=== PATIENT | male | born 1940 | race Hispanic/Latino ===

== ENCOUNTER 2016-08-05 15:28 | Inpatient (IN) | payer MEDICAID, MEDICARE ==
[2016-08-05] VITALS (21 sets, daily range): BP systolic 51–128; BP diastolic 26–69
[~2016-08-05] VITALS: Ht 162.6 cm; Wt 81.6 kg
[~2016-08-05 15:28] MED LIST: CYANOCOBAL1000 MCG/2 IM; LOPRESSOR25 M1 ORAL; NIACIN100 MG ORAL; PROCRIT10000 UNIT SUBQ; PROPRANOLOL HCL80 M1 ORAL; SYNTHROID50 MCG ORAL; ZYLOPRIM100 MG ORAL; Zemuron 50mg/5ml Inj IV ONE
[2016-08-05] MEDS ORDERED: metroNIDAZOLE 500mg 100 ML IV SCH (15:30)
[2016-08-05] MEDS ORDERED: Ampicillin/Sulbactam Sod 3 GM in NS 110 ML IV SCH (15:30)
[2016-08-05 15:59] LABS: MEAN CORPUSCULAR HEMOGLOBIN 24.7 PG (27.0-31.0); MEAN CORPUSCULAR HGB CONC 29.4 G/DL (32.0-36.0); MEAN CORPUSCULAR VOLUME 84 FL (80-99); MEAN PLATELET VOLUME 6.3 FL (6.5-10.1); PLATELET COUNT 108 K/UL (150-450); RED BLOOD COUNT 2.65 M/UL (4.70-6.10); RED CELL DISTRIBUTION WIDTH 16.9 % (11.6-14.8); WHITE BLOOD COUNT 13.9 K/UL (4.8-10.8)
[2016-08-05] MEDS ORDERED: Ketamine HCl 100mg syr IV ONE (16:00)
[2016-08-05 16:04] LABS: ABG ALLEN TEST POSITIVE; ABG BASE EXCESS -9.9; ABG PCO2 31.2 mmHg (35.0-45.0)
[2016-08-05 16:05] LABS: INR 1.8 (0.9-1.1); PROTHROMBIN TIME 18.8 SEC (9.30-11.50)
[2016-08-05] MEDS ORDERED: DOPamine 400mg/250ml 250 ML IV ONE (16:13)
[2016-08-05 16:18] LABS: TROPONIN I < 0.30 ng/mL (<=0.30)
[2016-08-05 16:19] LABS: ALANINE AMINOTRANSFERASE 5 U/L (3-41); ALBUMIN/GLOBULIN RATIO 0.3 (1.0-2.7); ASPARTATE AMINO TRANSFERASE 10 U/L (5-40); CALCIUM 6.9 mg/dL (8.6-10.2); CARBON DIOXIDE 16 mEQ/L (20-30); CHLORIDE 104 mEQ/L (98-107); CREATININE 6.9 mg/dL (0.7-1.2); HEMOLYSIS 9; LIPASE 15 U/L (< 60); SODIUM 142 mEQ/L (135-145); TOTAL PROTEIN 6.4 g/dL (6.6-8.7)
[2016-08-05 16:22] LABS: REFLEX LACTIC ACID YES OR NO YES
[2016-08-05 16:29] LABS: CKMB 1.8 ng/mL (< 6.7)
[2016-08-05 16:35] LABS: ANION GAP 22 (5-15); POTASSIUM 5.9 mEQ/L (3.4-4.9)
[2016-08-05] MEDS: DOPamine 400mg/250ml 250 ML IV SCH (17:00)
[2016-08-05 17:05] LABS: BILIRUBIN,DIRECT 0.8 mg/dL (0.1-0.3)
[2016-08-05] MEDS ORDERED: Unasyn 3gm Inj ONE (17:30)
[2016-08-05 17:52] LABS: BAND NEUTROPHILS % (MANUAL) 2 % (0-8); BASOPHILS % (MANUAL) 0 % (0-2); EOSINOPHILS % (MANUAL) 0 % (0-3); LYMPHOCYTES % (MANUAL) 9 % (20-45); NEUTROPHILS % (MANUAL) 86 % (45-75); NUCLEATED RED BLOOD CELLS 1 /100 WBC; PLATELET ESTIMATE DECREASED; PLATELET MORPHOLOGY NORMAL; TOTAL CELLS COUNTED 100
[2016-08-05 17:53] LABS: ANISOCYTOSIS 1+; HYPOCHROMASIA 2+
[2016-08-05] MEDS ORDERED: Etomidate 40mg/20ml Inj IV ONE ×2 (18:00→18:30)
[2016-08-05] MEDS ORDERED: SENNA S TABLET1 EAC1 PO (18:28)
[2016-08-05] MEDS ORDERED: MULTIVITAMINS1 EAC2 ORAL (18:28)
[2016-08-05] MEDS ORDERED: MILK OF MA2400 MG/10 ORAL (18:28)
[2016-08-05] MEDS ORDERED: COLACE100 MG ORAL (18:28)
[2016-08-05] MEDS ORDERED: KLOR-CON20 MEQ ORAL (18:28)
[2016-08-05] MEDS ORDERED: CLONIDINE HCL0.1 MG PO (18:28)
[2016-08-05] MEDS ORDERED: FUROSEMIDE20 M1 ORAL (18:28)
[2016-08-05] MEDS ORDERED: FERROUSUL325 M1 PO (18:28)
[2016-08-05] MEDS ORDERED: REMERON15 MG ORAL (18:28)
[2016-08-05] MEDS ORDERED: TYLENOL650 MG/20. ORAL (18:28)
[2016-08-05] MEDS ORDERED: DUONEB 0.5-3(2.53 ML HHN (18:28)
[2016-08-05] MEDS ORDERED: OYSTER SHELL 21 EACH PO (18:28)
[2016-08-05] MEDS ORDERED: PEPCID20 MG ORAL (18:28)
[2016-08-05] MEDS ORDERED: COREG6.25 MG ORAL (18:28)
[2016-08-05] MEDS ORDERED: Albuterol ud Inhalation HHN ONE (18:45)
[2016-08-05] MEDS ORDERED: Zosyn 2.25gm inj ONE (19:11)
[2016-08-05] MEDS: Clindamycin 600mg 50 ML IV SCH (19:14)
[2016-08-05] MEDS ORDERED: LORazepam Inj 2mg/ml 1ml IV ONE (19:15)
[2016-08-05 19:17] LABS: APPEARANCE,URINE SLIGHTLY CLOUDY; KETONES,URINE NEGATIVE (NEGATIVE); LEUKOCYTE ESTERASE ,URINE NEGATIVE (NEGATIVE); NITRITE,URINE NEGATIVE (NEGATIVE); PH,URINE 5 (4.5-8.0); PROTEIN,URINE 1+ (NEGATIVE); UROBILINOGEN,URINE 1 MG/DL (0.0-1.0)
[2016-08-05 19:37] LABS: BACTERIA,URINE FEW /HPF; RBC,URINE 0-2 /HPF (0 - 0); SQUAMOUS EPITHELIAL CELL,UR MANY /LPF (NONE/OCC); WBC,URINE 0-2 /HPF (0 - 0)
[2016-08-05 19:38] LABS: AMORPHOUS SEDIMENT,UR MODERATE /LPF; ICTOTEST NEGATIVE
[2016-08-05 19:44] LABS: CRP QUANT 20.5 mg/dL (< 0.5)
[2016-08-05 19:45] LABS: HEMOLYSIS 3; IRON < 10 ug/dL (59-158); TOTAL IRON BINDING CAPACITY 109 ug/dL (250-400)
[2016-08-05] MEDS: Piperacillin/Tazobactam 2.25 GM in D5W 55 ML IVPB SCH (19:45)
[2016-08-05 19:54] LABS: FERRITIN 204 ng/mL (10-230)
[2016-08-05] MEDS ORDERED: LORazepam Inj 2mg/ml 1ml IV PRN (20:30)
[2016-08-05] MEDS ORDERED: Miralax 17gm pkt ORAL PRN (20:30)
[2016-08-05] MEDS ORDERED: DuoNeb 0.5-3(2.5)mg/3ml neb HHN PRN (20:30)
[2016-08-05 20:39] LABS: ERYTHROCYTE SEDIMENTATION RATE 94 MM/HR (0-20); PATH BLOOD SMEAR/OMC SENT TO PATHOLOGIST
[2016-08-05] MEDS: NovoLOG Insulin Flexpen SUBQ SCH (21:00)
[2016-08-05] MEDS: Iron Sucrose 100 MG in NS 110 ML IVPB SCH (23:42)
[2016-08-05] MEDS ORDERED: Amikacin 0 MG in NS 110 ML IV SCH (23:45)
[2016-08-05] MEDS ORDERED: Vancomycin 1 GM in D5W 275 ML IV SCH (23:45)
[2016-08-05] MEDS ORDERED: Ertapenem 1 GM in NS 55 ML IV SCH (23:45)
[2016-08-06] VITALS (96 sets, daily range): BP systolic 73–130; BP diastolic 33–92
[2016-08-06 00:11] LABS: REFLEX LACTIC ACID YES OR NO YES
--- NOTE | 2016-08-06 00:44 | Emergency Room Report ---
History of Present Illness General Chief Complaint: Dyspnea/Respdistress Source: Medical Record Present Illness HPI Patient is a 75-year-old male who presented after having increased respiratory distress. Patient had gradual onset of symptoms. [facility] Patient noted be hypotensive patient prior history of renal insufficiency as well as congestive heart failure. Patient having increased shortness of breath. Patient was brought in by EMS and was started on supplemental oxygen via mask. The patient was noted to be hypotensive. Allergies: Coded Allergies: HEPARIN (Verified Allergy, Mild, 12/21/14) Patient History Past Medical History: see triage record Reviewed Nursing Documentation: PMH: Agreed, PSxH: Agreed Nursing Documentation-PMH Hx Cardiac Problems: Yes - HF ,A-FIB,CHF, ANEMIA, HYPERLIPIDEMIA, PANCYTOPENIA , AZOTEMIA Hx Hypertension: Yes - CELLULITIS Hx Diabetes: Yes - TYPE 2 Hx Cancer: No Hx Gastrointestinal Problems: Yes - GERD Hx Neurological Problems: No Review of Systems All Other Systems: negative except mentioned in HPI Physical Exam Vital Signs Date Time Temp Pulse Resp B/P Pulse Ox O2 Delivery O2 Flow Rate FiO2 08/05/16 15:04 98.4 172 22 134/76 92 Non-Rebreather 15.0 08/05/16 15:19 100 Sp02 EP Interpretation: normal General Appearance: alert, severe distress, thin, Chronically Ill ENT: normal pharynx, other Neck: full range of motion Respiratory: rhonchi Cardiovascular #1: JVD, tachycardia, irregularly irregular Gastrointestinal: distended Genitourinary: other - right hernia, scrotal swelling, phimosis. Musculoskeletal: swelling Neurologic: normal inspection, alert, motor strength/tone normal Procedures Critical Care Time Critical Care Time Patient had a critical medical condition which untreated could potentially result in life or limb threatening injury. Total critical care time excluding procedures approximately 45 minutes. Central Line Central Line : Consent: Emergent Central Line Lumen: triple Maximal Sterile Barrier Tech: yes cap, yes mask, yes sterile gown, yes sterile gloves, yes large sterile sheet, yes hand hygiene, yes chlorhexidine prep Central Line Postion: internal jugular (R) Anesthesia: local Complications: none Central Line Post Position: sutured, good blood return, position confirmed w / CXR Attempts: One Patient Tolerated: Well Intubation Intubation : Consent: Emergent Time of Intubation: 13:15 Intubation Method: orotracheal Tube Size (cm): 7.5 Medications: Etomidate, Rocuronium Breath Sounds after Intubation: equal Intubation Complications: no complications Post Intubation Xray: Yes Attempts: One Patient Tolerated: Well Complications: None Medical Decision Making Diagnostic Impression: Primary Impression: Respiratory distress Additional Impressions: Septic shock Symptomatic anemia Multiorgan failure ER Course Patient presented for shortness of breath. Differential included but was not limited to anemia, pneumonia, pneumothorax, myocardial infarction, pericardial effusion, congestive heart failure, acidosis. A chest x-ray one view interpreted by me showed adequate endotracheal tube as well as bilateral pleural effusions and cardiomegaly. Right IJ central venous catheter appeared to be placed. There is no evident pneumothorax. The patient was started on IV pressors. Patient was given etomidate and rocuronium and was intubated after require endoscopy x1 with a 7-5 ET tube at [address] Shannon was contacted for urology consult due to patient's phimosis and difficulty the Acevedo catheter placement. Dr. Apodaca was contacted for inpatient management due to complexity of medical condition. Dr. van was contacted for pulmonary consult Labs Test 08/05/16 15:02 08/05/16 15:10 08/05/16 15:30 08/05/16 15:50 White Blood Count 13.9 K/UL (4.8-10.8) Red Blood Count 2.65 M/UL (4.70-6.10) Hemoglobin 7.0 G/DL (14.2-18.0) Hematocrit 22.3 % (42.0-52.0) Mean Corpuscular Volume 84 FL (80-99) Mean Corpuscular Hemoglobin 24.7 PG (27.0-31.0) Mean Corpuscular Hemoglobin Concent 29.4 G/DL (32.0-36.0) Red Cell Distribution Width 16.9 % (11.6-14.8) Platelet Count 108 K/UL (150-450) Mean Platelet Volume 6.3 FL (6.5-10.1) Neutrophils (%) (Auto) % (45.0-75.0) Lymphocytes (%) (Auto) % (20.0-45.0) Monocytes (%) (Auto) % (1.0-10.0) Eosinophils (%) (Auto) % (0.0-3.0) Basophils (%) (Auto) % (0.0-2.0) Differential Total Cells Counted 100 Neutrophils % (Manual) 86 % (45-75) Lymphocytes % (Manual) 9 % (20-45) Monocytes % (Manual) 3 % (1-10) Eosinophils % (Manual) 0 % (0-3) Basophils % (Manual) 0 % (0-2) Band Neutrophils 2 % (0-8) Nucleated Red Blood Cells 1 /100 WBC Platelet Estimate Decreased Platelet Morphology Normal Hypochromasia 2+ Anisocytosis 1+ Prothrombin Time 18.8 SEC (9.30-11.50) Prothromb Time International Ratio 1.8 (0.9-1.1) Activated Partial Thromboplast Time 39 SEC (23-33) Erythrocyte Sedimentation Rate 94 MM/HR (0-20) Reticulocyte Count 0.8 % (0.0-2.0) Iron Level < 10 ug/dL (59-158) Total Iron Binding Capacity 109 ug/dL (250-400) Percent Iron Saturation 9 % (15-50) Unsaturated Iron Binding 99 ug/dL (112-346) Ferritin 204 ng/mL (10-230) C-Reactive Protein, Quantitative 20.5 mg/dL (< 0.5) Vitamin B12 Level 1693 pg/mL (211-946) Sodium Level 142 mEQ/L (135-145) Potassium Level 5.9 mEQ/L (3.4-4.9) Chloride Level 104 mEQ/L (98-107) Carbon Dioxide Level 16 mEQ/L (20-30) Anion Gap 22 (5-15) Blood Urea Nitrogen 103 mg/dL (7-23) Creatinine 6.9 mg/dL (0.7-1.2) Estimat Glomerular Filtration Rate mL/min (>60) Glucose Level 64 mg/dL (74-106) Calcium Level 6.9 mg/dL (8.6-10.2) Total Bilirubin 1.2 mg/dL (0.0-1.2) Direct Bilirubin 0.8 mg/dL (0.1-0.3) Aspartate Amino Transf (AST/SGOT) 10 U/L (5-40) Alanine Aminotransferase (ALT/SGPT) 5 U/L (3-41) Alkaline Phosphatase 102 U/L (40-129) Total Creatine Kinase 71 U/L (38-174) Creatine Kinase MB 1.8 ng/mL (< 6.7) Creatine Kinase MB Relative Index 2.5 Troponin I < 0.30 ng/mL (<=0.30) Pro-B-Type Natriuretic Peptide > 87644 pg/mL (0-450) Total Protein 6.4 g/dL (6.6-8.7) Albumin 1.6 g/dL (3.5-5.2) Globulin 4.8 g/dL Albumin/Globulin Ratio 0.3 (1.0-2.7) Lipase 15 U/L (< 60) Arterial Blood pH 7.312 (7.350-7.450) Arterial Blood Partial Pressure CO2 31.2 mmHg (35.0-45.0) Arterial Blood Partial Pressure O2 464.0 mmHg (75.0-100.0) Arterial Blood HCO3 15.4 mmol/L (22.0-26.0) Arterial Blood Oxygen Saturation 99.9 % (92.0-98.0) Arterial Blood Base Excess -9.9 Sancho Test Positive Test 08/05/16 18:39 08/05/16 23:00 Urine Color Yellow Urine Appearance Slightly cloudy Urine pH 5 (4.5-8.0) Urine Specific [place] 1.015 (1.005-1.035) Urine Protein 1+ (NEGATIVE) Urine Glucose (UA) Negative (NEGATIVE) Urine Ketones Negative (NEGATIVE) Urine Occult Blood Negative (NEGATIVE) Urine Nitrite Negative (NEGATIVE) Urine Bilirubin 1+ (NEGATIVE) Urine Ictotest Negative Urine Urobilinogen 1 MG/DL (0.0-1.0) Urine Leukocyte Esterase Negative (NEGATIVE) Urine RBC 0-2 /HPF (0 - 0) Urine WBC 0-2 /HPF (0 - 0) Urine Squamous Epithelial Cells Many /LPF (NONE/OCC) Urine Amorphous Sediment Moderate /LPF (NONE) Urine Bacteria Few /HPF (NONE) Lactic Acid Level 2.50 mmol/L (0.66-2.22) EKG Diagnostic Results Rate: tachycardiac Rhythm: other - afib rvr ST Segments: no acute changes Rhythm Strip Diag. Results EP Interpretation: yes Rhythm: no ectopy, other - tachycardia Chest X-Ray Diagnostic Results EP Interpretation: Yes Findings: no pneumothorax, no acute cardiopulmonary disease, other - bilateral effusion Number of Views: 1 Last Vital Signs Date Time Temp Pulse Resp B/P Pulse Ox O2 Delivery O2 Flow Rate FiO2 08/05/16 23:30 123 25 30 08/05/16 22:55 93/46 08/05/16 22:15 100 Mechanical Ventilator 08/05/16 20:15 97.1 08/05/16 19:54 15.0 Status: unchanged Disposition: ADMITTED INPATIENT Condition: Serious Referrals: Jose Traore MD (PCP) Luis M Mcfarland Aug 06, 2016 00:44
[2016-08-06] MEDS: Clindamycin 600mg 50 ML IV SCH ×3 (03:06→19:59)
[2016-08-06] MEDS: LORazepam Inj 2mg/ml 1ml IV PRN ×2 (03:34→10:26)
--- NOTE | 2016-08-06 04:29 | Consultation ---
DATE OF CONSULTATION: 08/05/2016 HEMATOLOGY/ONCOLOGY CONSULTATION CONSULTING PHYSICIAN: Milton Gold M.D. REQUESTING PHYSICIAN: Jose Traore M.D. REASON FOR CONSULTATION: Management of thrombocytopenia. IDENTIFICATION DATA: Dear Dr. Jose Traore, The patient is a pleasant 75-year-old male from , presented today to [facility] due to hypertension and . He has a history of bilateral foot dressings in place. He atrial fibrillation, CHF, anemia, cellulitis, hyperthyroidism, , and CKD, and type 2 diabetes mellitus. He was back three years ago possibly for anemia. At this time, Hematology service has been consulted for further evaluation and treatment. PAST MEDICAL HISTORY: As noted above. PAST SURGICAL HISTORY: None noted. MEDICATIONS: Currently on Zosyn, dopamine, and Levophed. ALLERGIES: . SOCIAL HISTORY: No alcohol, tobacco, or illicit drug use. REVIEW OF SYSTEMS: Constitutional: No fever, chills, or night sweats. Skin: No rashes, lumps, or itching. HEENT: No headache or vision changes. Breasts: No lumps, pain, or discharge. Pulmonary: No cough, sputum, or shortness of breath. Cardiovascular: No chest pain, tightness, or palpitations. Gastrointestinal: No nausea, vomiting, or diarrhea. Genitourinary: No dysuria, frequency, or urgency. Musculoskeletal: No joint swelling, muscle pain, or trauma. PHYSICAL EXAMINATION: GENERAL: The patient is in no acute distress. The patient is intubated. . VITAL SIGNS: Temperature 99.3 degrees, pulse 122, respiratory rate 75, blood pressure 92/71, and pulse oximetry 100% on NG-tube. PULMONARY: Decreased breath sounds on tube. CARDIOVASCULAR: Tachycardic. ABDOMEN: Soft, nontender, and nondistended. EXTREMITIES: A 1+ edema. LABORATORY DATA: WBC , hemoglobin 7, hematocrit 27, platelet count 108,000, and neutrophils 86%. BUN 43, creatinine 6.9, calcium 6.9, and 0.8. BNP greater than 70,000. Total protein 6.4. Albumin 1.6. INR is 1.8. ASSESSMENT AND PLAN: 1. Pancytopenia potentially secondary to underlying infection. 2. Anemia secondary to chronic disease. 3. Decreased hemoglobin and hematocrit, rule out gastrointestinal bleed. 4. Hypertension. 5. Chronic kidney disease. 6. Congestive heart failure. 7. Atrial fibrillation. 8. Hyperlipidemia. 9. . 10. . RECOMMENDATIONS: 1. Monitor counts. 2. . 3. Vasopressors as needed. 4. Peripheral smear has been ordered. 5. has been reviewed. 6. Ultrasound of the abdomen to be ordered and completed, as the patient does not have a history completed in prior. 7. Continue at this time. 8. DVT prophylaxis. 9. GI prophylaxis as needed. 10. Antibiotics per ID service. 11. Discussed with staff. Thank you Dr. Jose Traore for this kind referral. Please do not hesitate to contact me if you have any further questions. Milton Gold M.D. DR: KENNEDY JOB#: [id number] CC:
[2016-08-06 04:40] LABS: MEAN CORPUSCULAR HGB CONC 28.6 G/DL (32.0-36.0); MEAN CORPUSCULAR VOLUME 84 FL (80-99); PLATELET COUNT 105 K/UL (150-450); RED BLOOD COUNT 2.39 M/UL (4.70-6.10); RED CELL DISTRIBUTION WIDTH 17.1 % (11.6-14.8); WHITE BLOOD COUNT 13.2 K/UL (4.8-10.8)
--- NOTE | 2016-08-06 04:49 | Consultation ---
DATE OF CONSULTATION: UROLOGY CONSULTATION REASON FOR CONSULTATION: The patient is a 75-year-old male, admitted with sepsis, severe phimosis of the penis, and urinary retention. There is no other history available. PHYSICAL EXAMINATION: VITAL SIGNS: The patient had a pulse of 125 and was intubated. No further history could be obtained. ABDOMEN: Soft and nontender. BACK: No CVA tenderness. GENITOURINARY: The scrotum was enlarged with a right inguinal hernia and severe phimosis of the penis. RECTAL: Small prostate possibly present, although is difficult to tell. At this point, I proceeded with a complicated Acevedo catheter placement. Very difficult to interact the foreskin, he even needed a small hemostat to try to get the tissue apart to deliver the head of the penis and then was able to pass a #16 [place] Cou[place]-Tip Acevedo catheter. Clear urine was obtained. RECOMMENDATIONS: My recommendation for this patient is to continue the Acevedo catheter until he completely recovers, as it is extremely difficult to place the Acevedo catheter and then he may have likely a circumcision down the road and should have repair of the right inguinal hernia or whatever pathology is present that is making his right hemiscrotum swollen. Jeet Talbert DR: BROCK JOB#: [id number] CC:
[2016-08-06] MEDS: NovoLOG Insulin Flexpen SUBQ SCH ×4 (06:16→21:00)
[2016-08-06 07:00] LABS: ALANINE AMINOTRANSFERASE 5 U/L (3-41); ALBUMIN/GLOBULIN RATIO 0.3 (1.0-2.7); ANION GAP 21 (5-15); ASPARTATE AMINO TRANSFERASE 12 U/L (5-40); BILIRUBIN,DIRECT 0.9 mg/dL (0.1-0.3); CALCIUM 6.4 mg/dL (8.6-10.2); CARBON DIOXIDE 15 mEQ/L (20-30); CHLORIDE 104 mEQ/L (98-107); CREATININE 6.9 mg/dL (0.7-1.2); HEMOLYSIS 38; POTASSIUM 5.8 mEQ/L (3.4-4.9); SODIUM 140 mEQ/L (135-145); TOTAL PROTEIN 5.7 g/dL (6.6-8.7)
[2016-08-06 07:35] LABS: ANISOCYTOSIS 2+; BAND NEUTROPHILS % (MANUAL) 5 % (0-8); BASOPHILS % (MANUAL) 0 % (0-2); EOSINOPHILS % (MANUAL) 0 % (0-3); LYMPHOCYTES % (MANUAL) 14 % (20-45); NEUTROPHILS % (MANUAL) 68 % (45-75); PLATELET ESTIMATE DECREASED; TOTAL CELLS COUNTED 100
[2016-08-06 07:36] LABS: HYPOCHROMASIA 1+; PLATELET MORPHOLOGY NORMAL
[2016-08-06] MEDS: Piperacillin/Tazobactam 2.25 GM in D5W 55 ML IVPB SCH ×3 (08:18→22:05)
[2016-08-06 09:45] LABS: ABG ALLEN TEST POSITIVE; ABG BASE EXCESS -8.9
--- NOTE | 2016-08-06 10:51 | Pulmonolgy Critical Care Note ---
Critical Care - Asmt/Plan Problems: (1) Respiratory distress (2) Multiorgan failure (3) Septic shock (4) Symptomatic anemia (5) DM (diabetes mellitus) Respiratory: monitor respiratory rate, adjust FIO2, CXR Cardiac: continue pressors, continue to monitor HR/BP Renal: F/U I&O, keep IV fluid, check electrolytes Infectious Disease: check cultures, continue antibiotics Gastrointestinal: continue feedings/current rate Endocrine: monitor blood sugar, check TSH, check HgA1C, continue sliding scale insulin Hematologic: monitor H/H, transfuse if hgb<8.5 Neurologic: PRN Morphine, keep patient comfortable Affect: PRN ativan Prophylaxis: Protonix, Heparin Notes Reviewed: renal Discussed with: nurses, consultants, family independence case manager, family member Critical Care - Objective Last 24 Hour Vital Signs Date Time Temp Pulse Resp B/P Pulse Ox O2 Delivery O2 Flow Rate FiO2 08/06/16 09:19 99.9 08/06/16 09:16 128 34 30 08/06/16 08:47 93/52 08/06/16 08:00 30 08/06/16 08:00 129 08/06/16 07:01 130 25 30 08/06/16 06:45 122 24 105/39 100 Mechanical Ventilator 30 08/06/16 06:30 126 24 105/39 100 Mechanical Ventilator 30 08/06/16 06:15 127 24 102/38 100 Mechanical Ventilator 30 08/06/16 06:00 127 25 101/39 100 Mechanical Ventilator 30 08/06/16 05:45 127 25 105/37 100 Mechanical Ventilator 30 08/06/16 05:30 127 25 107/55 100 Mechanical Ventilator 30 08/06/16 05:29 111 26 30 08/06/16 05:15 124 25 107/55 100 Mechanical Ventilator 30 08/06/16 05:00 126 25 90/36 100 Mechanical Ventilator 30 08/06/16 04:45 126 25 109/66 98 Mechanical Ventilator 30 08/06/16 04:30 127 25 130/92 98 Mechanical Ventilator 30 08/06/16 04:15 121 26 130/92 98 Mechanical Ventilator 30 08/06/16 04:00 132 25 109/43 98 Mechanical Ventilator 30 08/06/16 04:00 30 08/06/16 04:00 121 08/06/16 03:51 69/36 08/06/16 03:45 115 25 73/36 98 Mechanical Ventilator 30 08/06/16 03:30 125 26 111/39 98 Mechanical Ventilator 30 08/06/16 03:15 126 26 111/39 95 Mechanical Ventilator 30 08/06/16 03:03 114 36 30 08/06/16 03:00 123 26 94/57 95 Mechanical Ventilator 30 08/06/16 02:45 121 24 107/48 94 Mechanical Ventilator 30 08/06/16 02:30 117 24 106/47 94 Mechanical Ventilator 30 08/06/16 02:15 121 23 102/50 100 Mechanical Ventilator 30 08/06/16 02:00 122 23 102/45 100 Mechanical Ventilator 30 08/06/16 01:45 116 25 117/65 100 Mechanical Ventilator 30 08/06/16 01:30 114 25 103/45 100 Mechanical Ventilator 30 08/06/16 01:15 114 25 103/45 100 Mechanical Ventilator 30 08/06/16 01:13 118 25 30 08/06/16 01:00 113 24 102/49 100 Mechanical Ventilator 30 08/06/16 00:45 126 24 100/46 100 Mechanical Ventilator 30 08/06/16 00:30 115 24 100/40 100 Mechanical Ventilator 30 08/06/16 00:15 115 24 101/51 99 Mechanical Ventilator 30 08/06/16 00:00 132 08/06/16 00:00 30 08/06/16 00:00 117 24 89/46 99 Mechanical Ventilator 30 08/05/16 23:45 118 23 96/60 100 Mechanical Ventilator 30 08/05/16 23:30 123 25 30 08/05/16 23:30 121 24 96/46 100 Mechanical Ventilator 30 08/05/16 23:15 124 24 128/60 100 Mechanical Ventilator 30 08/05/16 23:00 108 23 51/34 100 Mechanical Ventilator 30 08/05/16 22:55 93/46 08/05/16 22:45 130 22 56/26 100 Mechanical Ventilator 30 08/05/16 22:30 133 24 89/46 100 Mechanical Ventilator 30 08/05/16 22:15 125 24 89/46 100 Mechanical Ventilator 30 08/05/16 22:00 141 24 100/69 100 Mechanical Ventilator 30 08/05/16 21:45 130 24 100/69 100 Mechanical Ventilator 30 08/05/16 21:30 130 24 100/69 100 Mechanical Ventilator 30 08/05/16 21:15 130 24 114/42 100 Mechanical Ventilator 30 08/05/16 21:06 127 25 30 08/05/16 21:00 133 24 93/40 100 Mechanical Ventilator 30 08/05/16 20:45 140 25 120/49 100 Mechanical Ventilator 30 08/05/16 20:30 130 08/05/16 20:30 30 08/05/16 20:30 129 25 82/49 100 Mechanical Ventilator 30 08/05/16 20:15 97.1 120 25 92/45 100 Mechanical Ventilator 30 08/05/16 19:54 99.2 120 26 119/47 100 Endotracheal Tube 15.0 30 08/05/16 19:19 99.2 120 26 119/47 100 Endotracheal Tube 30 08/05/16 19:14 115 31 100 Endotracheal Tube 75 08/05/16 19:13 75 08/05/16 19:11 115 31 30 08/05/16 19:00 118 25 100 Endotracheal Tube 30 08/05/16 19:00 99.2 122 25 92/49 100 Endotracheal Tube 100 08/05/16 18:31 74/46 08/05/16 17:22 99/60 08/05/16 17:06 141 25 100 08/05/16 17:00 83/53 08/05/16 16:44 99.2 168 24 112/63 96 Endotracheal Tube 100 08/05/16 16:20 99.2 113 20 55/32 94 Endotracheal Tube 100 08/05/16 15:50 98.4 149 25 92/45 96 Endotracheal Tube 100 08/05/16 15:43 141 20 Endotracheal Tube 100 08/05/16 15:40 100 08/05/16 15:39 98.4 141 20 93/38 94 Endotracheal Tube 100 08/05/16 15:19 131 20 100 08/05/16 15:19 131 20 Mechanical Ventilator 100 08/05/16 15:04 98.4 172 22 134/76 92 Non-Rebreather 15.0 Status: sedated Condition: critical HEENT: atraumatic, normocephalic Lungs: clear, chest wall tender Heart: HR/BP stable, HR/BP unstable Abdomen: soft, non-tender, active bowel sounds Extremities: no C/C/E, edema Decubiti: location Micro: Microbiology Date/Time Source Procedure Growth Status 08/05/16 15:30 Blood Blood Culture - Preliminary Resulted 2/19/17 15:02 Blood Blood Culture - Preliminary Resulted Accucheck: 97 Critical Care - Subjective ICU Day: 1 Intubation Day: 1 Interval Events: 75-year-old male with hx of CHF, DM,presented to ER with CC of dyspnea and hypotension. Patient was intubated in ER and was started on Levophed drip for hypotension. Pt was transferred to ICU for further care. FI02: 30 Vent Support Breath Rate: 20 Vent Support Mode: AC Vent Tidal Volume: 500 Sputum Amount: Scant PEEP: 0.0 PIP: 40 Fluids: Ns Drips: levophed, I&O: Intake and Output 08/05/16 08/06/16 19:00 07:00 Intake Total 1455.32 ml Output Total 330 ml Balance 1125.32 ml Intake IV Total 1455.32 ml Other 0 ml Output Urine Total 330 ml # Voids 1 CXR: ET in good position cardiomegaly, right pleural effusion ET-Tube: 7.5 ET Position: 23 Labs: Laboratory Tests Test 08/05/16 15:02 08/05/16 15:10 08/05/16 15:30 08/05/16 15:50 White Blood Count 13.9 K/UL (4.8-10.8) H Red Blood Count 2.65 M/UL (4.70-6.10) L Hemoglobin 7.0 G/DL (14.2-18.0) L Hematocrit 22.3 % (42.0-52.0) L Mean Corpuscular Volume 84 FL (80-99) Mean Corpuscular Hemoglobin 24.7 PG (27.0-31.0) L Mean Corpuscular Hemoglobin Concent 29.4 G/DL (32.0-36.0) L Red Cell Distribution Width 16.9 % (11.6-14.8) H Platelet Count 108 K/UL (150-450) L Mean Platelet Volume 6.3 FL (6.5-10.1) L Neutrophils (%) (Auto) % (45.0-75.0) Lymphocytes (%) (Auto) % (20.0-45.0) Monocytes (%) (Auto) % (1.0-10.0) Eosinophils (%) (Auto) % (0.0-3.0) Basophils (%) (Auto) % (0.0-2.0) Differential Total Cells Counted 100 Neutrophils % (Manual) 86 % (45-75) H Lymphocytes % (Manual) 9 % (20-45) L Monocytes % (Manual) 3 % (1-10) Eosinophils % (Manual) 0 % (0-3) Basophils % (Manual) 0 % (0-2) Band Neutrophils 2 % (0-8) Nucleated Red Blood Cells 1 /100 WBC Platelet Estimate Decreased L Platelet Morphology Normal Hypochromasia 2+ Anisocytosis 1+ Prothrombin Time 18.8 SEC (9.30-11.50) H Prothromb Time International Ratio 1.8 (0.9-1.1) H Activated Partial Thromboplast Time 39 SEC (23-33) H Erythrocyte Sedimentation Rate 94 MM/HR (0-20) H Reticulocyte Count 0.8 % (0.0-2.0) Iron Level < 10 ug/dL (59-158) L Total Iron Binding Capacity 109 ug/dL (250-400) L Percent Iron Saturation 9 % (15-50) L Unsaturated Iron Binding 99 ug/dL (112-346) L Ferritin 204 ng/mL (10-230) C-Reactive Protein, Quantitative 20.5 mg/dL (< 0.5) H Vitamin B12 Level 1693 pg/mL (211-946) H Sodium Level 142 mEQ/L (135-145) Potassium Level 5.9 mEQ/L (3.4-4.9) H Chloride Level 104 mEQ/L (98-107) Carbon Dioxide Level 16 mEQ/L (20-30) L Anion Gap 22 (5-15) H Blood Urea Nitrogen 103 mg/dL (7-23) H Creatinine 6.9 mg/dL (0.7-1.2) H Estimat Glomerular Filtration Rate mL/min (>60) Glucose Level 64 mg/dL (74-106) L Lactic Acid Level 4.30 mmol/L (0.66-2.22) H Calcium Level 6.9 mg/dL (8.6-10.2) L Total Bilirubin 1.2 mg/dL (0.0-1.2) Direct Bilirubin 0.8 mg/dL (0.1-0.3) H Aspartate Amino Transf (AST/SGOT) 10 U/L (5-40) Alanine Aminotransferase (ALT/SGPT) 5 U/L (3-41) Alkaline Phosphatase 102 U/L (40-129) Total Creatine Kinase 71 U/L (38-174) Creatine Kinase MB 1.8 ng/mL (< 6.7) Creatine Kinase MB Relative Index 2.5 Troponin I < 0.30 ng/mL (<=0.30) Pro-B-Type Natriuretic Peptide > 59252 pg/mL (0-450) H Total Protein 6.4 g/dL (6.6-8.7) L Albumin 1.6 g/dL (3.5-5.2) L Globulin 4.8 g/dL Albumin/Globulin Ratio 0.3 (1.0-2.7) L Lipase 15 U/L (< 60) Arterial Blood pH 7.312 (7.350-7.450) Arterial Blood Partial Pressure CO2 31.2 mmHg (35.0-45.0) L Arterial Blood Partial Pressure O2 464.0 mmHg (75.0-100.0) H Arterial Blood HCO3 15.4 mmol/L (22.0-26.0) L Arterial Blood Oxygen Saturation 99.9 % (92.0-98.0) H Arterial Blood Base Excess -9.9 Sancho Test Positive Test 08/05/16 16:30 08/05/16 18:39 08/05/16 23:00 08/06/16 04:00 Lactic Acid Level 3.50 mmol/L (0.66-2.22) H 2.50 mmol/L (0.66-2.22) H 2.20 mmol/L (0.66-2.22) Urine Color Yellow Urine Appearance Slightly cloudy Urine pH 5 (4.5-8.0) Urine Specific [place] 1.015 (1.005-1.035) Urine Protein 1+ (NEGATIVE) H Urine Glucose (UA) Negative (NEGATIVE) Urine Ketones Negative (NEGATIVE) Urine Occult Blood Negative (NEGATIVE) Urine Nitrite Negative (NEGATIVE) Urine Bilirubin 1+ (NEGATIVE) H Urine Ictotest Negative Urine Urobilinogen 1 MG/DL (0.0-1.0) H Urine Leukocyte Esterase Negative (NEGATIVE) Urine RBC 0-2 /HPF (0 - 0) H Urine WBC 0-2 /HPF (0 - 0) Urine Squamous Epithelial Cells Many /LPF (NONE/OCC) H Urine Amorphous Sediment Moderate /LPF (NONE) H Urine Bacteria Few /HPF (NONE) White Blood Count 13.2 K/UL (4.8-10.8) H Red Blood Count 2.39 M/UL (4.70-6.10) L Hemoglobin 5.7 G/DL (14.2-18.0) *L Hematocrit 20.0 % (42.0-52.0) L Mean Corpuscular Volume 84 FL (80-99) Mean Corpuscular Hemoglobin 24.0 PG (27.0-31.0) L Mean Corpuscular Hemoglobin Concent 28.6 G/DL (32.0-36.0) L Red Cell Distribution Width 17.1 % (11.6-14.8) H Platelet Count 105 K/UL (150-450) L Mean Platelet Volume 8.0 FL (6.5-10.1) Neutrophils (%) (Auto) % (45.0-75.0) Lymphocytes (%) (Auto) % (20.0-45.0) Monocytes (%) (Auto) % (1.0-10.0) Eosinophils (%) (Auto) % (0.0-3.0) Basophils (%) (Auto) % (0.0-2.0) Differential Total Cells Counted 100 Neutrophils % (Manual) 68 % (45-75) Lymphocytes % (Manual) 14 % (20-45) L Monocytes % (Manual) 13 % (1-10) H Eosinophils % (Manual) 0 % (0-3) Basophils % (Manual) 0 % (0-2) Band Neutrophils 5 % (0-8) Platelet Estimate Decreased L Platelet Morphology Normal Hypochromasia 1+ Anisocytosis 2+ Sodium Level 140 mEQ/L (135-145) Potassium Level 5.8 mEQ/L (3.4-4.9) H Chloride Level 104 mEQ/L (98-107) Carbon Dioxide Level 15 mEQ/L (20-30) L Anion Gap 21 (5-15) H Blood Urea Nitrogen 101 mg/dL (7-23) H Creatinine 6.9 mg/dL (0.7-1.2) H Estimat Glomerular Filtration Rate mL/min (>60) Glucose Level 102 mg/dL (74-106) Calcium Level 6.4 mg/dL (8.6-10.2) L Total Bilirubin 1.3 mg/dL (0.0-1.2) H Direct Bilirubin 0.9 mg/dL (0.1-0.3) H Aspartate Amino Transf (AST/SGOT) 12 U/L (5-40) Alanine Aminotransferase (ALT/SGPT) 5 U/L (3-41) Alkaline Phosphatase 78 U/L (40-129) Total Protein 5.7 g/dL (6.6-8.7) L Albumin 1.6 g/dL (3.5-5.2) L Globulin 4.1 g/dL Albumin/Globulin Ratio 0.3 (1.0-2.7) L Test 08/06/16 09:40 Arterial Blood pH 7.365 (7.350-7.450) Arterial Blood Partial Pressure CO2 28.0 mmHg (35.0-45.0) L Arterial Blood Partial Pressure O2 115.0 mmHg (75.0-100.0) H Arterial Blood HCO3 15.6 mmol/L (22.0-26.0) L Arterial Blood Oxygen Saturation 97.9 % (92.0-98.0) Arterial Blood Base Excess -8.9 Sancho Test Positive ADRIENNE MENDOZA Aug 06, 2016 10:51
[2016-08-06] MEDS ORDERED: Sodium Polystyrene Sulfonate 15gm Powder ORAL ONE (11:00)
--- NOTE | 2016-08-06 11:07 | Diagnostic Imaging Report ---
Indication: Dyspnea Comparison: 12/21/14 A single view chest radiograph was obtained. Findings: Retrocardiac opacification noted. Heart is enlarged. Hazy obscuring of right hemidiaphragm also noted. Right central line and endotracheal tube are satisfactory in position. This Impression: Suspected bilateral pleural effusions. Tubes and lines satisfactory
--- NOTE | 2016-08-06 11:42 | General Progress Note ---
Progress Note Progress Note Patient needs blood transfusions and other procedures. He doesn't have any family member or next of kin and is unable to sing for herself. ADRIENNE MENDOZA Aug 06, 2016 11:42
--- NOTE | 2016-08-06 12:08 | Consultation ---
Consult Note Consult Note Asked toeval for renal failure- Patient is a 75-year-old male who presented after having increased respiratory distress. Patient had gradual onset of symptoms. Patient was sent from skilled nursing. Patient noted be hypotensive patient prior history of renal insufficiency as well as congestive heart failure. Patient having increased shortness of breath. Patient was brought in by EMS and was started on supplemental oxygen via mask. The patient was noted to be hypotensive. Allergies: HEPARIN (Verified Allergy, Mild, 12/21/14) Hx Cardiac Problems: Yes - HF ,A-FIB,CHF, ANEMIA, HYPERLIPIDEMIA, PANCYTOPENIA , AZOTEMIA Hx Hypertension: Yes - CELLULITIS Hx Diabetes: Yes - TYPE 2 Hx Gastrointestinal Problems: Yes - GERD Seen in ICU- On pressors Examined- Data reviewed- Discussed with RN . Assessment/Plan Status; Acute Renal Failure- HyperKalemia Hypotension- Shock on pressors Severe Anemia- Severe HypoAlbuminemia Cellulitis both legs Plan: Transfuse- Hydrate- KayExel[facility]ney KRISTA per orders TYLER PALMER Aug 06, 2016 12:07
--- NOTE | 2016-08-06 14:08 | Urology Progress Note ---
Assessment/Plan Assessment/Plan Patient critically ill. Right groin mass/hernia? moving down into right scrotal sac. Ultrasound did not visualize bladder but due to mass in abdomen not surprised this is difficult. At this time, patient is critically ill, recommend continuing calrk indefinitely. When recovered, consider voiding trial with circumcision. Subjective Date patient seen: Aug 06, 2016 Time patient seen: 14:06 ROS Limited/Unobtainable: Yes Allergies: Coded Allergies: HEPARIN (Verified Allergy, Mild, 12/21/14) Subjective intubated sedated. critically ill, clark is draining. Objective Last 24 Hour Vital Signs Date Time Temp Pulse Resp B/P Pulse Ox O2 Delivery O2 Flow Rate FiO2 08/06/16 13:52 103/56 08/06/16 12:44 108 28 30 08/06/16 12:00 30 08/06/16 12:00 122 08/06/16 11:25 114 30 30 08/06/16 10:30 142 27 93/62 96 Mechanical Ventilator 30 08/06/16 10:15 142 27 109/57 96 Mechanical Ventilator 30 08/06/16 10:00 129 24 106/37 95 Mechanical Ventilator 30 08/06/16 09:45 135 24 113/37 95 Mechanical Ventilator 30 08/06/16 09:30 132 24 108/39 98 Mechanical Ventilator 30 08/06/16 09:19 99.9 08/06/16 09:16 128 34 30 08/06/16 09:15 128 24 98/46 98 Mechanical Ventilator 30 08/06/16 09:00 130 24 109/41 98 Mechanical Ventilator 30 08/06/16 08:47 93/52 08/06/16 08:45 128 25 90/45 100 Mechanical Ventilator 30 08/06/16 08:30 128 25 90/50 100 Mechanical Ventilator 30 08/06/16 08:15 130 25 92/50 100 Mechanical Ventilator 30 08/06/16 08:00 132 25 90/46 100 Mechanical Ventilator 30 08/06/16 08:00 30 08/06/16 08:00 129 08/06/16 07:45 135 25 107/55 100 Mechanical Ventilator 30 08/06/16 07:30 134 25 90/47 100 Mechanical Ventilator 30 08/06/16 07:15 133 25 107/54 100 Mechanical Ventilator 30 08/06/16 07:01 130 25 30 08/06/16 07:00 100.5 130 24 88/47 100 Mechanical Ventilator 30 08/06/16 06:45 122 24 105/39 100 Mechanical Ventilator 30 08/06/16 06:30 126 24 105/39 100 Mechanical Ventilator 30 08/06/16 06:15 127 24 102/38 100 Mechanical Ventilator 30 08/06/16 06:00 127 25 101/39 100 Mechanical Ventilator 30 08/06/16 05:45 127 25 105/37 100 Mechanical Ventilator 30 08/06/16 05:30 127 25 107/55 100 Mechanical Ventilator 30 08/06/16 05:29 111 26 30 08/06/16 05:15 124 25 107/55 100 Mechanical Ventilator 30 08/06/16 05:00 126 25 90/36 100 Mechanical Ventilator 30 08/06/16 04:45 126 25 109/66 98 Mechanical Ventilator 30 08/06/16 04:30 127 25 130/92 98 Mechanical Ventilator 30 08/06/16 04:15 121 26 130/92 98 Mechanical Ventilator 30 08/06/16 04:00 132 25 109/43 98 Mechanical Ventilator 30 08/06/16 04:00 30 08/06/16 04:00 121 08/06/16 03:51 69/36 08/06/16 03:45 115 25 73/36 98 Mechanical Ventilator 30 08/06/16 03:30 125 26 111/39 98 Mechanical Ventilator 30 08/06/16 03:15 126 26 111/39 95 Mechanical Ventilator 30 08/06/16 03:03 114 36 30 08/06/16 03:00 123 26 94/57 95 Mechanical Ventilator 30 08/06/16 02:45 121 24 107/48 94 Mechanical Ventilator 30 08/06/16 02:30 117 24 106/47 94 Mechanical Ventilator 30 08/06/16 02:15 121 23 102/50 100 Mechanical Ventilator 30 08/06/16 02:00 122 23 102/45 100 Mechanical Ventilator 30 08/06/16 01:45 116 25 117/65 100 Mechanical Ventilator 30 08/06/16 01:30 114 25 103/45 100 Mechanical Ventilator 30 08/06/16 01:15 114 25 103/45 100 Mechanical Ventilator 30 08/06/16 01:13 118 25 30 08/06/16 01:00 113 24 102/49 100 Mechanical Ventilator 30 08/06/16 00:45 126 24 100/46 100 Mechanical Ventilator 30 08/06/16 00:30 115 24 100/40 100 Mechanical Ventilator 30 08/06/16 00:15 115 24 101/51 99 Mechanical Ventilator 30 08/06/16 00:00 132 08/06/16 00:00 30 08/06/16 00:00 117 24 89/46 99 Mechanical Ventilator 30 08/05/16 23:45 118 23 96/60 100 Mechanical Ventilator 30 08/05/16 23:30 123 25 30 08/05/16 23:30 121 24 96/46 100 Mechanical Ventilator 30 08/05/16 23:15 124 24 128/60 100 Mechanical Ventilator 30 08/05/16 23:00 108 23 51/34 100 Mechanical Ventilator 30 08/05/16 22:55 93/46 08/05/16 22:45 130 22 56/26 100 Mechanical Ventilator 30 08/05/16 22:30 133 24 89/46 100 Mechanical Ventilator 30 08/05/16 22:15 125 24 89/46 100 Mechanical Ventilator 30 08/05/16 22:00 141 24 100/69 100 Mechanical Ventilator 30 08/05/16 21:45 130 24 100/69 100 Mechanical Ventilator 30 08/05/16 21:30 130 24 100/69 100 Mechanical Ventilator 30 08/05/16 21:15 130 24 114/42 100 Mechanical Ventilator 30 08/05/16 21:06 127 25 30 08/05/16 21:00 133 24 93/40 100 Mechanical Ventilator 30 08/05/16 20:45 140 25 120/49 100 Mechanical Ventilator 30 08/05/16 20:30 130 08/05/16 20:30 30 08/05/16 20:30 129 25 82/49 100 Mechanical Ventilator 30 08/05/16 20:15 97.1 120 25 92/45 100 Mechanical Ventilator 30 08/05/16 19:54 99.2 120 26 119/47 100 Endotracheal Tube 15.0 30 08/05/16 19:19 99.2 120 26 119/47 100 Endotracheal Tube 30 08/05/16 19:14 115 31 100 Endotracheal Tube 75 08/05/16 19:13 75 08/05/16 19:11 115 31 30 08/05/16 19:00 118 25 100 Endotracheal Tube 30 08/05/16 19:00 99.2 122 25 92/49 100 Endotracheal Tube 100 08/05/16 18:31 74/46 08/05/16 17:22 99/60 08/05/16 17:06 141 25 100 08/05/16 17:00 83/53 08/05/16 16:44 99.2 168 24 112/63 96 Endotracheal Tube 100 08/05/16 16:20 99.2 113 20 55/32 94 Endotracheal Tube 100 08/05/16 15:50 98.4 149 25 92/45 96 Endotracheal Tube 100 08/05/16 15:43 141 20 Endotracheal Tube 100 08/05/16 15:40 100 08/05/16 15:39 98.4 141 20 93/38 94 Endotracheal Tube 100 08/05/16 15:19 131 20 100 08/05/16 15:19 131 20 Mechanical Ventilator 100 08/05/16 15:04 98.4 172 22 134/76 92 Non-Rebreather 15.0 Intake and Output 08/05/16 08/06/16 19:00 07:00 Intake Total 1455.32 ml Output Total 330 ml Balance 1125.32 ml Intake IV Total 1455.32 ml Other 0 ml Output Urine Total 330 ml # Voids 1 Laboratory Tests 08/05/16 15:02: White Blood Count 13.9H, Red Blood Count 2.65L, Hemoglobin 7.0L, Hematocrit 22.3L, Mean Corpuscular Volume 84, Mean Corpuscular Hemoglobin 24.7L, Mean Corpuscular Hemoglobin Concent 29.4L, Red Cell Distribution Width 16.9H, Platelet Count 108L, Mean Platelet Volume 6.3L, Neutrophils (%) (Auto) , Lymphocytes (%) (Auto) , Monocytes (%) (Auto) , Eosinophils (%) (Auto) , Basophils (%) (Auto) , Differential Total Cells Counted 100, Neutrophils % ( Manual) 86H, Lymphocytes % (Manual) 9L, Monocytes % (Manual) 3, Eosinophils % ( Manual) 0, Basophils % (Manual) 0, Band Neutrophils 2, Nucleated Red Blood Cells 1, Platelet Estimate DecreasedL, Platelet Morphology Normal, Hypochromasia 2+, Anisocytosis 1+, Prothrombin Time 18.8H, Prothromb Time International Ratio 1.8H, Activated Partial Thromboplast Time 39H 08/05/16 15:10: Erythrocyte Sedimentation Rate 94H, Reticulocyte Count 0.8, Iron Level < 10L, Total Iron Binding Capacity 109L, Percent Iron Saturation 9L, Unsaturated Iron Binding 99L, Ferritin 204, C-Reactive Protein, Quantitative 20.5H, Vitamin B12 Level 1693H 08/05/16 15:30: Sodium Level 142, Potassium Level 5.9H, Chloride Level 104, Carbon Dioxide Level 16L, Anion Gap 22H, Blood Urea Nitrogen 103H, Creatinine 6.9H, Estimat Glomerular Filtration Rate , Glucose Level 64L, Lactic Acid Level 4.30H, Calcium Level 6.9L, Total Bilirubin 1.2, Direct Bilirubin 0.8H, Aspartate Amino Transf (AST/SGOT) 10, Alanine Aminotransferase (ALT/SGPT) 5, Alkaline Phosphatase 102, Total Creatine Kinase 71, Creatine Kinase MB 1.8, Creatine Kinase MB Relative Index 2.5, Troponin I < 0.30, Pro-B-Type Natriuretic Peptide > 57991W, Total Protein 6.4L, Albumin 1.6L, Globulin 4.8, Albumin/Globulin Ratio 0.3L, Lipase 15 08/05/16 15:50: Arterial Blood pH 7.312L, Arterial Blood Partial Pressure CO2 31.2L, Arterial Blood Partial Pressure O2 464.0H, Arterial Blood HCO3 15.4L, Arterial Blood Oxygen Saturation 99.9H, Arterial Blood Base Excess -9.9, Sancho Test Positive 08/05/16 16:30: Lactic Acid Level 3.50H 08/05/16 18:39: Urine Color Yellow, Urine Appearance Slightly cloudy, Urine pH 5, Urine Specific [place] 1.015, Urine Protein 1+H, Urine Glucose (UA) Negative, Urine Ketones Negative, Urine Occult Blood Negative, Urine Nitrite Negative, Urine Bilirubin 1+H, Urine Ictotest Negative, Urine Urobilinogen 1H, Urine Leukocyte Esterase Negative, Urine RBC 0-2H, Urine WBC 0-2, Urine Squamous Epithelial Cells ManyH, Urine Amorphous Sediment ModerateH, Urine Bacteria Few 08/05/16 23:00: Lactic Acid Level 2.50H 08/06/16 04:00: Lactic Acid Level 2.20, White Blood Count 13.2H, Red Blood Count 2.39L, Hemoglobin 5.7*L, Hematocrit 20.0L, Mean Corpuscular Volume 84, Mean Corpuscular Hemoglobin 24.0L, Mean Corpuscular Hemoglobin Concent 28.6L, Red Cell Distribution Width 17.1H, Platelet Count 105L, Mean Platelet Volume 8.0, Neutrophils (%) (Auto) , Lymphocytes (%) (Auto) , Monocytes (%) (Auto) , Eosinophils (%) (Auto) , Basophils (%) (Auto) , Differential Total Cells Counted 100, Neutrophils % (Manual) 68, Lymphocytes % (Manual) 14L, Monocytes % (Manual) 13H, Eosinophils % (Manual) 0, Basophils % (Manual) 0, Band Neutrophils 5, Platelet Estimate DecreasedL, Platelet Morphology Normal, Hypochromasia 1+, Anisocytosis 2+, Sodium Level 140, Potassium Level 5.8H, Chloride Level 104, Carbon Dioxide Level 15L, Anion Gap 21H, Blood Urea Nitrogen 101H, Creatinine 6.9H, Estimat Glomerular Filtration Rate , Glucose Level 102, Calcium Level 6.4L, Total Bilirubin 1.3H, Direct Bilirubin 0.9H, Aspartate Amino Transf (AST/SGOT) 12, Alanine Aminotransferase (ALT/SGPT) 5, Alkaline Phosphatase 78, Total Protein 5.7L, Albumin 1.6L, Globulin 4.1, Albumin /Globulin Ratio 0.3L 08/06/16 09:40: Arterial Blood pH 7.365, Arterial Blood Partial Pressure CO2 28.0L, Arterial Blood Partial Pressure O2 115.0H, Arterial Blood HCO3 15.6L, Arterial Blood Oxygen Saturation 97.9, Arterial Blood Base Excess -8.9, Sancho Test Positive Height (Feet): 5 Height (Inches): 4.00 Weight (Pounds): 180 Genitourinary/Rectal: other All Alvarado M.D. Aug 06, 2016 14:08
--- NOTE | 2016-08-06 15:42 | Cardiology Report ---
APPROVED REPORT EXAM: Two-dimensional and M-mode echocardiogram with Doppler and color Doppler. INDICATION Left Ventricular Function M-Mode DIMENSIONS IVSd.7 (0.7-1.1cm)Left Atrium (MM)5.3 (1.6-4.0cm) LVDd5.5 (3.5-5.6cm)Aortic Root2.9 (2.0-3.7cm) PWd.8 (0.7-1.1cm)Aortic Cusp Exc.1.9 (1.5-2.0cm) LVDs3.4 (2.5-4.0cm) PWs1.0 cm Normal left ventricular chamber size. Anteroseptal, septal and inferoseptal wall akinesia, left ventricular ejection fraction is estimated to be 30-35 %. No evidence of ventricular hypertrophy. No evidence of pericardial fat or effusion. Large pleural effusion. Mild right ventricular enlargement with right ventricular volume and pressure overload. Severe right atrial enlargement. Moderate left atrial enlargement. Mild focal aortic valve sclerosis with adequate cusp excursion. Mildly thickened mitral valve leaflets with normal excursion. Mild mitral annulus and aortic root calcification. Pulmonic valve not well visualized. Normal tricuspid valve structure. IVC dilated at 3.0 cm without physiologic collapse, estimated RAP is 20 mmHg. A color flow and spectral Doppler study was performed and revealed: Mild aortic regurgitation. Severe mitral regurgitation. Mitral inflow velocities cannot be assessed due to atrial fibrillation. Severe tricuspid regurgitation. Tricuspid systolic velocities suggests peak right ventricular systolic pressure of 80 mmHg, consistant with severe pulmonary hypertension. No pulmonic regurgitation present.
--- NOTE | 2016-08-06 16:01 | Wound Care Consultation ---
Wound Assessment Wound Assessment #1: Wound Present on Admission: Yes New Wound: No Status Change of Wound: No Wound Location Body Site Modif: left Wound Location Body Site: trochanter Wound Type: pressure ulcer Russ Test: Does not Russ Pressure Ulcer Stage: IV/unstageable Wound Thickness: Full Thickness Wound Length: 11.0 Wound Width: 11.0 Wound Depth: utd Percent of Wound Black/Brown: 80 Percent of Wound Purple/Maroon: 20 Wound Drainage Description: Serosanguineous Wound Drainage Amount: Scant Wound Drainage Odor: None/Absent Tissue Surrounding Wound: Macerated Wound General Appearance: Blackened Wound Assessment #2: Wound Number: #2 Wound Present on Admission: Yes New Wound: No Status Change of Wound: No Wound Location Body Site Modif: mid Wound Location Body Site: sacral Wound Type: pressure ulcer Russ Test: Does not Russ Pressure Ulcer Stage: deep tissue injury Wound Thickness: Full Thickness Wound Length: 3.5 Wound Width: 6.0 Wound Depth: utd Percent of Wound Purple/Maroon: 100 Wound Drainage Amount: None Wound Drainage Odor: None/Absent Tissue Surrounding Wound: Erythemic Wound General Appearance: Reddened Wound Assessment #3: Wound Number: #3 Wound Present on Admission: Yes New Wound: No Status Change of Wound: No Wound Location Body Site Modif: right Wound Location Body Site: buttocks Russ Test: Does not Russ Pressure Ulcer Stage: III Wound Thickness: Full Thickness Wound Length: 1.0 Wound Width: 0.5 Wound Depth: 0.3 Percent of Wound [place]/Red: 100 Wound Drainage Description: Serosanguineous Wound Drainage Amount: Scant Wound Drainage Odor: None/Absent Tissue Surrounding Wound: Erythemic Wound General Appearance: Reddened Wound Assessment #4: Wound Number: #4 Wound Present on Admission: Yes New Wound: No Status Change of Wound: No Wound Location Body Site Modif: right, medial Wound Location Body Site: foot Wound Type: pressure ulcer Russ Test: Does not Russ Pressure Ulcer Stage: IV/unstageable Wound Thickness: Full Thickness Wound Length: 2.5 Wound Width: 2.5 Wound Depth: utd Percent of Wound Bed Yellow/Wh: 50 Percent of Wound Black/Brown: 50 Wound Drainage Description: Serosanguineous Wound Drainage Amount: Moderate Wound Drainage Odor: None/Absent Tissue Surrounding Wound: Macerated Wound General Appearance: Draining Wound Assessment #5: Wound Present on Admission: Yes New Wound: No Status Change of Wound: No Wound Location Body Site Modif: left, right, lower Wound Location Body Site: leg Wound Type: other - dry flaky and hyperpigmented skin Russ Test: Does not Russ Wound Drainage Amount: None Wound Drainage Odor: None/Absent Tissue Surrounding Wound: dry Wound General Appearance: Asymptomatic Wound Assessment #6: Wound Number: #6 Wound Present on Admission: Yes New Wound: No Status Change of Wound: No Wound Location Body Site Modif: right Wound Location Body Site: breast fold Wound Type: other - intertigo Russ Test: Does not Russ Wound Thickness: Partial Thickness Wound Drainage Amount: None Wound Drainage Odor: None/Absent Tissue Surrounding Wound: Erythemic Wound General Appearance: Reddened Wound Assessment #7: Wound Number: #7 Wound Present on Admission: Yes New Wound: No Status Change of Wound: No Wound Location Body Site Modif: mid Wound Location Body Site: abdominal fold Wound Type: other - intertigo Russ Test: Does not Russ Wound Thickness: Partial Thickness Wound Drainage Amount: None Wound Drainage Odor: None/Absent Tissue Surrounding Wound: Erythemic Wound General Appearance: Reddened Wound Assessment #8: Wound Number: #8 Wound Present on Admission: Yes New Wound: No Status Change of Wound: No Wound Location Body Site Modif: left, right Wound Location Body Site: thigh Wound Type: ecchymosis - multiple Russ Test: Does not Russ Percent of Wound [place]/Red: 50 Percent of Wound Purple/Maroon: 50 Wound Drainage Amount: None Wound Drainage Odor: None/Absent Tissue Surrounding Wound: Erythemic Wound General Appearance: Reddened Wound Comment #1 Sacral DTI pressure ulcer #2 Right buttock stage III pressure ulcer #3 Left trochanter IV/unstageable pressure ulcer #4 Right medial foot IV/unstageable pressure ulcer #5 Abdominal fold intertrigo #6 Breast fold intertrigo #7 Right and left lower legs dry skin with hyperpigmentation #8 Left and right thighs with multiple discolorations Recommendation -Keep clean and dry -Turn and reposition -Optimize nutrition -Low air loss mattress with AP -Offload both heels -Local wound care as ordered -Assess and f/u accordingly for any changes GIOVANNA GEORGE RN Aug 06, 2016 16:01
[2016-08-06] MEDS: DOPamine 400mg/250ml 250 ML IV SCH (16:45)
--- NOTE | 2016-08-06 16:47 | Infectious Diseases Prog Note ---
Assessment/Plan Problems: (1) Septic shock Assessment & Plan: with gram negative rods, source could be his right ankle wound infection, will continue zosyn and add levaquin for double coverage, until further identification is done (2) Multiorgan failure Assessment & Plan: due to septic shock, continue hydration and pressors to keep SBP >100 (3) STORM (acute kidney injury) Assessment & Plan: with azotemia, avoid nephrotoxic meds, may need HD when hemodynamically stable, monitor UOP, renal is following (4) Anemia Assessment & Plan: monitor H/H transfuse blood as needed, need to rule out GI source. (5) DM (diabetes mellitus) Assessment & Plan: recommend tight glycemic control to keep BG between 80-120 (6) Open wound of right ankle with complication Assessment & Plan: needs to rule out osteomyelitis, will obtain x ray of the ankle for now, need bone scan once hemodynamically stable Subjective Allergies: Coded Allergies: HEPARIN (Verified Allergy, Mild, 12/21/14) Objective Vital Signs Last 24 Hour Vital Signs Date Time Temp Pulse Resp B/P Pulse Ox O2 Delivery O2 Flow Rate FiO2 08/06/16 15:43 110 27 30 08/06/16 15:00 114 26 92/44 100 Mechanical Ventilator 30 08/06/16 14:45 116 22 119/59 100 Mechanical Ventilator 30 08/06/16 14:30 116 22 106/57 100 Mechanical Ventilator 30 08/06/16 14:15 99.6 114 26 110/48 100 Mechanical Ventilator 30 08/06/16 14:00 110 26 111/48 98 Mechanical Ventilator 30 08/06/16 13:52 103/56 08/06/16 13:45 111 23 95/36 98 Mechanical Ventilator 30 08/06/16 13:30 105 23 90/33 99 Mechanical Ventilator 30 08/06/16 13:15 117 23 104/51 98 Mechanical Ventilator 30 08/06/16 13:00 120 23 99/44 98 Mechanical Ventilator 30 08/06/16 12:45 123 23 99/41 98 Mechanical Ventilator 30 08/06/16 12:44 108 28 30 08/06/16 12:30 125 23 116/51 98 Mechanical Ventilator 30 08/06/16 12:15 127 26 101/58 98 Mechanical Ventilator 30 08/06/16 12:00 99.4 131 26 109/55 98 Mechanical Ventilator 30 08/06/16 12:00 30 2/20/17 12:00 122 08/06/16 11:45 131 26 107/39 98 Mechanical Ventilator 30 08/06/16 11:30 134 20 108/40 96 Mechanical Ventilator 30 08/06/16 11:25 114 30 30 08/06/16 11:15 135 23 104/49 98 Mechanical Ventilator 30 08/06/16 11:00 141 23 100/40 98 Mechanical Ventilator 30 08/06/16 10:45 99.9 141 26 95/49 96 Mechanical Ventilator 30 08/06/16 10:30 142 27 93/62 96 Mechanical Ventilator 30 08/06/16 10:15 142 27 109/57 96 Mechanical Ventilator 30 08/06/16 10:00 129 24 106/37 95 Mechanical Ventilator 30 08/06/16 09:45 135 24 113/37 95 Mechanical Ventilator 30 08/06/16 09:30 132 24 108/39 98 Mechanical Ventilator 30 08/06/16 09:19 99.9 08/06/16 09:16 128 34 30 08/06/16 09:15 128 24 98/46 98 Mechanical Ventilator 30 08/06/16 09:00 130 24 109/41 98 Mechanical Ventilator 30 08/06/16 08:47 93/52 08/06/16 08:45 128 25 90/45 100 Mechanical Ventilator 30 08/06/16 08:30 128 25 90/50 100 Mechanical Ventilator 30 08/06/16 08:15 130 25 92/50 100 Mechanical Ventilator 30 08/06/16 08:00 132 25 90/46 100 Mechanical Ventilator 30 08/06/16 08:00 30 08/06/16 08:00 129 08/06/16 07:45 135 25 107/55 100 Mechanical Ventilator 30 08/06/16 07:30 134 25 90/47 100 Mechanical Ventilator 30 08/06/16 07:15 133 25 107/54 100 Mechanical Ventilator 30 08/06/16 07:01 130 25 30 08/06/16 07:00 100.5 130 24 88/47 100 Mechanical Ventilator 30 08/06/16 06:45 122 24 105/39 100 Mechanical Ventilator 30 08/06/16 06:30 126 24 105/39 100 Mechanical Ventilator 30 08/06/16 06:15 127 24 102/38 100 Mechanical Ventilator 30 08/06/16 06:00 127 25 101/39 100 Mechanical Ventilator 30 08/06/16 05:45 127 25 105/37 100 Mechanical Ventilator 30 08/06/16 05:30 127 25 107/55 100 Mechanical Ventilator 30 08/06/16 05:29 111 26 30 08/06/16 05:15 124 25 107/55 100 Mechanical Ventilator 30 08/06/16 05:00 126 25 90/36 100 Mechanical Ventilator 30 08/06/16 04:45 126 25 109/66 98 Mechanical Ventilator 30 08/06/16 04:30 127 25 130/92 98 Mechanical Ventilator 30 08/06/16 04:15 121 26 130/92 98 Mechanical Ventilator 30 08/06/16 04:00 132 25 109/43 98 Mechanical Ventilator 30 08/06/16 04:00 30 08/06/16 04:00 121 08/06/16 03:51 69/36 08/06/16 03:45 115 25 73/36 98 Mechanical Ventilator 30 08/06/16 03:30 125 26 111/39 98 Mechanical Ventilator 30 08/06/16 03:15 126 26 111/39 95 Mechanical Ventilator 30 08/06/16 03:03 114 36 30 08/06/16 03:00 123 26 94/57 95 Mechanical Ventilator 30 08/06/16 02:45 121 24 107/48 94 Mechanical Ventilator 30 08/06/16 02:30 117 24 106/47 94 Mechanical Ventilator 30 08/06/16 02:15 121 23 102/50 100 Mechanical Ventilator 30 08/06/16 02:00 122 23 102/45 100 Mechanical Ventilator 30 08/06/16 01:45 116 25 117/65 100 Mechanical Ventilator 30 08/06/16 01:30 114 25 103/45 100 Mechanical Ventilator 30 08/06/16 01:15 114 25 103/45 100 Mechanical Ventilator 30 08/06/16 01:13 118 25 30 08/06/16 01:00 113 24 102/49 100 Mechanical Ventilator 30 08/06/16 00:45 126 24 100/46 100 Mechanical Ventilator 30 08/06/16 00:30 115 24 100/40 100 Mechanical Ventilator 30 08/06/16 00:15 115 24 101/51 99 Mechanical Ventilator 30 08/06/16 00:00 132 08/06/16 00:00 30 08/06/16 00:00 117 24 89/46 99 Mechanical Ventilator 30 08/05/16 23:45 118 23 96/60 100 Mechanical Ventilator 30 08/05/16 23:30 123 25 30 08/05/16 23:30 121 24 96/46 100 Mechanical Ventilator 30 08/05/16 23:15 124 24 128/60 100 Mechanical Ventilator 30 08/05/16 23:00 108 23 51/34 100 Mechanical Ventilator 30 08/05/16 22:55 93/46 08/05/16 22:45 130 22 56/26 100 Mechanical Ventilator 30 08/05/16 22:30 133 24 89/46 100 Mechanical Ventilator 30 08/05/16 22:15 125 24 89/46 100 Mechanical Ventilator 30 08/05/16 22:00 141 24 100/69 100 Mechanical Ventilator 30 08/05/16 21:45 130 24 100/69 100 Mechanical Ventilator 30 08/05/16 21:30 130 24 100/69 100 Mechanical Ventilator 30 08/05/16 21:15 130 24 114/42 100 Mechanical Ventilator 30 08/05/16 21:06 127 25 30 08/05/16 21:00 133 24 93/40 100 Mechanical Ventilator 30 08/05/16 20:45 140 25 120/49 100 Mechanical Ventilator 30 08/05/16 20:30 130 08/05/16 20:30 30 08/05/16 20:30 129 25 82/49 100 Mechanical Ventilator 30 08/05/16 20:15 97.1 120 25 92/45 100 Mechanical Ventilator 30 08/05/16 19:54 99.2 120 26 119/47 100 Endotracheal Tube 15.0 30 08/05/16 19:19 99.2 120 26 119/47 100 Endotracheal Tube 30 08/05/16 19:14 115 31 100 Endotracheal Tube 75 08/05/16 19:13 75 08/05/16 19:11 115 31 30 08/05/16 19:00 118 25 100 Endotracheal Tube 30 08/05/16 19:00 99.2 122 25 92/49 100 Endotracheal Tube 100 08/05/16 18:31 74/46 08/05/16 17:22 99/60 08/05/16 17:06 141 25 100 08/05/16 17:00 83/53 08/05/16 16:44 99.2 168 24 112/63 96 Endotracheal Tube 100 Height (Feet): 5 Height (Inches): 4.00 Weight (Pounds): 180 Microbiology Date/Time Source Procedure Growth Status 08/05/16 15:30 Blood Blood Culture - Preliminary Resulted 08/05/16 15:02 Blood Blood Culture - Preliminary Resulted Laboratory Tests Test 08/05/16 18:39 08/05/16 23:00 08/06/16 04:00 08/06/16 09:40 Urine Color Yellow Urine Appearance Slightly cloudy Urine pH 5 (4.5-8.0) Urine Specific [place] 1.015 (1.005-1.035) Urine Protein 1+ (NEGATIVE) H Urine Glucose (UA) Negative (NEGATIVE) Urine Ketones Negative (NEGATIVE) Urine Occult Blood Negative (NEGATIVE) Urine Nitrite Negative (NEGATIVE) Urine Bilirubin 1+ (NEGATIVE) H Urine Ictotest Negative Urine Urobilinogen 1 MG/DL (0.0-1.0) H Urine Leukocyte Esterase Negative (NEGATIVE) Urine RBC 0-2 /HPF (0 - 0) H Urine WBC 0-2 /HPF (0 - 0) Urine Squamous Epithelial Cells Many /LPF (NONE/OCC) H Urine Amorphous Sediment Moderate /LPF (NONE) H Urine Bacteria Few /HPF (NONE) Lactic Acid Level 2.50 mmol/L (0.66-2.22) H 2.20 mmol/L (0.66-2.22) White Blood Count 13.2 K/UL (4.8-10.8) H Red Blood Count 2.39 M/UL (4.70-6.10) L Hemoglobin 5.7 G/DL (14.2-18.0) *L Hematocrit 20.0 % (42.0-52.0) L Mean Corpuscular Volume 84 FL (80-99) Mean Corpuscular Hemoglobin 24.0 PG (27.0-31.0) L Mean Corpuscular Hemoglobin Concent 28.6 G/DL (32.0-36.0) L Red Cell Distribution Width 17.1 % (11.6-14.8) H Platelet Count 105 K/UL (150-450) L Mean Platelet Volume 8.0 FL (6.5-10.1) Neutrophils (%) (Auto) % (45.0-75.0) Lymphocytes (%) (Auto) % (20.0-45.0) Monocytes (%) (Auto) % (1.0-10.0) Eosinophils (%) (Auto) % (0.0-3.0) Basophils (%) (Auto) % (0.0-2.0) Differential Total Cells Counted 100 Neutrophils % (Manual) 68 % (45-75) Lymphocytes % (Manual) 14 % (20-45) L Monocytes % (Manual) 13 % (1-10) H Eosinophils % (Manual) 0 % (0-3) Basophils % (Manual) 0 % (0-2) Band Neutrophils 5 % (0-8) Platelet Estimate Decreased L Platelet Morphology Normal Hypochromasia 1+ Anisocytosis 2+ Sodium Level 140 mEQ/L (135-145) Potassium Level 5.8 mEQ/L (3.4-4.9) H Chloride Level 104 mEQ/L (98-107) Carbon Dioxide Level 15 mEQ/L (20-30) L Anion Gap 21 (5-15) H Blood Urea Nitrogen 101 mg/dL (7-23) H Creatinine 6.9 mg/dL (0.7-1.2) H Estimat Glomerular Filtration Rate mL/min (>60) Glucose Level 102 mg/dL (74-106) Calcium Level 6.4 mg/dL (8.6-10.2) L Total Bilirubin 1.3 mg/dL (0.0-1.2) H Direct Bilirubin 0.9 mg/dL (0.1-0.3) H Aspartate Amino Transf (AST/SGOT) 12 U/L (5-40) Alanine Aminotransferase (ALT/SGPT) 5 U/L (3-41) Alkaline Phosphatase 78 U/L (40-129) Total Protein 5.7 g/dL (6.6-8.7) L Albumin 1.6 g/dL (3.5-5.2) L Globulin 4.1 g/dL Albumin/Globulin Ratio 0.3 (1.0-2.7) L Arterial Blood pH 7.365 (7.350-7.450) Arterial Blood Partial Pressure CO2 28.0 mmHg (35.0-45.0) L Arterial Blood Partial Pressure O2 115.0 mmHg (75.0-100.0) H Arterial Blood HCO3 15.6 mmol/L (22.0-26.0) L Arterial Blood Oxygen Saturation 97.9 % (92.0-98.0) Arterial Blood Base Excess -8.9 Sancho Test Positive Current Medications Medications (Trade) Dose Ordered Sig/Yumi Route PRN Reason Start Time Stop Time Status Last Admin Dose Admin Acetaminophen (Tylenol) 650 mg Q4H PRN ORAL fever 08/05/16 20:30 09/04/16 20:29 08/06/16 08:20 Albuterol/ Ipratropium (DuoNeb 0.5-3(2.5)mg/3ml) 3 ml EVERY 4 HOURS PRN HHN Shortness of Breath 08/05/16 20:30 08/10/16 20:29 Clindamycin HCl/ Dextrose 50 ml @ 100 mls/hr Q8H IV 08/06/16 12:00 08/13/16 11:59 Dextrose STAT PRN IV Hypoglycemia 08/05/16 20:30 09/04/16 20:29 Dopamine HCl/ Dextrose (DOPamine 400mg/ 250ml) 250 ml @ 0 mls/hr Q24H IV 08/05/16 16:45 09/04/16 16:44 08/05/16 17:00 Insulin Aspart (NovoLOG) BEFORE MEALS AND HS SUBQ 08/05/16 21:00 09/04/16 20:59 Iron Sucrose/ Sodium Chloride (Venofer/Sodium Chloride) 115 ml @ 230 mls/hr BEDTIME IVPB 08/05/16 23:00 08/09/16 21:29 08/05/16 23:42 Levofloxacin 100 ml @ 100 mls/hr ONCE ONCE IVPB 08/06/16 17:00 08/06/16 17:59 Levofloxacin (Levaquin) 50 ml @ 50 mls/hr Q48H IVPB 08/08/16 17:00 08/15/16 16:59 Levothyroxine Sodium 50 mcg 50 mcg ACBREAKFAST ORAL 08/06/16 06:30 09/05/16 06:29 08/06/16 06:20 Lorazepam 2 mg 2 mg Q2H PRN IV For Anxiety 08/06/16 03:30 08/13/16 03:29 08/06/16 10:26 Morphine Sulfate (Morphine Sulfate) 4 mg EVERY 4 HOURS PRN IVP Severe Pain (Pain Scale 7-10) 08/05/16 20:30 08/12/16 20:29 Norepinephrine Bitartrate/ Dextrose (Levophed/D5W) 254 ml @ 0 mls/hr Q24H IV 08/05/16 22:00 09/04/16 21:59 08/06/16 13:52 Nystatin (Nystop Powder) 1 applic THREE TIMES A DAY TOPIC 08/06/16 18:00 09/05/16 17:59 Ondansetron HCl 4 mg 4 mg Q6H PRN IVP Nausea & Vomiting 08/05/16 20:30 09/04/16 20:29 Piperacillin Sod/ Tazobactam Sod 2.25 gm/Dextrose 55 ml @ 110 mls/hr Q8HR IVPB 08/06/16 14:00 08/13/16 13:59 08/06/16 14:36 Polyethylene Glycol (Miralax) 17 gm DAILYPRN PRN ORAL Constipation 08/05/16 20:30 09/04/16 20:29 Sodium Chloride (Sodium Chloride 1000ml bag) 1,000 ml @ 100 mls/hr Q10H IVLG 08/05/16 23:39 09/04/16 23:38 08/06/16 06:13 Vitamin A/Vitamin D (A & D Oint) 1 applic EVERY 12 HOURS TOPIC 08/06/16 21:00 09/05/16 20:59 Jamin Ramos M.D. Aug 06, 2016 16:47
[2016-08-06] MEDS ORDERED: Tubing IV Secondary IV ONE (17:10)
[2016-08-06] MEDS: Nystatin Powder 100,000 units/gm 15gm TOPIC SCH (18:05)
[2016-08-06] MEDS: Iron Sucrose 100 MG in NS 110 ML IVPB SCH (21:52)
[2016-08-06] MEDS: Vitamin A&D Oint 2oz Tube TOPIC SCH (21:52)
[2016-08-06] MEDS: Epogen (for non ESRD use) SUBQ SCH (21:53)
--- NOTE | 2016-08-06 21:59 | Consultation ---
DATE OF CONSULTATION: 08/06/2016 CONSULTING PHYSICIAN: Jamin Ramos M.D. REFERRING PHYSICIAN: Jose Traore M.D. REASON FOR CONSULTATION: Sepsis, pneumonia with shock, recommendation for antibiotics treatment. HISTORY OF PRESENT ILLNESS: The patient is a 75-year-old male, who was sent from his convalescent home for increasing shortness of breath and hypoxemia. His symptoms were gradually getting worse as per the residential record. The patient was hypotensive in the emergency room and was found to be hypoxemic, in renal failure, as well as congestive heart failure. The patient was intubated in the emergency room. He was started on IV fluid and antibiotics empirically by the ED physician, and I was consulted for antibiotics recommendation and further management. The patient was admitted to the intensive care unit after he was intubated for septic shock, anemia, and multiorgan failure. Please note that history was obtained from the medical record mainly since the patient is intubated and cannot provide any history at this point. REVIEW OF SYSTEMS: Twelve points of system review were all negative apart from the one I mentioned above in my History of Present Illness. PAST MEDICAL HISTORY: Significant for congestive heart failure, atrial fibrillation, anemia, hyperlipidemia, hypertension, diabetes type 2, and GERD. PAST SURGICAL HISTORY: Unknown. FAMILY HISTORY: Unknown. SOCIAL HISTORY: He lives in a convalescent home. No recent drugs, tobacco, or alcohol. ALLERGIES: He is allergic to heparin. MEDICATIONS: The patient was given Unasyn in the emergency room. For the rest of his medications, please refer MAR. LABORATORY DATA: Labs today showed white count of 13.2, hemoglobin of 5.7, hematocrit of 20, and platelet count of 105,000. BUN of 101 and creatinine of 6.9. Lactic acid of 2.5. Urinalysis showed negative leukocyte esterase, WBCs 0 to 2, many squamous epithelial cells, and few bacteria. MICROBIOLOGY: Blood culture x2 is growing gram negative rods. IMAGING: Chest x-ray on admission showed bilateral pleural effusion, tubes, and lines. Echocardiogram showed severe mitral regurgitation and tricuspid regurgitation. PHYSICAL EXAMINATION: VITAL SIGNS: Temperature 99.6, pulse 114, respirations 20, blood pressure 92/44, and O2 saturation 100% on FiO2 of 30% on mechanical ventilation. GENERAL: Elderly male, intubated on mechanical ventilation, laying in bed, comfortable, not in distress. HEENT: Normocephalic and atraumatic. Pupils are not reactive to light. Dry oral mucosa. ET tube in place. NECK: Supple. No lymphadenopathy. CARDIOVASCULAR: He is tachycardic. S1 and S2 positive. Murmur at the mitral valve and tricuspid valve area, mainly systolic. LUNGS: He has diminished breathing sounds at the bases with crackles. ABDOMEN: Soft and distended. Hyperactive bowel sounds. No guarding. No organomegaly. No ascites. EXTREMITIES: He had extensive cellulitis in both lower extremities with right medial ankle wound. It has yellowish exudate. 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 Heel skin break on both sides. SKIN: He had left thigh large skin wound with eschar. ASSESSMENT AND PLAN: 1. Septic shock with gram-negative rods. Source could be his right ankle wound infection. The patient will be continued on Zosyn and clindamycin. We will add levofloxacin for double coverage until five further identifications and sensitivities are obtained. We will tailor his antibiotic therapy based on his final culture result. Continue pressor, IV fluid, and monitor in ICU. 2. Right ankle wound, needs to rule out underlying osteomyelitis. We will order x-ray of the right ankle and sed rate. Cannot do MRI at this point until he gets extubated. Consult Wound Care and customer complaint service supervisor. Discussed with the nurse at the bedside. 3. Acute renal failure with azotemia and end-stage renal disease. The patient may need hemodialysis. Nephrology is following. He is not hemodynamically stable to tolerate hemodialysis at this point. Monitor urine output. Avoid nephrotoxic medications. 4. Anemia, acute on chronic, unclear source. Getting blood transfusion. Monitor hemoglobin and hematocrit. Transfuse blood as needed. Needs to rule out gastrointestinal source. 5. Lactic acidosis due to shock and hypotension. Continue IV fluid for hydration. Monitor lactic acid. Maintain blood pressure systolic more than 100. 6. Acute respiratory failure, suspect fluid overload due to congestive heart failure exacerbation, status post intubation. Continue diuresis. Consult Cardiology. Pulmonary is following. 7. Acute congestive heart failure exacerbation with severe mitral regurgitation. Continue diuresis. The patient may need hemodialysis once he is hemodynamically stable. Cardiology is following. Thank you for this interesting consult. Infectious Disease will continue to follow with you. Jamin Ramos M.D. DR: SRIDHAR JOB#: [id number] CC:
--- NOTE | 2016-08-06 23:08 | Consultation ---
DATE OF CONSULTATION: 08/06/2016 CARDIOLOGY CONSULTATION CONSULTING PHYSICIAN: Neno Cuello M.D. REFERRING PHYSICIAN: Jose Traore M.D REASON FOR CONSULTATION: Management of atrial fibrillation. HISTORY OF PRESENT ILLNESS: The patient is a very unfortunate 75-year-old gentleman who presents to [facility] Emergency Department with progressively worsening of shortness of breath and respiratory distress. He was sent in from a nursing facility. In the facility, he was noted to have hypotension. The patient on arrival to the emergency department had a blood pressure 134/76, his O2 saturation was 92% on 15 liter nonrebreather mask and his heart rate was 172. His 12-lead electrocardiogram revealed atrial fibrillation versus flutter with rapid ventricular response. He was intubated in the emergency department and was sent to the intensive care unit for further evaluation and management. Cardiology consultation was made by Dr. Jose Traore for management of atrial fibrillation and possible septic shock. The patient is not currently providing any history as he is intubated. PAST MEDICAL HISTORY: Atrial fibrillation, history of congestive heart failure, history of anemia, history of hyperlipidemia, history of pancytopenia, history of azotemia, history of cellulitis, history of type 2 diabetes mellitus, and history of gastroesophageal reflux disease. PAST SURGICAL HISTORY: None. MEDICATIONS: In the nursing facility includes acetaminophen 650 mg. q.4 h. p.r.n. headache and temperature above 101, allopurinol 200 mg p.o. daily, calcium carbonate and vitamin D3 one tablet daily, carvedilol 6.25 mg daily, clonidine 0.1 mg q.6 hours, vitamin B12 1000 mcg IM daily, Colace 100 mg p.o. daily, Procrit 10,000 units subcutaneous Saturday, Saturday, and Saturday, Pepcid 20 mg p.o. every morning, ferrous sulfate 325 mg three times daily, Lasix 20 mg p.o. daily, DuoNeb 3 mL nebulizer q.4 h., Synthroid 50 mcg in the morning, milk of magnesia 30 mL p.o. daily, Lopressor 25 mg q.12 h., Remeron 15 mg p.o. nightly, multivitamin one tablet p.o. daily, niacin 100 mg p.o. daily, potassium chloride 20 mEq by mouth daily, Inderal 80 mg p.o. daily, and senna two tablets nightly. ALLERGIES: To heparin. REVIEW OF SYSTEM: The patient is intubated. The 12-system review cannot be done. PHYSICAL EXAMINATION: VITAL SIGNS: Blood pressure was 134/76, pulse of 172, respirations 22, temperature 98.4 degrees Fahrenheit, and O2 saturation 92% on nonrebreather mask 15 liter/minute/h. GENERAL: The patient is a very unfortunate 75-year-old gentleman, intubated, ill-appearing. HEENT: Atraumatic and normocephalic. Anicteric. Pupils are equal, round, and reactive to light and accommodation. Conjunctival pallor. NECK: Cannot be assessed as the patient is intubated. CARDIOVASCULAR: Normal S1 and S2. Irregularly irregular rhythm with tachycardia. I do not appreciate murmurs, gallops, or rubs. LUNGS: Diminished breath sounds in both bases. ABDOMEN: Soft, nontender, and nondistended. No hepatosplenomegaly. Positive bowel sounds. EXTREMITIES: No evidence of edema, clubbing, or cyanosis. LABORATORY FINDINGS: WBC 13.9, hemoglobin 7.0, hematocrit 22.3, and platelet count 108,000. Sodium 142, potassium 5.9, chloride 104, bicarbonate 16, BUN of 103, creatinine of 6.9, glucose is 64, and calcium is 6.9. Troponin I less than 0.3. C-reactive protein 20.5. ProBNP was above 70,000. INR was 1.8. A 12-lead electrocardiogram showed atrial fibrillation with rapid ventricular response. The rate is 176 low voltage. Chest x-ray shows bilateral pleural effusion left greater than the right. ASSESSMENT AND PLAN: The patient is a very unfortunate 75-year-old gentleman, who is seen in Cardiology consultation at the request of Dr. Traore. The patient was seen in the intensive care unit of [facility]. 1. Atrial fibrillation most likely permanent with rapid ventricular response most likely driven by sepsis and/or hypovolemia. I would like to review the 2D echocardiography images. The patient's ventricular response with diminished 108 to 114. This appears to be permanent, rhythm controlled is not required. We will continue with the beta blocking, use of AV grace agents if blood pressure allows in view of high creatinine I would not suggest the digoxin. We may want to use slight dose of metoprolol if the blood pressure allows. 2. Four-chamber dilated cardiomyopathy evident on the 2D echocardiography with LVEF about 25% to 30%. There is areas of wall motion abnormalities mainly in the anteroseptal lateral wall, apical wall, and septal wall. 3. Ischemic cardiomyopathy cannot be excluded. It is not quite clear whether the patient has had any ischemic workup in the past. 4. Renal failure. 5. Hypotension most likely septic shock and the patient requires Infectious Disease for further evaluation and management. 6. Acute on chronic systolic and diastolic congestive heart failure. The patient will require diuretic or may require hemodialysis if the blood pressure is stabilized. 7. Bilateral pleural effusion, left greater than the right, this could be secondary to right heart failure. Overall this represent grim prognosis. 8. In view of atrial fibrillation, the patient may benefit from anticoagulation therapy. However, there is some benefits of such and needs to be completely weigh against each other. At this point hemodynamic stability the patient appears to be on Levophed drip. Total amount of time spent in evaluation management of this patient in the intensive care unit of [facility] was 45 minutes. I would like to thank, Dr. Traore for the courtesy of this consultation. Neno Cuello M.D. DR: Jodee JOB#: [id number] CC:
[2016-08-07] VITALS (93 sets, daily range): BP systolic 61–122; BP diastolic 35–87
[2016-08-07 00:31] LABS: MEAN CORPUSCULAR HEMOGLOBIN 25.6 PG (27.0-31.0); MEAN CORPUSCULAR VOLUME 83 FL (80-99); MEAN PLATELET VOLUME 6.7 FL (6.5-10.1); PLATELET COUNT 71 K/UL (150-450); RED BLOOD COUNT 3.13 M/UL (4.70-6.10); RED CELL DISTRIBUTION WIDTH 15.5 % (11.6-14.8); WHITE BLOOD COUNT 15.8 K/UL (4.8-10.8)
[2016-08-07] MEDS: Clindamycin 600mg 50 ML IV SCH ×3 (03:30→20:20)
[2016-08-07] MEDS: Piperacillin/Tazobactam 2.25 GM in D5W 55 ML IVPB SCH ×2 (06:12→13:41)
[2016-08-07] MEDS: NovoLOG Insulin Flexpen SUBQ SCH ×4 (06:18→21:00)
[2016-08-07 07:03] LABS: MEAN CORPUSCULAR HEMOGLOBIN 26.4 PG (27.0-31.0); MEAN CORPUSCULAR HGB CONC 31.8 G/DL (32.0-36.0); MEAN CORPUSCULAR VOLUME 83 FL (80-99); MEAN PLATELET VOLUME 9.7 FL (6.5-10.1); PLATELET COUNT 69 K/UL (150-450); RED BLOOD COUNT 3.02 M/UL (4.70-6.10); RED CELL DISTRIBUTION WIDTH 15.7 % (11.6-14.8); WHITE BLOOD COUNT 16.9 K/UL (4.8-10.8)
[2016-08-07 07:23] LABS: CRP QUANT 22.1 mg/dL (< 0.5); URIC ACID 14.8 mg/dL (3.0-7.5)
[2016-08-07 07:26] LABS: ALANINE AMINOTRANSFERASE < 5 U/L (3-41); ALBUMIN/GLOBULIN RATIO 0.3 (1.0-2.7); ANION GAP 19 (5-15); ASPARTATE AMINO TRANSFERASE 7 U/L (5-40); CARBON DIOXIDE 15 mEQ/L (20-30); CHLORIDE 104 mEQ/L (98-107); HEMOLYSIS 5; MAGNESIUM 1.8 mg/dL (1.7-2.5); POTASSIUM 5.1 mEQ/L (3.4-4.9); SODIUM 138 mEQ/L (135-145); TOTAL PROTEIN 5.4 g/dL (6.6-8.7)
[2016-08-07 07:27] LABS: CALCIUM 5.9 mg/dL (8.6-10.2)
[2016-08-07 07:43] LABS: BILIRUBIN,DIRECT 2.8 mg/dL (0.1-0.3)
[2016-08-07] MEDS: LORazepam Inj 2mg/ml 1ml IV PRN ×2 (07:56→22:59)
--- NOTE | 2016-08-07 07:58 | History and Physical Report ---
DATE OF ADMISSION: 08/05/2016 HISTORY OF PRESENT ILLNESS: Patient was intubated in the ER and admitted to the ICU for respiratory failure, hypertension, on pressors, and ascites. The patient basically has poor prognosis. The patient is schizophrenic with a history of refusal of care. The patient also has a history of congestive heart failure, hypertension, and atrial fibrillation. PAST MEDICAL HISTORY: Atrial fibrillation, congestive heart failure, paranoid schizophrenia, anemia, hyperlipidemia, pancytopenia, azotemia, GERD, NIDDM, history of cellulitis as well as history of hypertension, constipation, chronic anemia, hypothyroidism, mood disorder, hypertension, and constipation. PAST SURGICAL HISTORY: Denies. MEDICATIONS: History of having allopurinol, Coreg, calcium, clonidine, Colace, Epogen, famotidine, ferrous sulfate, Levoxyl, metoprolol, , multivitamin, and Senokot. ALLERGIES: Heparin. SOCIAL HISTORY: Unable to obtain. FAMILY HISTORY: Noncontributory. REVIEW OF SYSTEMS: Unable to obtain. PHYSICAL EXAMINATION: VITAL SIGNS: Temperature was not recorded, pulse is 132, and blood pressure 108/39. HEENT: PERRLA. NECK: Supple. CHEST: Bibasilar rales. CARDIOVASCULAR: Tachycardic. GASTROINTESTINAL: Soft. Positive bowel sounds. EXTREMITIES: He does have edema , which is chronic, venostasis. LABORATORY AND DIAGNOSTIC DATA: WBC of 13.9, hemoglobin was 7, and platelet of 108,000. Sodium 140, potassium 5.8, BUN of 101, creatinine 6.9 and glucose of 101. ASSESSMENT AND PLAN: 1. The patient admitted for sepsis, acute renal failure and metabolic acidosis due to that. 2. Atrial fibrillation 3. Acute renal failure. 4. Respiratory failure, intubated. 5. Severe anemia. 6. Hypotension, septic. 7. Hypovolemic, most likely paranoid schizophrenic. 8. Also has anatomical problem very difficult with Acevedo. I have consulted with Dr. Teresa, , the urologist, Dr. Ramos and for the above mentioned diagnoses and treatment. Jose Traore M.D. DR: SOCORRO JOB#: [id number] CC:
[2016-08-07] MEDS: Vitamin A&D Oint 2oz Tube TOPIC SCH ×2 (08:54→21:10)
[2016-08-07] MEDS: Nystatin Powder 100,000 units/gm 15gm TOPIC SCH ×3 (08:54→18:06)
[2016-08-07] MEDS ORDERED: Calcium Gluconate 10% 2 GM in NS 110 ML IVPB ONE (09:00)
--- NOTE | 2016-08-07 09:05 | Pulmonolgy Critical Care Note ---
Critical Care - Asmt/Plan Problems: (1) Respiratory distress (2) Multiorgan failure (3) Septic shock (4) Symptomatic anemia (5) DM (diabetes mellitus) Respiratory: monitor respiratory rate, adjust FIO2, CXR Cardiac: continue to monitor HR/BP Renal: F/U I&O, keep IV fluid, check electrolytes Infectious Disease: continue antibiotics Gastrointestinal: continue feedings/current rate, hold feedings Endocrine: monitor blood sugar, check TSH Hematologic: monitor H/H Neurologic: PRN Ativan, PRN Morphine Affect: PRN ativan Time Spent (Minutes): 40 Notes Reviewed: renal Discussed with: nurses, consultants, caseworkerverification manager - Objective Last 24 Hour Vital Signs Date Time Temp Pulse Resp B/P Pulse Ox O2 Delivery O2 Flow Rate FiO2 08/07/16 08:49 90/48 08/07/16 08:00 114 08/07/16 08:00 30 08/07/16 07:25 148 32 30 08/07/16 07:00 117 24 120/72 94 Mechanical Ventilator 30 08/07/16 06:56 102/55 08/07/16 06:45 119 24 102/55 94 Mechanical Ventilator 30 08/07/16 06:30 118 24 112/55 94 Mechanical Ventilator 30 08/07/16 06:15 117 24 120/62 94 Mechanical Ventilator 30 08/07/16 06:00 117 24 111/56 94 Mechanical Ventilator 30 08/07/16 06:00 111/56 08/07/16 05:45 117 24 118/56 94 Mechanical Ventilator 30 08/07/16 05:30 118 24 112/52 94 Mechanical Ventilator 30 08/07/16 05:22 120 26 30 08/07/16 05:15 117 24 101/60 94 Mechanical Ventilator 30 08/07/16 05:00 118 24 111/50 94 Mechanical Ventilator 30 08/07/16 04:53 110/54 08/07/16 04:45 117 24 110/54 94 Mechanical Ventilator 30 08/07/16 04:30 119 24 116/48 94 Mechanical Ventilator 30 08/07/16 04:15 123 24 120/60 94 Mechanical Ventilator 30 08/07/16 04:00 30 08/07/16 04:00 126 08/07/16 04:00 98/68 08/07/16 04:00 98.8 126 24 105/81 94 Mechanical Ventilator 30 08/07/16 03:45 119 24 102/69 94 Mechanical Ventilator 30 08/07/16 03:30 123 24 102/75 94 Mechanical Ventilator 30 08/07/16 03:30 119 36 30 08/07/16 03:15 120 24 116/59 94 Mechanical Ventilator 30 08/07/16 03:00 114 24 75/41 94 Mechanical Ventilator 30 08/07/16 03:00 96/65 08/07/16 02:45 114 24 96/54 94 Mechanical Ventilator 30 08/07/16 02:30 120 24 104/69 94 Mechanical Ventilator 30 08/07/16 02:21 112/53 08/07/16 02:15 111 24 96/60 94 Mechanical Ventilator 30 08/07/16 02:00 109 24 90/54 94 Mechanical Ventilator 30 08/07/16 02:00 90/54 08/07/16 01:45 113 24 100/52 94 Mechanical Ventilator 30 08/07/16 01:30 114 24 111/60 94 Mechanical Ventilator 30 08/07/16 01:20 119 24 30 08/07/16 01:15 113 24 105/65 94 Mechanical Ventilator 30 08/07/16 01:00 113 24 100/55 94 Mechanical Ventilator 30 08/07/16 01:00 100/55 08/07/16 00:45 115 24 112/54 94 Mechanical Ventilator 30 08/07/16 00:30 117 24 96/60 94 Mechanical Ventilator 30 08/07/16 00:15 115 24 112/53 94 Mechanical Ventilator 30 08/07/16 00:00 115 08/07/16 00:00 98.6 113 24 102/64 94 Mechanical Ventilator 30 08/07/16 00:00 96/60 08/07/16 00:00 30 08/06/16 23:45 113 24 92/57 94 Mechanical Ventilator 30 08/06/16 23:30 116 34 30 08/06/16 23:30 114 24 106/58 94 Mechanical Ventilator 30 08/06/16 23:15 114 24 117/70 94 Mechanical Ventilator 30 08/06/16 23:00 109/52 08/06/16 23:00 112 24 109/52 94 Mechanical Ventilator 30 08/06/16 22:45 112 25 112/56 97 Mechanical Ventilator 30 08/06/16 22:30 110 24 115/56 98 Mechanical Ventilator 30 2/20/17 22:15 110 24 95/50 96 Mechanical Ventilator 30 2/20/17 22:05 110/52 2/20/17 22:00 109 24 110/52 96 Mechanical Ventilator 30 2/20/17 21:45 108 24 106/53 95 Mechanical Ventilator 30 2/20/17 21:30 107 25 95/53 98 Mechanical Ventilator 30 2/20/17 21:30 117 24 30 2/20/17 21:15 106 24 96/51 100 Mechanical Ventilator 30 2/20/17 21:00 99/61 2/20/17 21:00 102 23 99/61 100 Mechanical Ventilator 30 2/20/17 20:45 102 24 100/48 95 Mechanical Ventilator 30 2/20/17 20:30 113 24 98/54 95 Mechanical Ventilator 30 2/20/17 20:15 111 23 103/62 95 Mechanical Ventilator 30 2/20/17 20:00 99.1 110 24 93/56 90 Mechanical Ventilator 30 2/20/17 20:00 30 2/20/17 20:00 97 20/17 19:55 73/40 220/17 19:45 112 23 73/40 95 Mechanical Ventilator 30 220/17 19:30 112 26 115/63 95 Mechanical Ventilator 30 2/20/17 19:30 115 29 30 2/20/17 19:15 116 24 97/54 99 Mechanical Ventilator 30 220/17 19:00 114 25 104/47 100 Mechanical Ventilator 30 2/20/17 19:00 104/47 2/20/17 18:45 114 24 97/58 100 Mechanical Ventilator 30 220/17 18:30 112 24 96/53 92 Mechanical Ventilator 30 220/17 18:15 113 24 106/58 100 Mechanical Ventilator 30 2/20/17 18:00 99/52 2/20/17 18:00 114 24 99/52 100 Mechanical Ventilator 30 2/20/17 17:45 113 24 89/54 99 Mechanical Ventilator 30 2/20/17 17:30 113 25 101/55 96 Mechanical Ventilator 30 2/20/17 17:15 113 24 95/40 99 Mechanical Ventilator 30 2/20/17 17:07 111 24 30 2/20/17 17:00 113 25 93/45 99 Mechanical Ventilator 30 2/20/17 17:00 93/45 2/20/17 16:45 93/45 2/20/17 16:45 111 25 98/49 94 Mechanical Ventilator 30 08/06/16 16:30 112 24 89/61 93 Mechanical Ventilator 30 08/06/16 16:15 107 26 108/52 90 Mechanical Ventilator 30 08/06/16 16:00 109 08/06/16 16:00 108/52 08/06/16 16:00 30 08/06/16 16:00 97.4 110 26 116/55 100 Mechanical Ventilator 30 08/06/16 15:45 112 25 104/46 93 Mechanical Ventilator 30 08/06/16 15:43 110 27 30 08/06/16 15:30 112 25 84/48 100 Mechanical Ventilator 30 08/06/16 15:15 114 26 92/44 100 Mechanical Ventilator 30 08/06/16 15:00 114 26 92/44 100 Mechanical Ventilator 30 08/06/16 14:45 116 22 119/59 100 Mechanical Ventilator 30 08/06/16 14:30 116 22 106/57 100 Mechanical Ventilator 30 08/06/16 14:15 99.6 114 26 110/48 100 Mechanical Ventilator 30 08/06/16 14:00 110 26 111/48 98 Mechanical Ventilator 30 08/06/16 13:52 103/56 08/06/16 13:45 111 23 95/36 98 Mechanical Ventilator 30 08/06/16 13:30 105 23 90/33 99 Mechanical Ventilator 30 08/06/16 13:15 117 23 104/51 98 Mechanical Ventilator 30 08/06/16 13:00 120 23 99/44 98 Mechanical Ventilator 30 08/06/16 12:45 123 23 99/41 98 Mechanical Ventilator 30 08/06/16 12:44 108 28 30 08/06/16 12:30 125 23 116/51 98 Mechanical Ventilator 30 08/06/16 12:15 127 26 101/58 98 Mechanical Ventilator 30 08/06/16 12:00 99.4 131 26 109/55 98 Mechanical Ventilator 30 08/06/16 12:00 30 08/06/16 12:00 122 08/06/16 11:45 131 26 107/39 98 Mechanical Ventilator 30 08/06/16 11:30 134 20 108/40 96 Mechanical Ventilator 30 08/06/16 11:25 114 30 30 08/06/16 11:15 135 23 104/49 98 Mechanical Ventilator 30 08/06/16 11:00 141 23 100/40 98 Mechanical Ventilator 30 08/06/16 10:45 99.9 141 26 95/49 96 Mechanical Ventilator 30 08/06/16 10:30 142 27 93/62 96 Mechanical Ventilator 30 08/06/16 10:15 142 27 109/57 96 Mechanical Ventilator 30 08/06/16 10:00 129 24 106/37 95 Mechanical Ventilator 30 08/06/16 09:45 135 24 113/37 95 Mechanical Ventilator 30 08/06/16 09:30 132 24 108/39 98 Mechanical Ventilator 30 08/06/16 09:19 99.9 08/06/16 09:16 128 34 30 08/06/16 09:15 128 24 98/46 98 Mechanical Ventilator 30 Status: sedated Condition: critical HEENT: atraumatic Neck: full ROM Lungs: rales, rhonchi Heart: HR/BP unstable Abdomen: soft, non-tender Extremities: no C/C/E, edema Decubiti: location Micro: Microbiology Date/Time Source Procedure Growth Status 08/05/16 15:30 Blood Blood Culture - Preliminary Gram Negative Bacillus 1 Resulted 08/05/16 15:02 Blood Blood Culture - Preliminary Gram Negative Bacillus 1 Resulted 08/06/16 04:20 Foot Right Gram Stain Pending Resulted 08/06/16 04:20 Foot Right Wound Culture - Preliminary Resulted 08/05/16 17:45 Rectum VRE Culture - Final NO VANCOMYCIN RESISTANT ENTEROCOCCUS ... Complete Accucheck: 100 Critical Care - Subjective ROS Limited/Unobtainable: Yes ICU Day: 3 Intubation Day: 3 Condition: critical EKG Rhythm: Sinus Rhythm FI02: 30 Vent Support Breath Rate: 20 Vent Support Mode: AC Vent Tidal Volume: 500 Sputum Amount: Moderate PEEP: 0.0 PIP: 27 Fluids: NS 100 Drips: Levophed 12 ug I&O: Intake and Output 08/06/16 08/07/16 19:00 07:00 Intake Total 2069.13 ml 1842.44 ml Output Total 345 ml 240 ml Balance 1724.13 ml 1602.44 ml Intake IV Total 1679.13 ml 1842.44 ml Blood Product 300 ml Other 90 ml Output Urine Total 345 ml 240 ml CXR: cardiomegaly, ET close to pat ET-Tube: 7.5 ET Position: 21 Labs: Laboratory Tests Test 08/06/16 09:40 08/07/16 00:00 08/07/16 06:00 Arterial Blood pH 7.365 (7.350-7.450) Arterial Blood Partial Pressure CO2 28.0 mmHg (35.0-45.0) L Arterial Blood Partial Pressure O2 115.0 mmHg (75.0-100.0) H Arterial Blood HCO3 15.6 mmol/L (22.0-26.0) L Arterial Blood Oxygen Saturation 97.9 % (92.0-98.0) Arterial Blood Base Excess -8.9 Sancho Test Positive White Blood Count 15.8 K/UL (4.8-10.8) H 16.9 K/UL (4.8-10.8) H Red Blood Count 3.13 M/UL (4.70-6.10) L 3.02 M/UL (4.70-6.10) L Hemoglobin 8.0 G/DL (14.2-18.0) #L 8.0 G/DL (14.2-18.0) L Hematocrit 25.9 % (42.0-52.0) L 25.1 % (42.0-52.0) L Mean Corpuscular Volume 83 FL (80-99) 83 FL (80-99) Mean Corpuscular Hemoglobin 25.6 PG (27.0-31.0) L 26.4 PG (27.0-31.0) L Mean Corpuscular Hemoglobin Concent 31.0 G/DL (32.0-36.0) L 31.8 G/DL (32.0-36.0) L Red Cell Distribution Width 15.5 % (11.6-14.8) H 15.7 % (11.6-14.8) H Platelet Count 71 K/UL (150-450) L 69 K/UL (150-450) L Mean Platelet Volume 6.7 FL (6.5-10.1) 9.7 FL (6.5-10.1) Neutrophils (%) (Auto) % (45.0-75.0) % (45.0-75.0) Lymphocytes (%) (Auto) % (20.0-45.0) % (20.0-45.0) Monocytes (%) (Auto) % (1.0-10.0) % (1.0-10.0) Eosinophils (%) (Auto) % (0.0-3.0) % (0.0-3.0) Basophils (%) (Auto) % (0.0-2.0) % (0.0-2.0) Neutrophils % (Manual) Pending Lymphocytes % (Manual) Pending Platelet Estimate Pending Platelet Morphology Pending Sodium Level 138 mEQ/L (135-145) Potassium Level 5.1 mEQ/L (3.4-4.9) H Chloride Level 104 mEQ/L (98-107) Carbon Dioxide Level 15 mEQ/L (20-30) L Anion Gap 19 (5-15) H Blood Urea Nitrogen 93 mg/dL (7-23) H Creatinine 6.0 mg/dL (0.7-1.2) H Estimat Glomerular Filtration Rate mL/min (>60) Glucose Level 107 mg/dL (74-106) H Hemoglobin A1c 5.0 % (< 6.0) Uric Acid 14.8 mg/dL (3.0-7.5) H Calcium Level 5.9 mg/dL (8.6-10.2) *L Phosphorus Level 5.0 mg/dL (2.5-4.8) H Magnesium Level 1.8 mg/dL (1.7-2.5) Total Bilirubin 3.3 mg/dL (0.0-1.2) H Direct Bilirubin 2.8 mg/dL (0.1-0.3) H Gamma Glutamyl Transpeptidase 16 U/L (8-61) Aspartate Amino Transf (AST/SGOT) 7 U/L (5-40) Alanine Aminotransferase (ALT/SGPT) < 5 U/L (3-41) Alkaline Phosphatase 67 U/L (40-129) Total Creatine Kinase 105 U/L (38-174) C-Reactive Protein, Quantitative 22.1 mg/dL (< 0.5) H Pro-B-Type Natriuretic Peptide > 47445 pg/mL (0-450) H Total Protein 5.4 g/dL (6.6-8.7) L Albumin 1.4 g/dL (3.5-5.2) L Globulin 4.0 g/dL Albumin/Globulin Ratio 0.3 (1.0-2.7) L Thyroid Stimulating Hormone (TSH) 6.580 uIU/mL (0.300-4.500) ADRIENNE MENDOZA Aug 07, 2016 09:05
[2016-08-07 09:07] LABS: ABG ALLEN TEST POSITIVE; ABG BASE EXCESS -11.3; ABG PCO2 30.5 mmHg (35.0-45.0)
[2016-08-07] MEDS ORDERED: Propofol 10mg/ml 20ml IV ONE (10:00)
--- NOTE | 2016-08-07 10:58 | General Progress Note ---
Assessment/Plan Status: unchanged Status Narrative Cr lower Assessment/Plan Acute Renal Failure- HyperKalemia- improving Hypotension- Shock on pressors Severe Anemia- transfused Severe HypoAlbuminemia Cellulitis both legs- rising bili Plan: Transfused- Hydrate- monitor renal parameters- [facility] KRISTA- 24 h urine protein- per orders Subjective ROS Limited/Unobtainable: Yes Allergies: Coded Allergies: HEPARIN (Verified Allergy, Mild, 12/21/14) Objective Last 24 Hour Vital Signs Date Time Temp Pulse Resp B/P Pulse Ox O2 Delivery O2 Flow Rate FiO2 08/07/16 10:40 158 21 30 08/07/16 10:25 25 08/07/16 09:26 128 28 30 08/07/16 08:49 90/48 08/07/16 08:00 114 08/07/16 08:00 30 08/07/16 07:25 148 32 30 08/07/16 07:00 117 24 120/72 94 Mechanical Ventilator 30 08/07/16 06:56 102/55 08/07/16 06:45 119 24 102/55 94 Mechanical Ventilator 30 08/07/16 06:30 118 24 112/55 94 Mechanical Ventilator 30 08/07/16 06:15 117 24 120/62 94 Mechanical Ventilator 30 08/07/16 06:00 117 24 111/56 94 Mechanical Ventilator 30 08/07/16 06:00 111/56 08/07/16 05:45 117 24 118/56 94 Mechanical Ventilator 30 08/07/16 05:30 118 24 112/52 94 Mechanical Ventilator 30 08/07/16 05:22 120 26 30 08/07/16 05:15 117 24 101/60 94 Mechanical Ventilator 30 08/07/16 05:00 118 24 111/50 94 Mechanical Ventilator 30 08/07/16 04:53 110/54 08/07/16 04:45 117 24 110/54 94 Mechanical Ventilator 30 08/07/16 04:30 119 24 116/48 94 Mechanical Ventilator 30 08/07/16 04:15 123 24 120/60 94 Mechanical Ventilator 30 08/07/16 04:00 30 08/07/16 04:00 126 08/07/16 04:00 98/68 08/07/16 04:00 98.8 126 24 105/81 94 Mechanical Ventilator 30 08/07/16 03:45 119 24 102/69 94 Mechanical Ventilator 30 08/07/16 03:30 123 24 102/75 94 Mechanical Ventilator 30 08/07/16 03:30 119 36 30 08/07/16 03:15 120 24 116/59 94 Mechanical Ventilator 30 08/07/16 03:00 114 24 75/41 94 Mechanical Ventilator 30 08/07/16 03:00 96/65 08/07/16 02:45 114 24 96/54 94 Mechanical Ventilator 30 08/07/16 02:30 120 24 104/69 94 Mechanical Ventilator 30 08/07/16 02:21 112/53 08/07/16 02:15 111 24 96/60 94 Mechanical Ventilator 30 08/07/16 02:00 109 24 90/54 94 Mechanical Ventilator 30 08/07/16 02:00 90/54 08/07/16 01:45 113 24 100/52 94 Mechanical Ventilator 30 08/07/16 01:30 114 24 111/60 94 Mechanical Ventilator 30 08/07/16 01:20 119 24 30 08/07/16 01:15 113 24 105/65 94 Mechanical Ventilator 30 08/07/16 01:00 113 24 100/55 94 Mechanical Ventilator 30 08/07/16 01:00 100/55 08/07/16 00:45 115 24 112/54 94 Mechanical Ventilator 30 08/07/16 00:30 117 24 96/60 94 Mechanical Ventilator 30 08/07/16 00:15 115 24 112/53 94 Mechanical Ventilator 30 08/07/16 00:00 115 08/07/16 00:00 98.6 113 24 102/64 94 Mechanical Ventilator 30 08/07/16 00:00 96/60 08/07/16 00:00 30 08/06/16 23:45 113 24 92/57 94 Mechanical Ventilator 30 08/06/16 23:30 116 34 30 08/06/16 23:30 114 24 106/58 94 Mechanical Ventilator 30 08/06/16 23:15 114 24 117/70 94 Mechanical Ventilator 30 08/06/16 23:00 109/52 08/06/16 23:00 112 24 109/52 94 Mechanical Ventilator 30 08/06/16 22:45 112 25 112/56 97 Mechanical Ventilator 30 08/06/16 22:30 110 24 115/56 98 Mechanical Ventilator 30 08/06/16 22:15 110 24 95/50 96 Mechanical Ventilator 30 2/20/17 22:05 110/52 2/20/17 22:00 109 24 110/52 96 Mechanical Ventilator 30 2/20/17 21:45 108 24 106/53 95 Mechanical Ventilator 30 2/20/17 21:30 107 25 95/53 98 Mechanical Ventilator 30 2/20/17 21:30 117 24 30 2/20/17 21:15 106 24 96/51 100 Mechanical Ventilator 30 2/20/17 21:00 99/61 2/20/17 21:00 102 23 99/61 100 Mechanical Ventilator 30 2/20/17 20:45 102 24 100/48 95 Mechanical Ventilator 30 2/20/17 20:30 113 24 98/54 95 Mechanical Ventilator 30 2/20/17 20:15 111 23 103/62 95 Mechanical Ventilator 30 220/17 20:00 99.1 110 24 93/56 90 Mechanical Ventilator 30 220/17 20:00 30 20/17 20:00 97 20/17 19:55 73/40 220/17 19:45 112 23 73/40 95 Mechanical Ventilator 30 20/17 19:30 112 26 115/63 95 Mechanical Ventilator 30 20/17 19:30 115 29 30 2/20/17 19:15 116 24 97/54 99 Mechanical Ventilator 30 20/17 19:00 114 25 104/47 100 Mechanical Ventilator 30 20/17 19:00 104/47 220/17 18:45 114 24 97/58 100 Mechanical Ventilator 30 220/17 18:30 112 24 96/53 92 Mechanical Ventilator 30 20/17 18:15 113 24 106/58 100 Mechanical Ventilator 30 20/17 18:00 99/52 2/20/17 18:00 114 24 99/52 100 Mechanical Ventilator 30 2/20/17 17:45 113 24 89/54 99 Mechanical Ventilator 30 2/20/17 17:30 113 25 101/55 96 Mechanical Ventilator 30 2/20/17 17:15 113 24 95/40 99 Mechanical Ventilator 30 2/20/17 17:07 111 24 30 2/20/17 17:00 113 25 93/45 99 Mechanical Ventilator 30 2/20/17 17:00 93/45 2/20/17 16:45 93/45 2/20/17 16:45 111 25 98/49 94 Mechanical Ventilator 30 2/20/17 16:30 112 24 89/61 93 Mechanical Ventilator 30 08/06/16 16:15 107 26 108/52 90 Mechanical Ventilator 30 08/06/16 16:00 109 08/06/16 16:00 108/52 08/06/16 16:00 30 08/06/16 16:00 97.4 110 26 116/55 100 Mechanical Ventilator 30 08/06/16 15:45 112 25 104/46 93 Mechanical Ventilator 30 08/06/16 15:43 110 27 30 08/06/16 15:30 112 25 84/48 100 Mechanical Ventilator 30 08/06/16 15:15 114 26 92/44 100 Mechanical Ventilator 30 08/06/16 15:00 114 26 92/44 100 Mechanical Ventilator 30 08/06/16 14:45 116 22 119/59 100 Mechanical Ventilator 30 08/06/16 14:30 116 22 106/57 100 Mechanical Ventilator 30 08/06/16 14:15 99.6 114 26 110/48 100 Mechanical Ventilator 30 08/06/16 14:00 110 26 111/48 98 Mechanical Ventilator 30 08/06/16 13:52 103/56 08/06/16 13:45 111 23 95/36 98 Mechanical Ventilator 30 08/06/16 13:30 105 23 90/33 99 Mechanical Ventilator 30 08/06/16 13:15 117 23 104/51 98 Mechanical Ventilator 30 08/06/16 13:00 120 23 99/44 98 Mechanical Ventilator 30 08/06/16 12:45 123 23 99/41 98 Mechanical Ventilator 30 08/06/16 12:44 108 28 30 08/06/16 12:30 125 23 116/51 98 Mechanical Ventilator 30 08/06/16 12:15 127 26 101/58 98 Mechanical Ventilator 30 08/06/16 12:00 99.4 131 26 109/55 98 Mechanical Ventilator 30 08/06/16 12:00 30 08/06/16 12:00 122 08/06/16 11:45 131 26 107/39 98 Mechanical Ventilator 30 08/06/16 11:30 134 20 108/40 96 Mechanical Ventilator 30 08/06/16 11:25 114 30 30 08/06/16 11:15 135 23 104/49 98 Mechanical Ventilator 30 08/06/16 11:00 141 23 100/40 98 Mechanical Ventilator 30 Intake and Output 08/06/16 08/07/16 19:00 07:00 Intake Total 2069.13 ml 1842.44 ml Output Total 345 ml 240 ml Balance 1724.13 ml 1602.44 ml Intake IV Total 1679.13 ml 1842.44 ml Blood Product 300 ml Other 90 ml Output Urine Total 345 ml 240 ml Laboratory Tests 08/07/16 00:00: White Blood Count 15.8H, Red Blood Count 3.13L, Hemoglobin 8.0#L, Hematocrit 25.9L, Mean Corpuscular Volume 83, Mean Corpuscular Hemoglobin 25.6L, Mean Corpuscular Hemoglobin Concent 31.0L, Red Cell Distribution Width 15.5H, Platelet Count 71L, Mean Platelet Volume 6.7, Neutrophils (%) (Auto) , Lymphocytes (%) (Auto) , Monocytes (%) (Auto) , Eosinophils (%) (Auto) , Basophils (%) (Auto) 08/07/16 06:00: White Blood Count 16.9H, Red Blood Count 3.02L, Hemoglobin 8.0L, Hematocrit 25.1L, Mean Corpuscular Volume 83, Mean Corpuscular Hemoglobin 26.4L, Mean Corpuscular Hemoglobin Concent 31.8L, Red Cell Distribution Width 15.7H, Platelet Count 69L, Mean Platelet Volume 9.7, Neutrophils (%) (Auto) , Lymphocytes (%) (Auto) , Monocytes (%) (Auto) , Eosinophils (%) (Auto) , Basophils (%) (Auto) , Neutrophils % (Manual) [Pending], Lymphocytes % (Manual) [Pending], Platelet Estimate [Pending], Platelet Morphology [Pending], Sodium Level 138, Potassium Level 5.1H, Chloride Level 104, Carbon Dioxide Level 15L, Anion Gap 19H, Blood Urea Nitrogen 93H, Creatinine 6.0H, Estimat Glomerular Filtration Rate , Glucose Level 107H, Hemoglobin A1c 5.0, Uric Acid 14.8H, Calcium Level 5.9*L, Phosphorus Level 5.0H, Magnesium Level 1.8, Total Bilirubin 3.3H, Direct Bilirubin 2.8H, Gamma Glutamyl Transpeptidase 16, Aspartate Amino Transf (AST/SGOT) 7, Alanine Aminotransferase (ALT/SGPT) < 5, Alkaline Phosphatase 67, Total Creatine Kinase 105, C-Reactive Protein, Quantitative 22.1H, Pro-B-Type Natriuretic Peptide > 58831G, Total Protein 5.4L , Albumin 1.4L, Globulin 4.0, Albumin/Globulin Ratio 0.3L, Thyroid Stimulating Hormone (TSH) 6.580H 08/07/16 08:55: Arterial Blood pH 7.286L, Arterial Blood Partial Pressure CO2 30.5L, Arterial Blood Partial Pressure O2 110.3H, Arterial Blood HCO3 14.2L, Arterial Blood Oxygen Saturation 97.2, Arterial Blood Base Excess -11.3, Sancho Test Positive Height (Feet): 5 Height (Inches): 4.00 Weight (Pounds): 180 General Appearance: no apparent distress EENT: other - on vent Neck: stiff neck Cardiovascular: tachycardia Respiratory/Chest: decreased breath sounds Abdomen: distended Objective other PE not changed TYLER PALMER Aug 07, 2016 10:58
--- NOTE | 2016-08-07 11:15 | General Progress Note ---
Assessment/Plan Problem List: (1) Renal insufficiency ICD Codes: N28.9 - Disorder of kidney and ureter, unspecified SNOMED: 449567304 (2) Pancytopenia ICD Codes: D61.818 - Other pancytopenia SNOMED: 697026096 (3) Multiorgan failure SNOMED: 26583429 (4) Respiratory distress ICD Codes: R06.00 - Dyspnea, unspecified SNOMED: 925200072 (5) Septic shock ICD Codes: A41.9 - Sepsis, unspecified organism; R65.21 - Severe sepsis with septic shock SNOMED: 44747457 (6) DM (diabetes mellitus) ICD Codes: E11.9 - DM (diabetes mellitus) SNOMED: 49454037 (7) Symptomatic anemia ICD Codes: D64.9 - Anemia, unspecified SNOMED: 094731124 (8) STORM (acute kidney injury) ICD Codes: N17.9 - Acute kidney failure, unspecified SNOMED: 23509154 Status: unchanged Assessment/Plan resp failure intubated pna septic shock poor prognosis s/p pressors no change Subjective ROS Limited/Unobtainable: Yes Allergies: Coded Allergies: HEPARIN (Verified Allergy, Mild, 12/21/14) Objective Last 24 Hour Vital Signs Date Time Temp Pulse Resp B/P Pulse Ox O2 Delivery O2 Flow Rate FiO2 08/07/16 10:40 158 21 30 08/07/16 10:25 25 08/07/16 09:26 128 28 30 08/07/16 08:49 90/48 08/07/16 08:00 114 08/07/16 08:00 30 08/07/16 07:25 148 32 30 08/07/16 07:00 117 24 120/72 94 Mechanical Ventilator 30 08/07/16 06:56 102/55 08/07/16 06:45 119 24 102/55 94 Mechanical Ventilator 30 08/07/16 06:30 118 24 112/55 94 Mechanical Ventilator 30 08/07/16 06:15 117 24 120/62 94 Mechanical Ventilator 30 08/07/16 06:00 117 24 111/56 94 Mechanical Ventilator 30 08/07/16 06:00 111/56 08/07/16 05:45 117 24 118/56 94 Mechanical Ventilator 30 08/07/16 05:30 118 24 112/52 94 Mechanical Ventilator 30 08/07/16 05:22 120 26 30 08/07/16 05:15 117 24 101/60 94 Mechanical Ventilator 30 08/07/16 05:00 118 24 111/50 94 Mechanical Ventilator 30 08/07/16 04:53 110/54 08/07/16 04:45 117 24 110/54 94 Mechanical Ventilator 30 08/07/16 04:30 119 24 116/48 94 Mechanical Ventilator 30 08/07/16 04:15 123 24 120/60 94 Mechanical Ventilator 30 08/07/16 04:00 30 08/07/16 04:00 126 08/07/16 04:00 98/68 08/07/16 04:00 98.8 126 24 105/81 94 Mechanical Ventilator 30 08/07/16 03:45 119 24 102/69 94 Mechanical Ventilator 30 08/07/16 03:30 123 24 102/75 94 Mechanical Ventilator 30 08/07/16 03:30 119 36 30 08/07/16 03:15 120 24 116/59 94 Mechanical Ventilator 30 08/07/16 03:00 114 24 75/41 94 Mechanical Ventilator 30 08/07/16 03:00 96/65 08/07/16 02:45 114 24 96/54 94 Mechanical Ventilator 30 08/07/16 02:30 120 24 104/69 94 Mechanical Ventilator 30 08/07/16 02:21 112/53 08/07/16 02:15 111 24 96/60 94 Mechanical Ventilator 30 08/07/16 02:00 109 24 90/54 94 Mechanical Ventilator 30 08/07/16 02:00 90/54 08/07/16 01:45 113 24 100/52 94 Mechanical Ventilator 30 08/07/16 01:30 114 24 111/60 94 Mechanical Ventilator 30 08/07/16 01:20 119 24 30 08/07/16 01:15 113 24 105/65 94 Mechanical Ventilator 30 08/07/16 01:00 113 24 100/55 94 Mechanical Ventilator 30 08/07/16 01:00 100/55 08/07/16 00:45 115 24 112/54 94 Mechanical Ventilator 30 08/07/16 00:30 117 24 96/60 94 Mechanical Ventilator 30 08/07/16 00:15 115 24 112/53 94 Mechanical Ventilator 30 08/07/16 00:00 115 08/07/16 00:00 98.6 113 24 102/64 94 Mechanical Ventilator 30 08/07/16 00:00 96/60 08/07/16 00:00 30 08/06/16 23:45 113 24 92/57 94 Mechanical Ventilator 30 08/06/16 23:30 116 34 30 08/06/16 23:30 114 24 106/58 94 Mechanical Ventilator 30 17 23:15 114 24 117/70 94 Mechanical Ventilator 30 17 23:00 109/52 17 23:00 112 24 109/52 94 Mechanical Ventilator 30 08/06/16 22:45 112 25 112/56 97 Mechanical Ventilator 30 08/06/16 22:30 110 24 115/56 98 Mechanical Ventilator 30 08/06/16 22:15 110 24 95/50 96 Mechanical Ventilator 30 08/06/16 22:05 110/52 08/06/16 22:00 109 24 110/52 96 Mechanical Ventilator 30 08/06/16 21:45 108 24 106/53 95 Mechanical Ventilator 30 08/06/16 21:30 107 25 95/53 98 Mechanical Ventilator 30 08/06/16 21:30 117 24 30 08/06/16 21:15 106 24 96/51 100 Mechanical Ventilator 30 08/06/16 21:00 99/61 08/06/ 21:00 102 23 99/61 100 Mechanical Ventilator 30 08/06/16 20:45 102 24 100/48 95 Mechanical Ventilator 30 08/06/16 20:30 113 24 98/54 95 Mechanical Ventilator 30 08/06/16 20:15 111 23 103/62 95 Mechanical Ventilator 30 08/06/16 20:00 99.1 110 24 93/56 90 Mechanical Ventilator 30 08/06/16 20:00 30 08/06/16 20:00 97 20/17 19:55 73/40 220/17 19:45 112 23 73/40 95 Mechanical Ventilator 30 08/06/17 19:30 112 26 115/63 95 Mechanical Ventilator 30 17 19:30 115 29 30 08/06/ 19:15 116 24 97/54 99 Mechanical Ventilator 30 08/06/17 19:00 114 25 104/47 100 Mechanical Ventilator 30 20/17 19:00 104/47 20/17 18:45 114 24 97/58 100 Mechanical Ventilator 30 17 18:30 112 24 96/53 92 Mechanical Ventilator 30 08/06/17 18:15 113 24 106/58 100 Mechanical Ventilator 30 20/17 18:00 99/52 220/17 18:00 114 24 99/52 100 Mechanical Ventilator 30 220/17 17:45 113 24 89/54 99 Mechanical Ventilator 30 20/17 17:30 113 25 101/55 96 Mechanical Ventilator 30 20/17 17:15 113 24 95/40 99 Mechanical Ventilator 30 08/06/17 17:07 111 24 30 08/06/17 17:00 113 25 93/45 99 Mechanical Ventilator 30 08/06/17 17:00 93/45 220/17 16:45 93/45 220/17 16:45 111 25 98/49 94 Mechanical Ventilator 30 08/06/16 16:30 112 24 89/61 93 Mechanical Ventilator 30 17 16:15 107 26 108/52 90 Mechanical Ventilator 30 08/06/16 16:00 109 08/06/16 16:00 108/52 08/06/16 16:00 30 08/06/16 16:00 97.4 110 26 116/55 100 Mechanical Ventilator 30 08/06/16 15:45 112 25 104/46 93 Mechanical Ventilator 30 08/06/16 15:43 110 27 30 08/06/ 15:30 112 25 84/48 100 Mechanical Ventilator 30 08/06/16 15:15 114 26 92/44 100 Mechanical Ventilator 30 17 15:00 114 26 92/44 100 Mechanical Ventilator 30 17 14:45 116 22 119/59 100 Mechanical Ventilator 30 08/06/16 14:30 116 22 106/57 100 Mechanical Ventilator 30 17 14:15 99.6 114 26 110/48 100 Mechanical Ventilator 30 08/06/17 14:00 110 26 111/48 98 Mechanical Ventilator 30 20/17 13:52 103/56 220/17 13:45 111 23 95/36 98 Mechanical Ventilator 30 17 13:30 105 23 90/33 99 Mechanical Ventilator 30 220/17 13:15 117 23 104/51 98 Mechanical Ventilator 30 20/17 13:00 120 23 99/44 98 Mechanical Ventilator 30 20/17 12:45 123 23 99/41 98 Mechanical Ventilator 30 2/20/17 12:44 108 28 30 08/06/16 12:30 125 23 116/51 98 Mechanical Ventilator 30 08/06/16 12:15 127 26 101/58 98 Mechanical Ventilator 30 08/06/16 12:00 99.4 131 26 109/55 98 Mechanical Ventilator 30 08/06/16 12:00 30 08/06/16 12:00 122 08/06/16 11:45 131 26 107/39 98 Mechanical Ventilator 30 08/06/16 11:30 134 20 108/40 96 Mechanical Ventilator 30 08/06/16 11:25 114 30 30 08/06/16 11:15 135 23 104/49 98 Mechanical Ventilator 30 Intake and Output 08/06/16 08/07/16 19:00 07:00 Intake Total 2069.13 ml 1842.44 ml Output Total 345 ml 240 ml Balance 1724.13 ml 1602.44 ml Intake IV Total 1679.13 ml 1842.44 ml Blood Product 300 ml Other 90 ml Output Urine Total 345 ml 240 ml Laboratory Tests 08/07/16 00:00: White Blood Count 15.8H, Red Blood Count 3.13L, Hemoglobin 8.0#L, Hematocrit 25.9L, Mean Corpuscular Volume 83, Mean Corpuscular Hemoglobin 25.6L, Mean Corpuscular Hemoglobin Concent 31.0L, Red Cell Distribution Width 15.5H, Platelet Count 71L, Mean Platelet Volume 6.7, Neutrophils (%) (Auto) , Lymphocytes (%) (Auto) , Monocytes (%) (Auto) , Eosinophils (%) (Auto) , Basophils (%) (Auto) 08/07/16 06:00: White Blood Count 16.9H, Red Blood Count 3.02L, Hemoglobin 8.0L, Hematocrit 25.1L, Mean Corpuscular Volume 83, Mean Corpuscular Hemoglobin 26.4L, Mean Corpuscular Hemoglobin Concent 31.8L, Red Cell Distribution Width 15.7H, Platelet Count 69L, Mean Platelet Volume 9.7, Neutrophils (%) (Auto) , Lymphocytes (%) (Auto) , Monocytes (%) (Auto) , Eosinophils (%) (Auto) , Basophils (%) (Auto) , Neutrophils % (Manual) [Pending], Lymphocytes % (Manual) [Pending], Platelet Estimate [Pending], Platelet Morphology [Pending], Sodium Level 138, Potassium Level 5.1H, Chloride Level 104, Carbon Dioxide Level 15L, Anion Gap 19H, Blood Urea Nitrogen 93H, Creatinine 6.0H, Estimat Glomerular Filtration Rate , Glucose Level 107H, Hemoglobin A1c 5.0, Uric Acid 14.8H, Calcium Level 5.9*L, Phosphorus Level 5.0H, Magnesium Level 1.8, Total Bilirubin 3.3H, Direct Bilirubin 2.8H, Gamma Glutamyl Transpeptidase 16, Aspartate Amino Transf (AST/SGOT) 7, Alanine Aminotransferase (ALT/SGPT) < 5, Alkaline Phosphatase 67, Total Creatine Kinase 105, C-Reactive Protein, Quantitative 22.1H, Pro-B-Type Natriuretic Peptide > 29720O, Total Protein 5.4L , Albumin 1.4L, Globulin 4.0, Albumin/Globulin Ratio 0.3L, Thyroid Stimulating Hormone (TSH) 6.580H 08/07/16 08:55: Arterial Blood pH 7.286L, Arterial Blood Partial Pressure CO2 30.5L, Arterial Blood Partial Pressure O2 110.3H, Arterial Blood HCO3 14.2L, Arterial Blood Oxygen Saturation 97.2, Arterial Blood Base Excess -11.3, Sancho Test Positive Height (Feet): 5 Height (Inches): 4.00 Weight (Pounds): 180 General Appearance: lethargic, confused Respiratory/Chest: rhonchi - bilaterally Abdomen: soft Jose Traore MD Aug 07, 2016 11:15
--- NOTE | 2016-08-07 11:17 | Diagnostic Imaging Report ---
Indication:Elevated liver function tests. Chronic liver disease/cirrhosis suspected clinically. Technique: Grayscale and duplex Doppler imaging of the abdomen performed. Comparison: None Findings: The liver demonstrates heterogeneous coarse echotexture with surface nodularity and moderate complex ascites demonstrating multiple septations. The spleen is normal in size. Aorta is demonstrated in normal caliber. Gallstones are present. Gallbladder wall is moderately thick. No biliary ductal dilatation is identified. The kidneys appear slightly echogenic. A few discrete cysts are present within both kidneys. There is no hydronephrosis. Small bilateral pleural effusions are present. The pancreas is not seen. The main portal vein is patent by Doppler examination. Impression: Suspected chronic liver disease/cirrhosis with coarsened echotexture and surface nodularity. Complex ascites with multiple septations. Peritonitis not excluded. Suspected medical renal disease. Atherosclerotic vascular disease Normal-sized spleen Gallstones
--- NOTE | 2016-08-07 11:34 | Diagnostic Imaging Report ---
Indication: Right ankle pain Technique: 2 views of the right ankle Comparison: none Findings: There is profound osteoporotic change. No definite acute fractures. No dislocations. There is questionably a soft tissue ulcer of the heel. No underlying cortical disruption. There is a small calcaneal spur. There is degenerative narrowing of the talonavicular joint. No other evidence of osseous erosions. Impression: No acute bony trauma Possible small heel ulcer. No definite plain] findings of acute osteomyelitis. Note, however, that plain films are of limited sensitivity for such, and MRI or bone scanning should be considered if there is high clinical suspicion
--- NOTE | 2016-08-07 11:41 | Diagnostic Imaging Report ---
Indication: DYSPNEA Technique: One view of the chest Comparison: 08/05/2016 Findings: Endotracheal tube, nasogastric tube, right jugular central venous catheter remain. There are bilateral left greater than right pleural effusions. There is bilateral interstitial congestion, which appears slightly improved from the prior study. Impression: Improvement of interstitial congestion, over 2 days. Other stable findings as described
[2016-08-07 12:02] LABS: BAND NEUTROPHILS % (MANUAL) 11 % (0-8); LYMPHOCYTES % (MANUAL) 2 % (20-45); NEUTROPHILS % (MANUAL) 85 % (45-75); TOTAL CELLS COUNTED 100
[2016-08-07 12:03] LABS: ANISOCYTOSIS 1+; BASOPHILS % (MANUAL) 0 % (0-2); EOSINOPHILS % (MANUAL) 0 % (0-3); HYPOCHROMASIA 1+; PLATELET ESTIMATE DECREASED; PLATELET MORPHOLOGY NORMAL
--- NOTE | 2016-08-07 12:28 | General Progress Note ---
Progress Note Progress Note procedure note Procedure: endotracheal intubation indication, previous tube malfunction Anesthesia: propofol procedure Vocal cords were visualized, an et tube of 8 was inserted. Bilateral breath sounds present. CXR ordered. ADRIENNE MENDOZA Aug 07, 2016 12:28
--- NOTE | 2016-08-07 13:54 | Diagnostic Imaging Report ---
Indication: Post reintubation Technique: One view of the chest Comparison: 3 hours earlier Findings: There is an endotracheal tube in place, tip in good position approximately 3 cm above the pat. Nasogastric tube tip projects beyond the image. Right jugular central venous catheter remains. Bilateral interstitial edema and bilateral pleural effusions persists. The heart is enlarged. There are calcified granulomatous left aortic pulmonary window lymph nodes again demonstrated Impression: Apparent satisfactory intubation Other stable findings, as described
--- NOTE | 2016-08-07 16:52 | Infectious Diseases Prog Note ---
Assessment/Plan Problems: (1) Septic shock Assessment & Plan: with gram negative rods, source could be his right ankle wound infection, will switch zosyn to meropenem and continue levaquin for double coverage, until further identification is done, continue clindamycin for MRSA coverage. (2) Multiorgan failure Assessment & Plan: due to septic shock, continue hydration and pressors to keep SBP >100 (3) STORM (acute kidney injury) Assessment & Plan: with azotemia, avoid nephrotoxic meds, may need HD when hemodynamically stable, monitor UOP, renal is following (4) Anemia Assessment & Plan: monitor H/H transfuse blood as needed, need to rule out GI source. (5) DM (diabetes mellitus) Assessment & Plan: recommend tight glycemic control to keep BG between 80-120 (6) Open wound of right ankle with complication Assessment & Plan: needs to rule out osteomyelitis, will obtain x ray of the ankle for now, need bone scan once hemodynamically stable Subjective ROS Limited/Unobtainable: Yes Allergies: Coded Allergies: HEPARIN (Verified Allergy, Mild, 12/21/14) Subjective he is still intubated on mechanical ventilation, and hypotensive requiring pressor. Objective Vital Signs Last 24 Hour Vital Signs Date Time Temp Pulse Resp B/P Pulse Ox O2 Delivery O2 Flow Rate FiO2 08/07/16 15:27 118 32 30 08/07/16 15:00 118 25 98/59 100 Mechanical Ventilator 30 08/07/16 14:45 103 25 91/47 100 Mechanical Ventilator 30 08/07/16 14:45 107/52 08/07/16 14:30 106 25 90/47 100 Mechanical Ventilator 30 08/07/16 14:15 110 25 107/52 100 Mechanical Ventilator 30 08/07/16 14:00 114 27 104/60 98 Mechanical Ventilator 30 08/07/16 13:45 113 26 106/59 98 Mechanical Ventilator 30 08/07/16 13:44 114 22 30 08/07/16 13:30 110 27 108/56 98 Mechanical Ventilator 30 08/07/16 13:15 114 26 94/57 96 Mechanical Ventilator 30 08/07/16 13:00 117 26 106/67 96 Mechanical Ventilator 30 08/07/16 12:45 115 26 110/67 96 Mechanical Ventilator 30 08/07/16 12:30 120 23 112/57 96 Mechanical Ventilator 30 08/07/16 12:15 126 23 122/57 96 Mechanical Ventilator 30 08/07/16 12:00 117 08/07/16 12:00 97.6 125 23 104/67 96 Mechanical Ventilator 30 08/07/16 11:45 128 23 96/66 96 Mechanical Ventilator 30 08/07/16 11:30 133 23 107/71 96 Mechanical Ventilator 30 08/07/16 11:15 138 22 97/70 96 Mechanical Ventilator 30 08/07/16 11:00 136 23 95/60 93 Mechanical Ventilator 30 08/07/16 10:45 30 08/07/16 10:45 142 23 90/49 93 Mechanical Ventilator 30 08/07/16 10:40 158 21 30 08/07/16 10:30 150 23 110/69 96 Mechanical Ventilator 30 08/07/16 10:25 25 08/07/16 10:15 123 23 115/61 96 Mechanical Ventilator 30 08/07/16 10:00 124 22 106/70 96 Mechanical Ventilator 30 08/07/16 09:45 125 22 107/70 96 Mechanical Ventilator 30 08/07/16 09:30 122 27 108/60 99 Mechanical Ventilator 30 08/07/16 09:26 128 28 30 08/07/16 09:15 123 25 104/62 99 Mechanical Ventilator 30 08/07/16 09:00 123 26 104/61 99 Mechanical Ventilator 30 08/07/16 08:49 90/48 08/07/16 08:45 122 28 98/59 99 Mechanical Ventilator 30 08/07/16 08:30 120 28 90/50 95 Mechanical Ventilator 30 08/07/16 08:15 125 28 90/39 95 Mechanical Ventilator 30 08/07/16 08:00 130 28 102/45 95 Mechanical Ventilator 30 08/07/16 08:00 114 08/07/16 08:00 30 08/07/16 07:45 137 24 98/63 94 Mechanical Ventilator 30 08/07/16 07:30 137 24 114/64 94 Mechanical Ventilator 30 08/07/16 07:25 148 32 30 08/07/16 07:15 97.5 135 24 116/67 95 Mechanical Ventilator 30 08/07/16 07:00 117 24 120/72 94 Mechanical Ventilator 30 08/07/16 06:56 102/55 08/07/16 06:45 119 24 102/55 94 Mechanical Ventilator 30 08/07/16 06:30 118 24 112/55 94 Mechanical Ventilator 30 08/07/16 06:15 117 24 120/62 94 Mechanical Ventilator 30 08/07/16 06:00 117 24 111/56 94 Mechanical Ventilator 30 08/07/16 06:00 111/56 08/07/16 05:45 117 24 118/56 94 Mechanical Ventilator 30 08/07/16 05:30 118 24 112/52 94 Mechanical Ventilator 30 08/07/16 05:22 120 26 30 08/07/16 05:15 117 24 101/60 94 Mechanical Ventilator 30 08/07/16 05:00 118 24 111/50 94 Mechanical Ventilator 30 08/07/16 04:53 110/54 08/07/16 04:45 117 24 110/54 94 Mechanical Ventilator 30 08/07/16 04:30 119 24 116/48 94 Mechanical Ventilator 30 08/07/16 04:15 123 24 120/60 94 Mechanical Ventilator 30 08/07/16 04:00 30 08/07/16 04:00 126 08/07/16 04:00 98/68 08/07/16 04:00 98.8 126 24 105/81 94 Mechanical Ventilator 30 08/07/16 03:45 119 24 102/69 94 Mechanical Ventilator 30 08/07/16 03:30 123 24 102/75 94 Mechanical Ventilator 30 08/07/16 03:30 119 36 30 08/07/16 03:15 120 24 116/59 94 Mechanical Ventilator 30 08/07/16 03:00 114 24 75/41 94 Mechanical Ventilator 30 08/07/16 03:00 96/65 08/07/16 02:45 114 24 96/54 94 Mechanical Ventilator 30 08/07/16 02:30 120 24 104/69 94 Mechanical Ventilator 30 08/07/16 02:21 112/53 08/07/16 02:15 111 24 96/60 94 Mechanical Ventilator 30 08/07/16 02:00 109 24 90/54 94 Mechanical Ventilator 30 08/07/16 02:00 90/54 08/07/16 01:45 113 24 100/52 94 Mechanical Ventilator 30 08/07/16 01:30 114 24 111/60 94 Mechanical Ventilator 30 08/07/16 01:20 119 24 30 08/07/16 01:15 113 24 105/65 94 Mechanical Ventilator 30 08/07/16 01:00 113 24 100/55 94 Mechanical Ventilator 30 08/07/16 01:00 100/55 08/07/16 00:45 115 24 112/54 94 Mechanical Ventilator 30 08/07/16 00:30 117 24 96/60 94 Mechanical Ventilator 30 08/07/16 00:15 115 24 112/53 94 Mechanical Ventilator 30 08/07/16 00:00 115 08/07/16 00:00 98.6 113 24 102/64 94 Mechanical Ventilator 30 08/07/16 00:00 96/60 08/07/16 00:00 30 08/06/16 23:45 113 24 92/57 94 Mechanical Ventilator 30 08/06/16 23:30 116 34 30 08/06/16 23:30 114 24 106/58 94 Mechanical Ventilator 30 08/06/16 23:15 114 24 117/70 94 Mechanical Ventilator 30 08/06/16 23:00 109/52 08/06/16 23:00 112 24 109/52 94 Mechanical Ventilator 30 08/06/16 22:45 112 25 112/56 97 Mechanical Ventilator 30 08/06/16 22:30 110 24 115/56 98 Mechanical Ventilator 30 08/06/16 22:15 110 24 95/50 96 Mechanical Ventilator 30 08/06/16 22:05 110/52 08/06/16 22:00 109 24 110/52 96 Mechanical Ventilator 30 08/06/16 21:45 108 24 106/53 95 Mechanical Ventilator 30 08/06/16 21:30 107 25 95/53 98 Mechanical Ventilator 30 08/06/16 21:30 117 24 30 08/06/16 21:15 106 24 96/51 100 Mechanical Ventilator 30 08/06/16 21:00 99/61 08/06/16 21:00 102 23 99/61 100 Mechanical Ventilator 30 08/06/16 20:45 102 24 100/48 95 Mechanical Ventilator 30 08/06/16 20:30 113 24 98/54 95 Mechanical Ventilator 30 08/06/16 20:15 111 23 103/62 95 Mechanical Ventilator 30 08/06/16 20:00 99.1 110 24 93/56 90 Mechanical Ventilator 30 08/06/16 20:00 30 08/06/16 20:00 97 20 19:55 73/40 08/06/16 19:45 112 23 73/40 95 Mechanical Ventilator 30 08/06/16 19:30 112 26 115/63 95 Mechanical Ventilator 30 08/06/16 19:30 115 29 30 08/06/16 19:15 116 24 97/54 99 Mechanical Ventilator 30 08/06/16 19:00 114 25 104/47 100 Mechanical Ventilator 30 08/06/16 19:00 104/47 08/06/16 18:45 114 24 97/58 100 Mechanical Ventilator 30 08/06/16 18:30 112 24 96/53 92 Mechanical Ventilator 30 08/06/16 18:15 113 24 106/58 100 Mechanical Ventilator 30 08/06/16 18:00 99/52 08/06/16 18:00 114 24 99/52 100 Mechanical Ventilator 30 08/06/16 17:45 113 24 89/54 99 Mechanical Ventilator 30 08/06/16 17:30 113 25 101/55 96 Mechanical Ventilator 30 08/06/16 17:15 113 24 95/40 99 Mechanical Ventilator 30 08/06/16 17:07 111 24 30 08/06/16 17:00 113 25 93/45 99 Mechanical Ventilator 30 08/06/16 17:00 93/45 Height (Feet): 5 Height (Inches): 4.00 Weight (Pounds): 180 General Appearance: WD/WN, no acute distress HEENT: normocephalic, atraumatic, anicteric, no JVD Respiratory/Chest: normal breath sounds, no respiratory distress, no accessory muscle use, decreased breath sounds, crackles/rales Cardiovascular: normal rate, regular rhythm, no gallop/murmur, tachycardia Abdomen: normal bowel sounds, soft, non tender, no mass, no scars, distended Extremities: no cyanosis, no clubbing, other - multiple wounds Skin: no rash, ulcers Microbiology Date/Time Source Procedure Growth Status 08/05/16 15:30 Blood Blood Culture - Preliminary Gram Negative Bacillus 1 Resulted 08/05/16 15:02 Blood Blood Culture - Preliminary Gram Negative Bacillus 1 Resulted 08/06/16 10:00 Sputum Gram Stain - Final Resulted 08/06/16 10:00 Sputum Sputum Culture Pending Resulted 08/05/16 17:45 Nasal Nares MRSA Culture - Final NO METHICILLIN RESISTANT STAPH AUREUS... Complete 08/06/16 04:20 Foot Right Gram Stain - Final Resulted 08/06/16 04:20 Foot Right Wound Culture - Preliminary Resulted 08/05/16 17:45 Rectum VRE Culture - Final NO VANCOMYCIN RESISTANT ENTEROCOCCUS ... Complete Laboratory Tests Test 08/07/16 00:00 08/07/16 06:00 08/07/16 08:55 White Blood Count 15.8 K/UL (4.8-10.8) H 16.9 K/UL (4.8-10.8) H Red Blood Count 3.13 M/UL (4.70-6.10) L 3.02 M/UL (4.70-6.10) L Hemoglobin 8.0 G/DL (14.2-18.0) #L 8.0 G/DL (14.2-18.0) L Hematocrit 25.9 % (42.0-52.0) L 25.1 % (42.0-52.0) L Mean Corpuscular Volume 83 FL (80-99) 83 FL (80-99) Mean Corpuscular Hemoglobin 25.6 PG (27.0-31.0) L 26.4 PG (27.0-31.0) L Mean Corpuscular Hemoglobin Concent 31.0 G/DL (32.0-36.0) L 31.8 G/DL (32.0-36.0) L Red Cell Distribution Width 15.5 % (11.6-14.8) H 15.7 % (11.6-14.8) H Platelet Count 71 K/UL (150-450) L 69 K/UL (150-450) L Mean Platelet Volume 6.7 FL (6.5-10.1) 9.7 FL (6.5-10.1) Neutrophils (%) (Auto) % (45.0-75.0) % (45.0-75.0) Lymphocytes (%) (Auto) % (20.0-45.0) % (20.0-45.0) Monocytes (%) (Auto) % (1.0-10.0) % (1.0-10.0) Eosinophils (%) (Auto) % (0.0-3.0) % (0.0-3.0) Basophils (%) (Auto) % (0.0-2.0) % (0.0-2.0) Differential Total Cells Counted 100 Neutrophils % (Manual) 85 % (45-75) H Lymphocytes % (Manual) 2 % (20-45) L Monocytes % (Manual) 2 % (1-10) Eosinophils % (Manual) 0 % (0-3) Basophils % (Manual) 0 % (0-2) Band Neutrophils 11 % (0-8) H Platelet Estimate Decreased L Platelet Morphology Normal Hypochromasia 1+ Anisocytosis 1+ Sodium Level 138 mEQ/L (135-145) Potassium Level 5.1 mEQ/L (3.4-4.9) H Chloride Level 104 mEQ/L (98-107) Carbon Dioxide Level 15 mEQ/L (20-30) L Anion Gap 19 (5-15) H Blood Urea Nitrogen 93 mg/dL (7-23) H Creatinine 6.0 mg/dL (0.7-1.2) H Estimat Glomerular Filtration Rate mL/min (>60) Glucose Level 107 mg/dL (74-106) H Hemoglobin A1c 5.0 % (< 6.0) Uric Acid 14.8 mg/dL (3.0-7.5) H Calcium Level 5.9 mg/dL (8.6-10.2) *L Phosphorus Level 5.0 mg/dL (2.5-4.8) H Magnesium Level 1.8 mg/dL (1.7-2.5) Total Bilirubin 3.3 mg/dL (0.0-1.2) H Direct Bilirubin 2.8 mg/dL (0.1-0.3) H Gamma Glutamyl Transpeptidase 16 U/L (8-61) Aspartate Amino Transf (AST/SGOT) 7 U/L (5-40) Alanine Aminotransferase (ALT/SGPT) < 5 U/L (3-41) Alkaline Phosphatase 67 U/L (40-129) Total Creatine Kinase 105 U/L (38-174) C-Reactive Protein, Quantitative 22.1 mg/dL (< 0.5) H Pro-B-Type Natriuretic Peptide > 11364 pg/mL (0-450) H Total Protein 5.4 g/dL (6.6-8.7) L Albumin 1.4 g/dL (3.5-5.2) L Globulin 4.0 g/dL Albumin/Globulin Ratio 0.3 (1.0-2.7) L Thyroid Stimulating Hormone (TSH) 6.580 uIU/mL (0.300-4.500) Arterial Blood pH 7.286 (7.350-7.450) Arterial Blood Partial Pressure CO2 30.5 mmHg (35.0-45.0) L Arterial Blood Partial Pressure O2 110.3 mmHg (75.0-100.0) H Arterial Blood HCO3 14.2 mmol/L (22.0-26.0) L Arterial Blood Oxygen Saturation 97.2 % (92.0-98.0) Arterial Blood Base Excess -11.3 Sancho Test Positive Current Medications Medications (Trade) Dose Ordered Sig/Yumi Route PRN Reason Start Time Stop Time Status Last Admin Dose Admin Acetaminophen (Tylenol) 500 mg Q4H PRN ORAL Mild Pain/Temp > 100.5 08/06/16 19:45 09/05/16 19:44 Albuterol/ Ipratropium (DuoNeb 0.5-3(2.5)mg/3ml) 3 ml EVERY 4 HOURS PRN HHN Shortness of Breath 08/05/16 20:30 08/10/16 20:29 Allopurinol (Allopurinol) 300 mg DAILY ORAL 08/07/16 09:00 09/06/16 08:59 08/07/16 08:54 Clindamycin HCl/ Dextrose 50 ml @ 100 mls/hr Q8H IV 08/06/16 12:00 08/13/16 11:59 08/07/16 12:01 Dextrose STAT PRN IV Hypoglycemia 08/05/16 20:30 09/04/16 20:29 Diphenhydramine HCl (Benadryl) 50 mg Q6H PRN IVP Itching 08/06/16 19:45 09/05/16 19:44 Epoetin Stewart (Procrit (for non ESRD use)) 10,000 units MON-WED-FRI SUBQ 08/06/16 21:00 09/05/16 20:59 08/06/16 21:53 Insulin Aspart (NovoLOG) BEFORE MEALS AND HS SUBQ 08/05/16 21:00 09/04/16 20:59 Iron Sucrose/ Sodium Chloride (Venofer/Sodium Chloride) 115 ml @ 230 mls/hr BEDTIME IVPB 08/05/16 23:00 08/09/16 21:29 08/06/16 21:52 Levofloxacin (Levaquin) 50 ml @ 50 mls/hr Q48H IVPB 08/08/16 17:00 08/15/16 16:59 Levothyroxine Sodium 50 mcg 50 mcg ACBREAKFAST ORAL 08/06/16 06:30 09/05/16 06:29 08/07/16 06:12 Lorazepam 2 mg 2 mg Q2H PRN IV For Anxiety 08/06/16 03:30 08/13/16 03:29 08/07/16 07:56 Morphine Sulfate (Morphine Sulfate) 4 mg EVERY 4 HOURS PRN IVP Severe Pain (Pain Scale 7-10) 08/05/16 20:30 08/12/16 20:29 Norepinephrine Bitartrate/ Dextrose (Levophed/D5W) 254 ml @ 0 mls/hr Q24H IV 08/05/16 22:00 09/04/16 21:59 08/07/16 14:45 Nystatin (Nystop Powder) 1 applic THREE TIMES A DAY TOPIC 08/06/16 18:00 09/05/16 17:59 08/07/16 12:02 Ondansetron HCl 4 mg 4 mg Q6H PRN IVP Nausea & Vomiting 08/05/16 20:30 09/04/16 20:29 Piperacillin Sod/ Tazobactam Sod 2.25 gm/Dextrose 55 ml @ 110 mls/hr Q8HR IVPB 08/06/16 14:00 08/13/16 13:59 08/07/16 13:41 Polyethylene Glycol (Miralax) 17 gm DAILYPRN PRN ORAL Constipation 08/05/16 20:30 09/04/16 20:29 Sodium Chloride (Sodium Chloride 1000ml bag) 1,000 ml @ 100 mls/hr Q10H IVLG 08/05/16 23:39 09/04/16 23:38 08/07/16 16:44 Vitamin A/Vitamin D (A & D Oint) 1 applic EVERY 12 HOURS TOPIC 08/06/16 21:00 09/05/16 20:59 08/07/16 08:54 Jamin Ramos M.D. Aug 07, 2016 16:52
[2016-08-07] MEDS: Meropenem 500 MG in NS 55 ML IVPB SCH (18:06)
[2016-08-07 18:25] LABS: MEAN CORPUSCULAR HEMOGLOBIN 26.4 PG (27.0-31.0); MEAN CORPUSCULAR HGB CONC 32.1 G/DL (32.0-36.0); MEAN CORPUSCULAR VOLUME 82 FL (80-99); MEAN PLATELET VOLUME 7.8 FL (6.5-10.1); PLATELET COUNT 64 K/UL (150-450); RED BLOOD COUNT 2.96 M/UL (4.70-6.10); RED CELL DISTRIBUTION WIDTH 15.9 % (11.6-14.8); WHITE BLOOD COUNT 17.8 K/UL (4.8-10.8)
--- NOTE | 2016-08-07 18:32 | General Progress Note ---
Assessment/Plan Assessment/Plan ASSESSMENT AND PLAN: 1. Pancytopenia potentially secondary to underlying infection. 2. Anemia secondary to chronic disease. 3. Decreased hemoglobin and hematocrit, rule out gastrointestinal bleed. 4. Hypertension. 5. Chronic kidney disease. 6. Congestive heart failure. 7. Atrial fibrillation. 8. Hyperlipidemia. 9. Malnutrition. 10. Failure to thrive. RECOMMENDATIONS: 1. Monitor counts. 2. Watch coagulopaty. 3. Vasopressors as needed. 4. Peripheral smear has been ordered. 5. Rest of the labs has been reviewed. 6. Ultrasound of the abdomen to be ordered and completed. 7. Continue close follow up at this time. 8. DVT prophylaxis. 9. GI prophylaxis as needed. 10. Antibiotics per ID service. 11. Discussed with staff. Rolo Gold M.D Subjective Constitutional: Reports: no symptoms HEENT: Reports: no symptoms Cardiovascular: Reports: no symptoms Respiratory: Reports: no symptoms Gastrointestinal/Abdominal: Reports: no symptoms Genitourinary: Reports: no symptoms Neurologic/Psychiatric: Reports: no symptoms Endocrine: Reports: no symptoms Hematologic/Lymphatic: Reports: no symptoms Allergies: Coded Allergies: HEPARIN (Verified Allergy, Mild, 12/21/14) Objective Last 24 Hour Vital Signs Date Time Temp Pulse Resp B/P Pulse Ox O2 Delivery O2 Flow Rate FiO2 08/07/16 17:24 114 29 30 08/07/16 16:00 30 08/07/16 15:27 118 32 30 08/07/16 15:00 118 25 98/59 100 Mechanical Ventilator 30 08/07/16 14:45 103 25 91/47 100 Mechanical Ventilator 30 08/07/16 14:45 107/52 08/07/16 14:30 106 25 90/47 100 Mechanical Ventilator 30 08/07/16 14:15 110 25 107/52 100 Mechanical Ventilator 30 08/07/16 14:00 114 27 104/60 98 Mechanical Ventilator 30 08/07/16 13:45 113 26 106/59 98 Mechanical Ventilator 30 08/07/16 13:44 114 22 30 08/07/16 13:30 110 27 108/56 98 Mechanical Ventilator 30 08/07/16 13:15 114 26 94/57 96 Mechanical Ventilator 30 08/07/16 13:00 117 26 106/67 96 Mechanical Ventilator 30 08/07/16 12:45 115 26 110/67 96 Mechanical Ventilator 30 08/07/16 12:30 120 23 112/57 96 Mechanical Ventilator 30 08/07/16 12:15 126 23 122/57 96 Mechanical Ventilator 30 08/07/16 12:00 117 08/07/16 12:00 97.6 125 23 104/67 96 Mechanical Ventilator 30 08/07/16 11:45 128 23 96/66 96 Mechanical Ventilator 30 08/07/16 11:30 133 23 107/71 96 Mechanical Ventilator 30 08/07/16 11:15 138 22 97/70 96 Mechanical Ventilator 30 08/07/16 11:00 136 23 95/60 93 Mechanical Ventilator 30 08/07/16 10:45 30 08/07/16 10:45 142 23 90/49 93 Mechanical Ventilator 30 08/07/16 10:40 158 21 30 08/07/16 10:30 150 23 110/69 96 Mechanical Ventilator 30 08/07/16 10:25 25 08/07/16 10:15 123 23 115/61 96 Mechanical Ventilator 30 08/07/16 10:00 124 22 106/70 96 Mechanical Ventilator 30 08/07/16 09:45 125 22 107/70 96 Mechanical Ventilator 30 08/07/16 09:30 122 27 108/60 99 Mechanical Ventilator 30 08/07/16 09:26 128 28 30 08/07/16 09:15 123 25 104/62 99 Mechanical Ventilator 30 08/07/16 09:00 123 26 104/61 99 Mechanical Ventilator 30 08/07/16 08:49 90/48 08/07/16 08:45 122 28 98/59 99 Mechanical Ventilator 30 08/07/16 08:30 120 28 90/50 95 Mechanical Ventilator 30 08/07/16 08:15 125 28 90/39 95 Mechanical Ventilator 30 08/07/16 08:00 130 28 102/45 95 Mechanical Ventilator 30 08/07/16 08:00 114 08/07/16 08:00 30 08/07/16 07:45 137 24 98/63 94 Mechanical Ventilator 30 08/07/16 07:30 137 24 114/64 94 Mechanical Ventilator 30 08/07/16 07:25 148 32 30 08/07/16 07:15 97.5 135 24 116/67 95 Mechanical Ventilator 30 08/07/16 07:00 117 24 120/72 94 Mechanical Ventilator 30 08/07/16 06:56 102/55 08/07/16 06:45 119 24 102/55 94 Mechanical Ventilator 30 08/07/16 06:30 118 24 112/55 94 Mechanical Ventilator 30 08/07/16 06:15 117 24 120/62 94 Mechanical Ventilator 30 08/07/16 06:00 117 24 111/56 94 Mechanical Ventilator 30 08/07/16 06:00 111/56 08/07/16 05:45 117 24 118/56 94 Mechanical Ventilator 30 08/07/16 05:30 118 24 112/52 94 Mechanical Ventilator 30 08/07/16 05:22 120 26 30 08/07/16 05:15 117 24 101/60 94 Mechanical Ventilator 30 08/07/16 05:00 118 24 111/50 94 Mechanical Ventilator 30 08/07/16 04:53 110/54 08/07/16 04:45 117 24 110/54 94 Mechanical Ventilator 30 08/07/16 04:30 119 24 116/48 94 Mechanical Ventilator 30 08/07/16 04:15 123 24 120/60 94 Mechanical Ventilator 30 08/07/16 04:00 30 08/07/16 04:00 126 08/07/16 04:00 98/68 08/07/16 04:00 98.8 126 24 105/81 94 Mechanical Ventilator 30 08/07/16 03:45 119 24 102/69 94 Mechanical Ventilator 30 08/07/16 03:30 123 24 102/75 94 Mechanical Ventilator 30 08/07/16 03:30 119 36 30 08/07/16 03:15 120 24 116/59 94 Mechanical Ventilator 30 08/07/16 03:00 114 24 75/41 94 Mechanical Ventilator 30 08/07/16 03:00 96/65 08/07/16 02:45 114 24 96/54 94 Mechanical Ventilator 30 08/07/16 02:30 120 24 104/69 94 Mechanical Ventilator 30 08/07/16 02:21 112/53 08/07/16 02:15 111 24 96/60 94 Mechanical Ventilator 30 08/07/16 02:00 109 24 90/54 94 Mechanical Ventilator 30 08/07/16 02:00 90/54 08/07/16 01:45 113 24 100/52 94 Mechanical Ventilator 30 08/07/16 01:30 114 24 111/60 94 Mechanical Ventilator 30 08/07/16 01:20 119 24 30 08/07/16 01:15 113 24 105/65 94 Mechanical Ventilator 30 08/07/16 01:00 113 24 100/55 94 Mechanical Ventilator 30 08/07/16 01:00 100/55 08/07/16 00:45 115 24 112/54 94 Mechanical Ventilator 30 08/07/16 00:30 117 24 96/60 94 Mechanical Ventilator 30 08/07/16 00:15 115 24 112/53 94 Mechanical Ventilator 30 08/07/16 00:00 115 08/07/16 00:00 98.6 113 24 102/64 94 Mechanical Ventilator 30 08/07/16 00:00 96/60 08/07/16 00:00 30 08/06/16 23:45 113 24 92/57 94 Mechanical Ventilator 30 08/06/16 23:30 116 34 30 08/06/16 23:30 114 24 106/58 94 Mechanical Ventilator 30 08/06/16 23:15 114 24 117/70 94 Mechanical Ventilator 30 08/06/16 23:00 109/52 08/06/16 23:00 112 24 109/52 94 Mechanical Ventilator 30 08/06/16 22:45 112 25 112/56 97 Mechanical Ventilator 30 08/06/16 22:30 110 24 115/56 98 Mechanical Ventilator 30 08/06/16 22:15 110 24 95/50 96 Mechanical Ventilator 30 08/06/16 22:05 110/52 08/06/16 22:00 109 24 110/52 96 Mechanical Ventilator 30 08/06/16 21:45 108 24 106/53 95 Mechanical Ventilator 30 08/06/16 21:30 107 25 95/53 98 Mechanical Ventilator 30 08/06/16 21:30 117 24 30 08/06/16 21:15 106 24 96/51 100 Mechanical Ventilator 30 08/06/16 21:00 99/61 08/06/16 21:00 102 23 99/61 100 Mechanical Ventilator 30 08/06/16 20:45 102 24 100/48 95 Mechanical Ventilator 30 08/06/16 20:30 113 24 98/54 95 Mechanical Ventilator 30 Intake and Output 08/06/16 08/07/16 17:00 05:00 Intake Total 2099.61 ml 1834.82 ml Output Total 290 ml 275 ml Balance 1809.61 ml 1559.82 ml Intake IV Total 1709.61 ml 1834.82 ml Blood Product 300 ml Other 90 ml Output Urine Total 290 ml 275 ml Laboratory Tests 08/07/16 00:00: White Blood Count 15.8H, Red Blood Count 3.13L, Hemoglobin 8.0#L, Hematocrit 25.9L, Mean Corpuscular Volume 83, Mean Corpuscular Hemoglobin 25.6L, Mean Corpuscular Hemoglobin Concent 31.0L, Red Cell Distribution Width 15.5H, Platelet Count 71L, Mean Platelet Volume 6.7, Neutrophils (%) (Auto) , Lymphocytes (%) (Auto) , Monocytes (%) (Auto) , Eosinophils (%) (Auto) , Basophils (%) (Auto) 08/07/16 06:00: White Blood Count 16.9H, Red Blood Count 3.02L, Hemoglobin 8.0L, Hematocrit 25.1L, Mean Corpuscular Volume 83, Mean Corpuscular Hemoglobin 26.4L, Mean Corpuscular Hemoglobin Concent 31.8L, Red Cell Distribution Width 15.7H, Platelet Count 69L, Mean Platelet Volume 9.7, Neutrophils (%) (Auto) , Lymphocytes (%) (Auto) , Monocytes (%) (Auto) , Eosinophils (%) (Auto) , Basophils (%) (Auto) , Differential Total Cells Counted 100, Neutrophils % ( Manual) 85H, Lymphocytes % (Manual) 2L, Monocytes % (Manual) 2, Eosinophils % ( Manual) 0, Basophils % (Manual) 0, Band Neutrophils 11H, Platelet Estimate DecreasedL, Platelet Morphology Normal, Hypochromasia 1+, Anisocytosis 1+, Sodium Level 138, Potassium Level 5.1H, Chloride Level 104, Carbon Dioxide Level 15L, Anion Gap 19H, Blood Urea Nitrogen 93H, Creatinine 6.0H, Estimat Glomerular Filtration Rate , Glucose Level 107H, Hemoglobin A1c 5.0, Uric Acid 14.8H, Calcium Level 5.9*L, Phosphorus Level 5.0H, Magnesium Level 1.8, Total Bilirubin 3.3H, Direct Bilirubin 2.8H, Gamma Glutamyl Transpeptidase 16, Aspartate Amino Transf (AST/SGOT) 7, Alanine Aminotransferase (ALT/SGPT) < 5, Alkaline Phosphatase 67, Total Creatine Kinase 105, C-Reactive Protein, Quantitative 22.1H, Pro-B-Type Natriuretic Peptide > 61093M, Total Protein 5.4L , Albumin 1.4L, Globulin 4.0, Albumin/Globulin Ratio 0.3L, Thyroid Stimulating Hormone (TSH) 6.580H 08/07/16 08:55: Arterial Blood pH 7.286L, Arterial Blood Partial Pressure CO2 30.5L, Arterial Blood Partial Pressure O2 110.3H, Arterial Blood HCO3 14.2L, Arterial Blood Oxygen Saturation 97.2, Arterial Blood Base Excess -11.3, Sancho Test Positive 08/07/16 18:00: White Blood Count [Pending], Red Blood Count [Pending], Hemoglobin [Pending], Hematocrit [Pending], Mean Corpuscular Volume [Pending], Mean Corpuscular Hemoglobin [Pending], Mean Corpuscular Hemoglobin Concent [Pending], Red Cell Distribution Width [Pending], Platelet Count [Pending], Mean Platelet Volume [ Pending], Neutrophils (%) (Auto) [Pending], Lymphocytes (%) (Auto) [Pending], Monocytes (%) (Auto) [Pending], Eosinophils (%) (Auto) [Pending], Basophils (%) (Auto) [Pending] Height (Feet): 5 Height (Inches): 4.00 Weight (Pounds): 180 General Appearance: alert EENT: TMs normal Neck: supple Cardiovascular: regular rhythm Abdomen: soft Pelvis: no masses Extremities: non-tender Edema: no edema noted Arm (L), no edema noted Arm (R), no edema noted Leg (L), no edema noted Leg (R), no edema noted Pedal (L), no edema noted Pedal (R), no edema noted Generalized Neurologic: alert Skin: warm/dry Lymphatic: normal anterior cervical (L), normal anterior cervical (R), normal axillary (L), normal axillary (R), normal inguinal (L), normal inguinal (R), normal other, normal posterior cervical (L), normal posterior cervical (R), normal submandibular (L), normal submandibular (R), normal supraclavicular (L), normal supraclavicular (R) ROLO GOLD Aug 07, 2016 18:32
[2016-08-07 19:14] LABS: ANISOCYTOSIS 1+; BAND NEUTROPHILS % (MANUAL) 6 % (0-8); HYPOCHROMASIA 1+; LYMPHOCYTES % (MANUAL) 8 % (20-45); NEUTROPHILS % (MANUAL) 82 % (45-75); TOTAL CELLS COUNTED 100
[2016-08-07 19:15] LABS: BASOPHILS % (MANUAL) 0 % (0-2); EOSINOPHILS % (MANUAL) 0 % (0-3); PLATELET ESTIMATE DECREASED; PLATELET MORPHOLOGY NORMAL
[2016-08-07] MEDS ORDERED: NS 275ml ONE (19:20)
[2016-08-07] MEDS ORDERED: Tubing IV Secondary IV ONE (19:20)
[2016-08-07] MEDS ORDERED: Tubing Blood Filter IV ONE (19:20)
[2016-08-07] MEDS: Iron Sucrose 100 MG in NS 110 ML IVPB SCH (21:28)
--- NOTE | 2016-08-07 22:32 | Cardiology Progress Note ---
Assessment/Plan Assessment/Plan 1. Atrial fibrillation most likely permanent with rapid ventricular response most likely driven by sepsis and/or hypovolemia. 2. Four-chamber dilated cardiomyopathy LVEF ~30%. There is areas of wall motion abnormalities mainly in the anteroseptal lateral wall, apical wall, and septal wall. Ischemic cardiomyopathy cannot be excluded. 3. Hypotension most likely septic shock, on levophed gtt. 4. Acute on chronic systolic and diastolic congestive heart failure. 5. Bilateral pleural effusion. 6. Renal failure. Subjective Subjective Atrial fibrillation with RVR at 108. Objective Last 24 Hour Vital Signs Date Time Temp Pulse Resp B/P Pulse Ox O2 Delivery O2 Flow Rate FiO2 08/07/16 22:00 106/64 08/07/16 22:00 124 27 106/64 95 Mechanical Ventilator 30 08/07/16 21:45 121 24 106/64 95 Mechanical Ventilator 30 08/07/16 21:30 119 23 96/51 95 Mechanical Ventilator 30 08/07/16 21:27 98/57 08/07/16 21:20 119 24 30 08/07/16 21:15 119 23 88/51 95 Mechanical Ventilator 30 08/07/16 21:00 121 25 98/57 100 Mechanical Ventilator 30 08/07/16 21:00 106/50 08/07/16 20:00 119 08/07/16 20:00 30 08/07/16 20:00 108/90 08/07/16 20:00 96.8 122 27 107/87 90 Mechanical Ventilator 30 08/07/16 19:45 121 26 95/55 90 Mechanical Ventilator 30 08/07/16 19:30 121 27 96/61 92 Mechanical Ventilator 30 08/07/16 19:15 121 29 96/60 84 Mechanical Ventilator 30 08/07/16 19:11 118 31 30 08/07/16 19:00 120 26 100/61 93 Mechanical Ventilator 30 08/07/16 19:00 100/61 08/07/16 18:45 120 27 94/61 75 Mechanical Ventilator 30 08/07/16 18:30 121 27 98/54 63 Mechanical Ventilator 30 08/07/16 18:15 120 26 89/51 83 Mechanical Ventilator 30 08/07/16 18:00 120 26 102/61 92 Mechanical Ventilator 30 08/07/16 18:00 102/61 08/07/16 17:45 118 24 107/57 100 Mechanical Ventilator 30 08/07/16 17:30 118 24 107/57 100 Mechanical Ventilator 30 08/07/16 17:24 114 29 30 08/07/16 17:15 118 26 101/50 100 Mechanical Ventilator 30 08/07/16 17:00 105/63 08/07/16 17:00 118 26 105/63 100 Mechanical Ventilator 30 08/07/16 16:45 116 27 112/52 86 Mechanical Ventilator 30 08/07/16 16:30 116 25 101/63 93 Mechanical Ventilator 30 08/07/16 16:15 117 27 113/57 95 Mechanical Ventilator 30 08/07/16 16:00 30 08/07/16 16:00 101/55 08/07/16 16:00 118 08/07/16 16:00 97.2 118 25 101/55 100 Mechanical Ventilator 30 08/07/16 15:45 119 24 103/59 93 Mechanical Ventilator 30 08/07/16 15:30 117 25 85/55 93 Mechanical Ventilator 30 08/07/16 15:27 118 32 30 08/07/16 15:15 118 25 94/52 90 Mechanical Ventilator 30 08/07/16 15:00 118 25 98/59 100 Mechanical Ventilator 30 08/07/16 14:45 103 25 91/47 100 Mechanical Ventilator 30 08/07/16 14:45 107/52 08/07/16 14:30 106 25 90/47 100 Mechanical Ventilator 30 08/07/16 14:15 110 25 107/52 100 Mechanical Ventilator 30 08/07/16 14:00 114 27 104/60 98 Mechanical Ventilator 30 08/07/16 13:45 113 26 106/59 98 Mechanical Ventilator 30 08/07/16 13:44 114 22 30 08/07/16 13:30 110 27 108/56 98 Mechanical Ventilator 30 08/07/16 13:15 114 26 94/57 96 Mechanical Ventilator 30 08/07/16 13:00 117 26 106/67 96 Mechanical Ventilator 30 08/07/16 12:45 115 26 110/67 96 Mechanical Ventilator 30 08/07/16 12:30 120 23 112/57 96 Mechanical Ventilator 30 08/07/16 12:15 126 23 122/57 96 Mechanical Ventilator 30 08/07/16 12:00 117 08/07/16 12:00 97.6 125 23 104/67 96 Mechanical Ventilator 30 08/07/16 11:45 128 23 96/66 96 Mechanical Ventilator 30 08/07/16 11:30 133 23 107/71 96 Mechanical Ventilator 30 08/07/16 11:15 138 22 97/70 96 Mechanical Ventilator 30 08/07/16 11:00 136 23 95/60 93 Mechanical Ventilator 30 08/07/16 10:45 30 08/07/16 10:45 142 23 90/49 93 Mechanical Ventilator 30 08/07/16 10:40 158 21 30 08/07/16 10:30 150 23 110/69 96 Mechanical Ventilator 30 08/07/16 10:25 25 08/07/16 10:15 123 23 115/61 96 Mechanical Ventilator 30 08/07/16 10:00 124 22 106/70 96 Mechanical Ventilator 30 08/07/16 09:45 125 22 107/70 96 Mechanical Ventilator 30 08/07/16 09:30 122 27 108/60 99 Mechanical Ventilator 30 08/07/16 09:26 128 28 30 08/07/16 09:15 123 25 104/62 99 Mechanical Ventilator 30 08/07/16 09:00 123 26 104/61 99 Mechanical Ventilator 30 08/07/16 08:49 90/48 08/07/16 08:45 122 28 98/59 99 Mechanical Ventilator 30 08/07/16 08:30 120 28 90/50 95 Mechanical Ventilator 30 08/07/16 08:15 125 28 90/39 95 Mechanical Ventilator 30 08/07/16 08:00 130 28 102/45 95 Mechanical Ventilator 30 08/07/16 08:00 114 08/07/16 08:00 30 08/07/16 07:45 137 24 98/63 94 Mechanical Ventilator 30 08/07/16 07:30 137 24 114/64 94 Mechanical Ventilator 30 08/07/16 07:25 148 32 30 08/07/16 07:15 97.5 135 24 116/67 95 Mechanical Ventilator 30 08/07/16 07:00 117 24 120/72 94 Mechanical Ventilator 30 08/07/16 06:56 102/55 08/07/16 06:45 119 24 102/55 94 Mechanical Ventilator 30 08/07/16 06:30 118 24 112/55 94 Mechanical Ventilator 30 08/07/16 06:15 117 24 120/62 94 Mechanical Ventilator 30 08/07/16 06:00 117 24 111/56 94 Mechanical Ventilator 30 08/07/16 06:00 111/56 2/21/17 05:45 117 24 118/56 94 Mechanical Ventilator 30 08/07/16 05:30 118 24 112/52 94 Mechanical Ventilator 30 08/07/16 05:22 120 26 30 08/07/16 05:15 117 24 101/60 94 Mechanical Ventilator 30 08/07/16 05:00 118 24 111/50 94 Mechanical Ventilator 30 08/07/16 04:53 110/54 08/07/16 04:45 117 24 110/54 94 Mechanical Ventilator 30 08/07/16 04:30 119 24 116/48 94 Mechanical Ventilator 30 08/07/16 04:15 123 24 120/60 94 Mechanical Ventilator 30 08/07/16 04:00 30 08/07/16 04:00 126 08/07/16 04:00 98/68 08/07/16 04:00 98.8 126 24 105/81 94 Mechanical Ventilator 30 08/07/16 03:45 119 24 102/69 94 Mechanical Ventilator 30 08/07/16 03:30 123 24 102/75 94 Mechanical Ventilator 30 08/07/16 03:30 119 36 30 08/07/16 03:15 120 24 116/59 94 Mechanical Ventilator 30 08/07/16 03:00 114 24 75/41 94 Mechanical Ventilator 30 08/07/16 03:00 96/65 08/07/16 02:45 114 24 96/54 94 Mechanical Ventilator 30 08/07/16 02:30 120 24 104/69 94 Mechanical Ventilator 30 08/07/16 02:21 112/53 08/07/16 02:15 111 24 96/60 94 Mechanical Ventilator 30 08/07/16 02:00 109 24 90/54 94 Mechanical Ventilator 30 08/07/16 02:00 90/54 08/07/16 01:45 113 24 100/52 94 Mechanical Ventilator 30 08/07/16 01:30 114 24 111/60 94 Mechanical Ventilator 30 08/07/16 01:20 119 24 30 08/07/16 01:15 113 24 105/65 94 Mechanical Ventilator 30 08/07/16 01:00 113 24 100/55 94 Mechanical Ventilator 30 08/07/16 01:00 100/55 08/07/16 00:45 115 24 112/54 94 Mechanical Ventilator 30 08/07/16 00:30 117 24 96/60 94 Mechanical Ventilator 30 08/07/16 00:15 115 24 112/53 94 Mechanical Ventilator 30 08/07/16 00:00 115 08/07/16 00:00 98.6 113 24 102/64 94 Mechanical Ventilator 30 08/07/16 00:00 96/60 08/07/16 00:00 30 08/06/16 23:45 113 24 92/57 94 Mechanical Ventilator 30 08/06/16 23:30 116 34 30 08/06/16 23:30 114 24 106/58 94 Mechanical Ventilator 30 08/06/16 23:15 114 24 117/70 94 Mechanical Ventilator 30 08/06/16 23:00 109/52 08/06/16 23:00 112 24 109/52 94 Mechanical Ventilator 30 08/06/16 22:45 112 25 112/56 97 Mechanical Ventilator 30 08/06/16 22:30 110 24 115/56 98 Mechanical Ventilator 30 Intake and Output 08/06/16 08/07/16 19:00 07:00 Intake Total 2069.13 ml 1842.44 ml Output Total 345 ml 240 ml Balance 1724.13 ml 1602.44 ml Intake IV Total 1679.13 ml 1842.44 ml Blood Product 300 ml Other 90 ml Output Urine Total 345 ml 240 ml 2D Echo: Anteroseptal/septal/inferoseptal wall AK,EF 30%,Sev MR,Mild AR,RVSP 80 mmHg Laboratory Tests Test 08/07/16 00:00 08/07/16 06:00 08/07/16 08:55 08/07/16 18:00 White Blood Count 15.8 K/UL (4.8-10.8) H 16.9 K/UL (4.8-10.8) H 17.8 K/UL (4.8-10.8) H Red Blood Count 3.13 M/UL (4.70-6.10) L 3.02 M/UL (4.70-6.10) L 2.96 M/UL (4.70-6.10) L Hemoglobin 8.0 G/DL (14.2-18.0) #L 8.0 G/DL (14.2-18.0) L 7.8 G/DL (14.2-18.0) L Hematocrit 25.9 % (42.0-52.0) L 25.1 % (42.0-52.0) L 24.4 % (42.0-52.0) L Mean Corpuscular Volume 83 FL (80-99) 83 FL (80-99) 82 FL (80-99) Mean Corpuscular Hemoglobin 25.6 PG (27.0-31.0) L 26.4 PG (27.0-31.0) L 26.4 PG (27.0-31.0) L Mean Corpuscular Hemoglobin Concent 31.0 G/DL (32.0-36.0) L 31.8 G/DL (32.0-36.0) L 32.1 G/DL (32.0-36.0) Red Cell Distribution Width 15.5 % (11.6-14.8) H 15.7 % (11.6-14.8) H 15.9 % (11.6-14.8) H Platelet Count 71 K/UL (150-450) L 69 K/UL (150-450) L 64 K/UL (150-450) L Mean Platelet Volume 6.7 FL (6.5-10.1) 9.7 FL (6.5-10.1) 7.8 FL (6.5-10.1) Neutrophils (%) (Auto) % (45.0-75.0) % (45.0-75.0) % (45.0-75.0) Lymphocytes (%) (Auto) % (20.0-45.0) % (20.0-45.0) % (20.0-45.0) Monocytes (%) (Auto) % (1.0-10.0) % (1.0-10.0) % (1.0-10.0) Eosinophils (%) (Auto) % (0.0-3.0) % (0.0-3.0) % (0.0-3.0) Basophils (%) (Auto) % (0.0-2.0) % (0.0-2.0) % (0.0-2.0) Differential Total Cells Counted 100 100 Neutrophils % (Manual) 85 % (45-75) H 82 % (45-75) H Lymphocytes % (Manual) 2 % (20-45) L 8 % (20-45) L Monocytes % (Manual) 2 % (1-10) 4 % (1-10) Eosinophils % (Manual) 0 % (0-3) 0 % (0-3) Basophils % (Manual) 0 % (0-2) 0 % (0-2) Band Neutrophils 11 % (0-8) H 6 % (0-8) Platelet Estimate Decreased L Decreased L Platelet Morphology Normal Normal Hypochromasia 1+ 1+ Anisocytosis 1+ 1+ Sodium Level 138 mEQ/L (135-145) Potassium Level 5.1 mEQ/L (3.4-4.9) H Chloride Level 104 mEQ/L (98-107) Carbon Dioxide Level 15 mEQ/L (20-30) L Anion Gap 19 (5-15) H Blood Urea Nitrogen 93 mg/dL (7-23) H Creatinine 6.0 mg/dL (0.7-1.2) H Estimat Glomerular Filtration Rate mL/min (>60) Glucose Level 107 mg/dL (74-106) H Hemoglobin A1c 5.0 % (< 6.0) Uric Acid 14.8 mg/dL (3.0-7.5) H Calcium Level 5.9 mg/dL (8.6-10.2) *L Phosphorus Level 5.0 mg/dL (2.5-4.8) H Magnesium Level 1.8 mg/dL (1.7-2.5) Total Bilirubin 3.3 mg/dL (0.0-1.2) H Direct Bilirubin 2.8 mg/dL (0.1-0.3) H Gamma Glutamyl Transpeptidase 16 U/L (8-61) Aspartate Amino Transf (AST/SGOT) 7 U/L (5-40) Alanine Aminotransferase (ALT/SGPT) < 5 U/L (3-41) Alkaline Phosphatase 67 U/L (40-129) Total Creatine Kinase 105 U/L (38-174) C-Reactive Protein, Quantitative 22.1 mg/dL (< 0.5) H Pro-B-Type Natriuretic Peptide > 11482 pg/mL (0-450) H Total Protein 5.4 g/dL (6.6-8.7) L Albumin 1.4 g/dL (3.5-5.2) L Globulin 4.0 g/dL Albumin/Globulin Ratio 0.3 (1.0-2.7) L Thyroid Stimulating Hormone (TSH) 6.580 uIU/mL (0.300-4.500) Arterial Blood pH 7.286 (7.350-7.450) Arterial Blood Partial Pressure CO2 30.5 mmHg (35.0-45.0) L Arterial Blood Partial Pressure O2 110.3 mmHg (75.0-100.0) H Arterial Blood HCO3 14.2 mmol/L (22.0-26.0) L Arterial Blood Oxygen Saturation 97.2 % (92.0-98.0) Arterial Blood Base Excess -11.3 Sancho Test Positive Microbiology Date/Time Source Procedure Growth Status 08/05/16 15:30 Blood Blood Culture - Preliminary Gram Negative Bacillus 1 Resulted 08/05/16 15:02 Blood Blood Culture - Preliminary Gram Negative Bacillus 1 Resulted 08/06/16 10:00 Sputum Gram Stain - Final Resulted 08/06/16 10:00 Sputum Sputum Culture Pending Resulted 08/05/16 17:45 Nasal Nares MRSA Culture - Final NO METHICILLIN RESISTANT STAPH AUREUS... Complete 08/06/16 04:20 Foot Right Gram Stain - Final Resulted 08/06/16 04:20 Foot Right Wound Culture - Preliminary Resulted 08/05/16 17:45 Rectum VRE Culture - Final NO VANCOMYCIN RESISTANT ENTEROCOCCUS ... Complete Objective GENERAL: The patient is a very unfortunate 75-year-old gentleman, intubated, ill-appearing. HEENT: Atraumatic and normocephalic. Anicteric. Pupils are equal, round, and reactive to light and accommodation. Conjunctival pallor. NECK: Cannot be assessed as the patient is intubated. CARDIOVASCULAR: Normal S1 and S2. Irregularly irregular rhythm with tachycardia. I do not appreciate murmurs, gallops, or rubs. LUNGS: Diminished breath sounds in both bases. ABDOMEN: Soft, nontender, and nondistended. No hepatosplenomegaly. Positive bowel sounds. EXTREMITIES: No evidence of edema, clubbing, or cyanosis. JANICE MURRAY Aug 07, 2016 22:32
[2016-08-07] MEDS: Acetaminophen 500mg (ES) tab ORAL PRN (22:57)
[2016-08-07] MEDS: DiphenhydrAMINE 50mg/ml Inj IVP PRN (22:57)
[2016-08-08] VITALS (88 sets, daily range): BP systolic 66–123; BP diastolic 41–99
[2016-08-08 00:58] LABS: MEAN CORPUSCULAR HEMOGLOBIN 25.9 PG (27.0-31.0); MEAN CORPUSCULAR HGB CONC 31.4 G/DL (32.0-36.0); MEAN CORPUSCULAR VOLUME 83 FL (80-99); MEAN PLATELET VOLUME 8.7 FL (6.5-10.1); PLATELET COUNT 64 K/UL (150-450); RED BLOOD COUNT 3.16 M/UL (4.70-6.10); WHITE BLOOD COUNT 20.8 K/UL (4.8-10.8)
[2016-08-08] MEDS: Morphine Sulfate 4mg/ml Inj IVP PRN (02:36)
[2016-08-08] MEDS: Clindamycin 600mg 50 ML IV SCH ×3 (03:27→19:48)
[2016-08-08] MEDS: NovoLOG Insulin Flexpen SUBQ SCH ×4 (05:28→23:49)
[2016-08-08 06:34] LABS: MEAN CORPUSCULAR HEMOGLOBIN 26.1 PG (27.0-31.0); MEAN CORPUSCULAR HGB CONC 31.6 G/DL (32.0-36.0); MEAN CORPUSCULAR VOLUME 83 FL (80-99); MEAN PLATELET VOLUME 6.9 FL (6.5-10.1); PLATELET COUNT 54 K/UL (150-450); RED CELL DISTRIBUTION WIDTH 16.1 % (11.6-14.8); WHITE BLOOD COUNT 19.9 K/UL (4.8-10.8)
[2016-08-08] MEDS: Acetaminophen 500mg (ES) tab ORAL PRN (06:53)
[2016-08-08] MEDS: DiphenhydrAMINE 50mg/ml Inj IVP PRN (06:54)
[2016-08-08 07:04] LABS: ALANINE AMINOTRANSFERASE 5 U/L (3-41); ALBUMIN/GLOBULIN RATIO 0.3 (1.0-2.7); ANION GAP 19 (5-15); ASPARTATE AMINO TRANSFERASE 8 U/L (5-40); CALCIUM 6.5 mg/dL (8.6-10.2); CARBON DIOXIDE 15 mEQ/L (20-30); CHLORIDE 104 mEQ/L (98-107); CREATININE 5.7 mg/dL (0.7-1.2); CRP QUANT 20.2 mg/dL (< 0.5); HEMOLYSIS 16; MAGNESIUM 1.7 mg/dL (1.7-2.5); PHOSPHORUS 4.9 mg/dL (2.5-4.8); POTASSIUM 4.9 mEQ/L (3.4-4.9); SODIUM 138 mEQ/L (135-145); TOTAL PROTEIN 5.4 g/dL (6.6-8.7); URIC ACID 13.5 mg/dL (3.0-7.5)
[2016-08-08 07:29] LABS: BILIRUBIN,DIRECT 1.8 mg/dL (0.1-0.3)
[2016-08-08] MEDS: Vitamin A&D Oint 2oz Tube TOPIC SCH ×2 (08:29→20:28)
[2016-08-08] MEDS: Nystatin Powder 100,000 units/gm 15gm TOPIC SCH ×3 (08:29→17:20)
[2016-08-08] MEDS ORDERED: Pantoprazole Inj IVP SCH (09:00)
[2016-08-08 09:40] LABS: ABG ALLEN TEST POSITIVE; ABG BASE EXCESS -11.8; ABG PCO2 23.4 mmHg (35.0-45.0)
[2016-08-08] MEDS ORDERED: Carvedilol 6.25mg Tab ORAL ONE (09:45)
--- NOTE | 2016-08-08 09:45 | General Progress Note ---
Assessment/Plan Status: unchanged Status Narrative Cr slightly better Assessment/Plan Acute Renal Failure- HyperKalemia- improving Hypotension- Shock on pressors Severe Anemia- transfused Severe HypoAlbuminemia Cirrhosis Cellulitis both legs- rising bili low Ej Fx 30% Plan: Transfused- Hydrate- monitor renal parameters- KayExelate 24 h urine protein- add midodrine and coreg per orders Subjective ROS Limited/Unobtainable: No Constitutional: Reports: malaise Allergies: Coded Allergies: HEPARIN (Verified Allergy, Mild, 12/21/14) Objective Last 24 Hour Vital Signs Date Time Temp Pulse Resp B/P Pulse Ox O2 Delivery O2 Flow Rate FiO2 08/08/16 09:22 118/64 08/08/16 08:00 50 08/08/16 08:00 146 08/08/16 07:52 99.1 08/08/16 07:03 116/63 08/08/16 07:00 130 24 116/63 95 Mechanical Ventilator 50 08/08/16 06:45 125 24 101/58 95 Mechanical Ventilator 50 08/08/16 06:30 120 24 101/56 95 Mechanical Ventilator 50 08/08/16 06:30 124 26 50 08/08/16 06:15 127 24 110/57 95 Mechanical Ventilator 50 08/08/16 06:00 117 24 87/41 95 Mechanical Ventilator 50 08/08/16 06:00 101/56 08/08/16 05:45 117 24 101/49 95 Mechanical Ventilator 50 08/08/16 05:30 120 24 103/61 95 Mechanical Ventilator 50 08/08/16 05:15 119 24 115/51 95 Mechanical Ventilator 50 08/08/16 05:07 121 28 50 08/08/16 05:00 120 24 97/51 95 Mechanical Ventilator 50 08/08/16 05:00 115/51 08/08/16 04:45 118 24 94/68 95 Mechanical Ventilator 50 08/08/16 04:30 121 24 93/52 95 Mechanical Ventilator 50 08/08/16 04:15 125 24 96/70 95 Mechanical Ventilator 50 08/08/16 04:00 99.5 133 24 123/99 95 Mechanical Ventilator 50 08/08/16 04:00 98/62 08/08/16 04:00 50 08/08/16 04:00 120 08/08/16 03:45 135 24 106/80 95 Mechanical Ventilator 30 08/08/16 03:30 130 28 50 08/08/16 03:30 128 24 78/53 95 Mechanical Ventilator 30 08/08/16 03:27 120/69 08/08/16 03:15 132 24 91/71 95 Mechanical Ventilator 30 08/08/16 03:00 140 24 105/65 95 Mechanical Ventilator 30 08/08/16 02:45 142 24 105/65 95 Mechanical Ventilator 30 08/08/16 02:30 154 24 88/69 95 Mechanical Ventilator 30 08/08/16 02:27 110/80 08/08/16 02:15 147 24 93/59 95 Mechanical Ventilator 30 08/08/16 02:00 140 24 89/61 95 Mechanical Ventilator 30 08/08/16 01:45 141 24 102/64 95 Mechanical Ventilator 30 08/08/16 01:30 147 24 106/82 95 Mechanical Ventilator 30 08/08/16 01:21 156 30 50 08/08/16 01:15 149 24 118/72 95 Mechanical Ventilator 30 08/08/16 01:00 152 24 99/84 95 Mechanical Ventilator 30 08/08/16 01:00 102/64 08/08/16 00:45 148 24 102/64 95 Mechanical Ventilator 30 08/08/16 00:30 151 24 102/64 95 Mechanical Ventilator 30 08/08/16 00:15 98.9 153 24 90/66 95 Mechanical Ventilator 30 08/08/16 00:00 30 08/08/16 00:00 99.5 155 24 101/60 95 Mechanical Ventilator 30 08/08/16 00:00 101/60 08/08/16 00:00 152 08/07/16 23:45 152 24 76/35 95 Mechanical Ventilator 30 08/07/16 23:37 78/62 08/07/16 23:30 123 26 30 08/07/16 23:30 100.5 137 24 61/35 95 Mechanical Ventilator 30 08/07/16 23:15 141 24 83/55 95 Mechanical Ventilator 30 08/07/16 23:00 78/62 08/07/16 23:00 121 24 78/62 95 Mechanical Ventilator 30 08/07/16 22:45 147 28 114/68 79 Mechanical Ventilator 30 08/07/16 22:30 133 28 107/62 95 Mechanical Ventilator 30 08/07/16 22:15 117 27 98/55 90 Mechanical Ventilator 30 08/07/16 22:00 106/64 08/07/16 22:00 124 27 106/64 95 Mechanical Ventilator 30 08/07/16 21:45 121 24 106/64 95 Mechanical Ventilator 30 08/07/16 21:30 119 23 96/51 95 Mechanical Ventilator 30 08/07/16 21:27 98/57 08/07/16 21:20 119 24 30 08/07/16 21:15 119 23 88/51 95 Mechanical Ventilator 30 08/07/16 21:00 121 25 98/57 100 Mechanical Ventilator 30 08/07/16 21:00 106/50 08/07/16 20:00 119 08/07/16 20:00 30 08/07/16 20:00 108/90 08/07/16 20:00 96.8 122 27 107/87 90 Mechanical Ventilator 30 08/07/16 19:45 121 26 95/55 90 Mechanical Ventilator 30 08/07/16 19:30 121 27 96/61 92 Mechanical Ventilator 30 08/07/16 19:15 121 29 96/60 84 Mechanical Ventilator 30 08/07/16 19:11 118 31 30 08/07/16 19:00 120 26 100/61 93 Mechanical Ventilator 30 08/07/16 19:00 100/61 08/07/16 18:45 120 27 94/61 75 Mechanical Ventilator 30 08/07/16 18:30 121 27 98/54 63 Mechanical Ventilator 30 08/07/16 18:15 120 26 89/51 83 Mechanical Ventilator 30 08/07/16 18:00 120 26 102/61 92 Mechanical Ventilator 30 08/07/16 18:00 102/61 08/07/16 17:45 118 24 107/57 100 Mechanical Ventilator 30 08/07/16 17:30 118 24 107/57 100 Mechanical Ventilator 30 08/07/16 17:24 114 29 30 08/07/16 17:15 118 26 101/50 100 Mechanical Ventilator 30 08/07/16 17:00 105/63 08/07/16 17:00 118 26 105/63 100 Mechanical Ventilator 30 08/07/16 16:45 116 27 112/52 86 Mechanical Ventilator 30 08/07/16 16:30 116 25 101/63 93 Mechanical Ventilator 30 08/07/16 16:15 117 27 113/57 95 Mechanical Ventilator 30 08/07/16 16:00 30 08/07/16 16:00 101/55 08/07/16 16:00 118 08/07/16 16:00 97.2 118 25 101/55 100 Mechanical Ventilator 30 08/07/16 15:45 119 24 103/59 93 Mechanical Ventilator 30 08/07/16 15:30 117 25 85/55 93 Mechanical Ventilator 30 08/07/16 15:27 118 32 30 08/07/16 15:15 118 25 94/52 90 Mechanical Ventilator 30 08/07/16 15:00 118 25 98/59 100 Mechanical Ventilator 30 08/07/16 14:45 103 25 91/47 100 Mechanical Ventilator 30 08/07/16 14:45 107/52 08/07/16 14:30 106 25 90/47 100 Mechanical Ventilator 30 08/07/16 14:15 110 25 107/52 100 Mechanical Ventilator 30 08/07/16 14:00 114 27 104/60 98 Mechanical Ventilator 30 08/07/16 13:45 113 26 106/59 98 Mechanical Ventilator 30 08/07/16 13:44 114 22 30 08/07/16 13:30 110 27 108/56 98 Mechanical Ventilator 30 08/07/16 13:15 114 26 94/57 96 Mechanical Ventilator 30 08/07/16 13:00 117 26 106/67 96 Mechanical Ventilator 30 08/07/16 12:45 115 26 110/67 96 Mechanical Ventilator 30 08/07/16 12:30 120 23 112/57 96 Mechanical Ventilator 30 08/07/16 12:15 126 23 122/57 96 Mechanical Ventilator 30 08/07/16 12:00 117 08/07/16 12:00 97.6 125 23 104/67 96 Mechanical Ventilator 30 08/07/16 11:45 128 23 96/66 96 Mechanical Ventilator 30 08/07/16 11:30 133 23 107/71 96 Mechanical Ventilator 30 08/07/16 11:15 138 22 97/70 96 Mechanical Ventilator 30 08/07/16 11:00 136 23 95/60 93 Mechanical Ventilator 30 08/07/16 10:45 30 08/07/16 10:45 142 23 90/49 93 Mechanical Ventilator 30 08/07/16 10:40 158 21 30 08/07/16 10:30 150 23 110/69 96 Mechanical Ventilator 30 08/07/16 10:25 25 08/07/16 10:15 123 23 115/61 96 Mechanical Ventilator 30 08/07/16 10:00 124 22 106/70 96 Mechanical Ventilator 30 08/07/16 09:45 125 22 107/70 96 Mechanical Ventilator 30 Intake and Output 08/07/16 08/08/16 19:00 07:00 Intake Total 2481.07 ml 1641.72 ml Output Total 550 ml 510 ml Balance 1931.07 ml 1131.72 ml Intake IV Total 2481.07 ml 1641.72 ml Output Urine Total 550 ml 510 ml Laboratory Tests 08/07/16 18:00: White Blood Count 17.8H, Red Blood Count 2.96L, Hemoglobin 7.8L, Hematocrit 24.4L, Mean Corpuscular Volume 82, Mean Corpuscular Hemoglobin 26.4L, Mean Corpuscular Hemoglobin Concent 32.1, Red Cell Distribution Width 15.9H, Platelet Count 64L, Mean Platelet Volume 7.8, Neutrophils (%) (Auto) , Lymphocytes (%) (Auto) , Monocytes (%) (Auto) , Eosinophils (%) (Auto) , Basophils (%) (Auto) , Differential Total Cells Counted 100, Neutrophils % ( Manual) 82H, Lymphocytes % (Manual) 8L, Monocytes % (Manual) 4, Eosinophils % ( Manual) 0, Basophils % (Manual) 0, Band Neutrophils 6, Platelet Estimate DecreasedL, Platelet Morphology Normal, Hypochromasia 1+, Anisocytosis 1+ 08/08/16 00:33: White Blood Count 20.8H, Red Blood Count 3.16L, Hemoglobin 8.2L, Hematocrit 26.1L, Mean Corpuscular Volume 83, Mean Corpuscular Hemoglobin 25.9L, Mean Corpuscular Hemoglobin Concent 31.4L, Red Cell Distribution Width 16.0H, Platelet Count 64L, Mean Platelet Volume 8.7, Neutrophils (%) (Auto) , Lymphocytes (%) (Auto) , Monocytes (%) (Auto) , Eosinophils (%) (Auto) , Basophils (%) (Auto) , Neutrophils % (Manual) [Pending], Lymphocytes % (Manual) [Pending], Platelet Estimate [Pending], Platelet Morphology [Pending] 08/08/16 06:00: White Blood Count 19.9H, Red Blood Count 3.00L, Hemoglobin 7.9L, Hematocrit 24.8L, Mean Corpuscular Volume 83, Mean Corpuscular Hemoglobin 26.1L, Mean Corpuscular Hemoglobin Concent 31.6L, Red Cell Distribution Width 16.1H, Platelet Count 54L, Mean Platelet Volume 6.9, Neutrophils (%) (Auto) , Lymphocytes (%) (Auto) , Monocytes (%) (Auto) , Eosinophils (%) (Auto) , Basophils (%) (Auto) , Neutrophils % (Manual) [Pending], Lymphocytes % (Manual) [Pending], Platelet Estimate [Pending], Platelet Morphology [Pending], Sodium Level 138, Potassium Level 4.9, Chloride Level 104, Carbon Dioxide Level 15L, Anion Gap 19H, Blood Urea Nitrogen 86H, Creatinine 5.7H, Estimat Glomerular Filtration Rate , Glucose Level 90, Uric Acid 13.5H, Calcium Level 6.5L, Phosphorus Level 4.9H, Magnesium Level 1.7, Total Bilirubin 2.4H, Direct Bilirubin 1.8H, Gamma Glutamyl Transpeptidase 18, Aspartate Amino Transf (AST/ SGOT) 8, Alanine Aminotransferase (ALT/SGPT) 5, Alkaline Phosphatase 67, C- Reactive Protein, Quantitative 20.2H, Pro-B-Type Natriuretic Peptide > 71534L, Total Protein 5.4L, Albumin 1.4L, Globulin 4.0, Albumin/Globulin Ratio 0.3L 08/08/16 09:15: Arterial Blood pH 7.344L, Arterial Blood Partial Pressure CO2 23.4*L, Arterial Blood Partial Pressure O2 172.9H, Arterial Blood HCO3 12.5L, Arterial Blood Oxygen Saturation 98.7H, Arterial Blood Base Excess -11.8, Sancho Test Positive Height (Feet): 5 Height (Inches): 4.00 Weight (Pounds): 180 General Appearance: no apparent distress, lethargic Respiratory/Chest: decreased breath sounds Abdomen: other - ascitis Edema: 2+ Arm (L), 2+ Arm (R), 2+ Leg (L), 2+ Leg (R), 2+ Pedal (L), 2+ Pedal ( R), 2+ Generalized Objective other PE not changed TYLER PALMER Aug 08, 2016 09:45
[2016-08-08] MEDS: Midodrine 10mg tab ORAL SCH ×2 (09:52→17:37)
--- NOTE | 2016-08-08 10:15 | Pulmonolgy Critical Care Note ---
Critical Care - Asmt/Plan Problems: (1) Respiratory distress (2) Multiorgan failure (3) Septic shock (4) Symptomatic anemia (5) DM (diabetes mellitus) Respiratory: monitor respiratory rate, adjust FIO2 Cardiac: continue pressors, continue to monitor HR/BP Renal: F/U I&O, keep IV fluid Infectious Disease: check cultures Gastrointestinal: continue feedings/current rate, hold feedings, abdominal imaging - severe cirrhosis, other - start feeding, bilirubin rising, which is a ominous sign. 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 with: nurses, consultants Critical Care - Objective Last 24 Hour Vital Signs Date Time Temp Pulse Resp B/P Pulse Ox O2 Delivery O2 Flow Rate FiO2 08/08/16 09:52 136 103/56 08/08/16 09:22 118/64 08/08/16 09:15 128 24 50 08/08/16 09:00 124/78 08/08/16 09:00 124/78 08/08/16 09:00 124/78 08/08/16 09:00 124/78 08/08/16 08:00 50 08/08/16 08:00 98/71 08/08/16 08:00 98/71 08/08/16 08:00 98/71 08/08/16 08:00 98/71 08/08/16 08:00 146 08/08/16 07:52 99.1 08/08/16 07:03 116/63 08/08/16 07:00 130 24 116/63 95 Mechanical Ventilator 50 08/08/16 06:45 125 24 101/58 95 Mechanical Ventilator 50 08/08/16 06:30 120 24 101/56 95 Mechanical Ventilator 50 08/08/16 06:30 124 26 50 08/08/16 06:15 127 24 110/57 95 Mechanical Ventilator 50 08/08/16 06:00 117 24 87/41 95 Mechanical Ventilator 50 08/08/16 06:00 101/56 08/08/16 05:45 117 24 101/49 95 Mechanical Ventilator 50 08/08/16 05:30 120 24 103/61 95 Mechanical Ventilator 50 08/08/16 05:15 119 24 115/51 95 Mechanical Ventilator 50 08/08/16 05:07 121 28 50 08/08/16 05:00 120 24 97/51 95 Mechanical Ventilator 50 08/08/16 05:00 115/51 08/08/16 04:45 118 24 94/68 95 Mechanical Ventilator 50 08/08/16 04:30 121 24 93/52 95 Mechanical Ventilator 50 08/08/16 04:15 125 24 96/70 95 Mechanical Ventilator 50 08/08/16 04:00 99.5 133 24 123/99 95 Mechanical Ventilator 50 08/08/16 04:00 98/62 08/08/16 04:00 50 08/08/16 04:00 120 08/08/16 03:45 135 24 106/80 95 Mechanical Ventilator 30 08/08/16 03:30 130 28 50 08/08/16 03:30 128 24 78/53 95 Mechanical Ventilator 30 08/08/16 03:27 120/69 08/08/16 03:15 132 24 91/71 95 Mechanical Ventilator 30 08/08/16 03:00 140 24 105/65 95 Mechanical Ventilator 30 08/08/16 02:45 142 24 105/65 95 Mechanical Ventilator 30 08/08/16 02:30 154 24 88/69 95 Mechanical Ventilator 30 08/08/16 02:27 110/80 08/08/16 02:15 147 24 93/59 95 Mechanical Ventilator 30 08/08/16 02:00 140 24 89/61 95 Mechanical Ventilator 30 08/08/16 01:45 141 24 102/64 95 Mechanical Ventilator 30 08/08/16 01:30 147 24 106/82 95 Mechanical Ventilator 30 08/08/16 01:21 156 30 50 08/08/16 01:15 149 24 118/72 95 Mechanical Ventilator 30 08/08/16 01:00 152 24 99/84 95 Mechanical Ventilator 30 08/08/16 01:00 102/64 08/08/16 00:45 148 24 102/64 95 Mechanical Ventilator 30 08/08/16 00:30 151 24 102/64 95 Mechanical Ventilator 30 08/08/16 00:15 98.9 153 24 90/66 95 Mechanical Ventilator 30 08/08/16 00:00 30 08/08/16 00:00 99.5 155 24 101/60 95 Mechanical Ventilator 30 08/08/16 00:00 101/60 08/08/16 00:00 152 08/07/16 23:45 152 24 76/35 95 Mechanical Ventilator 30 08/07/16 23:37 78/62 08/07/16 23:30 123 26 30 08/07/16 23:30 100.5 137 24 61/35 95 Mechanical Ventilator 30 08/07/16 23:15 141 24 83/55 95 Mechanical Ventilator 30 08/07/16 23:00 78/62 08/07/16 23:00 121 24 78/62 95 Mechanical Ventilator 30 08/07/16 22:45 147 28 114/68 79 Mechanical Ventilator 30 08/07/16 22:30 133 28 107/62 95 Mechanical Ventilator 30 08/07/16 22:15 117 27 98/55 90 Mechanical Ventilator 30 08/07/16 22:00 106/64 08/07/16 22:00 124 27 106/64 95 Mechanical Ventilator 30 08/07/16 21:45 121 24 106/64 95 Mechanical Ventilator 30 08/07/16 21:30 119 23 96/51 95 Mechanical Ventilator 30 08/07/16 21:27 98/57 08/07/16 21:20 119 24 30 08/07/16 21:15 119 23 88/51 95 Mechanical Ventilator 30 08/07/16 21:00 121 25 98/57 100 Mechanical Ventilator 30 08/07/16 21:00 106/50 08/07/16 20:00 119 08/07/16 20:00 30 08/07/16 20:00 108/90 08/07/16 20:00 96.8 122 27 107/87 90 Mechanical Ventilator 30 08/07/16 19:45 121 26 95/55 90 Mechanical Ventilator 30 08/07/16 19:30 121 27 96/61 92 Mechanical Ventilator 30 08/07/16 19:15 121 29 96/60 84 Mechanical Ventilator 30 08/07/16 19:11 118 31 30 08/07/16 19:00 120 26 100/61 93 Mechanical Ventilator 30 08/07/16 19:00 100/61 08/07/16 18:45 120 27 94/61 75 Mechanical Ventilator 30 08/07/16 18:30 121 27 98/54 63 Mechanical Ventilator 30 08/07/16 18:15 120 26 89/51 83 Mechanical Ventilator 30 08/07/16 18:00 120 26 102/61 92 Mechanical Ventilator 30 08/07/16 18:00 102/61 08/07/16 17:45 118 24 107/57 100 Mechanical Ventilator 30 08/07/16 17:30 118 24 107/57 100 Mechanical Ventilator 30 08/07/16 17:24 114 29 30 08/07/16 17:15 118 26 101/50 100 Mechanical Ventilator 30 08/07/16 17:00 105/63 08/07/16 17:00 118 26 105/63 100 Mechanical Ventilator 30 08/07/16 16:45 116 27 112/52 86 Mechanical Ventilator 30 08/07/16 16:30 116 25 101/63 93 Mechanical Ventilator 30 08/07/16 16:15 117 27 113/57 95 Mechanical Ventilator 30 08/07/16 16:00 30 08/07/16 16:00 101/55 08/07/16 16:00 118 08/07/16 16:00 97.2 118 25 101/55 100 Mechanical Ventilator 30 08/07/16 15:45 119 24 103/59 93 Mechanical Ventilator 30 08/07/16 15:30 117 25 85/55 93 Mechanical Ventilator 30 08/07/16 15:27 118 32 30 08/07/16 15:15 118 25 94/52 90 Mechanical Ventilator 30 08/07/16 15:00 118 25 98/59 100 Mechanical Ventilator 30 08/07/16 14:45 103 25 91/47 100 Mechanical Ventilator 30 08/07/16 14:45 107/52 08/07/16 14:30 106 25 90/47 100 Mechanical Ventilator 30 08/07/16 14:15 110 25 107/52 100 Mechanical Ventilator 30 08/07/16 14:00 114 27 104/60 98 Mechanical Ventilator 30 08/07/16 13:45 113 26 106/59 98 Mechanical Ventilator 30 08/07/16 13:44 114 22 30 08/07/16 13:30 110 27 108/56 98 Mechanical Ventilator 30 08/07/16 13:15 114 26 94/57 96 Mechanical Ventilator 30 08/07/16 13:00 117 26 106/67 96 Mechanical Ventilator 30 08/07/16 12:45 115 26 110/67 96 Mechanical Ventilator 30 08/07/16 12:30 120 23 112/57 96 Mechanical Ventilator 30 08/07/16 12:15 126 23 122/57 96 Mechanical Ventilator 30 08/07/16 12:00 117 08/07/16 12:00 97.6 125 23 104/67 96 Mechanical Ventilator 30 08/07/16 11:45 128 23 96/66 96 Mechanical Ventilator 30 08/07/16 11:30 133 23 107/71 96 Mechanical Ventilator 30 08/07/16 11:15 138 22 97/70 96 Mechanical Ventilator 30 08/07/16 11:00 136 23 95/60 93 Mechanical Ventilator 30 08/07/16 10:45 30 08/07/16 10:45 142 23 90/49 93 Mechanical Ventilator 30 08/07/16 10:40 158 21 30 08/07/16 10:30 150 23 110/69 96 Mechanical Ventilator 30 08/07/16 10:25 25 08/07/16 10:15 123 23 115/61 96 Mechanical Ventilator 30 Status: sedated Condition: critical HEENT: atraumatic Neck: full ROM Lungs: clear, chest wall tender Heart: HR/BP unstable Abdomen: soft, non-tender, active bowel sounds Extremities: no C/C/E, edema Micro: Microbiology Date/Time Source Procedure Growth Status 08/05/16 15:30 Blood Blood Culture - Final Escherichia Coli Complete 08/05/16 15:02 Blood Blood Culture - Final Escherichia Coli Complete 08/06/16 10:00 Sputum Gram Stain - Final Complete 08/06/16 10:00 Sputum Culture - Final Neema Albicans Usual Upper Respiratory Araceli Complete 08/05/16 17:45 Nasal Nares MRSA Culture - Final NO METHICILLIN RESISTANT STAPH AUREUS... Complete 08/06/16 04:20 Foot Right Gram Stain - Final Resulted 08/06/16 04:20 Wound Culture - Preliminary Gram Negative Bacillus 1 Strep Species, Gamma-Hemolytic Resulted 08/05/16 17:45 Rectum VRE Culture - Final NO VANCOMYCIN RESISTANT ENTEROCOCCUS ... Complete Accucheck: 84 Critical Care - Subjective ROS Limited/Unobtainable: Yes ICU Day: 3 Intubation Day: 3 EKG Rhythm: Sinus Rhythm FI02: 50 Vent Support Breath Rate: 20 Vent Support Mode: AC Vent Tidal Volume: 500 Sputum Amount: Moderate PEEP: 0.0 PIP: 16 Fluids: d53 2with three amp of bicarb I&O: Intake and Output 08/07/16 08/08/16 19:00 07:00 Intake Total 2481.07 ml 1641.72 ml Output Total 550 ml 510 ml Balance 1931.07 ml 1131.72 ml Intake IV Total 2481.07 ml 1641.72 ml Output Urine Total 550 ml 510 ml CXR: No change, ET in good position ET-Tube: 8.0 ET Position: 22 ADRIENNE MENDOZA Aug 08, 2016 10:15
--- NOTE | 2016-08-08 10:34 | Diagnostic Imaging Report ---
Indication: Dyspnea Comparison: 08/07/16 A single view chest radiograph was obtained. Findings: There is evidence of a left pleural effusion. Cardiomegaly is present. Vascular congestion again demonstrated without significant change. Tubes and lines are stable. Impression: Ingested heart failure. No significant change
[2016-08-08 10:36] LABS: ANISOCYTOSIS 1+; BAND NEUTROPHILS % (MANUAL) 4 % (0-8); BASOPHILS % (MANUAL) 0 % (0-2); EOSINOPHILS % (MANUAL) 0 % (0-3); HYPOCHROMASIA 1+; LYMPHOCYTES % (MANUAL) 4 % (20-45); NEUTROPHILS % (MANUAL) 88 % (45-75); PLATELET ESTIMATE DECREASED; PLATELET MORPHOLOGY NORMAL; TOTAL CELLS COUNTED 100
[2016-08-08] MEDS: Sodium Bicarbonate 150 ML in D5W 1000ml 1,000 ML IV SCH (10:46)
[2016-08-08 11:10] LABS: BAND NEUTROPHILS % (MANUAL) 2 % (0-8); BASOPHILS % (MANUAL) 0 % (0-2); EOSINOPHILS % (MANUAL) 0 % (0-3); LYMPHOCYTES % (MANUAL) 10 % (20-45); NEUTROPHILS % (MANUAL) 81 % (45-75); PLATELET ESTIMATE DECREASED; PLATELET MORPHOLOGY NORMAL; TOTAL CELLS COUNTED 100
[2016-08-08 11:11] LABS: ANISOCYTOSIS 1+; HYPOCHROMASIA 1+
[2016-08-08] MEDS ORDERED: Levofloxacin 250mg/D5W 50ml IVPB SCH ×2 (13:00→17:00)
[2016-08-08 13:04] LABS: MEAN CORPUSCULAR HEMOGLOBIN 25.9 PG (27.0-31.0); MEAN CORPUSCULAR HGB CONC 31.4 G/DL (32.0-36.0); MEAN CORPUSCULAR VOLUME 82 FL (80-99); PLATELET COUNT 59 K/UL (150-450); RED CELL DISTRIBUTION WIDTH 15.9 % (11.6-14.8); WHITE BLOOD COUNT 20.1 K/UL (4.8-10.8)
[2016-08-08 13:52] LABS: BAND NEUTROPHILS % (MANUAL) 5 % (0-8); BASOPHILS % (MANUAL) 0 % (0-2); EOSINOPHILS % (MANUAL) 0 % (0-3); LYMPHOCYTES % (MANUAL) 6 % (20-45); NEUTROPHILS % (MANUAL) 85 % (45-75); PLATELET ESTIMATE DECREASED; PLATELET MORPHOLOGY NORMAL; TOTAL CELLS COUNTED 100
[2016-08-08 13:53] LABS: ANISOCYTOSIS 1+; HYPOCHROMASIA 1+
[2016-08-08] MEDS ORDERED: NS 275ml ONE ×2 (16:06→17:44)
[2016-08-08] MEDS ORDERED: Tubing Blood Filter IV ONE ×2 (16:06→17:44)
--- NOTE | 2016-08-08 16:08 | General Progress Note ---
Assessment/Plan Problem List: (1) Renal insufficiency ICD Codes: N28.9 - Disorder of kidney and ureter, unspecified SNOMED: 945257698 (2) Pancytopenia ICD Codes: D61.818 - Other pancytopenia SNOMED: 115374948 (3) Multiorgan failure SNOMED: 35480120 (4) Respiratory distress ICD Codes: R06.00 - Dyspnea, unspecified SNOMED: 937529520 (5) Septic shock ICD Codes: A41.9 - Sepsis, unspecified organism; R65.21 - Severe sepsis with septic shock SNOMED: 55123091 (6) DM (diabetes mellitus) ICD Codes: E11.9 - DM (diabetes mellitus) SNOMED: 16913728 (7) Symptomatic anemia ICD Codes: D64.9 - Anemia, unspecified SNOMED: 474316753 (8) STORM (acute kidney injury) ICD Codes: N17.9 - Acute kidney failure, unspecified SNOMED: 07303296 Status: unchanged Assessment/Plan resp failure intubated sepsis pna anemia cellulitis abx per id Subjective ROS Limited/Unobtainable: Yes Allergies: Coded Allergies: HEPARIN (Verified Allergy, Mild, 12/21/14) Objective Last 24 Hour Vital Signs Date Time Temp Pulse Resp B/P Pulse Ox O2 Delivery O2 Flow Rate FiO2 08/08/16 15:44 89/60 08/08/16 15:00 98/67 08/08/16 14:58 92 24 50 08/08/16 14:00 97/60 08/08/16 13:00 97 21 94/58 100 Mechanical Ventilator 50 08/08/16 13:00 94/58 08/08/16 12:57 107 24 50 08/08/16 12:45 109 21 90/57 100 Mechanical Ventilator 50 08/08/16 12:30 106 20 101/61 100 Mechanical Ventilator 50 08/08/16 12:14 103 20 108/58 100 Mechanical Ventilator 50 08/08/16 12:00 50 08/08/16 12:00 98.5 104 21 105/61 100 Mechanical Ventilator 50 08/08/16 12:00 108/67 08/08/16 12:00 104 08/08/16 11:45 106 23 104/61 100 Mechanical Ventilator 50 08/08/16 11:15 100 23 109/65 100 Mechanical Ventilator 50 08/08/16 11:06 118 25 50 08/08/16 11:00 120 23 101/65 100 Mechanical Ventilator 50 08/08/16 10:45 129 23 101/65 100 Mechanical Ventilator 50 08/08/16 10:30 141 21 98/56 100 Mechanical Ventilator 50 08/08/16 10:15 136 25 91/48 100 Mechanical Ventilator 50 08/08/16 10:00 88/53 08/08/16 10:00 136 25 88/48 100 Mechanical Ventilator 50 08/08/16 09:52 136 103/56 08/08/16 09:45 137 24 73/59 100 Mechanical Ventilator 50 08/08/16 09:30 136 24 112/52 97 Mechanical Ventilator 50 08/08/16 09:22 118/64 08/08/16 09:15 128 24 50 08/08/16 09:15 98.7 139 24 118/64 100 Mechanical Ventilator 50 08/08/16 09:00 99.0 139 25 101/69 92 Mechanical Ventilator 50 08/08/16 09:00 124/78 08/08/16 09:00 124/78 08/08/16 09:00 124/78 08/08/16 09:00 124/78 08/08/16 08:45 144 25 87/61 93 Mechanical Ventilator 50 08/08/16 08:30 136 24 123/79 94 Mechanical Ventilator 50 08/08/16 08:15 126 25 66/44 96 Mechanical Ventilator 50 08/08/16 08:00 99.1 123 25 101/82 95 Mechanical Ventilator 50 08/08/16 08:00 50 08/08/16 08:00 98/71 08/08/16 08:00 98/71 08/08/16 08:00 98/71 08/08/16 08:00 98/71 08/08/16 08:00 146 08/08/16 07:52 99.1 08/08/16 07:45 137 26 87/71 94 Mechanical Ventilator 50 08/08/16 07:30 131 26 96/71 96 Mechanical Ventilator 50 08/08/16 07:15 145 27 83/62 98 Mechanical Ventilator 50 08/08/16 07:03 116/63 08/08/16 07:00 130 24 116/63 95 Mechanical Ventilator 50 08/08/16 06:45 125 24 101/58 95 Mechanical Ventilator 50 08/08/16 06:30 120 24 101/56 95 Mechanical Ventilator 50 08/08/16 06:30 124 26 50 08/08/16 06:15 127 24 110/57 95 Mechanical Ventilator 50 08/08/16 06:00 117 24 87/41 95 Mechanical Ventilator 50 08/08/16 06:00 101/56 08/08/16 05:45 117 24 101/49 95 Mechanical Ventilator 50 08/08/16 05:30 120 24 103/61 95 Mechanical Ventilator 50 08/08/16 05:15 119 24 115/51 95 Mechanical Ventilator 50 08/08/16 05:07 121 28 50 08/08/16 05:00 120 24 97/51 95 Mechanical Ventilator 50 08/08/16 05:00 115/51 08/08/16 04:45 118 24 94/68 95 Mechanical Ventilator 50 08/08/16 04:30 121 24 93/52 95 Mechanical Ventilator 50 08/08/16 04:15 125 24 96/70 95 Mechanical Ventilator 50 08/08/16 04:00 99.5 133 24 123/99 95 Mechanical Ventilator 50 08/08/16 04:00 98/62 08/08/16 04:00 50 08/08/16 04:00 120 08/08/16 03:45 135 24 106/80 95 Mechanical Ventilator 30 08/08/16 03:30 130 28 50 08/08/16 03:30 128 24 78/53 95 Mechanical Ventilator 30 08/08/16 03:27 120/69 08/08/16 03:15 132 24 91/71 95 Mechanical Ventilator 30 08/08/16 03:00 140 24 105/65 95 Mechanical Ventilator 30 08/08/16 02:45 142 24 105/65 95 Mechanical Ventilator 30 08/08/16 02:30 154 24 88/69 95 Mechanical Ventilator 30 08/08/16 02:27 110/80 08/08/16 02:15 147 24 93/59 95 Mechanical Ventilator 30 08/08/16 02:00 140 24 89/61 95 Mechanical Ventilator 30 08/08/16 01:45 141 24 102/64 95 Mechanical Ventilator 30 08/08/16 01:30 147 24 106/82 95 Mechanical Ventilator 30 08/08/16 01:21 156 30 50 08/08/16 01:15 149 24 118/72 95 Mechanical Ventilator 30 08/08/16 01:00 152 24 99/84 95 Mechanical Ventilator 30 08/08/16 01:00 102/64 08/08/16 00:45 148 24 102/64 95 Mechanical Ventilator 30 08/08/16 00:30 151 24 102/64 95 Mechanical Ventilator 30 08/08/16 00:15 98.9 153 24 90/66 95 Mechanical Ventilator 30 08/08/16 00:00 30 08/08/16 00:00 99.5 155 24 101/60 95 Mechanical Ventilator 30 08/08/16 00:00 101/60 08/08/16 00:00 152 08/07/16 23:45 152 24 76/35 95 Mechanical Ventilator 30 08/07/16 23:37 78/62 08/07/16 23:30 123 26 30 08/07/16 23:30 100.5 137 24 61/35 95 Mechanical Ventilator 30 08/07/16 23:15 141 24 83/55 95 Mechanical Ventilator 30 08/07/16 23:00 78/62 08/07/16 23:00 121 24 78/62 95 Mechanical Ventilator 30 08/07/16 22:45 147 28 114/68 79 Mechanical Ventilator 30 08/07/16 22:30 133 28 107/62 95 Mechanical Ventilator 30 08/07/16 22:15 117 27 98/55 90 Mechanical Ventilator 30 08/07/16 22:00 106/64 08/07/16 22:00 124 27 106/64 95 Mechanical Ventilator 30 08/07/16 21:45 121 24 106/64 95 Mechanical Ventilator 30 08/07/16 21:30 119 23 96/51 95 Mechanical Ventilator 30 08/07/16 21:27 98/57 08/07/16 21:20 119 24 30 08/07/16 21:15 119 23 88/51 95 Mechanical Ventilator 30 08/07/16 21:00 121 25 98/57 100 Mechanical Ventilator 30 08/07/16 21:00 106/50 08/07/16 20:00 119 08/07/16 20:00 30 08/07/16 20:00 108/90 08/07/16 20:00 96.8 122 27 107/87 90 Mechanical Ventilator 30 08/07/16 19:45 121 26 95/55 90 Mechanical Ventilator 30 08/07/16 19:30 121 27 96/61 92 Mechanical Ventilator 30 08/07/16 19:15 121 29 96/60 84 Mechanical Ventilator 30 08/07/16 19:11 118 31 30 08/07/16 19:00 120 26 100/61 93 Mechanical Ventilator 30 08/07/16 19:00 100/61 08/07/16 18:45 120 27 94/61 75 Mechanical Ventilator 30 08/07/16 18:30 121 27 98/54 63 Mechanical Ventilator 30 08/07/16 18:15 120 26 89/51 83 Mechanical Ventilator 30 08/07/16 18:00 120 26 102/61 92 Mechanical Ventilator 30 08/07/16 18:00 102/61 08/07/16 17:45 118 24 107/57 100 Mechanical Ventilator 30 08/07/16 17:30 118 24 107/57 100 Mechanical Ventilator 30 08/07/16 17:24 114 29 30 08/07/16 17:15 118 26 101/50 100 Mechanical Ventilator 30 08/07/16 17:00 105/63 08/07/16 17:00 118 26 105/63 100 Mechanical Ventilator 30 08/07/16 16:45 116 27 112/52 86 Mechanical Ventilator 30 08/07/16 16:30 116 25 101/63 93 Mechanical Ventilator 30 08/07/16 16:15 117 27 113/57 95 Mechanical Ventilator 30 Intake and Output 08/07/16 08/08/16 19:00 07:00 Intake Total 2481.07 ml 1641.72 ml Output Total 550 ml 510 ml Balance 1931.07 ml 1131.72 ml Intake IV Total 2481.07 ml 1641.72 ml Output Urine Total 550 ml 510 ml Laboratory Tests 08/07/16 18:00: White Blood Count 17.8H, Red Blood Count 2.96L, Hemoglobin 7.8L, Hematocrit 24.4L, Mean Corpuscular Volume 82, Mean Corpuscular Hemoglobin 26.4L, Mean Corpuscular Hemoglobin Concent 32.1, Red Cell Distribution Width 15.9H, Platelet Count 64L, Mean Platelet Volume 7.8, Neutrophils (%) (Auto) , Lymphocytes (%) (Auto) , Monocytes (%) (Auto) , Eosinophils (%) (Auto) , Basophils (%) (Auto) , Differential Total Cells Counted 100, Neutrophils % ( Manual) 82H, Lymphocytes % (Manual) 8L, Monocytes % (Manual) 4, Eosinophils % ( Manual) 0, Basophils % (Manual) 0, Band Neutrophils 6, Platelet Estimate DecreasedL, Platelet Morphology Normal, Hypochromasia 1+, Anisocytosis 1+ 08/08/16 00:33: White Blood Count 20.8H, Red Blood Count 3.16L, Hemoglobin 8.2L, Hematocrit 26.1L, Mean Corpuscular Volume 83, Mean Corpuscular Hemoglobin 25.9L, Mean Corpuscular Hemoglobin Concent 31.4L, Red Cell Distribution Width 16.0H, Platelet Count 64L, Mean Platelet Volume 8.7, Neutrophils (%) (Auto) , Lymphocytes (%) (Auto) , Monocytes (%) (Auto) , Eosinophils (%) (Auto) , Basophils (%) (Auto) , Differential Total Cells Counted 100, Neutrophils % ( Manual) 88H, Lymphocytes % (Manual) 4L, Monocytes % (Manual) 4, Eosinophils % ( Manual) 0, Basophils % (Manual) 0, Band Neutrophils 4, Platelet Estimate DecreasedL, Platelet Morphology Normal, Hypochromasia 1+, Anisocytosis 1+ 08/08/16 06:00: White Blood Count 19.9H, Red Blood Count 3.00L, Hemoglobin 7.9L, Hematocrit 24.8L, Mean Corpuscular Volume 83, Mean Corpuscular Hemoglobin 26.1L, Mean Corpuscular Hemoglobin Concent 31.6L, Red Cell Distribution Width 16.1H, Platelet Count 54L, Mean Platelet Volume 6.9, Neutrophils (%) (Auto) , Lymphocytes (%) (Auto) , Monocytes (%) (Auto) , Eosinophils (%) (Auto) , Basophils (%) (Auto) , Differential Total Cells Counted 100, Neutrophils % ( Manual) 81H, Lymphocytes % (Manual) 10L, Monocytes % (Manual) 7, Eosinophils % ( Manual) 0, Basophils % (Manual) 0, Band Neutrophils 2, Platelet Estimate DecreasedL, Platelet Morphology Normal, Hypochromasia 1+, Anisocytosis 1+, Sodium Level 138, Potassium Level 4.9, Chloride Level 104, Carbon Dioxide Level 15L, Anion Gap 19H, Blood Urea Nitrogen 86H, Creatinine 5.7H, Estimat Glomerular Filtration Rate , Glucose Level 90, Uric Acid 13.5H, Calcium Level 6.5L, Phosphorus Level 4.9H, Magnesium Level 1.7, Total Bilirubin 2.4H, Direct Bilirubin 1.8H, Gamma Glutamyl Transpeptidase 18, Aspartate Amino Transf (AST/ SGOT) 8, Alanine Aminotransferase (ALT/SGPT) 5, Alkaline Phosphatase 67, C- Reactive Protein, Quantitative 20.2H, Pro-B-Type Natriuretic Peptide > 97316L, Total Protein 5.4L, Albumin 1.4L, Globulin 4.0, Albumin/Globulin Ratio 0.3L 08/08/16 09:15: Arterial Blood pH 7.344L, Arterial Blood Partial Pressure CO2 23.4*L, Arterial Blood Partial Pressure O2 172.9H, Arterial Blood HCO3 12.5L, Arterial Blood Oxygen Saturation 98.7H, Arterial Blood Base Excess -11.8, Sancho Test Positive 08/08/16 12:45: White Blood Count 20.1H, Red Blood Count 3.30L, Hemoglobin 8.5L, Hematocrit 27.2L, Mean Corpuscular Volume 82, Mean Corpuscular Hemoglobin 25.9L, Mean Corpuscular Hemoglobin Concent 31.4L, Red Cell Distribution Width 15.9H, Platelet Count 59L, Mean Platelet Volume 8.0, Neutrophils (%) (Auto) , Lymphocytes (%) (Auto) , Monocytes (%) (Auto) , Eosinophils (%) (Auto) , Basophils (%) (Auto) , Differential Total Cells Counted 100, Neutrophils % ( Manual) 85H, Lymphocytes % (Manual) 6L, Monocytes % (Manual) 4, Eosinophils % ( Manual) 0, Basophils % (Manual) 0, Band Neutrophils 5, Platelet Estimate DecreasedL, Platelet Morphology Normal, Hypochromasia 1+, Anisocytosis 1+, Cortisol [Pending] Height (Feet): 5 Height (Inches): 4.00 Weight (Pounds): 180 General Appearance: lethargic, confused Respiratory/Chest: rhonchi - bilaterally Jose Traore MD Aug 08, 2016 16:08
[2016-08-08 16:16] LABS: MEAN CORPUSCULAR HEMOGLOBIN 25.7 PG (27.0-31.0); MEAN CORPUSCULAR HGB CONC 31.3 G/DL (32.0-36.0); MEAN CORPUSCULAR VOLUME 82 FL (80-99); MEAN PLATELET VOLUME 8.2 FL (6.5-10.1); PLATELET COUNT 54 K/UL (150-450); RED BLOOD COUNT 3.27 M/UL (4.70-6.10); WHITE BLOOD COUNT 18.2 K/UL (4.8-10.8)
[2016-08-08] MEDS: Meropenem 500 MG in NS 55 ML IVPB SCH (17:20)
[2016-08-08] MEDS ORDERED: Tubing IV Secondary IV ONE (17:44)
--- NOTE | 2016-08-08 18:09 | Infectious Diseases Prog Note ---
Assessment/Plan Problems: (1) Septic shock Assessment & Plan: with E.coli , source could be his right ankle wound infection, on meropenem and levaquin for double coverage, will continue current regimen with clindamycin for MRSA coverage, and repeat blood culture to confirm clearance. (2) Multiorgan failure Assessment & Plan: due to septic shock, continue hydration and pressors to keep SBP >100 (3) STORM (acute kidney injury) Assessment & Plan: with azotemia, avoid nephrotoxic meds, may need HD when hemodynamically stable, monitor UOP, renal is following (4) Anemia Assessment & Plan: monitor H/H transfuse blood as needed, need to rule out GI source. (5) DM (diabetes mellitus) Assessment & Plan: recommend tight glycemic control to keep BG between 80-120 (6) Open wound of right ankle with complication Assessment & Plan: no evidence of osteomyelitis on plain x ray of the ankle , need bone scan once hemodynamically stable Subjective ROS Limited/Unobtainable: Yes Allergies: Coded Allergies: HEPARIN (Verified Allergy, Mild, 12/21/14) Subjective he remained in critical condition, still intubated on mechanical ventilation, and hypotensive requiring pressor. Objective Vital Signs Last 24 Hour Vital Signs Date Time Temp Pulse Resp B/P Pulse Ox O2 Delivery O2 Flow Rate FiO2 08/08/16 17:45 110 27 98/65 100 Mechanical Ventilator 50 08/08/16 17:30 114 28 108/60 100 Mechanical Ventilator 50 08/08/16 17:15 109 28 94/55 100 Mechanical Ventilator 50 08/08/16 17:01 105 26 50 08/08/16 17:00 111 24 91/56 100 Mechanical Ventilator 50 08/08/16 17:00 91/56 08/08/16 16:45 105 24 97/58 100 Mechanical Ventilator 50 08/08/16 16:30 113 23 86/55 100 Mechanical Ventilator 50 08/08/16 16:15 112 24 101/51 100 Mechanical Ventilator 50 08/08/16 16:00 98.1 106 25 96/64 100 Mechanical Ventilator 50 08/08/16 16:00 50 08/08/16 16:00 90 08/08/16 15:45 101 24 87/59 100 Mechanical Ventilator 50 08/08/16 15:44 89/60 08/08/16 15:30 110 24 91/60 100 Mechanical Ventilator 50 08/08/16 15:15 107 24 89/60 100 Mechanical Ventilator 50 08/08/16 15:00 106 24 94/60 100 Mechanical Ventilator 50 08/08/16 15:00 98/67 08/08/16 14:58 92 24 50 08/08/16 14:00 97/60 08/08/16 13:00 97 21 94/58 100 Mechanical Ventilator 50 08/08/16 13:00 94/58 08/08/16 12:57 107 24 50 08/08/16 12:45 109 21 90/57 100 Mechanical Ventilator 50 08/08/16 12:30 106 20 101/61 100 Mechanical Ventilator 50 08/08/16 12:14 103 20 108/58 100 Mechanical Ventilator 50 08/08/16 12:00 50 08/08/16 12:00 98.5 104 21 105/61 100 Mechanical Ventilator 50 08/08/16 12:00 108/67 08/08/16 12:00 104 08/08/16 11:45 106 23 104/61 100 Mechanical Ventilator 50 08/08/16 11:15 100 23 109/65 100 Mechanical Ventilator 50 08/08/16 11:06 118 25 50 08/08/16 11:00 120 23 101/65 100 Mechanical Ventilator 50 08/08/16 10:45 129 23 101/65 100 Mechanical Ventilator 50 08/08/16 10:30 141 21 98/56 100 Mechanical Ventilator 50 08/08/16 10:15 136 25 91/48 100 Mechanical Ventilator 50 08/08/16 10:00 88/53 08/08/16 10:00 136 25 88/48 100 Mechanical Ventilator 50 08/08/16 09:52 136 103/56 08/08/16 09:45 137 24 73/59 100 Mechanical Ventilator 50 08/08/16 09:30 136 24 112/52 97 Mechanical Ventilator 50 08/08/16 09:22 118/64 08/08/16 09:15 128 24 50 08/08/16 09:15 98.7 139 24 118/64 100 Mechanical Ventilator 50 08/08/16 09:00 99.0 139 25 101/69 92 Mechanical Ventilator 50 08/08/16 09:00 124/78 08/08/16 09:00 124/78 08/08/16 09:00 124/78 08/08/16 09:00 124/78 08/08/16 08:45 144 25 87/61 93 Mechanical Ventilator 50 08/08/16 08:30 136 24 123/79 94 Mechanical Ventilator 50 08/08/16 08:15 126 25 66/44 96 Mechanical Ventilator 50 08/08/16 08:00 99.1 123 25 101/82 95 Mechanical Ventilator 50 08/08/16 08:00 50 08/08/16 08:00 98/71 08/08/16 08:00 98/71 08/08/16 08:00 98/71 08/08/16 08:00 98/71 08/08/16 08:00 146 08/08/16 07:52 99.1 08/08/16 07:45 137 26 87/71 94 Mechanical Ventilator 50 08/08/16 07:30 131 26 96/71 96 Mechanical Ventilator 50 08/08/16 07:15 145 27 83/62 98 Mechanical Ventilator 50 08/08/16 07:03 116/63 08/08/16 07:00 130 24 116/63 95 Mechanical Ventilator 50 08/08/16 06:45 125 24 101/58 95 Mechanical Ventilator 50 08/08/16 06:30 120 24 101/56 95 Mechanical Ventilator 50 08/08/16 06:30 124 26 50 08/08/16 06:15 127 24 110/57 95 Mechanical Ventilator 50 08/08/16 06:00 117 24 87/41 95 Mechanical Ventilator 50 08/08/16 06:00 101/56 08/08/16 05:45 117 24 101/49 95 Mechanical Ventilator 50 08/08/16 05:30 120 24 103/61 95 Mechanical Ventilator 50 08/08/16 05:15 119 24 115/51 95 Mechanical Ventilator 50 08/08/16 05:07 121 28 50 08/08/16 05:00 120 24 97/51 95 Mechanical Ventilator 50 08/08/16 05:00 115/51 08/08/16 04:45 118 24 94/68 95 Mechanical Ventilator 50 08/08/16 04:30 121 24 93/52 95 Mechanical Ventilator 50 08/08/16 04:15 125 24 96/70 95 Mechanical Ventilator 50 08/08/16 04:00 99.5 133 24 123/99 95 Mechanical Ventilator 50 08/08/16 04:00 98/62 08/08/16 04:00 50 08/08/16 04:00 120 08/08/16 03:45 135 24 106/80 95 Mechanical Ventilator 30 08/08/16 03:30 130 28 50 08/08/16 03:30 128 24 78/53 95 Mechanical Ventilator 30 08/08/16 03:27 120/69 08/08/16 03:15 132 24 91/71 95 Mechanical Ventilator 30 08/08/16 03:00 140 24 105/65 95 Mechanical Ventilator 30 08/08/16 02:45 142 24 105/65 95 Mechanical Ventilator 30 08/08/16 02:30 154 24 88/69 95 Mechanical Ventilator 30 08/08/16 02:27 110/80 08/08/16 02:15 147 24 93/59 95 Mechanical Ventilator 30 08/08/16 02:00 140 24 89/61 95 Mechanical Ventilator 30 08/08/16 01:45 141 24 102/64 95 Mechanical Ventilator 30 08/08/16 01:30 147 24 106/82 95 Mechanical Ventilator 30 08/08/16 01:21 156 30 50 08/08/16 01:15 149 24 118/72 95 Mechanical Ventilator 30 08/08/16 01:00 152 24 99/84 95 Mechanical Ventilator 30 08/08/16 01:00 102/64 08/08/16 00:45 148 24 102/64 95 Mechanical Ventilator 30 08/08/16 00:30 151 24 102/64 95 Mechanical Ventilator 30 08/08/16 00:15 98.9 153 24 90/66 95 Mechanical Ventilator 30 08/08/16 00:00 30 08/08/16 00:00 99.5 155 24 101/60 95 Mechanical Ventilator 30 08/08/16 00:00 101/60 08/08/16 00:00 152 08/07/16 23:45 152 24 76/35 95 Mechanical Ventilator 30 08/07/16 23:37 78/62 08/07/16 23:30 123 26 30 08/07/16 23:30 100.5 137 24 61/35 95 Mechanical Ventilator 30 08/07/16 23:15 141 24 83/55 95 Mechanical Ventilator 30 08/07/16 23:00 78/62 08/07/16 23:00 121 24 78/62 95 Mechanical Ventilator 30 08/07/16 22:45 147 28 114/68 79 Mechanical Ventilator 30 08/07/16 22:30 133 28 107/62 95 Mechanical Ventilator 30 08/07/16 22:15 117 27 98/55 90 Mechanical Ventilator 30 08/07/16 22:00 106/64 08/07/16 22:00 124 27 106/64 95 Mechanical Ventilator 30 08/07/16 21:45 121 24 106/64 95 Mechanical Ventilator 30 08/07/16 21:30 119 23 96/51 95 Mechanical Ventilator 30 08/07/16 21:27 98/57 08/07/16 21:20 119 24 30 08/07/16 21:15 119 23 88/51 95 Mechanical Ventilator 30 08/07/16 21:00 121 25 98/57 100 Mechanical Ventilator 30 08/07/16 21:00 106/50 08/07/16 20:00 119 08/07/16 20:00 30 08/07/16 20:00 108/90 08/07/16 20:00 96.8 122 27 107/87 90 Mechanical Ventilator 30 08/07/16 19:45 121 26 95/55 90 Mechanical Ventilator 30 08/07/16 19:30 121 27 96/61 92 Mechanical Ventilator 30 08/07/16 19:15 121 29 96/60 84 Mechanical Ventilator 30 08/07/16 19:11 118 31 30 08/07/16 19:00 120 26 100/61 93 Mechanical Ventilator 30 08/07/16 19:00 100/61 08/07/16 18:45 120 27 94/61 75 Mechanical Ventilator 30 08/07/16 18:30 121 27 98/54 63 Mechanical Ventilator 30 08/07/16 18:15 120 26 89/51 83 Mechanical Ventilator 30 Height (Feet): 5 Height (Inches): 4.00 Weight (Pounds): 180 General Appearance: WD/WN, no acute distress HEENT: normocephalic, atraumatic, supple, no JVD Respiratory/Chest: no respiratory distress, no accessory muscle use, decreased breath sounds, crackles/rales Cardiovascular: normal peripheral pulses, no gallop/murmur, tachycardia Abdomen: normal bowel sounds, no organomegaly, no mass, no scars, distended Extremities: no cyanosis, no clubbing, other - wounds Skin: no rash Microbiology Date/Time Source Procedure Growth Status 08/06/16 10:00 Sputum Gram Stain - Final Complete 08/06/16 10:00 Sputum Culture - Final Neema Albicans Usual Upper Respiratory Araceli Complete 08/06/16 04:20 Foot Right Gram Stain - Final Resulted 08/06/16 04:20 Wound Culture - Preliminary Gram Negative Bacillus 1 Strep Species, Gamma-Hemolytic Resulted Laboratory Tests Test 08/08/16 00:33 08/08/16 06:00 08/08/16 09:15 08/08/16 12:45 White Blood Count 20.8 K/UL (4.8-10.8) H 19.9 K/UL (4.8-10.8) H 20.1 K/UL (4.8-10.8) H Red Blood Count 3.16 M/UL (4.70-6.10) L 3.00 M/UL (4.70-6.10) L 3.30 M/UL (4.70-6.10) L Hemoglobin 8.2 G/DL (14.2-18.0) L 7.9 G/DL (14.2-18.0) L 8.5 G/DL (14.2-18.0) L Hematocrit 26.1 % (42.0-52.0) L 24.8 % (42.0-52.0) L 27.2 % (42.0-52.0) L Mean Corpuscular Volume 83 FL (80-99) 83 FL (80-99) 82 FL (80-99) Mean Corpuscular Hemoglobin 25.9 PG (27.0-31.0) L 26.1 PG (27.0-31.0) L 25.9 PG (27.0-31.0) L Mean Corpuscular Hemoglobin Concent 31.4 G/DL (32.0-36.0) L 31.6 G/DL (32.0-36.0) L 31.4 G/DL (32.0-36.0) L Red Cell Distribution Width 16.0 % (11.6-14.8) H 16.1 % (11.6-14.8) H 15.9 % (11.6-14.8) H Platelet Count 64 K/UL (150-450) L 54 K/UL (150-450) L 59 K/UL (150-450) L Mean Platelet Volume 8.7 FL (6.5-10.1) 6.9 FL (6.5-10.1) 8.0 FL (6.5-10.1) Neutrophils (%) (Auto) % (45.0-75.0) % (45.0-75.0) % (45.0-75.0) Lymphocytes (%) (Auto) % (20.0-45.0) % (20.0-45.0) % (20.0-45.0) Monocytes (%) (Auto) % (1.0-10.0) % (1.0-10.0) % (1.0-10.0) Eosinophils (%) (Auto) % (0.0-3.0) % (0.0-3.0) % (0.0-3.0) Basophils (%) (Auto) % (0.0-2.0) % (0.0-2.0) % (0.0-2.0) Differential Total Cells Counted 100 100 100 Neutrophils % (Manual) 88 % (45-75) H 81 % (45-75) H 85 % (45-75) H Lymphocytes % (Manual) 4 % (20-45) L 10 % (20-45) L 6 % (20-45) L Monocytes % (Manual) 4 % (1-10) 7 % (1-10) 4 % (1-10) Eosinophils % (Manual) 0 % (0-3) 0 % (0-3) 0 % (0-3) Basophils % (Manual) 0 % (0-2) 0 % (0-2) 0 % (0-2) Band Neutrophils 4 % (0-8) 2 % (0-8) 5 % (0-8) Platelet Estimate Decreased L Decreased L Decreased L Platelet Morphology Normal Normal Normal Hypochromasia 1+ 1+ 1+ Anisocytosis 1+ 1+ 1+ Sodium Level 138 mEQ/L (135-145) Potassium Level 4.9 mEQ/L (3.4-4.9) Chloride Level 104 mEQ/L (98-107) Carbon Dioxide Level 15 mEQ/L (20-30) L Anion Gap 19 (5-15) H Blood Urea Nitrogen 86 mg/dL (7-23) H Creatinine 5.7 mg/dL (0.7-1.2) H Estimat Glomerular Filtration Rate mL/min (>60) Glucose Level 90 mg/dL (74-106) Uric Acid 13.5 mg/dL (3.0-7.5) H Calcium Level 6.5 mg/dL (8.6-10.2) L Phosphorus Level 4.9 mg/dL (2.5-4.8) H Magnesium Level 1.7 mg/dL (1.7-2.5) Total Bilirubin 2.4 mg/dL (0.0-1.2) H Direct Bilirubin 1.8 mg/dL (0.1-0.3) H Gamma Glutamyl Transpeptidase 18 U/L (8-61) Aspartate Amino Transf (AST/SGOT) 8 U/L (5-40) Alanine Aminotransferase (ALT/SGPT) 5 U/L (3-41) Alkaline Phosphatase 67 U/L (40-129) C-Reactive Protein, Quantitative 20.2 mg/dL (< 0.5) H Pro-B-Type Natriuretic Peptide > 85825 pg/mL (0-450) H Total Protein 5.4 g/dL (6.6-8.7) L Albumin 1.4 g/dL (3.5-5.2) L Globulin 4.0 g/dL Albumin/Globulin Ratio 0.3 (1.0-2.7) L Arterial Blood pH 7.344 (7.350-7.450) Arterial Blood Partial Pressure CO2 23.4 mmHg (35.0-45.0) *L Arterial Blood Partial Pressure O2 172.9 mmHg (75.0-100.0) H Arterial Blood HCO3 12.5 mmol/L (22.0-26.0) L Arterial Blood Oxygen Saturation 98.7 % (92.0-98.0) H Arterial Blood Base Excess -11.8 Sancho Test Positive Cortisol Pending Test 08/08/16 16:00 White Blood Count 18.2 K/UL (4.8-10.8) H Red Blood Count 3.27 M/UL (4.70-6.10) L Hemoglobin 8.4 G/DL (14.2-18.0) L Hematocrit 26.8 % (42.0-52.0) L Mean Corpuscular Volume 82 FL (80-99) Mean Corpuscular Hemoglobin 25.7 PG (27.0-31.0) L Mean Corpuscular Hemoglobin Concent 31.3 G/DL (32.0-36.0) L Red Cell Distribution Width 16.0 % (11.6-14.8) H Platelet Count 54 K/UL (150-450) L Mean Platelet Volume 8.2 FL (6.5-10.1) Neutrophils (%) (Auto) % (45.0-75.0) Lymphocytes (%) (Auto) % (20.0-45.0) Monocytes (%) (Auto) % (1.0-10.0) Eosinophils (%) (Auto) % (0.0-3.0) Basophils (%) (Auto) % (0.0-2.0) Neutrophils % (Manual) Pending Lymphocytes % (Manual) Pending Platelet Estimate Pending Platelet Morphology Pending Current Medications Medications (Trade) Dose Ordered Sig/Yumi Route PRN Reason Start Time Stop Time Status Last Admin Dose Admin Acetaminophen (Tylenol) 500 mg Q4H PRN ORAL Mild Pain/Temp > 100.5 08/06/16 19:45 09/05/16 19:44 08/08/16 06:53 Albuterol/ Ipratropium (DuoNeb 0.5-3(2.5)mg/3ml) 3 ml EVERY 4 HOURS PRN HHN Shortness of Breath 08/05/16 20:30 08/10/16 20:29 Allopurinol 300 mg 300 mg DAILY ORAL 08/07/16 09:00 09/06/16 08:59 08/08/16 09:22 Carvedilol 6.25 mg 6.25 mg EVERY 12 HOURS ORAL 08/08/16 21:00 09/07/16 20:59 Clindamycin HCl/ Dextrose 50 ml @ 100 mls/hr Q8H IV 08/06/16 12:00 08/13/16 11:59 08/08/16 12:00 Dextrose STAT PRN IV Hypoglycemia 08/05/16 20:30 09/04/16 20:29 Diphenhydramine HCl (Benadryl) 50 mg Q6H PRN IVP Itching 08/06/16 19:45 09/05/16 19:44 08/08/16 06:54 Epoetin Stewart (Procrit (for non ESRD use)) 10,000 units SAT-SAT-SAT SUBQ 08/06/16 21:00 09/05/16 20:59 08/06/16 21:53 Insulin Aspart (NovoLOG) EVERY 6 HOURS SUBQ 08/08/16 12:00 09/07/16 11:59 Iron Sucrose/ Sodium Chloride (Venofer/Sodium Chloride) 115 ml @ 230 mls/hr BEDTIME IVPB 08/05/16 23:00 08/09/16 21:29 08/07/16 21:28 Levofloxacin (Levaquin) 50 ml @ 50 mls/hr Q48H IVPB 08/08/16 17:00 08/15/16 16:59 08/08/16 17:20 Levothyroxine Sodium (Synthroid) 50 mcg ACBREAKFAST ORAL 08/06/16 06:30 09/05/16 06:29 08/08/16 05:27 Lorazepam 2 mg 2 mg Q2H PRN IV For Anxiety 08/06/16 03:30 08/13/16 03:29 08/07/16 22:59 Meropenem/Sodium Chloride (Merrem/Sodium Chloride) 55 ml @ 110 mls/hr Q24H IVPB 08/07/16 18:00 08/12/16 17:59 08/08/16 17:20 Midodrine (Pro-Amatine) 10 mg Q8H ORAL 08/08/16 10:00 09/07/16 09:59 08/08/16 17:37 Morphine Sulfate (Morphine Sulfate) 4 mg EVERY 4 HOURS PRN IVP Severe Pain (Pain Scale 7-10) 08/05/16 20:30 08/12/16 20:29 08/08/16 02:36 Norepinephrine Bitartrate/ Dextrose (Levophed/D5W) 254 ml @ 0 mls/hr Q24H IV 08/05/16 22:00 09/04/16 21:59 08/08/16 15:44 Nystatin (Nystop Powder) 1 applic THREE TIMES A DAY TOPIC 08/06/16 18:00 09/05/16 17:59 08/08/16 17:20 Ondansetron HCl 4 mg 4 mg Q6H PRN IVP Nausea & Vomiting 08/05/16 20:30 09/04/16 20:29 08/08/16 09:22 Pantoprazole (Protonix) 40 mg Q12HR IVP 08/08/16 21:00 09/07/16 20:59 Polyethylene Glycol (Miralax) 17 gm DAILYPRN PRN ORAL Constipation 08/05/16 20:30 09/04/16 20:29 Sodium Bicarbonate/ Dextrose (Sodium Bicarbonate/D5W 1000ml) 1,150 ml @ 50 mls/hr Q23H IV 08/08/16 10:45 09/07/16 10:44 08/08/16 10:46 Vitamin A/Vitamin D (A & D Oint) 1 applic EVERY 12 HOURS TOPIC 08/06/16 21:00 09/05/16 20:59 08/08/16 08:29 Jamin Ramos M.D. Aug 08, 2016 18:09
[2016-08-08 19:56] LABS: BAND NEUTROPHILS % (MANUAL) 3 % (0-8); LYMPHOCYTES % (MANUAL) 15 % (20-45); NEUTROPHILS % (MANUAL) 77 % (45-75); TOTAL CELLS COUNTED 100
[2016-08-08 19:57] LABS: ANISOCYTOSIS 1+; BASOPHILS % (MANUAL) 0 % (0-2); EOSINOPHILS % (MANUAL) 0 % (0-3); HYPOCHROMASIA 1+; PLATELET ESTIMATE DECREASED; PLATELET MORPHOLOGY NORMAL
[2016-08-08] MEDS: Iron Sucrose 100 MG in NS 110 ML IVPB SCH (20:27)
[2016-08-08] MEDS: Carvedilol 6.25mg Tab ORAL SCH (20:28)
[2016-08-08] MEDS: Pantoprazole Inj IVP SCH (20:28)
[2016-08-08] MEDS: Epogen (for non ESRD use) SUBQ SCH (20:37)
--- NOTE | 2016-08-08 21:06 | General Progress Note ---
Assessment/Plan Assessment/Plan ASSESSMENT AND PLAN: 1. Leukocytosis 2/2 underying infection, patient currently on abx 2. Anemia secondary to iron deficiency/chronic disease, is on IV iron 3. Decreased hemoglobin and hematocrit, rule out gastrointestinal bleed. 4. Hypertension. 5. Chronic kidney disease. 6. Congestive heart failure. 7. Atrial fibrillation. 8. Hyperlipidemia. 9. Malnutrition. 10. Failure to thrive. RECOMMENDATIONS: 1. Monitor counts. 2. Watch coagulopaty. 3. Vasopressors as needed. 4. Re-order anemia w/u on 08/12/16 5. Rest of the labs has been reviewed. 6. Ultrasound of the abdomen shows cirrhosis 7. Continue iv iron 8. GI prophylaxis as needed. 9. Antibiotics per ID service. 10. Discussed with staff. Thank you, Milton Gold MD Subjective Constitutional: Reports: no symptoms HEENT: Reports: no symptoms Cardiovascular: Reports: no symptoms Respiratory: Reports: no symptoms Gastrointestinal/Abdominal: Reports: poor appetite Genitourinary: Reports: no symptoms Neurologic/Psychiatric: Reports: no symptoms Endocrine: Reports: no symptoms Hematologic/Lymphatic: Reports: anemia Allergies: Coded Allergies: HEPARIN (Verified Allergy, Mild, 12/21/14) Subjective remains hypotensive, is on pressors and antibiotics Objective Last 24 Hour Vital Signs Date Time Temp Pulse Resp B/P Pulse Ox O2 Delivery O2 Flow Rate FiO2 08/08/16 20:53 101 26 50 08/08/16 20:28 93/45 08/08/16 20:27 93/45 08/08/16 20:00 106 08/08/16 20:00 50 08/08/16 19:45 108 26 112/55 100 Mechanical Ventilator 50 08/08/16 19:30 109 27 105/62 100 Mechanical Ventilator 50 08/08/16 19:30 102 34 50 08/08/16 19:15 114 28 100/59 100 Mechanical Ventilator 50 08/08/16 19:00 109 27 94/60 100 Mechanical Ventilator 50 08/08/16 19:00 89/66 08/08/16 18:45 107 19 97/71 100 Mechanical Ventilator 50 08/08/16 18:30 122 30 89/66 100 Mechanical Ventilator 50 08/08/16 18:15 120 29 94/62 100 Mechanical Ventilator 50 08/08/16 18:00 113 27 110/58 100 Mechanical Ventilator 50 08/08/16 17:45 110 27 98/65 100 Mechanical Ventilator 50 08/08/16 17:30 114 28 108/60 100 Mechanical Ventilator 50 08/08/16 17:15 109 28 94/55 100 Mechanical Ventilator 50 08/08/16 17:01 105 26 50 08/08/16 17:00 111 24 91/56 100 Mechanical Ventilator 50 08/08/16 17:00 91/56 08/08/16 16:45 105 24 97/58 100 Mechanical Ventilator 50 08/08/16 16:30 113 23 86/55 100 Mechanical Ventilator 50 08/08/16 16:15 112 24 101/51 100 Mechanical Ventilator 50 08/08/16 16:00 98.1 106 25 96/64 100 Mechanical Ventilator 50 08/08/16 16:00 50 08/08/16 16:00 90 08/08/16 15:45 101 24 87/59 100 Mechanical Ventilator 50 08/08/16 15:44 89/60 08/08/16 15:30 110 24 91/60 100 Mechanical Ventilator 50 08/08/16 15:15 107 24 89/60 100 Mechanical Ventilator 50 08/08/16 15:00 106 24 94/60 100 Mechanical Ventilator 50 08/08/16 15:00 98/67 08/08/16 14:58 92 24 50 08/08/16 14:00 97/60 08/08/16 13:00 97 21 94/58 100 Mechanical Ventilator 50 08/08/16 13:00 94/58 08/08/16 12:57 107 24 50 08/08/16 12:45 109 21 90/57 100 Mechanical Ventilator 50 08/08/16 12:30 106 20 101/61 100 Mechanical Ventilator 50 08/08/16 12:14 103 20 108/58 100 Mechanical Ventilator 50 08/08/16 12:00 50 08/08/16 12:00 98.5 104 21 105/61 100 Mechanical Ventilator 50 08/08/16 12:00 108/67 08/08/16 12:00 104 08/08/16 11:45 106 23 104/61 100 Mechanical Ventilator 50 08/08/16 11:15 100 23 109/65 100 Mechanical Ventilator 50 08/08/16 11:06 118 25 50 08/08/16 11:00 120 23 101/65 100 Mechanical Ventilator 50 08/08/16 10:45 129 23 101/65 100 Mechanical Ventilator 50 08/08/16 10:30 141 21 98/56 100 Mechanical Ventilator 50 08/08/16 10:15 136 25 91/48 100 Mechanical Ventilator 50 08/08/16 10:00 88/53 08/08/16 10:00 136 25 88/48 100 Mechanical Ventilator 50 08/08/16 09:52 136 103/56 08/08/16 09:45 137 24 73/59 100 Mechanical Ventilator 50 08/08/16 09:30 136 24 112/52 97 Mechanical Ventilator 50 08/08/16 09:22 118/64 08/08/16 09:15 128 24 50 08/08/16 09:15 98.7 139 24 118/64 100 Mechanical Ventilator 50 08/08/16 09:00 99.0 139 25 101/69 92 Mechanical Ventilator 50 08/08/16 09:00 124/78 08/08/16 09:00 124/78 08/08/16 09:00 124/78 08/08/16 09:00 124/78 08/08/16 08:45 144 25 87/61 93 Mechanical Ventilator 50 08/08/16 08:30 136 24 123/79 94 Mechanical Ventilator 50 08/08/16 08:15 126 25 66/44 96 Mechanical Ventilator 50 08/08/16 08:00 99.1 123 25 101/82 95 Mechanical Ventilator 50 08/08/16 08:00 50 08/08/16 08:00 98/71 08/08/16 08:00 98/71 08/08/16 08:00 98/71 08/08/16 08:00 98/71 08/08/16 08:00 146 08/08/16 07:52 99.1 08/08/16 07:45 137 26 87/71 94 Mechanical Ventilator 50 08/08/16 07:30 131 26 96/71 96 Mechanical Ventilator 50 08/08/16 07:15 145 27 83/62 98 Mechanical Ventilator 50 08/08/16 07:03 116/63 08/08/16 07:00 130 24 116/63 95 Mechanical Ventilator 50 08/08/16 06:45 125 24 101/58 95 Mechanical Ventilator 50 08/08/16 06:30 120 24 101/56 95 Mechanical Ventilator 50 08/08/16 06:30 124 26 50 08/08/16 06:15 127 24 110/57 95 Mechanical Ventilator 50 08/08/16 06:00 117 24 87/41 95 Mechanical Ventilator 50 08/08/16 06:00 101/56 08/08/16 05:45 117 24 101/49 95 Mechanical Ventilator 50 08/08/16 05:30 120 24 103/61 95 Mechanical Ventilator 50 08/08/16 05:15 119 24 115/51 95 Mechanical Ventilator 50 08/08/16 05:07 121 28 50 08/08/16 05:00 120 24 97/51 95 Mechanical Ventilator 50 08/08/16 05:00 115/51 08/08/16 04:45 118 24 94/68 95 Mechanical Ventilator 50 08/08/16 04:30 121 24 93/52 95 Mechanical Ventilator 50 08/08/16 04:15 125 24 96/70 95 Mechanical Ventilator 50 08/08/16 04:00 99.5 133 24 123/99 95 Mechanical Ventilator 50 08/08/16 04:00 98/62 08/08/16 04:00 50 08/08/16 04:00 120 08/08/16 03:45 135 24 106/80 95 Mechanical Ventilator 30 08/08/16 03:30 130 28 50 08/08/16 03:30 128 24 78/53 95 Mechanical Ventilator 30 08/08/16 03:27 120/69 08/08/16 03:15 132 24 91/71 95 Mechanical Ventilator 30 08/08/16 03:00 140 24 105/65 95 Mechanical Ventilator 30 08/08/16 02:45 142 24 105/65 95 Mechanical Ventilator 30 08/08/16 02:30 154 24 88/69 95 Mechanical Ventilator 30 08/08/16 02:27 110/80 08/08/16 02:15 147 24 93/59 95 Mechanical Ventilator 30 08/08/16 02:00 140 24 89/61 95 Mechanical Ventilator 30 08/08/16 01:45 141 24 102/64 95 Mechanical Ventilator 30 08/08/16 01:30 147 24 106/82 95 Mechanical Ventilator 30 08/08/16 01:21 156 30 50 08/08/16 01:15 149 24 118/72 95 Mechanical Ventilator 30 08/08/16 01:00 152 24 99/84 95 Mechanical Ventilator 30 08/08/16 01:00 102/64 08/08/16 00:45 148 24 102/64 95 Mechanical Ventilator 30 08/08/16 00:30 151 24 102/64 95 Mechanical Ventilator 30 08/08/16 00:15 98.9 153 24 90/66 95 Mechanical Ventilator 30 08/08/16 00:00 30 08/08/16 00:00 99.5 155 24 101/60 95 Mechanical Ventilator 30 08/08/16 00:00 101/60 08/08/16 00:00 152 08/07/16 23:45 152 24 76/35 95 Mechanical Ventilator 30 08/07/16 23:37 78/62 08/07/16 23:30 123 26 30 08/07/16 23:30 100.5 137 24 61/35 95 Mechanical Ventilator 30 08/07/16 23:15 141 24 83/55 95 Mechanical Ventilator 30 08/07/16 23:00 78/62 08/07/16 23:00 121 24 78/62 95 Mechanical Ventilator 30 08/07/16 22:45 147 28 114/68 79 Mechanical Ventilator 30 08/07/16 22:30 133 28 107/62 95 Mechanical Ventilator 30 08/07/16 22:15 117 27 98/55 90 Mechanical Ventilator 30 08/07/16 22:00 106/64 08/07/16 22:00 124 27 106/64 95 Mechanical Ventilator 30 08/07/16 21:45 121 24 106/64 95 Mechanical Ventilator 30 08/07/16 21:30 119 23 96/51 95 Mechanical Ventilator 30 08/07/16 21:27 98/57 08/07/16 21:20 119 24 30 08/07/16 21:15 119 23 88/51 95 Mechanical Ventilator 30 Intake and Output 08/07/16 08/08/16 19:00 07:00 Intake Total 2481.07 ml 1641.72 ml Output Total 550 ml 510 ml Balance 1931.07 ml 1131.72 ml Intake IV Total 2481.07 ml 1641.72 ml Output Urine Total 550 ml 510 ml Laboratory Tests 08/08/16 00:33: White Blood Count 20.8H, Red Blood Count 3.16L, Hemoglobin 8.2L, Hematocrit 26.1L, Mean Corpuscular Volume 83, Mean Corpuscular Hemoglobin 25.9L, Mean Corpuscular Hemoglobin Concent 31.4L, Red Cell Distribution Width 16.0H, Platelet Count 64L, Mean Platelet Volume 8.7, Neutrophils (%) (Auto) , Lymphocytes (%) (Auto) , Monocytes (%) (Auto) , Eosinophils (%) (Auto) , Basophils (%) (Auto) , Differential Total Cells Counted 100, Neutrophils % ( Manual) 88H, Lymphocytes % (Manual) 4L, Monocytes % (Manual) 4, Eosinophils % ( Manual) 0, Basophils % (Manual) 0, Band Neutrophils 4, Platelet Estimate DecreasedL, Platelet Morphology Normal, Hypochromasia 1+, Anisocytosis 1+ 08/08/16 06:00: White Blood Count 19.9H, Red Blood Count 3.00L, Hemoglobin 7.9L, Hematocrit 24.8L, Mean Corpuscular Volume 83, Mean Corpuscular Hemoglobin 26.1L, Mean Corpuscular Hemoglobin Concent 31.6L, Red Cell Distribution Width 16.1H, Platelet Count 54L, Mean Platelet Volume 6.9, Neutrophils (%) (Auto) , Lymphocytes (%) (Auto) , Monocytes (%) (Auto) , Eosinophils (%) (Auto) , Basophils (%) (Auto) , Differential Total Cells Counted 100, Neutrophils % ( Manual) 81H, Lymphocytes % (Manual) 10L, Monocytes % (Manual) 7, Eosinophils % ( Manual) 0, Basophils % (Manual) 0, Band Neutrophils 2, Platelet Estimate DecreasedL, Platelet Morphology Normal, Hypochromasia 1+, Anisocytosis 1+, Sodium Level 138, Potassium Level 4.9, Chloride Level 104, Carbon Dioxide Level 15L, Anion Gap 19H, Blood Urea Nitrogen 86H, Creatinine 5.7H, Estimat Glomerular Filtration Rate , Glucose Level 90, Uric Acid 13.5H, Calcium Level 6.5L, Phosphorus Level 4.9H, Magnesium Level 1.7, Total Bilirubin 2.4H, Direct Bilirubin 1.8H, Gamma Glutamyl Transpeptidase 18, Aspartate Amino Transf (AST/ SGOT) 8, Alanine Aminotransferase (ALT/SGPT) 5, Alkaline Phosphatase 67, C- Reactive Protein, Quantitative 20.2H, Pro-B-Type Natriuretic Peptide > 32573N, Total Protein 5.4L, Albumin 1.4L, Globulin 4.0, Albumin/Globulin Ratio 0.3L 08/08/16 09:15: Arterial Blood pH 7.344L, Arterial Blood Partial Pressure CO2 23.4*L, Arterial Blood Partial Pressure O2 172.9H, Arterial Blood HCO3 12.5L, Arterial Blood Oxygen Saturation 98.7H, Arterial Blood Base Excess -11.8, Sancho Test Positive 08/08/16 12:45: White Blood Count 20.1H, Red Blood Count 3.30L, Hemoglobin 8.5L, Hematocrit 27.2L, Mean Corpuscular Volume 82, Mean Corpuscular Hemoglobin 25.9L, Mean Corpuscular Hemoglobin Concent 31.4L, Red Cell Distribution Width 15.9H, Platelet Count 59L, Mean Platelet Volume 8.0, Neutrophils (%) (Auto) , Lymphocytes (%) (Auto) , Monocytes (%) (Auto) , Eosinophils (%) (Auto) , Basophils (%) (Auto) , Differential Total Cells Counted 100, Neutrophils % ( Manual) 85H, Lymphocytes % (Manual) 6L, Monocytes % (Manual) 4, Eosinophils % ( Manual) 0, Basophils % (Manual) 0, Band Neutrophils 5, Platelet Estimate DecreasedL, Platelet Morphology Normal, Hypochromasia 1+, Anisocytosis 1+, Cortisol [Pending] 08/08/16 16:00: White Blood Count 18.2H, Red Blood Count 3.27L, Hemoglobin 8.4L, Hematocrit 26.8L, Mean Corpuscular Volume 82, Mean Corpuscular Hemoglobin 25.7L, Mean Corpuscular Hemoglobin Concent 31.3L, Red Cell Distribution Width 16.0H, Platelet Count 54L, Mean Platelet Volume 8.2, Neutrophils (%) (Auto) , Lymphocytes (%) (Auto) , Monocytes (%) (Auto) , Eosinophils (%) (Auto) , Basophils (%) (Auto) , Differential Total Cells Counted 100, Neutrophils % ( Manual) 77H, Lymphocytes % (Manual) 15L, Monocytes % (Manual) 5, Eosinophils % ( Manual) 0, Basophils % (Manual) 0, Band Neutrophils 3, Platelet Estimate DecreasedL, Platelet Morphology Normal, Hypochromasia 1+, Anisocytosis 1+ Height (Feet): 5 Height (Inches): 4.00 Weight (Pounds): 180 General Appearance: no apparent distress EENT: TMs normal Neck: supple Cardiovascular: regular rhythm Respiratory/Chest: normal breath sounds Abdomen: soft Extremities: non-tender Edema: 1+ Leg (L), 1+ Leg (R) Edema: mild edema Neurologic: no motor/sensory deficits Skin: warm/dry Milton Gold Aug 08, 2016 21:06
[2016-08-09] VITALS (96 sets, daily range): BP systolic 54–112; BP diastolic 20–77
[2016-08-09 00:40] LABS: MEAN CORPUSCULAR VOLUME 81 FL (80-99); MEAN PLATELET VOLUME 10.5 FL (6.5-10.1); PLATELET COUNT 53 K/UL (150-450); RED BLOOD COUNT 3.18 M/UL (4.70-6.10); RED CELL DISTRIBUTION WIDTH 16.1 % (11.6-14.8); WHITE BLOOD COUNT 16.7 K/UL (4.8-10.8)
[2016-08-09] MEDS: LORazepam Inj 2mg/ml 1ml IV PRN ×2 (01:26→10:41)
[2016-08-09] MEDS: Midodrine 10mg tab ORAL SCH ×3 (01:28→18:21)
[2016-08-09] MEDS: Clindamycin 600mg 50 ML IV SCH ×3 (04:08→19:13)
[2016-08-09] MEDS: NovoLOG Insulin Flexpen SUBQ SCH ×4 (06:00→23:54)
[2016-08-09 06:58] LABS: INR 1.9 (0.9-1.1); PROTHROMBIN TIME 20.1 SEC (9.30-11.50)
[2016-08-09 06:59] LABS: MEAN CORPUSCULAR HEMOGLOBIN 26.6 PG (27.0-31.0); MEAN CORPUSCULAR HGB CONC 32.9 G/DL (32.0-36.0); MEAN CORPUSCULAR VOLUME 81 FL (80-99); MEAN PLATELET VOLUME 10.6 FL (6.5-10.1); PLATELET COUNT 45 K/UL (150-450); RED BLOOD COUNT 3.16 M/UL (4.70-6.10); RED CELL DISTRIBUTION WIDTH 16.7 % (11.6-14.8); WHITE BLOOD COUNT 17.2 K/UL (4.8-10.8)
[2016-08-09 07:11] LABS: ALANINE AMINOTRANSFERASE 5 U/L (3-41); ALBUMIN/GLOBULIN RATIO 0.3 (1.0-2.7); ANION GAP 19 (5-15); ASPARTATE AMINO TRANSFERASE 8 U/L (5-40); CALCIUM 6.5 mg/dL (8.6-10.2); CARBON DIOXIDE 16 mEQ/L (20-30); CHLORIDE 97 mEQ/L (98-107); CREATININE 5.5 mg/dL (0.7-1.2); CRP QUANT 16.1 mg/dL (< 0.5); HEMOLYSIS 9; MAGNESIUM 1.6 mg/dL (1.7-2.5); PHOSPHORUS 5.5 mg/dL (2.5-4.8); SODIUM 132 mEQ/L (135-145); TOTAL PROTEIN 5.3 g/dL (6.6-8.7); URIC ACID 12.7 mg/dL (3.0-7.5)
[2016-08-09 07:32] LABS: BILIRUBIN,DIRECT 1.8 mg/dL (0.1-0.3)
[2016-08-09 07:37] LABS: ABG BASE EXCESS -9.5; ABG PCO2 21.1 mmHg (35.0-45.0)
[2016-08-09 07:48] LABS: ANISOCYTOSIS 1+; BAND NEUTROPHILS % (MANUAL) 0 % (0-8); BASOPHILS % (MANUAL) 0 % (0-2); EOSINOPHILS % (MANUAL) 1 % (0-3); HYPOCHROMASIA 2+; LYMPHOCYTES % (MANUAL) 11 % (20-45); NEUTROPHILS % (MANUAL) 83 % (45-75); PLATELET ESTIMATE DECREASED; PLATELET MORPHOLOGY NORMAL; TOTAL CELLS COUNTED 100
[2016-08-09] MEDS: Nystatin Powder 100,000 units/gm 15gm TOPIC SCH ×3 (09:00→18:21)
[2016-08-09] MEDS: Vitamin A&D Oint 2oz Tube TOPIC SCH ×2 (09:00→20:45)
--- NOTE | 2016-08-09 09:36 | General Progress Note ---
Assessment/Plan Status: unchanged, deteriorating Assessment/Plan Acute Renal Failure- HyperKalemia- improving Hypotension- Shock on pressors Severe Anemia- transfused Severe HypoAlbuminemia Cirrhosis Cellulitis both legs- rising bili low Ej Fx 30% Plan: Transfused- Hydrate- monitor renal parameters- trial hydrocortisone- Phos binders add midodrine and coreg Favor comfort care per orders Subjective ROS Limited/Unobtainable: Yes Allergies: Coded Allergies: HEPARIN (Verified Allergy, Mild, 12/21/14) Objective Last 24 Hour Vital Signs Date Time Temp Pulse Resp B/P Pulse Ox O2 Delivery O2 Flow Rate FiO2 08/09/16 08:49 103 27 50 08/09/16 07:00 109 25 89/63 100 Mechanical Ventilator 50 08/09/16 07:00 89/63 08/09/16 06:54 108 42 50 08/09/16 06:45 103 25 91/62 100 Mechanical Ventilator 50 08/09/16 06:30 103 25 101/68 100 Mechanical Ventilator 50 08/09/16 06:15 105 25 107/52 100 Mechanical Ventilator 50 08/09/16 06:00 103 25 102/75 100 Mechanical Ventilator 50 08/09/16 06:00 107/52 08/09/16 05:45 106 25 97/60 100 Mechanical Ventilator 50 08/09/16 05:30 103 25 101/61 100 Mechanical Ventilator 50 08/09/16 05:15 105 25 98/52 100 Mechanical Ventilator 50 08/09/16 05:07 123 32 50 08/09/16 05:00 103 25 84/63 100 Mechanical Ventilator 50 08/09/16 05:00 84/63 08/09/16 04:45 103 25 78/53 100 Mechanical Ventilator 50 08/09/16 04:30 107 25 82/49 100 Mechanical Ventilator 50 08/09/16 04:15 109 25 89/56 100 Mechanical Ventilator 50 08/09/16 04:00 50 08/09/16 04:00 110 08/09/16 04:00 100/54 08/09/16 04:00 98.1 110 25 100/54 100 Mechanical Ventilator 50 08/09/16 03:45 113 26 95/63 100 Mechanical Ventilator 50 08/09/16 03:30 112 27 106/62 100 Mechanical Ventilator 50 08/09/16 03:15 111 27 97/48 100 Mechanical Ventilator 50 08/09/16 03:03 116 32 50 2/23/17 03:00 109 25 106/62 100 Mechanical Ventilator 50 08/09/16 03:00 91/66 08/09/16 02:45 112 27 97/48 100 Mechanical Ventilator 50 08/09/16 02:30 101 26 72/51 100 Mechanical Ventilator 50 08/09/16 02:15 103 27 88/49 100 Mechanical Ventilator 50 08/09/16 02:00 74/50 08/09/16 02:00 104 27 74/50 100 Mechanical Ventilator 50 08/09/16 01:45 103 27 79/47 100 Mechanical Ventilator 50 08/09/16 01:38 89/55 08/09/16 01:30 104 27 89/55 100 Mechanical Ventilator 50 08/09/16 01:15 103 27 92/54 100 Mechanical Ventilator 50 08/09/16 01:14 120 39 50 08/09/16 01:00 104 27 93/48 100 Mechanical Ventilator 50 08/09/16 00:59 92/56 08/09/16 00:45 99 27 92/58 100 Mechanical Ventilator 50 08/09/16 00:30 102 27 86/54 100 Mechanical Ventilator 50 08/09/16 00:15 104 27 89/68 100 Mechanical Ventilator 50 08/09/16 00:00 113 08/09/16 00:00 109/69 08/09/16 00:00 50 08/09/16 00:00 109 27 109/69 100 Mechanical Ventilator 50 08/08/16 23:45 98.8 110 27 93/55 100 Mechanical Ventilator 50 08/08/16 23:30 108 27 83/56 100 Mechanical Ventilator 50 08/08/16 23:21 97 40 50 08/08/16 23:15 101 27 89/51 100 Mechanical Ventilator 50 08/08/16 23:00 99 27 94/52 100 Mechanical Ventilator 50 08/08/16 22:45 101 29 104/57 100 Mechanical Ventilator 50 08/08/16 22:30 112 29 91/71 100 Mechanical Ventilator 50 08/08/16 22:15 108 30 94/54 100 Mechanical Ventilator 50 08/08/16 22:02 94 25 98/44 100 Mechanical Ventilator 50 08/08/16 21:45 107 25 89/60 100 Mechanical Ventilator 50 08/08/16 21:30 97 25 87/45 100 Mechanical Ventilator 50 08/08/16 21:15 94 25 86/50 100 Mechanical Ventilator 50 08/08/17 21:00 96 28 88/52 100 Mechanical Ventilator 50 08/08/17 20:53 101 26 50 08/08/17 20:45 100 24 91/59 100 Mechanical Ventilator 50 08/08/17 20:30 106 28 105/53 100 Mechanical Ventilator 50 08/08/17 20:28 93/45 17 20:27 93/45 08/08/17 20:15 106 26 93/45 100 Mechanical Ventilator 50 08/08/16 20:00 98.1 106 26 105/55 100 Mechanical Ventilator 50 08/08/16 20:00 106 08/08/17 20:00 50 08/08/16 19:45 108 26 112/55 100 Mechanical Ventilator 50 08/08/16 19:30 109 27 105/62 100 Mechanical Ventilator 50 08/08/17 19:30 102 34 50 08/08/ 19:15 114 28 100/59 100 Mechanical Ventilator 50 08/08/16 19:00 109 27 94/60 100 Mechanical Ventilator 50 08/08/16 19:00 89/66 08/08/16 18:45 107 19 97/71 100 Mechanical Ventilator 50 17 18:30 122 30 89/66 100 Mechanical Ventilator 50 08/08/16 18:15 120 29 94/62 100 Mechanical Ventilator 50 08/08/16 18:00 113 27 110/58 100 Mechanical Ventilator 50 17 17:45 110 27 98/65 100 Mechanical Ventilator 50 17 17:30 114 28 108/60 100 Mechanical Ventilator 50 17 17:15 109 28 94/55 100 Mechanical Ventilator 50 08/08/16 17:01 105 26 50 08/08/17 17:00 111 24 91/56 100 Mechanical Ventilator 50 08/08/17 17:00 91/56 08/08/17 16:45 105 24 97/58 100 Mechanical Ventilator 50 08/08/17 16:30 113 23 86/55 100 Mechanical Ventilator 50 08/08/17 16:15 112 24 101/51 100 Mechanical Ventilator 50 08/08/17 16:00 98.1 106 25 96/64 100 Mechanical Ventilator 50 08/08/17 16:00 50 08/08/17 16:00 90 17 15:45 101 24 87/59 100 Mechanical Ventilator 50 08/08/16 15:44 89/60 08/08/16 15:30 110 24 91/60 100 Mechanical Ventilator 50 08/08/16 15:15 107 24 89/60 100 Mechanical Ventilator 50 08/08/16 15:00 106 24 94/60 100 Mechanical Ventilator 50 08/08/16 15:00 98/67 08/08/16 14:58 92 24 50 08/08/16 14:00 97/60 08/08/16 13:00 97 21 94/58 100 Mechanical Ventilator 50 08/08/16 13:00 94/58 08/08/16 12:57 107 24 50 08/08/16 12:45 109 21 90/57 100 Mechanical Ventilator 50 08/08/16 12:30 106 20 101/61 100 Mechanical Ventilator 50 08/08/16 12:14 103 20 108/58 100 Mechanical Ventilator 50 08/08/16 12:00 50 08/08/16 12:00 98.5 104 21 105/61 100 Mechanical Ventilator 50 08/08/16 12:00 108/67 08/08/16 12:00 104 08/08/16 11:45 106 23 104/61 100 Mechanical Ventilator 50 08/08/16 11:15 100 23 109/65 100 Mechanical Ventilator 50 08/08/16 11:06 118 25 50 08/08/16 11:00 120 23 101/65 100 Mechanical Ventilator 50 08/08/16 10:45 129 23 101/65 100 Mechanical Ventilator 50 08/08/16 10:30 141 21 98/56 100 Mechanical Ventilator 50 08/08/16 10:15 136 25 91/48 100 Mechanical Ventilator 50 08/08/16 10:00 88/53 08/08/16 10:00 136 25 88/48 100 Mechanical Ventilator 50 08/08/16 09:52 136 103/56 08/08/16 09:45 137 24 73/59 100 Mechanical Ventilator 50 Intake and Output 08/08/16 08/09/16 19:00 07:00 Intake Total 1486.49 ml 1509.354 ml Output Total 340 ml 330 ml Balance 1146.49 ml 1179.354 ml Intake IV Total 1406.49 ml 1409.354 ml Tube Feeding 80 ml 40 ml Other 60 ml Output Urine Total 340 ml 330 ml Laboratory Tests 08/08/16 12:45: White Blood Count 20.1H, Red Blood Count 3.30L, Hemoglobin 8.5L, Hematocrit 27.2L, Mean Corpuscular Volume 82, Mean Corpuscular Hemoglobin 25.9L, Mean Corpuscular Hemoglobin Concent 31.4L, Red Cell Distribution Width 15.9H, Platelet Count 59L, Mean Platelet Volume 8.0, Neutrophils (%) (Auto) , Lymphocytes (%) (Auto) , Monocytes (%) (Auto) , Eosinophils (%) (Auto) , Basophils (%) (Auto) , Differential Total Cells Counted 100, Neutrophils % ( Manual) 85H, Lymphocytes % (Manual) 6L, Monocytes % (Manual) 4, Eosinophils % ( Manual) 0, Basophils % (Manual) 0, Band Neutrophils 5, Platelet Estimate DecreasedL, Platelet Morphology Normal, Hypochromasia 1+, Anisocytosis 1+, Cortisol 18.4 08/08/16 16:00: White Blood Count 18.2H, Red Blood Count 3.27L, Hemoglobin 8.4L, Hematocrit 26.8L, Mean Corpuscular Volume 82, Mean Corpuscular Hemoglobin 25.7L, Mean Corpuscular Hemoglobin Concent 31.3L, Red Cell Distribution Width 16.0H, Platelet Count 54L, Mean Platelet Volume 8.2, Neutrophils (%) (Auto) , Lymphocytes (%) (Auto) , Monocytes (%) (Auto) , Eosinophils (%) (Auto) , Basophils (%) (Auto) , Differential Total Cells Counted 100, Neutrophils % ( Manual) 77H, Lymphocytes % (Manual) 15L, Monocytes % (Manual) 5, Eosinophils % ( Manual) 0, Basophils % (Manual) 0, Band Neutrophils 3, Platelet Estimate DecreasedL, Platelet Morphology Normal, Hypochromasia 1+, Anisocytosis 1+ 08/09/16 00:00: White Blood Count 16.7H, Red Blood Count 3.18L, Hemoglobin 8.3L, Hematocrit 25.9L, Mean Corpuscular Volume 81, Mean Corpuscular Hemoglobin 26.0L, Mean Corpuscular Hemoglobin Concent 32.0, Red Cell Distribution Width 16.1H, Platelet Count 53L, Mean Platelet Volume 10.5H, Neutrophils (%) (Auto) , Lymphocytes (%) (Auto) , Monocytes (%) (Auto) , Eosinophils (%) (Auto) , Basophils (%) (Auto) 08/09/16 06:00: White Blood Count 17.2H, Red Blood Count 3.16L, Hemoglobin 8.4L, Hematocrit 25.6L, Mean Corpuscular Volume 81, Mean Corpuscular Hemoglobin 26.6L, Mean Corpuscular Hemoglobin Concent 32.9, Red Cell Distribution Width 16.7H, Platelet Count 45L, Mean Platelet Volume 10.6H, Neutrophils (%) (Auto) , Lymphocytes (%) (Auto) , Monocytes (%) (Auto) , Eosinophils (%) (Auto) , Basophils (%) (Auto) , Differential Total Cells Counted 100, Neutrophils % ( Manual) 83H, Lymphocytes % (Manual) 11L, Monocytes % (Manual) 5, Eosinophils % ( Manual) 1, Basophils % (Manual) 0, Band Neutrophils 0, Platelet Estimate DecreasedL, Platelet Morphology Normal, Hypochromasia 2+, Anisocytosis 1+, Prothrombin Time 20.1H, Prothromb Time International Ratio 1.9H, Sodium Level 132L, Potassium Level 5.0H, Chloride Level 97L, Carbon Dioxide Level 16L, Anion Gap 19H, Blood Urea Nitrogen 87H, Creatinine 5.5H, Estimat Glomerular Filtration Rate , Glucose Level 137H, Uric Acid 12.7H, Calcium Level 6.5L, Phosphorus Level 5.5H, Magnesium Level 1.6L, Total Bilirubin 2.3H, Direct Bilirubin 1.8H, Gamma Glutamyl Transpeptidase 18, Aspartate Amino Transf (AST/ SGOT) 8, Alanine Aminotransferase (ALT/SGPT) 5, Alkaline Phosphatase 70, Total Creatine Kinase 36L, C-Reactive Protein, Quantitative 16.1H, Pro-B-Type Natriuretic Peptide > 73852C, Total Protein 5.3L, Albumin 1.3L, Globulin 4.0, Albumin/Globulin Ratio 0.3L, Thyroid Stimulating Hormone (TSH) 3.320, Hepatitis A IgM Antibody [Pending], Hepatitis B Surface Antigen [Pending], Hepatitis B Core IgM Antibody [Pending], Hepatitis C Antibody [Pending], HIV (1&2) Antibody Rapid Negative 08/09/16 07:21: Arterial Blood pH 7.430, Arterial Blood Partial Pressure CO2 21.1*L, Arterial Blood Partial Pressure O2 174.2H, Arterial Blood HCO3 13.6L, Arterial Blood Oxygen Saturation 99.0H, Arterial Blood Base Excess -9.5, Sancho Test Height (Feet): 5 Height (Inches): 4.00 Weight (Pounds): 180 General Appearance: no apparent distress, lethargic Respiratory/Chest: decreased breath sounds Abdomen: other - ascitis Objective other PE not changed TYLER PALMER Aug 09, 2016 09:36
[2016-08-09] MEDS: Sodium Bicarbonate 150 ML in D5W 1000ml 1,000 ML IV SCH (09:45)
--- NOTE | 2016-08-09 10:07 | Pulmonolgy Critical Care Note ---
Critical Care - Asmt/Plan Problems: (1) Respiratory distress (2) Multiorgan failure (3) Septic shock (4) Symptomatic anemia (5) DM (diabetes mellitus) Respiratory: monitor respiratory rate, adjust FIO2, CXR Cardiac: continue to monitor HR/BP Renal: F/U I&O, check electrolytes Infectious Disease: check cultures, continue antibiotics Gastrointestinal: continue feedings/current rate Endocrine: monitor blood sugar, check HgA1C, continue sliding scale insulin Hematologic: monitor H/H, transfuse if hgb<8.5 Neurologic: PRN Ativan, keep patient comfortable Affect: PRN ativan Prophylaxis: Protonix Notes 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, 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, 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 Discussed with: nurses, consultants, 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 packer and 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 financial planning - Objective Last 24 Hour Vital Signs Date Time Temp Pulse Resp B/P Pulse Ox O2 Delivery O2 Flow Rate FiO2 08/09/16 09:00 101/59 08/09/16 08:49 103 27 50 08/09/16 08:00 93/56 08/09/16 07:00 109 25 89/63 100 Mechanical Ventilator 50 08/09/16 07:00 89/63 08/09/16 06:54 108 42 50 08/09/16 06:45 103 25 91/62 100 Mechanical Ventilator 50 08/09/16 06:30 103 25 101/68 100 Mechanical Ventilator 50 08/09/16 06:15 105 25 107/52 100 Mechanical Ventilator 50 08/09/16 06:00 103 25 102/75 100 Mechanical Ventilator 50 08/09/16 06:00 107/52 08/09/16 05:45 106 25 97/60 100 Mechanical Ventilator 50 08/09/16 05:30 103 25 101/61 100 Mechanical Ventilator 50 08/09/16 05:15 105 25 98/52 100 Mechanical Ventilator 50 08/09/16 05:07 123 32 50 08/09/16 05:00 103 25 84/63 100 Mechanical Ventilator 50 08/09/16 05:00 84/63 08/09/16 04:45 103 25 78/53 100 Mechanical Ventilator 50 08/09/16 04:30 107 25 82/49 100 Mechanical Ventilator 50 08/09/16 04:15 109 25 89/56 100 Mechanical Ventilator 50 08/09/16 04:00 50 08/09/16 04:00 110 08/09/16 04:00 100/54 08/09/16 04:00 98.1 110 25 100/54 100 Mechanical Ventilator 50 08/09/16 03:45 113 26 95/63 100 Mechanical Ventilator 50 08/09/16 03:30 112 27 106/62 100 Mechanical Ventilator 50 08/09/16 03:15 111 27 97/48 100 Mechanical Ventilator 50 08/09/16 03:03 116 32 50 08/09/16 03:00 109 25 106/62 100 Mechanical Ventilator 50 08/09/16 03:00 91/66 08/09/16 02:45 112 27 97/48 100 Mechanical Ventilator 50 08/09/16 02:30 101 26 72/51 100 Mechanical Ventilator 50 08/09/16 02:15 103 27 88/49 100 Mechanical Ventilator 50 08/09/16 02:00 74/50 08/09/16 02:00 104 27 74/50 100 Mechanical Ventilator 50 08/09/16 01:45 103 27 79/47 100 Mechanical Ventilator 50 08/09/16 01:38 89/55 08/09/16 01:30 104 27 89/55 100 Mechanical Ventilator 50 08/09/16 01:15 103 27 92/54 100 Mechanical Ventilator 50 08/09/16 01:14 120 39 50 08/09/16 01:00 104 27 93/48 100 Mechanical Ventilator 50 08/09/16 00:59 92/56 08/09/16 00:45 99 27 92/58 100 Mechanical Ventilator 50 08/09/16 00:30 102 27 86/54 100 Mechanical Ventilator 50 08/09/16 00:15 104 27 89/68 100 Mechanical Ventilator 50 08/09/16 00:00 113 08/09/16 00:00 109/69 08/09/16 00:00 50 08/09/16 00:00 109 27 109/69 100 Mechanical Ventilator 50 08/08/16 23:45 98.8 110 27 93/55 100 Mechanical Ventilator 50 08/08/16 23:30 108 27 83/56 100 Mechanical Ventilator 50 08/08/16 23:21 97 40 50 08/08/16 23:15 101 27 89/51 100 Mechanical Ventilator 50 08/08/16 23:00 99 27 94/52 100 Mechanical Ventilator 50 08/08/16 22:45 101 29 104/57 100 Mechanical Ventilator 50 08/08/16 22:30 112 29 91/71 100 Mechanical Ventilator 50 2/22/17 22:15 108 30 94/54 100 Mechanical Ventilator 50 222/17 22:02 94 25 98/44 100 Mechanical Ventilator 50 222/17 21:45 107 25 89/60 100 Mechanical Ventilator 50 222/17 21:30 97 25 87/45 100 Mechanical Ventilator 50 222/17 21:15 94 25 86/50 100 Mechanical Ventilator 50 22/17 21:00 96 28 88/52 100 Mechanical Ventilator 50 08/08/17 20:53 101 26 50 222/17 20:45 100 24 91/59 100 Mechanical Ventilator 50 08/08/17 20:30 106 28 105/53 100 Mechanical Ventilator 50 08/08/17 20:28 93/45 08/08/17 20:27 93/45 08/08/17 20:15 106 26 93/45 100 Mechanical Ventilator 50 08/08/17 20:00 98.1 106 26 105/55 100 Mechanical Ventilator 50 08/08/17 20:00 106 08/08/17 20:00 50 08/08/17 19:45 108 26 112/55 100 Mechanical Ventilator 50 08/08/17 19:30 109 27 105/62 100 Mechanical Ventilator 50 08/08/17 19:30 102 34 50 08/08/17 19:15 114 28 100/59 100 Mechanical Ventilator 50 08/08/17 19:00 109 27 94/60 100 Mechanical Ventilator 50 08/08/17 19:00 89/66 08/08/17 18:45 107 19 97/71 100 Mechanical Ventilator 50 08/08/17 18:30 122 30 89/66 100 Mechanical Ventilator 50 08/08/17 18:15 120 29 94/62 100 Mechanical Ventilator 50 08/08/17 18:00 113 27 110/58 100 Mechanical Ventilator 50 08/08/17 17:45 110 27 98/65 100 Mechanical Ventilator 50 08/08/17 17:30 114 28 108/60 100 Mechanical Ventilator 50 08/08/17 17:15 109 28 94/55 100 Mechanical Ventilator 50 08/08/17 17:01 105 26 50 222/17 17:00 111 24 91/56 100 Mechanical Ventilator 50 222/17 17:00 91/56 08/08/17 16:45 105 24 97/58 100 Mechanical Ventilator 50 08/08/17 16:30 113 23 86/55 100 Mechanical Ventilator 50 2/22/17 16:15 112 24 101/51 100 Mechanical Ventilator 50 08/08/16 16:00 98.1 106 25 96/64 100 Mechanical Ventilator 50 08/08/16 16:00 50 08/08/16 16:00 90 08/08/16 15:45 101 24 87/59 100 Mechanical Ventilator 50 08/08/16 15:44 89/60 08/08/16 15:30 110 24 91/60 100 Mechanical Ventilator 50 08/08/16 15:15 107 24 89/60 100 Mechanical Ventilator 50 08/08/16 15:00 106 24 94/60 100 Mechanical Ventilator 50 08/08/16 15:00 98/67 08/08/16 14:58 92 24 50 08/08/16 14:00 97/60 08/08/16 13:00 97 21 94/58 100 Mechanical Ventilator 50 08/08/16 13:00 94/58 08/08/16 12:57 107 24 50 08/08/16 12:45 109 21 90/57 100 Mechanical Ventilator 50 08/08/16 12:30 106 20 101/61 100 Mechanical Ventilator 50 08/08/16 12:14 103 20 108/58 100 Mechanical Ventilator 50 08/08/16 12:00 50 08/08/16 12:00 98.5 104 21 105/61 100 Mechanical Ventilator 50 08/08/16 12:00 108/67 08/08/16 12:00 104 08/08/16 11:45 106 23 104/61 100 Mechanical Ventilator 50 08/08/16 11:15 100 23 109/65 100 Mechanical Ventilator 50 08/08/16 11:06 118 25 50 08/08/16 11:00 120 23 101/65 100 Mechanical Ventilator 50 08/08/16 10:45 129 23 101/65 100 Mechanical Ventilator 50 08/08/16 10:30 141 21 98/56 100 Mechanical Ventilator 50 08/08/16 10:15 136 25 91/48 100 Mechanical Ventilator 50 Status: awake Condition: critical, grave, improving HEENT: atraumatic Neck: full ROM Lungs: clear Heart: HR/BP stable, HR/BP unstable Abdomen: soft, non-tender Extremities: no C/C/E, edema Decubiti: location Accucheck: 108 Critical Care - Subjective ROS Limited/Unobtainable: Yes ICU Day: 4 Intubation Day: 4 Condition: critical, grave, unchanged FI02: 50 Vent Support Breath Rate: 20 Vent Support Mode: AC Vent Tidal Volume: 500 Sputum Amount: Scant PEEP: 0.0 PIP: 24 Fluids: bicarb drip d5w with 3 amp Drips: levophed frip Tube Feeding Amount: 10 I&O: Intake and Output 08/08/16 08/09/16 19:00 07:00 Intake Total 1486.49 ml 1509.354 ml Output Total 340 ml 330 ml Balance 1146.49 ml 1179.354 ml Intake IV Total 1406.49 ml 1409.354 ml Tube Feeding 80 ml 40 ml Other 60 ml Output Urine Total 340 ml 330 ml CXR: no change ET-Tube: 8.0 ET Position: 23 Labs: Laboratory Tests Test 08/08/16 12:45 08/08/16 16:00 08/09/16 00:00 08/09/16 06:00 White Blood Count 20.1 K/UL (4.8-10.8) H 18.2 K/UL (4.8-10.8) H 16.7 K/UL (4.8-10.8) H 17.2 K/UL (4.8-10.8) H Red Blood Count 3.30 M/UL (4.70-6.10) L 3.27 M/UL (4.70-6.10) L 3.18 M/UL (4.70-6.10) L 3.16 M/UL (4.70-6.10) L Hemoglobin 8.5 G/DL (14.2-18.0) L 8.4 G/DL (14.2-18.0) L 8.3 G/DL (14.2-18.0) L 8.4 G/DL (14.2-18.0) L Hematocrit 27.2 % (42.0-52.0) L 26.8 % (42.0-52.0) L 25.9 % (42.0-52.0) L 25.6 % (42.0-52.0) L Mean Corpuscular Volume 82 FL (80-99) 82 FL (80-99) 81 FL (80-99) 81 FL ( 80-99) Mean Corpuscular Hemoglobin 25.9 PG (27.0-31.0) L 25.7 PG (27.0-31.0) L 26.0 PG (27.0-31.0) L 26.6 PG (27.0-31.0) L Mean Corpuscular Hemoglobin Concent 31.4 G/DL (32.0-36.0) L 31.3 G/DL (32.0-36.0) L 32.0 G/DL (32.0-36.0) 32.9 G/DL (32.0-36.0) Red Cell Distribution Width 15.9 % (11.6-14.8) H 16.0 % (11.6-14.8) H 16.1 % (11.6-14.8) H 16.7 % (11.6-14.8) H Platelet Count 59 K/UL (150-450) L 54 K/UL (150-450) L 53 K/UL (150-450) L 45 K/UL (150-450) L Mean Platelet Volume 8.0 FL (6.5-10.1) 8.2 FL (6.5-10.1) 10.5 FL (6.5-10.1) H 10.6 FL (6.5-10.1) H Neutrophils (%) (Auto) % (45.0-75.0) % (45.0-75.0) % (45.0-75.0) % (45.0-75.0) Lymphocytes (%) (Auto) % (20.0-45.0) % (20.0-45.0) % (20.0-45.0) % (20.0-45.0) Monocytes (%) (Auto) % (1.0-10.0) % (1.0-10.0) % (1.0-10.0) % (1.0- 10.0) Eosinophils (%) (Auto) % (0.0-3.0) % (0.0-3.0) % (0.0-3.0) % (0.0-3.0 ) Basophils (%) (Auto) % (0.0-2.0) % (0.0-2.0) % (0.0-2.0) % (0.0-2.0) Differential Total Cells Counted 100 100 100 Neutrophils % (Manual) 85 % (45-75) H 77 % (45-75) H 83 % (45-75) H Lymphocytes % (Manual) 6 % (20-45) L 15 % (20-45) L 11 % (20-45) L Monocytes % (Manual) 4 % (1-10) 5 % (1-10) 5 % (1-10) Eosinophils % (Manual) 0 % (0-3) 0 % (0-3) 1 % (0-3) Basophils % (Manual) 0 % (0-2) 0 % (0-2) 0 % (0-2) Band Neutrophils 5 % (0-8) 3 % (0-8) 0 % (0-8) Platelet Estimate Decreased L Decreased L Decreased L Platelet Morphology Normal Normal Normal Hypochromasia 1+ 1+ 2+ Anisocytosis 1+ 1+ 1+ Cortisol 18.4 ug/dL (.) Prothrombin Time 20.1 SEC (9.30-11.50) H Prothromb Time International Ratio 1.9 (0.9-1.1) H Sodium Level 132 mEQ/L (135-145) L Potassium Level 5.0 mEQ/L (3.4-4.9) H Chloride Level 97 mEQ/L (98-107) L Carbon Dioxide Level 16 mEQ/L (20-30) L Anion Gap 19 (5-15) H Blood Urea Nitrogen 87 mg/dL (7-23) H Creatinine 5.5 mg/dL (0.7-1.2) H Estimat Glomerular Filtration Rate mL/min (>60) Glucose Level 137 mg/dL (74-106) H Uric Acid 12.7 mg/dL (3.0-7.5) H Calcium Level 6.5 mg/dL (8.6-10.2) L Phosphorus Level 5.5 mg/dL (2.5-4.8) H Magnesium Level 1.6 mg/dL (1.7-2.5) L Total Bilirubin 2.3 mg/dL (0.0-1.2) H Direct Bilirubin 1.8 mg/dL (0.1-0.3) H Gamma Glutamyl Transpeptidase 18 U/L (8-61) Aspartate Amino Transf (AST/SGOT) 8 U/L (5-40) Alanine Aminotransferase (ALT/SGPT) 5 U/L (3-41) Alkaline Phosphatase 70 U/L (40-129) Total Creatine Kinase 36 U/L (38-174) L C-Reactive Protein, Quantitative 16.1 mg/dL (< 0.5) H Pro-B-Type Natriuretic Peptide > 40194 pg/mL (0-450) H Total Protein 5.3 g/dL (6.6-8.7) L Albumin 1.3 g/dL (3.5-5.2) L Globulin 4.0 g/dL Albumin/Globulin Ratio 0.3 (1.0-2.7) L Thyroid Stimulating Hormone (TSH) 3.320 uIU/mL (0.300-4.500) Hepatitis A IgM Antibody Pending Hepatitis B Surface Antigen Pending Hepatitis B Core IgM Antibody Pending Hepatitis C Antibody Pending HIV (1&2) Antibody Rapid Negative (NEGATIVE) Test 08/09/16 07:21 Arterial Blood pH 7.430 (7.350-7.450) Arterial Blood Partial Pressure CO2 21.1 mmHg (35.0-45.0) *L Arterial Blood Partial Pressure O2 174.2 mmHg (75.0-100.0) H Arterial Blood HCO3 13.6 mmol/L (22.0-26.0) L Arterial Blood Oxygen Saturation 99.0 % (92.0-98.0) H Arterial Blood Base Excess -9.5 Sancho Test ADRIENNE MENDOZA Aug 09, 2016 10:07
[2016-08-09] MEDS: Pantoprazole Inj IVP SCH ×2 (10:37→20:45)
[2016-08-09] MEDS: Carvedilol 6.25mg Tab ORAL SCH ×2 (10:38→20:37)
[2016-08-09] MEDS: DiphenhydrAMINE 50mg/ml Inj IVP PRN (10:41)
--- NOTE | 2016-08-09 11:10 | General Progress Note ---
Assessment/Plan Problem List: (1) Renal insufficiency ICD Codes: N28.9 - Disorder of kidney and ureter, unspecified SNOMED: 814772073 (2) Pancytopenia ICD Codes: D61.818 - Other pancytopenia SNOMED: 589806654 (3) Multiorgan failure SNOMED: 40061255 (4) Respiratory distress ICD Codes: R06.00 - Dyspnea, unspecified SNOMED: 955604514 (5) Septic shock ICD Codes: A41.9 - Sepsis, unspecified organism; R65.21 - Severe sepsis with septic shock SNOMED: 99337468 (6) DM (diabetes mellitus) ICD Codes: E11.9 - DM (diabetes mellitus) SNOMED: 17038569 (7) Symptomatic anemia ICD Codes: D64.9 - Anemia, unspecified SNOMED: 471832611 (8) STORM (acute kidney injury) ICD Codes: N17.9 - Acute kidney failure, unspecified SNOMED: 24332305 Status: unchanged Assessment/Plan resp failure intubated sepsis pna anemia cellulitis poor prognosis cellulitis le lymphedema h/h on noncompliance w care and meds Subjective ROS Limited/Unobtainable: Yes Allergies: Coded Allergies: HEPARIN (Verified Allergy, Mild, 12/21/14) Objective Last 24 Hour Vital Signs Date Time Temp Pulse Resp B/P Pulse Ox O2 Delivery O2 Flow Rate FiO2 08/09/16 10:38 119 84/66 08/09/16 10:36 110 49 50 08/09/16 09:00 101/59 08/09/16 08:49 103 27 50 08/09/16 08:00 93/56 08/09/16 08:00 93/51 08/09/16 07:00 109 25 89/63 100 Mechanical Ventilator 50 08/09/16 07:00 89/63 08/09/16 06:54 108 42 50 08/09/16 06:45 103 25 91/62 100 Mechanical Ventilator 50 08/09/16 06:30 103 25 101/68 100 Mechanical Ventilator 50 08/09/16 06:15 105 25 107/52 100 Mechanical Ventilator 50 08/09/16 06:00 103 25 102/75 100 Mechanical Ventilator 50 08/09/16 06:00 107/52 08/09/16 05:45 106 25 97/60 100 Mechanical Ventilator 50 08/09/16 05:30 103 25 101/61 100 Mechanical Ventilator 50 08/09/16 05:15 105 25 98/52 100 Mechanical Ventilator 50 08/09/16 05:07 123 32 50 08/09/16 05:00 103 25 84/63 100 Mechanical Ventilator 50 08/09/16 05:00 84/63 08/09/16 04:45 103 25 78/53 100 Mechanical Ventilator 50 08/09/16 04:30 107 25 82/49 100 Mechanical Ventilator 50 08/09/16 04:15 109 25 89/56 100 Mechanical Ventilator 50 08/09/16 04:00 50 08/09/16 04:00 110 08/09/16 04:00 100/54 08/09/16 04:00 98.1 110 25 100/54 100 Mechanical Ventilator 50 08/09/16 03:45 113 26 95/63 100 Mechanical Ventilator 50 08/09/16 03:30 112 27 106/62 100 Mechanical Ventilator 50 08/09/16 03:15 111 27 97/48 100 Mechanical Ventilator 50 08/09/16 03:03 116 32 50 08/09/16 03:00 109 25 106/62 100 Mechanical Ventilator 50 08/09/16 03:00 91/66 08/09/16 02:45 112 27 97/48 100 Mechanical Ventilator 50 08/09/16 02:30 101 26 72/51 100 Mechanical Ventilator 50 08/09/16 02:15 103 27 88/49 100 Mechanical Ventilator 50 08/09/16 02:00 74/50 08/09/16 02:00 104 27 74/50 100 Mechanical Ventilator 50 08/09/16 01:45 103 27 79/47 100 Mechanical Ventilator 50 08/09/16 01:38 89/55 08/09/16 01:30 104 27 89/55 100 Mechanical Ventilator 50 08/09/16 01:15 103 27 92/54 100 Mechanical Ventilator 50 08/09/16 01:14 120 39 50 08/09/16 01:00 104 27 93/48 100 Mechanical Ventilator 50 08/09/16 00:59 92/56 08/09/16 00:45 99 27 92/58 100 Mechanical Ventilator 50 08/09/16 00:30 102 27 86/54 100 Mechanical Ventilator 50 08/09/16 00:15 104 27 89/68 100 Mechanical Ventilator 50 08/09/16 00:00 113 08/09/16 00:00 109/69 08/09/16 00:00 50 08/09/16 00:00 109 27 109/69 100 Mechanical Ventilator 50 08/08/16 23:45 98.8 110 27 93/55 100 Mechanical Ventilator 50 08/08/16 23:30 108 27 83/56 100 Mechanical Ventilator 50 08/08/16 23:21 97 40 50 08/08/16 23:15 101 27 89/51 100 Mechanical Ventilator 50 08/08/16 23:00 99 27 94/52 100 Mechanical Ventilator 50 08/08/16 22:45 101 29 104/57 100 Mechanical Ventilator 50 08/08/16 22:30 112 29 91/71 100 Mechanical Ventilator 50 08/08/16 22:15 108 30 94/54 100 Mechanical Ventilator 50 08/08/16 22:02 94 25 98/44 100 Mechanical Ventilator 50 08/08/16 21:45 107 25 89/60 100 Mechanical Ventilator 50 08/08/16 21:30 97 25 87/45 100 Mechanical Ventilator 50 08/08/16 21:15 94 25 86/50 100 Mechanical Ventilator 50 08/08/16 21:00 96 28 88/52 100 Mechanical Ventilator 50 08/08/16 20:53 101 26 50 08/08/16 20:45 100 24 91/59 100 Mechanical Ventilator 50 08/08/16 20:30 106 28 105/53 100 Mechanical Ventilator 50 08/08/16 20:28 93/45 08/08/16 20:27 93/45 08/08/16 20:15 106 26 93/45 100 Mechanical Ventilator 50 08/08/16 20:00 98.1 106 26 105/55 100 Mechanical Ventilator 50 08/08/16 20:00 106 08/08/16 20:00 50 08/08/16 19:45 108 26 112/55 100 Mechanical Ventilator 50 08/08/16 19:30 109 27 105/62 100 Mechanical Ventilator 50 08/08/16 19:30 102 34 50 08/08/16 19:15 114 28 100/59 100 Mechanical Ventilator 50 08/08/16 19:00 109 27 94/60 100 Mechanical Ventilator 50 17 19:00 89/66 08/08/16 18:45 107 19 97/71 100 Mechanical Ventilator 50 08/08/16 18:30 122 30 89/66 100 Mechanical Ventilator 50 08/08/16 18:15 120 29 94/62 100 Mechanical Ventilator 50 08/08/16 18:00 113 27 110/58 100 Mechanical Ventilator 50 08/08/16 17:45 110 27 98/65 100 Mechanical Ventilator 50 08/08/16 17:30 114 28 108/60 100 Mechanical Ventilator 50 08/08/16 17:15 109 28 94/55 100 Mechanical Ventilator 50 08/08/16 17:01 105 26 50 08/08/16 17:00 111 24 91/56 100 Mechanical Ventilator 50 08/08/16 17:00 91/56 08/08/16 16:45 105 24 97/58 100 Mechanical Ventilator 50 08/08/16 16:30 113 23 86/55 100 Mechanical Ventilator 50 08/08/16 16:15 112 24 101/51 100 Mechanical Ventilator 50 08/08/16 16:00 98.1 106 25 96/64 100 Mechanical Ventilator 50 08/08/16 16:00 50 08/08/16 16:00 90 08/08/16 15:45 101 24 87/59 100 Mechanical Ventilator 50 08/08/16 15:44 89/60 08/08/16 15:30 110 24 91/60 100 Mechanical Ventilator 50 08/08/16 15:15 107 24 89/60 100 Mechanical Ventilator 50 08/08/16 15:00 106 24 94/60 100 Mechanical Ventilator 50 08/08/16 15:00 98/67 08/08/16 14:58 92 24 50 08/08/16 14:00 97/60 08/08/16 13:00 97 21 94/58 100 Mechanical Ventilator 50 08/08/16 13:00 94/58 08/08/16 12:57 107 24 50 08/08/16 12:45 109 21 90/57 100 Mechanical Ventilator 50 08/08/16 12:30 106 20 101/61 100 Mechanical Ventilator 50 08/08/16 12:14 103 20 108/58 100 Mechanical Ventilator 50 08/08/16 12:00 50 08/08/16 12:00 98.5 104 21 105/61 100 Mechanical Ventilator 50 08/08/16 12:00 108/67 08/08/16 12:00 104 08/08/16 11:45 106 23 104/61 100 Mechanical Ventilator 50 08/08/16 11:15 100 23 109/65 100 Mechanical Ventilator 50 Intake and Output 08/08/16 08/09/16 19:00 07:00 Intake Total 1486.49 ml 1509.354 ml Output Total 340 ml 330 ml Balance 1146.49 ml 1179.354 ml Intake IV Total 1406.49 ml 1409.354 ml Tube Feeding 80 ml 40 ml Other 60 ml Output Urine Total 340 ml 330 ml Laboratory Tests 08/08/16 12:45: White Blood Count 20.1H, Red Blood Count 3.30L, Hemoglobin 8.5L, Hematocrit 27.2L, Mean Corpuscular Volume 82, Mean Corpuscular Hemoglobin 25.9L, Mean Corpuscular Hemoglobin Concent 31.4L, Red Cell Distribution Width 15.9H, Platelet Count 59L, Mean Platelet Volume 8.0, Neutrophils (%) (Auto) , Lymphocytes (%) (Auto) , Monocytes (%) (Auto) , Eosinophils (%) (Auto) , Basophils (%) (Auto) , Differential Total Cells Counted 100, Neutrophils % ( Manual) 85H, Lymphocytes % (Manual) 6L, Monocytes % (Manual) 4, Eosinophils % ( Manual) 0, Basophils % (Manual) 0, Band Neutrophils 5, Platelet Estimate DecreasedL, Platelet Morphology Normal, Hypochromasia 1+, Anisocytosis 1+, Cortisol 18.4 08/08/16 16:00: White Blood Count 18.2H, Red Blood Count 3.27L, Hemoglobin 8.4L, Hematocrit 26.8L, Mean Corpuscular Volume 82, Mean Corpuscular Hemoglobin 25.7L, Mean Corpuscular Hemoglobin Concent 31.3L, Red Cell Distribution Width 16.0H, Platelet Count 54L, Mean Platelet Volume 8.2, Neutrophils (%) (Auto) , Lymphocytes (%) (Auto) , Monocytes (%) (Auto) , Eosinophils (%) (Auto) , Basophils (%) (Auto) , Differential Total Cells Counted 100, Neutrophils % ( Manual) 77H, Lymphocytes % (Manual) 15L, Monocytes % (Manual) 5, Eosinophils % ( Manual) 0, Basophils % (Manual) 0, Band Neutrophils 3, Platelet Estimate DecreasedL, Platelet Morphology Normal, Hypochromasia 1+, Anisocytosis 1+ 08/09/16 00:00: White Blood Count 16.7H, Red Blood Count 3.18L, Hemoglobin 8.3L, Hematocrit 25.9L, Mean Corpuscular Volume 81, Mean Corpuscular Hemoglobin 26.0L, Mean Corpuscular Hemoglobin Concent 32.0, Red Cell Distribution Width 16.1H, Platelet Count 53L, Mean Platelet Volume 10.5H, Neutrophils (%) (Auto) , Lymphocytes (%) (Auto) , Monocytes (%) (Auto) , Eosinophils (%) (Auto) , Basophils (%) (Auto) 08/09/16 06:00: White Blood Count 17.2H, Red Blood Count 3.16L, Hemoglobin 8.4L, Hematocrit 25.6L, Mean Corpuscular Volume 81, Mean Corpuscular Hemoglobin 26.6L, Mean Corpuscular Hemoglobin Concent 32.9, Red Cell Distribution Width 16.7H, Platelet Count 45L, Mean Platelet Volume 10.6H, Neutrophils (%) (Auto) , Lymphocytes (%) (Auto) , Monocytes (%) (Auto) , Eosinophils (%) (Auto) , Basophils (%) (Auto) , Differential Total Cells Counted 100, Neutrophils % ( Manual) 83H, Lymphocytes % (Manual) 11L, Monocytes % (Manual) 5, Eosinophils % ( Manual) 1, Basophils % (Manual) 0, Band Neutrophils 0, Platelet Estimate DecreasedL, Platelet Morphology Normal, Hypochromasia 2+, Anisocytosis 1+, Prothrombin Time 20.1H, Prothromb Time International Ratio 1.9H, Sodium Level 132L, Potassium Level 5.0H, Chloride Level 97L, Carbon Dioxide Level 16L, Anion Gap 19H, Blood Urea Nitrogen 87H, Creatinine 5.5H, Estimat Glomerular Filtration Rate , Glucose Level 137H, Uric Acid 12.7H, Calcium Level 6.5L, Phosphorus Level 5.5H, Magnesium Level 1.6L, Total Bilirubin 2.3H, Direct Bilirubin 1.8H, Gamma Glutamyl Transpeptidase 18, Aspartate Amino Transf (AST/ SGOT) 8, Alanine Aminotransferase (ALT/SGPT) 5, Alkaline Phosphatase 70, Total Creatine Kinase 36L, C-Reactive Protein, Quantitative 16.1H, Pro-B-Type Natriuretic Peptide > 78403D, Total Protein 5.3L, Albumin 1.3L, Globulin 4.0, Albumin/Globulin Ratio 0.3L, Thyroid Stimulating Hormone (TSH) 3.320, Hepatitis A IgM Antibody [Pending], Hepatitis B Surface Antigen [Pending], Hepatitis B Core IgM Antibody [Pending], Hepatitis C Antibody [Pending], HIV (1&2) Antibody Rapid Negative 08/09/16 07:21: Arterial Blood pH 7.430, Arterial Blood Partial Pressure CO2 21.1*L, Arterial Blood Partial Pressure O2 174.2H, Arterial Blood HCO3 13.6L, Arterial Blood Oxygen Saturation 99.0H, Arterial Blood Base Excess -9.5, Sancho Test Height (Feet): 5 Height (Inches): 4.00 Weight (Pounds): 180 EENT: PERRL/EOMI Neck: supple Cardiovascular: normal rate Respiratory/Chest: lungs clear Abdomen: soft Jose Traore MD Aug 09, 2016 11:10
--- NOTE | 2016-08-09 11:12 | Diagnostic Imaging Report ---
Indication: DYSPNEA Technique: One view of the chest Comparison: 08/08/2016 Findings: Stable left basilar opacity, likely combination a large pleural effusion and underlying parenchymal consolidation and/or atelectasis. Small right pleural effusion is unchanged. Mild interstitial congestive changes persists. Stable satisfactory positions of nasogastric and endotracheal tubes, right jugular central venous catheter. The heart remains enlarged. Impression: Unchanged, over one day, findings as above.
--- NOTE | 2016-08-09 12:14 | Diagnostic Imaging Report ---
APPROVED REPORT CPT Code: 67492 Present Symptoms Shortness of breath Comments: Cellulitis BILATERAL: Imaging reveals a patent deep venous system bilaterally. There is no evidence of thrombus within the femoral, popliteal or proximal tibial segments. The greater saphenous veins are also within normal limits. Doppler indicates normal spontaneous flow within these segments. Mid to distal calf area not well visualized due to skin condition.
--- NOTE | 2016-08-09 12:57 | Wound Care Consultation ---
Wound Assessment Wound Assessment : Wound Number: #1 Wound Present on Admission: Yes New Wound: No Status Change of Wound: No Wound Location Body Site Modif: left Wound Location Body Site: shoulder Wound Type: scab - dry Russ Test: Does not Russ Wound Thickness: Partial Thickness Wound Length: 2.0 Wound Width: 2.0 Percent of Wound Black/Brown: 100 - dry scab Wound Drainage Amount: None Wound Drainage Odor: None/Absent Tissue Surrounding Wound: Intact Wound General Appearance: Clean/Dry - dry scab Wound Comment #1 left shoulder dry scabs. Recommendation -Keep clean and dry. -Avoid shear and friction. -Turn and reposition. -Offload site. -Low air loss with AP. patient admitted with dry scabs to left shoulder. upon reassessment no change noted skin intact. keep site clean and dry. MARIA DEL ROSARIO BRADY Aug 09, 2016 12:57
[2016-08-09] MEDS: Renvela 800mg Pkt NG SCH ×3 (13:04→23:54)
[2016-08-09] MEDS: Morphine Sulfate 4mg/ml Inj IVP PRN (13:04)
[2016-08-09] MEDS: Hydrocortisone 100mg Inj IV SCH ×2 (13:06→21:42)
--- NOTE | 2016-08-09 15:24 | Infectious Diseases Prog Note ---
Assessment/Plan Problems: (1) Septic shock Assessment & Plan: with E.coli , source could be his right ankle wound infection, on meropenem and levaquin for double coverage, will switch to unasyn to cover his ankle wound too, continue clindamycin for MRSA coverage, and repeat blood culture to confirm clearance. (2) Multiorgan failure Assessment & Plan: due to septic shock, continue hydration and pressors to keep SBP >100 (3) STORM (acute kidney injury) Assessment & Plan: with azotemia, avoid nephrotoxic meds, may need HD when hemodynamically stable, monitor UOP, renal is following (4) Anemia Assessment & Plan: monitor H/H transfuse blood as needed, need to rule out GI source. (5) DM (diabetes mellitus) Assessment & Plan: recommend tight glycemic control to keep BG between 80-120 (6) Open wound of right ankle with complication Assessment & Plan: no evidence of osteomyelitis on plain x ray of the ankle , need bone scan once hemodynamically stable , continue unasyn and clindamycin to cover his strains which grew out of the wound . Subjective ROS Limited/Unobtainable: Yes Allergies: Coded Allergies: HEPARIN (Verified Allergy, Mild, 12/21/14) Subjective he remained in critical condition, still intubated on mechanical ventilation, and hypotensive requiring pressor. Objective Vital Signs Last 24 Hour Vital Signs Date Time Temp Pulse Resp B/P Pulse Ox O2 Delivery O2 Flow Rate FiO2 08/09/16 15:00 91/56 08/09/16 14:00 80/54 08/09/16 13:00 96/61 08/09/16 12:30 145 28 50 08/09/16 12:00 129 08/09/16 12:00 50 08/09/16 12:00 90/56 08/09/16 11:00 101/56 08/09/16 10:38 119 84/66 08/09/16 10:36 110 49 50 08/09/16 10:00 93/51 08/09/16 09:15 114 28 98/68 70 Mechanical Ventilator 50 08/09/16 09:00 113 28 101/61 62 Mechanical Ventilator 50 08/09/16 09:00 101/59 08/09/16 08:49 103 27 50 08/09/16 08:45 113 28 90/56 75 Mechanical Ventilator 50 08/09/16 08:30 109 27 97/61 81 Mechanical Ventilator 50 08/09/16 08:15 106 26 106/66 88 Mechanical Ventilator 50 08/09/16 08:00 50 08/09/16 08:00 93/56 08/09/16 08:00 93/51 08/09/16 08:00 98.9 104 26 86/54 87 Mechanical Ventilator 50 08/09/16 08:00 124 08/09/16 07:45 108 30 89/51 99 Mechanical Ventilator 50 08/09/16 07:30 100 27 73/20 95 Mechanical Ventilator 50 08/09/16 07:15 105 28 80/56 94 Mechanical Ventilator 50 08/09/16 07:00 109 25 89/63 100 Mechanical Ventilator 50 08/09/16 07:00 89/63 08/09/16 06:54 108 42 50 08/09/16 06:45 103 25 91/62 100 Mechanical Ventilator 50 08/09/16 06:30 103 25 101/68 100 Mechanical Ventilator 50 08/09/16 06:15 105 25 107/52 100 Mechanical Ventilator 50 08/09/16 06:00 103 25 102/75 100 Mechanical Ventilator 50 08/09/16 06:00 107/52 08/09/16 05:45 106 25 97/60 100 Mechanical Ventilator 50 08/09/16 05:30 103 25 101/61 100 Mechanical Ventilator 50 08/09/16 05:15 105 25 98/52 100 Mechanical Ventilator 50 08/09/16 05:07 123 32 50 08/09/16 05:00 103 25 84/63 100 Mechanical Ventilator 50 08/09/16 05:00 84/63 08/09/16 04:45 103 25 78/53 100 Mechanical Ventilator 50 08/09/16 04:30 107 25 82/49 100 Mechanical Ventilator 50 08/09/16 04:15 109 25 89/56 100 Mechanical Ventilator 50 08/09/16 04:00 50 08/09/16 04:00 110 08/09/16 04:00 100/54 08/09/16 04:00 98.1 110 25 100/54 100 Mechanical Ventilator 50 08/09/16 03:45 113 26 95/63 100 Mechanical Ventilator 50 08/09/16 03:30 112 27 106/62 100 Mechanical Ventilator 50 08/09/16 03:15 111 27 97/48 100 Mechanical Ventilator 50 08/09/16 03:03 116 32 50 08/09/16 03:00 109 25 106/62 100 Mechanical Ventilator 50 08/09/16 03:00 91/66 08/09/16 02:45 112 27 97/48 100 Mechanical Ventilator 50 08/09/16 02:30 101 26 72/51 100 Mechanical Ventilator 50 08/09/16 02:15 103 27 88/49 100 Mechanical Ventilator 50 08/09/16 02:00 74/50 08/09/16 02:00 104 27 74/50 100 Mechanical Ventilator 50 08/09/16 01:45 103 27 79/47 100 Mechanical Ventilator 50 08/09/16 01:38 89/55 08/09/16 01:30 104 27 89/55 100 Mechanical Ventilator 50 08/09/16 01:15 103 27 92/54 100 Mechanical Ventilator 50 08/09/16 01:14 120 39 50 08/09/16 01:00 104 27 93/48 100 Mechanical Ventilator 50 08/09/16 00:59 92/56 08/09/16 00:45 99 27 92/58 100 Mechanical Ventilator 50 08/09/16 00:30 102 27 86/54 100 Mechanical Ventilator 50 08/09/16 00:15 104 27 89/68 100 Mechanical Ventilator 50 08/09/16 00:00 113 08/09/16 00:00 109/69 08/09/16 00:00 50 08/09/16 00:00 109 27 109/69 100 Mechanical Ventilator 50 08/08/16 23:45 98.8 110 27 93/55 100 Mechanical Ventilator 50 08/08/16 23:30 108 27 83/56 100 Mechanical Ventilator 50 08/08/16 23:21 97 40 50 08/08/16 23:15 101 27 89/51 100 Mechanical Ventilator 50 08/08/16 23:00 99 27 94/52 100 Mechanical Ventilator 50 08/08/16 22:45 101 29 104/57 100 Mechanical Ventilator 50 08/08/16 22:30 112 29 91/71 100 Mechanical Ventilator 50 08/08/16 22:15 108 30 94/54 100 Mechanical Ventilator 50 08/08/16 22:02 94 25 98/44 100 Mechanical Ventilator 50 08/08/16 21:45 107 25 89/60 100 Mechanical Ventilator 50 08/08/16 21:30 97 25 87/45 100 Mechanical Ventilator 50 2/22/17 21:15 94 25 86/50 100 Mechanical Ventilator 50 222/17 21:00 96 28 88/52 100 Mechanical Ventilator 50 08/08/17 20:53 101 26 50 2/17 20:45 100 24 91/59 100 Mechanical Ventilator 50 222/17 20:30 106 28 105/53 100 Mechanical Ventilator 50 22/17 20:28 93/45 08/08/17 20:27 93/45 08/08/17 20:15 106 26 93/45 100 Mechanical Ventilator 50 08/08/17 20:00 98.1 106 26 105/55 100 Mechanical Ventilator 50 08/08/17 20:00 106 08/08/17 20:00 50 08/08/17 19:45 108 26 112/55 100 Mechanical Ventilator 50 08/08/17 19:30 109 27 105/62 100 Mechanical Ventilator 50 08/08/17 19:30 102 34 50 08/08/17 19:15 114 28 100/59 100 Mechanical Ventilator 50 08/08/17 19:00 109 27 94/60 100 Mechanical Ventilator 50 08/08/17 19:00 89/66 08/08/17 18:45 107 19 97/71 100 Mechanical Ventilator 50 08/08/17 18:30 122 30 89/66 100 Mechanical Ventilator 50 08/08/17 18:15 120 29 94/62 100 Mechanical Ventilator 50 08/08/17 18:00 113 27 110/58 100 Mechanical Ventilator 50 08/08/17 17:45 110 27 98/65 100 Mechanical Ventilator 50 08/08/17 17:30 114 28 108/60 100 Mechanical Ventilator 50 08/08/17 17:15 109 28 94/55 100 Mechanical Ventilator 50 08/08/17 17:01 105 26 50 2/17 17:00 111 24 91/56 100 Mechanical Ventilator 50 08/08/17 17:00 91/56 08/08/17 16:45 105 24 97/58 100 Mechanical Ventilator 50 08/08/17 16:30 113 23 86/55 100 Mechanical Ventilator 50 08/08/17 16:15 112 24 101/51 100 Mechanical Ventilator 50 22/17 16:00 98.1 106 25 96/64 100 Mechanical Ventilator 50 08/08/17 16:00 50 08/08/17 16:00 90 08/08/17 15:45 101 24 87/59 100 Mechanical Ventilator 50 08/08/16 15:44 89/60 08/08/16 15:30 110 24 91/60 100 Mechanical Ventilator 50 Height (Feet): 5 Height (Inches): 4.00 Weight (Pounds): 180 General Appearance: WD/WN, no acute distress HEENT: normocephalic, atraumatic, anicteric, mucous membranes moist Respiratory/Chest: chest wall non-tender, normal breath sounds, no respiratory distress, no accessory muscle use, decreased breath sounds, crackles/rales Cardiovascular: normal peripheral pulses, normal rate, regular rhythm, no gallop/murmur Abdomen: normal bowel sounds, soft, non tender, no organomegaly, no mass, no scars, distended Extremities: no cyanosis, no clubbing, other - dermatitis, venous stasis, wounds Skin: ulcers Laboratory Tests Test 08/08/16 16:00 08/09/16 00:00 08/09/16 06:00 08/09/16 07:21 White Blood Count 18.2 K/UL (4.8-10.8) H 16.7 K/UL (4.8-10.8) H 17.2 K/UL (4.8-10.8) H Red Blood Count 3.27 M/UL (4.70-6.10) L 3.18 M/UL (4.70-6.10) L 3.16 M/UL (4.70-6.10) L Hemoglobin 8.4 G/DL (14.2-18.0) L 8.3 G/DL (14.2-18.0) L 8.4 G/DL (14.2-18.0) L Hematocrit 26.8 % (42.0-52.0) L 25.9 % (42.0-52.0) L 25.6 % (42.0-52.0) L Mean Corpuscular Volume 82 FL (80-99) 81 FL (80-99) 81 FL (80-99) Mean Corpuscular Hemoglobin 25.7 PG (27.0-31.0) L 26.0 PG (27.0-31.0) L 26.6 PG (27.0-31.0) L Mean Corpuscular Hemoglobin Concent 31.3 G/DL (32.0-36.0) L 32.0 G/DL (32.0-36.0) 32.9 G/DL (32.0-36.0) Red Cell Distribution Width 16.0 % (11.6-14.8) H 16.1 % (11.6-14.8) H 16.7 % (11.6-14.8) H Platelet Count 54 K/UL (150-450) L 53 K/UL (150-450) L 45 K/UL (150-450) L Mean Platelet Volume 8.2 FL (6.5-10.1) 10.5 FL (6.5-10.1) H 10.6 FL (6.5-10.1) H Neutrophils (%) (Auto) % (45.0-75.0) % (45.0-75.0) % (45.0-75.0) Lymphocytes (%) (Auto) % (20.0-45.0) % (20.0-45.0) % (20.0-45.0) Monocytes (%) (Auto) % (1.0-10.0) % (1.0-10.0) % (1.0-10.0) Eosinophils (%) (Auto) % (0.0-3.0) % (0.0-3.0) % (0.0-3.0) Basophils (%) (Auto) % (0.0-2.0) % (0.0-2.0) % (0.0-2.0) Differential Total Cells Counted 100 100 Neutrophils % (Manual) 77 % (45-75) H 83 % (45-75) H Lymphocytes % (Manual) 15 % (20-45) L 11 % (20-45) L Monocytes % (Manual) 5 % (1-10) 5 % (1-10) Eosinophils % (Manual) 0 % (0-3) 1 % (0-3) Basophils % (Manual) 0 % (0-2) 0 % (0-2) Band Neutrophils 3 % (0-8) 0 % (0-8) Platelet Estimate Decreased L Decreased L Platelet Morphology Normal Normal Hypochromasia 1+ 2+ Anisocytosis 1+ 1+ Prothrombin Time 20.1 SEC (9.30-11.50) H Prothromb Time International Ratio 1.9 (0.9-1.1) H Sodium Level 132 mEQ/L (135-145) L Potassium Level 5.0 mEQ/L (3.4-4.9) H Chloride Level 97 mEQ/L (98-107) L Carbon Dioxide Level 16 mEQ/L (20-30) L Anion Gap 19 (5-15) H Blood Urea Nitrogen 87 mg/dL (7-23) H Creatinine 5.5 mg/dL (0.7-1.2) H Estimat Glomerular Filtration Rate mL/min (>60) Glucose Level 137 mg/dL (74-106) H Uric Acid 12.7 mg/dL (3.0-7.5) H Calcium Level 6.5 mg/dL (8.6-10.2) L Phosphorus Level 5.5 mg/dL (2.5-4.8) H Magnesium Level 1.6 mg/dL (1.7-2.5) L Total Bilirubin 2.3 mg/dL (0.0-1.2) H Direct Bilirubin 1.8 mg/dL (0.1-0.3) H Gamma Glutamyl Transpeptidase 18 U/L (8-61) Aspartate Amino Transf (AST/SGOT) 8 U/L (5-40) Alanine Aminotransferase (ALT/SGPT) 5 U/L (3-41) Alkaline Phosphatase 70 U/L (40-129) Total Creatine Kinase 36 U/L (38-174) L C-Reactive Protein, Quantitative 16.1 mg/dL (< 0.5) H Pro-B-Type Natriuretic Peptide > 34427 pg/mL (0-450) H Total Protein 5.3 g/dL (6.6-8.7) L Albumin 1.3 g/dL (3.5-5.2) L Globulin 4.0 g/dL Albumin/Globulin Ratio 0.3 (1.0-2.7) L Thyroid Stimulating Hormone (TSH) 3.320 uIU/mL (0.300-4.500) Hepatitis A IgM Antibody Pending Hepatitis B Surface Antigen Pending Hepatitis B Core IgM Antibody Pending Hepatitis C Antibody Pending HIV (1&2) Antibody Rapid Negative (NEGATIVE) Arterial Blood pH 7.430 (7.350-7.450) Arterial Blood Partial Pressure CO2 21.1 mmHg (35.0-45.0) *L Arterial Blood Partial Pressure O2 174.2 mmHg (75.0-100.0) H Arterial Blood HCO3 13.6 mmol/L (22.0-26.0) L Arterial Blood Oxygen Saturation 99.0 % (92.0-98.0) H Arterial Blood Base Excess -9.5 Sancho Test Current Medications Medications (Trade) Dose Ordered Sig/Yumi Route PRN Reason Start Time Stop Time Status Last Admin Dose Admin Acetaminophen (Tylenol) 500 mg Q4H PRN ORAL Mild Pain/Temp > 100.5 08/06/16 19:45 09/05/16 19:44 08/08/16 06:53 Albuterol/ Ipratropium (DuoNeb 0.5-3(2.5)mg/3ml) 3 ml EVERY 4 HOURS PRN HHN Shortness of Breath 08/05/16 20:30 08/10/16 20:29 Allopurinol (Allopurinol) 300 mg DAILY ORAL 08/07/16 09:00 09/06/16 08:59 08/09/16 10:38 Ampicillin Sodium/ Sulbactam Sodium/ Sodium Chloride (Unasyn/Sodium Chloride) 110 ml @ 220 mls/hr Q24H IVPB 08/09/16 16:00 08/16/16 15:59 Carvedilol 6.25 mg 6.25 mg EVERY 12 HOURS ORAL 08/08/16 21:00 09/07/16 20:59 08/09/16 10:38 Clindamycin HCl/ Dextrose (Cleocin 600mg) 50 ml @ 100 mls/hr Q8H IV 08/06/16 12:00 08/13/16 11:59 08/09/16 12:55 Dextrose STAT PRN IV Hypoglycemia 08/05/16 20:30 09/04/16 20:29 Diphenhydramine HCl (Benadryl) 50 mg Q6H PRN IVP Itching 08/06/16 19:45 09/05/16 19:44 08/09/16 10:41 Epoetin Stewart (Procrit (for non ESRD use)) 10,000 units MON-WED-SAT SUBQ 08/06/16 21:00 09/05/16 20:59 08/08/16 20:37 Hydrocortisone (Solu-CORTEF) 100 mg EVERY 8 HOURS IV 08/09/16 14:00 09/08/16 13:59 08/09/16 13:06 Insulin Aspart (NovoLOG) EVERY 6 HOURS SUBQ 08/08/16 12:00 09/07/16 11:59 08/09/16 13:03 Iron Sucrose/ Sodium Chloride (Venofer/Sodium Chloride) 115 ml @ 230 mls/hr BEDTIME IVPB 08/05/16 23:00 08/09/16 21:29 08/08/16 20:27 Levothyroxine Sodium (Synthroid) 50 mcg ACBREAKFAST ORAL 08/06/16 06:30 09/05/16 06:29 08/09/16 06:20 Lorazepam 2 mg 2 mg Q2H PRN IV For Anxiety 08/06/16 03:30 08/13/16 03:29 08/09/16 10:41 Midodrine (Pro-Amatine) 10 mg Q8H ORAL 08/08/16 10:00 09/07/16 09:59 08/09/16 10:38 Morphine Sulfate (Morphine Sulfate) 4 mg EVERY 4 HOURS PRN IVP Severe Pain (Pain Scale 7-10) 08/05/16 20:30 08/12/16 20:29 08/09/16 13:04 Norepinephrine Bitartrate/ Dextrose (Levophed/D5W) 254 ml @ 0 mls/hr Q24H IV 08/05/16 22:00 09/04/16 21:59 08/09/16 01:38 Nystatin (Nystop Powder) 1 applic THREE TIMES A DAY TOPIC 08/06/16 18:00 09/05/16 17:59 08/09/16 13:05 Ondansetron HCl 4 mg 4 mg Q6H PRN IVP Nausea & Vomiting 08/05/16 20:30 09/04/16 20:29 08/09/16 10:38 Pantoprazole (Protonix) 40 mg Q12HR IVP 08/08/16 21:00 09/07/16 20:59 08/09/16 10:37 Polyethylene Glycol (Miralax) 17 gm DAILYPRN PRN ORAL Constipation 08/05/16 20:30 09/04/16 20:29 Sevelamer Carbonate 800 mg 800 mg Q6HR NG 08/09/16 12:00 09/08/16 11:59 08/09/16 13:04 Sodium Bicarbonate/ Dextrose (Sodium Bicarbonate/D5W 1000ml) 1,150 ml @ 50 mls/hr Q23H IV 08/08/16 10:45 09/07/16 10:44 08/09/16 09:45 Vitamin A/Vitamin D (A & D Oint) 1 applic EVERY 12 HOURS TOPIC 08/06/16 21:00 09/05/16 20:59 08/09/16 09:00 Jamin Ramos M.D. Aug 09, 2016 15:24
[2016-08-09] MEDS ORDERED: Ampicillin/Sulbactam Sod 3 GM in NS 110 ML IVPB SCH (16:00)
[2016-08-09] MEDS: Acetaminophen 500mg (ES) tab ORAL PRN ×2 (16:04→23:54)
--- NOTE | 2016-08-09 18:54 | General Progress Note ---
Assessment/Plan Assessment/Plan ASSESSMENT AND PLAN: 1. Leukocytosis 2/2 underying infection, patient currently on abx 2. Anemia secondary to iron deficiency/chronic disease, is on IV iron 3. Thrombocytopenia 2/2 cirrhosis plus componenet of infection/sepsis 4. Hypertension. 5. Chronic kidney disease. 6. Congestive heart failure. 7. Atrial fibrillation. 8. Hyperlipidemia. 9. Malnutrition. 10. Failure to thrive. RECOMMENDATIONS: 1. Monitor counts. 2. Watch coagulopaty. 3. Vasopressors as needed. 4. Re-order anemia w/u on 08/12/16 5. Continue iv iron 6. GI prophylaxis as needed. 7. Antibiotics per ID service. 8. Discussed with staff. Thank you, Milton Gold MD Subjective Constitutional: Reports: no symptoms HEENT: Reports: no symptoms Cardiovascular: Reports: no symptoms Respiratory: Reports: no symptoms Gastrointestinal/Abdominal: Reports: poor appetite Genitourinary: Reports: no symptoms Neurologic/Psychiatric: Reports: no symptoms Endocrine: Reports: no symptoms Hematologic/Lymphatic: Reports: anemia Allergies: Coded Allergies: HEPARIN (Verified Allergy, Mild, 12/21/14) Subjective remains hypotensive, is on pressors and antibiotics too Objective Last 24 Hour Vital Signs Date Time Temp Pulse Resp B/P Pulse Ox O2 Delivery O2 Flow Rate FiO2 08/09/16 17:45 119 26 84/47 92 Mechanical Ventilator 50 08/09/16 17:30 120 26 88/77 92 Mechanical Ventilator 50 08/09/16 17:15 121 26 85/69 92 Mechanical Ventilator 50 08/09/16 17:13 74/54 08/09/16 17:03 98.1 08/09/16 17:00 120 26 85/63 92 Mechanical Ventilator 50 08/09/16 16:53 123 24 50 08/09/16 16:45 120 23 87/56 92 Mechanical Ventilator 50 08/09/16 16:30 119 25 71/53 92 Mechanical Ventilator 50 08/09/16 16:15 120 23 88/55 92 Mechanical Ventilator 50 08/09/16 16:00 118 08/09/16 16:00 99.1 119 24 87/56 92 Mechanical Ventilator 50 08/09/16 16:00 50 08/09/16 15:45 120 23 84/55 92 Mechanical Ventilator 50 08/09/16 15:30 120 22 84/58 92 Mechanical Ventilator 50 08/09/16 15:26 128 22 50 08/09/16 15:15 119 23 89/55 92 Mechanical Ventilator 50 08/09/16 15:00 119 23 87/56 92 Mechanical Ventilator 50 08/09/16 15:00 91/56 08/09/16 14:45 118 22 87/52 85 Mechanical Ventilator 50 08/09/16 14:30 118 23 87/54 90 Mechanical Ventilator 50 08/09/16 14:15 113 22 80/54 87 Mechanical Ventilator 50 08/09/16 14:00 111 23 54/34 88 Mechanical Ventilator 50 08/09/16 14:00 80/54 08/09/16 13:45 134 27 75/54 87 Mechanical Ventilator 50 08/09/16 13:30 134 27 82/54 92 Mechanical Ventilator 50 08/09/16 13:15 134 27 83/55 90 Mechanical Ventilator 50 08/09/16 13:00 134 27 96/61 92 Mechanical Ventilator 50 08/09/16 13:00 96/61 08/09/16 12:45 134 27 97/50 91 Mechanical Ventilator 50 08/09/16 12:30 145 28 50 08/09/16 12:30 134 27 95/69 96 Mechanical Ventilator 50 08/09/16 12:15 134 27 91/63 90 Mechanical Ventilator 50 08/09/16 12:00 129 08/09/16 12:00 50 08/09/16 12:00 90/56 08/09/16 12:00 98.5 134 27 90/71 92 Mechanical Ventilator 50 08/09/16 11:45 134 27 98/67 92 Mechanical Ventilator 50 08/09/16 11:30 134 27 90/48 92 Mechanical Ventilator 50 08/09/16 11:15 134 28 89/52 91 Mechanical Ventilator 50 08/09/16 11:00 101/56 08/09/16 11:00 133 28 80/58 90 Mechanical Ventilator 50 08/09/16 10:45 130 29 81/54 78 Mechanical Ventilator 50 08/09/16 10:38 119 84/66 08/09/16 10:36 110 49 50 08/09/16 10:30 122 28 84/66 74 Mechanical Ventilator 50 08/09/16 10:15 120 28 101/41 79 Mechanical Ventilator 50 08/09/16 10:00 120 28 112/56 85 Mechanical Ventilator 50 08/09/16 10:00 93/51 08/09/16 09:45 119 29 101/56 69 Mechanical Ventilator 50 08/09/16 09:30 117 28 98/67 72 Mechanical Ventilator 50 08/09/16 09:15 114 28 98/68 70 Mechanical Ventilator 50 08/09/16 09:00 113 28 101/61 62 Mechanical Ventilator 50 08/09/16 09:00 101/59 08/09/16 08:49 103 27 50 08/09/16 08:45 113 28 90/56 75 Mechanical Ventilator 50 08/09/16 08:30 109 27 97/61 81 Mechanical Ventilator 50 08/09/16 08:15 106 26 106/66 88 Mechanical Ventilator 50 08/09/16 08:00 50 08/09/16 08:00 93/56 08/09/16 08:00 93/51 08/09/16 08:00 98.9 104 26 86/54 87 Mechanical Ventilator 50 08/09/16 08:00 124 08/09/16 07:45 108 30 89/51 99 Mechanical Ventilator 50 08/09/16 07:30 100 27 73/20 95 Mechanical Ventilator 50 08/09/16 07:15 105 28 80/56 94 Mechanical Ventilator 50 08/09/16 07:00 109 25 89/63 100 Mechanical Ventilator 50 08/09/16 07:00 89/63 08/09/16 06:54 108 42 50 08/09/16 06:45 103 25 91/62 100 Mechanical Ventilator 50 08/09/16 06:30 103 25 101/68 100 Mechanical Ventilator 50 08/09/16 06:15 105 25 107/52 100 Mechanical Ventilator 50 08/09/16 06:00 103 25 102/75 100 Mechanical Ventilator 50 08/09/16 06:00 107/52 08/09/16 05:45 106 25 97/60 100 Mechanical Ventilator 50 08/09/16 05:30 103 25 101/61 100 Mechanical Ventilator 50 08/09/16 05:15 105 25 98/52 100 Mechanical Ventilator 50 08/09/16 05:07 123 32 50 08/09/16 05:00 103 25 84/63 100 Mechanical Ventilator 50 08/09/16 05:00 84/63 08/09/16 04:45 103 25 78/53 100 Mechanical Ventilator 50 08/09/16 04:30 107 25 82/49 100 Mechanical Ventilator 50 08/09/16 04:15 109 25 89/56 100 Mechanical Ventilator 50 08/09/16 04:00 50 08/09/16 04:00 110 08/09/16 04:00 100/54 08/09/16 04:00 98.1 110 25 100/54 100 Mechanical Ventilator 50 08/09/16 03:45 113 26 95/63 100 Mechanical Ventilator 50 08/09/16 03:30 112 27 106/62 100 Mechanical Ventilator 50 08/09/16 03:15 111 27 97/48 100 Mechanical Ventilator 50 08/09/16 03:03 116 32 50 08/09/16 03:00 109 25 106/62 100 Mechanical Ventilator 50 08/09/16 03:00 91/66 08/09/16 02:45 112 27 97/48 100 Mechanical Ventilator 50 08/09/16 02:30 101 26 72/51 100 Mechanical Ventilator 50 08/09/16 02:15 103 27 88/49 100 Mechanical Ventilator 50 08/09/16 02:00 74/50 08/09/16 02:00 104 27 74/50 100 Mechanical Ventilator 50 08/09/16 01:45 103 27 79/47 100 Mechanical Ventilator 50 08/09/16 01:38 89/55 08/09/16 01:30 104 27 89/55 100 Mechanical Ventilator 50 08/09/16 01:15 103 27 92/54 100 Mechanical Ventilator 50 08/09/16 01:14 120 39 50 08/09/16 01:00 104 27 93/48 100 Mechanical Ventilator 50 08/09/16 00:59 92/56 08/09/16 00:45 99 27 92/58 100 Mechanical Ventilator 50 08/09/16 00:30 102 27 86/54 100 Mechanical Ventilator 50 08/09/16 00:15 104 27 89/68 100 Mechanical Ventilator 50 08/09/16 00:00 113 08/09/16 00:00 109/69 08/09/16 00:00 50 08/09/16 00:00 109 27 109/69 100 Mechanical Ventilator 50 08/08/16 23:45 98.8 110 27 93/55 100 Mechanical Ventilator 50 08/08/16 23:30 108 27 83/56 100 Mechanical Ventilator 50 08/08/16 23:21 97 40 50 08/08/16 23:15 101 27 89/51 100 Mechanical Ventilator 50 08/08/16 23:00 99 27 94/52 100 Mechanical Ventilator 50 08/08/16 22:45 101 29 104/57 100 Mechanical Ventilator 50 08/08/16 22:30 112 29 91/71 100 Mechanical Ventilator 50 08/08/16 22:15 108 30 94/54 100 Mechanical Ventilator 50 08/08/16 22:02 94 25 98/44 100 Mechanical Ventilator 50 08/08/16 21:45 107 25 89/60 100 Mechanical Ventilator 50 08/08/16 21:30 97 25 87/45 100 Mechanical Ventilator 50 08/08/16 21:15 94 25 86/50 100 Mechanical Ventilator 50 08/08/16 21:00 96 28 88/52 100 Mechanical Ventilator 50 08/08/16 20:53 101 26 50 08/08/16 20:45 100 24 91/59 100 Mechanical Ventilator 50 08/08/16 20:30 106 28 105/53 100 Mechanical Ventilator 50 08/08/16 20:28 93/45 08/08/16 20:27 93/45 08/08/16 20:15 106 26 93/45 100 Mechanical Ventilator 50 08/08/16 20:00 98.1 106 26 105/55 100 Mechanical Ventilator 50 08/08/16 20:00 106 08/08/16 20:00 50 08/08/16 19:45 108 26 112/55 100 Mechanical Ventilator 50 08/08/16 19:30 109 27 105/62 100 Mechanical Ventilator 50 08/08/16 19:30 102 34 50 08/08/16 19:15 114 28 100/59 100 Mechanical Ventilator 50 08/08/16 19:00 109 27 94/60 100 Mechanical Ventilator 50 08/08/16 19:00 89/66 Intake and Output 08/08/16 08/09/16 19:00 07:00 Intake Total 1486.49 ml 1509.354 ml Output Total 340 ml 330 ml Balance 1146.49 ml 1179.354 ml IV Total 1406.49 ml 1409.354 ml Tube Feeding 80 ml 40 ml Other 60 ml Output Urine Total 340 ml 330 ml Laboratory Tests 08/09/16 00:00: White Blood Count 16.7H, Red Blood Count 3.18L, Hemoglobin 8.3L, Hematocrit 25.9L, Mean Corpuscular Volume 81, Mean Corpuscular Hemoglobin 26.0L, Mean Corpuscular Hemoglobin Concent 32.0, Red Cell Distribution Width 16.1H, Platelet Count 53L, Mean Platelet Volume 10.5H, Neutrophils (%) (Auto) , Lymphocytes (%) (Auto) , Monocytes (%) (Auto) , Eosinophils (%) (Auto) , Basophils (%) (Auto) 08/09/16 06:00: White Blood Count 17.2H, Red Blood Count 3.16L, Hemoglobin 8.4L, Hematocrit 25.6L, Mean Corpuscular Volume 81, Mean Corpuscular Hemoglobin 26.6L, Mean Corpuscular Hemoglobin Concent 32.9, Red Cell Distribution Width 16.7H, Platelet Count 45L, Mean Platelet Volume 10.6H, Neutrophils (%) (Auto) , Lymphocytes (%) (Auto) , Monocytes (%) (Auto) , Eosinophils (%) (Auto) , Basophils (%) (Auto) , Differential Total Cells Counted 100, Neutrophils % ( Manual) 83H, Lymphocytes % (Manual) 11L, Monocytes % (Manual) 5, Eosinophils % ( Manual) 1, Basophils % (Manual) 0, Band Neutrophils 0, Platelet Estimate DecreasedL, Platelet Morphology Normal, Hypochromasia 2+, Anisocytosis 1+, Prothrombin Time 20.1H, Prothromb Time International Ratio 1.9H, Sodium Level 132L, Potassium Level 5.0H, Chloride Level 97L, Carbon Dioxide Level 16L, Anion Gap 19H, Blood Urea Nitrogen 87H, Creatinine 5.5H, Estimat Glomerular Filtration Rate , Glucose Level 137H, Uric Acid 12.7H, Calcium Level 6.5L, Phosphorus Level 5.5H, Magnesium Level 1.6L, Total Bilirubin 2.3H, Direct Bilirubin 1.8H, Gamma Glutamyl Transpeptidase 18, Aspartate Amino Transf (AST/ SGOT) 8, Alanine Aminotransferase (ALT/SGPT) 5, Alkaline Phosphatase 70, Total Creatine Kinase 36L, C-Reactive Protein, Quantitative 16.1H, Pro-B-Type Natriuretic Peptide > [id number], Total Protein 5.3L, Albumin 1.3L, Globulin 4.0, Albumin/Globulin Ratio 0.3L, Thyroid Stimulating Hormone (TSH) 3.320, Hepatitis A IgM Antibody [Pending], Hepatitis B Surface Antigen [Pending], Hepatitis B Core IgM Antibody [Pending], Hepatitis C Antibody [Pending], HIV (1&2) Antibody Rapid Negative 08/09/16 07:21: Arterial Blood pH 7.430, Arterial Blood Partial Pressure CO2 21.1*L, Arterial Blood Partial Pressure O2 174.2H, Arterial Blood HCO3 13.6L, Arterial Blood Oxygen Saturation 99.0H, Arterial Blood Base Excess -9.5, Sancho Test Height (Feet): 5 Height (Inches): 4.00 Weight (Pounds): 180 General Appearance: no apparent distress EENT: TMs normal Neck: normal inspection Cardiovascular: normal rate Respiratory/Chest: normal breath sounds Abdomen: no organomegaly Pelvis: no masses Extremities: non-tender Edema: 1+ Leg (L), 1+ Leg (R) Edema: mild edema Neurologic: alert Skin: warm/dry Milton Gold Aug 09, 2016 18:54
[2016-08-09] MEDS: Iron Sucrose 100 MG in NS 110 ML IVPB SCH (20:45)
[2016-08-10] VITALS (39 sets, daily range): BP systolic 33–114; BP diastolic 19–85
[2016-08-10] MEDS: Midodrine 10mg tab ORAL SCH ×2 (01:59→10:00)
[2016-08-10] MEDS: Clindamycin 600mg 50 ML IV SCH ×2 (04:01→11:20)
[2016-08-10] MEDS: Hydrocortisone 100mg Inj IV SCH (05:06)
[2016-08-10] MEDS: Renvela 800mg Pkt NG SCH ×2 (05:07→11:27)
[2016-08-10] MEDS: NovoLOG Insulin Flexpen SUBQ SCH ×2 (05:07→11:55)
[2016-08-10 05:09] LABS: MEAN CORPUSCULAR HEMOGLOBIN 25.8 PG (27.0-31.0); MEAN CORPUSCULAR HGB CONC 30.3 G/DL (32.0-36.0); MEAN CORPUSCULAR VOLUME 85 FL (80-99); MEAN PLATELET VOLUME 10.5 FL (6.5-10.1); PLATELET COUNT 59 K/UL (150-450); RED CELL DISTRIBUTION WIDTH 17.5 % (11.6-14.8); WHITE BLOOD COUNT 15.8 K/UL (4.8-10.8)
[2016-08-10 05:21] LABS: INR 2.8 (0.9-1.1); PROTHROMBIN TIME 29.2 SEC (9.30-11.50)
[2016-08-10 05:39] LABS: ALANINE AMINOTRANSFERASE 5 U/L (3-41); ALBUMIN/GLOBULIN RATIO 0.2 (1.0-2.7); ANION GAP 27 (5-15); ASPARTATE AMINO TRANSFERASE 15 U/L (5-40); CALCIUM 6.5 mg/dL (8.6-10.2); CARBON DIOXIDE 10 mEQ/L (20-30); CHLORIDE 90 mEQ/L (98-107); CREATININE 5.8 mg/dL (0.7-1.2); HEMOLYSIS 5; MAGNESIUM 1.8 mg/dL (1.7-2.5); POTASSIUM 5.9 mEQ/L (3.4-4.9); SODIUM 127 mEQ/L (135-145); TOTAL PROTEIN 5.6 g/dL (6.6-8.7)
[2016-08-10 05:53] LABS: BILIRUBIN,DIRECT 2.1 mg/dL (0.1-0.3)
[2016-08-10] MEDS: Acetaminophen 500mg (ES) tab ORAL PRN (06:39)
[2016-08-10] MEDS ORDERED: Atropine Inj 1mg/10ml Syr ONE (08:29)
[2016-08-10] MEDS: Sodium Bicarbonate 150 ML in D5W 1000ml 1,000 ML IV SCH ×2 (08:45→11:25)
[2016-08-10] MEDS: Vitamin A&D Oint 2oz Tube TOPIC SCH (09:00)
[2016-08-10] MEDS: Nystatin Powder 100,000 units/gm 15gm TOPIC SCH (09:00)
[2016-08-10] MEDS: Pantoprazole Inj IVP SCH (09:00)
[2016-08-10] MEDS: Carvedilol 6.25mg Tab ORAL SCH (09:00)
--- NOTE | 2016-08-10 09:17 | General Progress Note ---
Assessment/Plan Assessment/Plan ASSESSMENT AND PLAN: 1. Leukocytosis 2/2 underying infection, patient currently on abx 2. Anemia secondary to iron deficiency/chronic disease, is on IV iron 3. Thrombocytopenia 2/2 cirrhosis plus component of infection/sepsis 4. Bradycardia s/p code blue on 08/10/16. 5. Chronic kidney disease. 6. Congestive heart failure. 7. Atrial fibrillation. 8. Hyperlipidemia. 9. Malnutrition. 10. Failure to thrive. RECOMMENDATIONS: 1. Patient with code blue this am, actively undergoing code at time of this note (code began with bradycardia) 2. Monitor counts 3. Vasopressors as needed. 4. Will Re-order anemia w/u on 08/12/16 5. Continue iv iron 6. GI prophylaxis as needed. 7. Antibiotics per ID service. 8. Discussed with staff. Thank you, Milton Gold MD Subjective Constitutional: Reports: no symptoms HEENT: Reports: no symptoms Cardiovascular: Reports: no symptoms Respiratory: Reports: no symptoms Gastrointestinal/Abdominal: Reports: nausea Genitourinary: Reports: no symptoms Neurologic/Psychiatric: Reports: anxiety Endocrine: Reports: no symptoms Hematologic/Lymphatic: Reports: anemia Allergies: Coded Allergies: HEPARIN (Verified Allergy, Mild, 12/21/14) Subjective is on pressors and antibiotics as well, no fevers or chills Objective Last 24 Hour Vital Signs Date Time Temp Pulse Resp B/P Pulse Ox O2 Delivery O2 Flow Rate FiO2 08/10/16 07:25 92 29 40 08/10/16 07:14 89/44 08/10/16 07:00 107 20 89/40 94 Mechanical Ventilator 40 08/10/16 06:45 104 20 86/50 94 Mechanical Ventilator 40 08/10/16 06:30 120 20 86/50 94 Mechanical Ventilator 40 08/10/16 06:15 117 20 96/53 94 Mechanical Ventilator 40 08/10/16 06:00 116 20 96/53 94 Mechanical Ventilator 40 08/10/16 06:00 96/53 08/10/16 05:45 116 20 101/47 94 Mechanical Ventilator 40 08/10/16 05:31 120 28 40 08/10/16 05:30 117 20 95/48 94 Mechanical Ventilator 40 08/10/16 05:15 117 20 112/47 94 Mechanical Ventilator 40 08/10/16 05:00 110/47 08/10/16 05:00 100.2 117 20 110/47 94 Mechanical Ventilator 40 08/10/16 04:45 115 20 93/50 94 Mechanical Ventilator 40 08/10/16 04:30 116 20 98/49 94 Mechanical Ventilator 40 08/10/16 04:15 120 20 103/60 94 Mechanical Ventilator 40 08/10/16 04:00 100.8 120 20 96/51 94 Mechanical Ventilator 40 08/10/16 04:00 96/51 08/10/16 04:00 118 08/10/16 04:00 40 08/10/16 03:45 122 20 100/58 94 Mechanical Ventilator 40 08/10/16 03:30 125 20 105/57 94 Mechanical Ventilator 40 08/10/16 03:25 126 30 40 08/10/16 03:15 125 20 105/53 94 Mechanical Ventilator 40 08/10/16 03:02 109/69 08/10/16 03:00 117 20 109/68 94 Mechanical Ventilator 40 08/10/16 02:45 121 20 114/46 94 Mechanical Ventilator 40 08/10/16 02:30 118 21 101/63 94 Mechanical Ventilator 40 08/10/16 02:15 116 21 93/45 94 Mechanical Ventilator 40 08/10/16 02:02 76/43 08/10/16 02:00 106 21 65/39 94 Mechanical Ventilator 40 08/10/16 01:45 107 21 78/40 94 Mechanical Ventilator 40 08/10/16 01:30 105 21 77/39 94 Mechanical Ventilator 40 08/10/16 01:15 112 21 94/42 94 Mechanical Ventilator 40 08/10/16 01:07 113 29 40 08/10/16 01:00 113 21 89/40 94 Mechanical Ventilator 40 08/10/16 01:00 84/42 08/10/16 00:53 101.1 08/10/16 00:45 109 21 82/47 94 Mechanical Ventilator 40 08/10/16 00:30 111 21 102/85 94 Mechanical Ventilator 40 08/10/16 00:15 111 21 91/68 94 Mechanical Ventilator 40 08/10/16 00:00 40 08/10/16 00:00 105 08/10/16 00:00 110 21 91/68 94 Mechanical Ventilator 40 08/10/16 00:00 91/68 08/09/16 23:45 101.1 109 21 70/49 94 Mechanical Ventilator 40 08/09/16 23:30 106 21 83/44 94 Mechanical Ventilator 40 08/09/16 23:15 111 21 65/44 94 Mechanical Ventilator 40 08/09/16 23:12 106 26 40 08/09/16 23:00 88/52 08/09/16 23:00 115 21 88/52 94 Mechanical Ventilator 40 08/09/16 22:45 123 21 79/51 94 Mechanical Ventilator 40 08/09/16 22:30 112 25 85/49 94 Mechanical Ventilator 40 08/09/16 22:15 90 25 82/38 95 Mechanical Ventilator 40 08/09/16 22:00 108 26 89/57 95 Mechanical Ventilator 40 08/09/16 22:00 89/57 08/09/16 21:45 106 25 69/43 95 Mechanical Ventilator 40 08/09/16 21:30 107 25 84/48 95 Mechanical Ventilator 40 08/09/16 21:29 101 24 40 08/09/16 21:15 106 25 78/47 95 Mechanical Ventilator 40 08/09/16 21:00 107 25 84/40 95 Mechanical Ventilator 40 08/09/16 21:00 78/47 08/09/16 20:45 110 24 72/46 95 Mechanical Ventilator 40 08/09/16 20:37 101 78/34 08/09/16 20:30 111 24 78/34 95 Mechanical Ventilator 40 08/09/16 20:15 106 24 74/57 95 Mechanical Ventilator 40 08/09/16 20:00 109 08/09/16 20:00 40 08/09/16 20:00 98.0 100 24 73/43 95 Mechanical Ventilator 40 08/09/16 20:00 73/43 08/09/16 19:45 114 25 68/48 95 Mechanical Ventilator 40 08/09/16 19:30 127 25 80/61 95 Mechanical Ventilator 40 08/09/16 19:24 115 26 40 08/09/16 19:15 116 26 98/50 95 Mechanical Ventilator 50 08/09/16 19:13 56/27 08/09/16 19:00 119 23 56/27 92 Mechanical Ventilator 50 08/09/16 18:45 120 23 85/66 92 Mechanical Ventilator 50 08/09/16 18:30 121 23 77/50 92 Mechanical Ventilator 50 08/09/16 18:15 121 23 82/48 92 Mechanical Ventilator 50 08/09/16 18:00 98.1 120 24 98/49 92 Mechanical Ventilator 50 08/09/16 17:45 119 26 84/47 92 Mechanical Ventilator 50 08/09/16 17:30 120 26 88/77 92 Mechanical Ventilator 50 08/09/16 17:15 121 26 85/69 92 Mechanical Ventilator 50 08/09/16 17:13 74/54 08/09/16 17:00 120 26 85/63 92 Mechanical Ventilator 50 08/09/16 16:53 123 24 50 08/09/16 16:45 120 23 87/56 92 Mechanical Ventilator 50 08/09/16 16:30 119 25 71/53 92 Mechanical Ventilator 50 08/09/16 16:15 120 23 88/55 92 Mechanical Ventilator 50 08/09/16 16:00 118 08/09/16 16:00 99.1 119 24 87/56 92 Mechanical Ventilator 50 08/09/16 16:00 50 08/09/16 15:45 120 23 84/55 92 Mechanical Ventilator 50 08/09/16 15:30 120 22 84/58 92 Mechanical Ventilator 50 08/09/16 15:26 128 22 50 08/09/16 15:15 119 23 89/55 92 Mechanical Ventilator 50 08/09/16 15:00 119 23 87/56 92 Mechanical Ventilator 50 08/09/16 15:00 91/56 08/09/16 14:45 118 22 87/52 85 Mechanical Ventilator 50 08/09/16 14:30 118 23 87/54 90 Mechanical Ventilator 50 08/09/16 14:15 113 22 80/54 87 Mechanical Ventilator 50 08/09/16 14:00 111 23 54/34 88 Mechanical Ventilator 50 08/09/16 14:00 80/54 08/09/16 13:45 134 27 75/54 87 Mechanical Ventilator 50 08/09/16 13:30 134 27 82/54 92 Mechanical Ventilator 50 08/09/16 13:15 134 27 83/55 90 Mechanical Ventilator 50 08/09/16 13:00 134 27 96/61 92 Mechanical Ventilator 50 08/09/16 13:00 96/61 08/09/16 12:45 134 27 97/50 91 Mechanical Ventilator 50 08/09/16 12:30 145 28 50 08/09/16 12:30 134 27 95/69 96 Mechanical Ventilator 50 08/09/16 12:15 134 27 91/63 90 Mechanical Ventilator 50 08/09/16 12:00 129 08/09/16 12:00 50 08/09/16 12:00 90/56 08/09/16 12:00 98.5 134 27 90/71 92 Mechanical Ventilator 50 08/09/16 11:45 134 27 98/67 92 Mechanical Ventilator 50 08/09/16 11:30 134 27 90/48 92 Mechanical Ventilator 50 08/09/16 11:15 134 28 89/52 91 Mechanical Ventilator 50 08/09/16 11:00 101/56 08/09/16 11:00 133 28 80/58 90 Mechanical Ventilator 50 08/09/16 10:45 130 29 81/54 78 Mechanical Ventilator 50 08/09/16 10:38 119 84/66 08/09/16 10:36 110 49 50 08/09/16 10:30 122 28 84/66 74 Mechanical Ventilator 50 08/09/16 10:15 120 28 101/41 79 Mechanical Ventilator 50 08/09/16 10:00 120 28 112/56 85 Mechanical Ventilator 50 08/09/16 10:00 93/51 08/09/16 09:45 119 29 101/56 69 Mechanical Ventilator 50 08/09/16 09:30 117 28 98/67 72 Mechanical Ventilator 50 08/09/16 09:15 114 28 98/68 70 Mechanical Ventilator 50 Intake and Output 08/09/16 08/10/16 19:00 07:00 Intake Total 1790.59 ml 3034.20 ml Output Total 200 ml 2 ml Balance 1590.59 ml 3032.20 ml Intake Free Water 120 ml IV Total 1670.59 ml 3034.20 ml Output Urine Total 200 ml 2 ml Laboratory Tests 08/10/16 04:00: White Blood Count 15.8H, Red Blood Count 3.40L, Hemoglobin 8.8L, Hematocrit 29.0L, Mean Corpuscular Volume 85, Mean Corpuscular Hemoglobin 25.8L, Mean Corpuscular Hemoglobin Concent 30.3L, Red Cell Distribution Width 17.5H, Platelet Count 59L, Mean Platelet Volume 10.5H, Neutrophils (%) (Auto) , Lymphocytes (%) (Auto) , Monocytes (%) (Auto) , Eosinophils (%) (Auto) , Basophils (%) (Auto) , Neutrophils % (Manual) [Pending], Lymphocytes % (Manual) [Pending], Platelet Estimate [Pending], Platelet Morphology [Pending], Prothrombin Time 29.2H, Prothromb Time International Ratio 2.8H, Activated Partial Thromboplast Time 85H, Sodium Level 127L, Potassium Level 5.9H, Chloride Level 90L, Carbon Dioxide Level 10L, Anion Gap 27H, Blood Urea Nitrogen 84H, Creatinine 5.8H, Estimat Glomerular Filtration Rate , Glucose Level 177H, Calcium Level 6.5L, Phosphorus Level 8.0H, Magnesium Level 1.8, Total Bilirubin 2.6H, Direct Bilirubin 2.1H, Aspartate Amino Transf (AST/SGOT) 15, Alanine Aminotransferase (ALT/SGPT) 5, Alkaline Phosphatase 61, Total Protein 5.6L, Albumin 1.2L, Globulin 4.4, Albumin/Globulin Ratio 0.2L Height (Feet): 5 Height (Inches): 4.00 Weight (Pounds): 180 General Appearance: no apparent distress EENT: TMs normal Neck: supple Cardiovascular: regular rhythm Respiratory/Chest: normal breath sounds Abdomen: non tender Extremities: non-tender Edema: 1+ Leg (L), 1+ Leg (R) Neurologic: alert Skin: warm/dry Milton Gold Aug 10, 2016 09:17
--- NOTE | 2016-08-10 09:30 | General Progress Note ---
Assessment/Plan Status: deteriorating Status Narrative coded earlier- on max pressors- SS in contact with family who desire no CPR and comfort care Assessment/Plan s/p Code blue- now hypotensive on max pressors Acute Renal Failure- HyperKalemia- improving Hypotension- Shock on pressors Severe Anemia- transfused Severe HypoAlbuminemia Cirrhosis Cellulitis both legs- rising bili low Ej Fx 30% Plan: DNR and comfort care if so requested by family- futile treatment Subjective ROS Limited/Unobtainable: Yes Allergies: Coded Allergies: HEPARIN (Verified Allergy, Mild, 12/21/14) Objective Last 24 Hour Vital Signs Date Time Temp Pulse Resp B/P Pulse Ox O2 Delivery O2 Flow Rate FiO2 08/10/16 07:25 92 29 40 08/10/16 07:14 89/44 08/10/16 07:00 107 20 89/40 94 Mechanical Ventilator 40 08/10/16 06:45 104 20 86/50 94 Mechanical Ventilator 40 08/10/16 06:30 120 20 86/50 94 Mechanical Ventilator 40 08/10/16 06:15 117 20 96/53 94 Mechanical Ventilator 40 08/10/16 06:00 116 20 96/53 94 Mechanical Ventilator 40 08/10/16 06:00 96/53 08/10/16 05:45 116 20 101/47 94 Mechanical Ventilator 40 08/10/16 05:31 120 28 40 08/10/16 05:30 117 20 95/48 94 Mechanical Ventilator 40 08/10/16 05:15 117 20 112/47 94 Mechanical Ventilator 40 08/10/16 05:00 110/47 08/10/16 05:00 100.2 117 20 110/47 94 Mechanical Ventilator 40 08/10/16 04:45 115 20 93/50 94 Mechanical Ventilator 40 08/10/16 04:30 116 20 98/49 94 Mechanical Ventilator 40 08/10/16 04:15 120 20 103/60 94 Mechanical Ventilator 40 08/10/16 04:00 100.8 120 20 96/51 94 Mechanical Ventilator 40 08/10/16 04:00 96/51 08/10/16 04:00 118 08/10/16 04:00 40 08/10/16 03:45 122 20 100/58 94 Mechanical Ventilator 40 08/10/16 03:30 125 20 105/57 94 Mechanical Ventilator 40 08/10/16 03:25 126 30 40 08/10/16 03:15 125 20 105/53 94 Mechanical Ventilator 40 08/10/16 03:02 109/69 08/10/16 03:00 117 20 109/68 94 Mechanical Ventilator 40 08/10/16 02:45 121 20 114/46 94 Mechanical Ventilator 40 08/10/16 02:30 118 21 101/63 94 Mechanical Ventilator 40 08/10/16 02:15 116 21 93/45 94 Mechanical Ventilator 40 08/10/16 02:02 76/43 08/10/16 02:00 106 21 65/39 94 Mechanical Ventilator 40 08/10/16 01:45 107 21 78/40 94 Mechanical Ventilator 40 08/10/16 01:30 105 21 77/39 94 Mechanical Ventilator 40 08/10/16 01:15 112 21 94/42 94 Mechanical Ventilator 40 08/10/16 01:07 113 29 40 08/10/16 01:00 113 21 89/40 94 Mechanical Ventilator 40 08/10/16 01:00 84/42 08/10/16 00:53 101.1 08/10/16 00:45 109 21 82/47 94 Mechanical Ventilator 40 08/10/16 00:30 111 21 102/85 94 Mechanical Ventilator 40 08/10/16 00:15 111 21 91/68 94 Mechanical Ventilator 40 08/10/16 00:00 40 08/10/16 00:00 105 08/10/16 00:00 110 21 91/68 94 Mechanical Ventilator 40 08/10/16 00:00 91/68 08/09/16 23:45 101.1 109 21 70/49 94 Mechanical Ventilator 40 08/09/16 23:30 106 21 83/44 94 Mechanical Ventilator 40 08/09/16 23:15 111 21 65/44 94 Mechanical Ventilator 40 08/09/16 23:12 106 26 40 08/09/16 23:00 88/52 08/09/16 23:00 115 21 88/52 94 Mechanical Ventilator 40 08/09/16 22:45 123 21 79/51 94 Mechanical Ventilator 40 08/09/16 22:30 112 25 85/49 94 Mechanical Ventilator 40 08/09/16 22:15 90 25 82/38 95 Mechanical Ventilator 40 08/09/16 22:00 108 26 89/57 95 Mechanical Ventilator 40 08/09/16 22:00 89/57 08/09/16 21:45 106 25 69/43 95 Mechanical Ventilator 40 08/09/16 21:30 107 25 84/48 95 Mechanical Ventilator 40 08/09/16 21:29 101 24 40 08/09/16 21:15 106 25 78/47 95 Mechanical Ventilator 40 08/09/16 21:00 107 25 84/40 95 Mechanical Ventilator 40 08/09/16 21:00 78/47 08/09/16 20:45 110 24 72/46 95 Mechanical Ventilator 40 08/09/16 20:37 101 78/34 08/09/16 20:30 111 24 78/34 95 Mechanical Ventilator 40 08/09/16 20:15 106 24 74/57 95 Mechanical Ventilator 40 08/09/16 20:00 109 08/09/16 20:00 40 08/09/16 20:00 98.0 100 24 73/43 95 Mechanical Ventilator 40 08/09/16 20:00 73/43 08/09/16 19:45 114 25 68/48 95 Mechanical Ventilator 40 08/09/16 19:30 127 25 80/61 95 Mechanical Ventilator 40 08/09/16 19:24 115 26 40 08/09/16 19:15 116 26 98/50 95 Mechanical Ventilator 50 08/09/16 19:13 56/27 08/09/16 19:00 119 23 56/27 92 Mechanical Ventilator 50 08/09/16 18:45 120 23 85/66 92 Mechanical Ventilator 50 08/09/16 18:30 121 23 77/50 92 Mechanical Ventilator 50 08/09/16 18:15 121 23 82/48 92 Mechanical Ventilator 50 08/09/16 18:00 98.1 120 24 98/49 92 Mechanical Ventilator 50 08/09/16 17:45 119 26 84/47 92 Mechanical Ventilator 50 08/09/16 17:30 120 26 88/77 92 Mechanical Ventilator 50 08/09/16 17:15 121 26 85/69 92 Mechanical Ventilator 50 08/09/16 17:13 74/54 08/09/16 17:00 120 26 85/63 92 Mechanical Ventilator 50 08/09/16 16:53 123 24 50 08/09/16 16:45 120 23 87/56 92 Mechanical Ventilator 50 08/09/16 16:30 119 25 71/53 92 Mechanical Ventilator 50 08/09/16 16:15 120 23 88/55 92 Mechanical Ventilator 50 08/09/16 16:00 118 08/09/16 16:00 99.1 119 24 87/56 92 Mechanical Ventilator 50 08/09/16 16:00 50 08/09/16 15:45 120 23 84/55 92 Mechanical Ventilator 50 08/09/16 15:30 120 22 84/58 92 Mechanical Ventilator 50 08/09/16 15:26 128 22 50 08/09/16 15:15 119 23 89/55 92 Mechanical Ventilator 50 08/09/16 15:00 119 23 87/56 92 Mechanical Ventilator 50 08/09/16 15:00 91/56 08/09/16 14:45 118 22 87/52 85 Mechanical Ventilator 50 08/09/16 14:30 118 23 87/54 90 Mechanical Ventilator 50 08/09/16 14:15 113 22 80/54 87 Mechanical Ventilator 50 08/09/16 14:00 111 23 54/34 88 Mechanical Ventilator 50 08/09/16 14:00 80/54 08/09/16 13:45 134 27 75/54 87 Mechanical Ventilator 50 08/09/16 13:30 134 27 82/54 92 Mechanical Ventilator 50 08/09/16 13:15 134 27 83/55 90 Mechanical Ventilator 50 08/09/16 13:00 134 27 96/61 92 Mechanical Ventilator 50 08/09/16 13:00 96/61 08/09/16 12:45 134 27 97/50 91 Mechanical Ventilator 50 08/09/16 12:30 145 28 50 08/09/16 12:30 134 27 95/69 96 Mechanical Ventilator 50 08/09/16 12:15 134 27 91/63 90 Mechanical Ventilator 50 08/09/16 12:00 129 08/09/16 12:00 50 08/09/16 12:00 90/56 08/09/16 12:00 98.5 134 27 90/71 92 Mechanical Ventilator 50 08/09/16 11:45 134 27 98/67 92 Mechanical Ventilator 50 08/09/16 11:30 134 27 90/48 92 Mechanical Ventilator 50 08/09/16 11:15 134 28 89/52 91 Mechanical Ventilator 50 08/09/16 11:00 101/56 08/09/16 11:00 133 28 80/58 90 Mechanical Ventilator 50 08/09/16 10:45 130 29 81/54 78 Mechanical Ventilator 50 08/09/16 10:38 119 84/66 2/23/17 10:36 110 49 50 08/09/16 10:30 122 28 84/66 74 Mechanical Ventilator 50 08/09/16 10:15 120 28 101/41 79 Mechanical Ventilator 50 08/09/16 10:00 120 28 112/56 85 Mechanical Ventilator 50 08/09/16 10:00 93/51 08/09/16 09:45 119 29 101/56 69 Mechanical Ventilator 50 08/09/16 09:30 117 28 98/67 72 Mechanical Ventilator 50 Intake and Output 08/09/16 08/10/16 19:00 07:00 Intake Total 1790.59 ml 3034.20 ml Output Total 200 ml 2 ml Balance 1590.59 ml 3032.20 ml Intake Free Water 120 ml IV Total 1670.59 ml 3034.20 ml Output Urine Total 200 ml 2 ml Laboratory Tests 08/10/16 04:00: White Blood Count 15.8H, Red Blood Count 3.40L, Hemoglobin 8.8L, Hematocrit 29.0L, Mean Corpuscular Volume 85, Mean Corpuscular Hemoglobin 25.8L, Mean Corpuscular Hemoglobin Concent 30.3L, Red Cell Distribution Width 17.5H, Platelet Count 59L, Mean Platelet Volume 10.5H, Neutrophils (%) (Auto) , Lymphocytes (%) (Auto) , Monocytes (%) (Auto) , Eosinophils (%) (Auto) , Basophils (%) (Auto) , Neutrophils % (Manual) [Pending], Lymphocytes % (Manual) [Pending], Platelet Estimate [Pending], Platelet Morphology [Pending], Prothrombin Time 29.2H, Prothromb Time International Ratio 2.8H, Activated Partial Thromboplast Time 85H, Sodium Level 127L, Potassium Level 5.9H, Chloride Level 90L, Carbon Dioxide Level 10L, Anion Gap 27H, Blood Urea Nitrogen 84H, Creatinine 5.8H, Estimat Glomerular Filtration Rate , Glucose Level 177H, Calcium Level 6.5L, Phosphorus Level 8.0H, Magnesium Level 1.8, Total Bilirubin 2.6H, Direct Bilirubin 2.1H, Aspartate Amino Transf (AST/SGOT) 15, Alanine Aminotransferase (ALT/SGPT) 5, Alkaline Phosphatase 61, Total Protein 5.6L, Albumin 1.2L, Globulin 4.4, Albumin/Globulin Ratio 0.2L Height (Feet): 5 Height (Inches): 4.00 Weight (Pounds): 180 General Appearance: no apparent distress, other - comatose Cardiovascular: tachycardia Respiratory/Chest: decreased breath sounds Objective other PE not changed TYLER PALMER Aug 10, 2016 09:30
--- NOTE | 2016-08-10 10:10 | Pulmonolgy Critical Care Note ---
Critical Care - Asmt/Plan Problems: (1) Respiratory distress (2) Multiorgan failure (3) Septic shock (4) Symptomatic anemia (5) DM (diabetes mellitus) Respiratory: monitor respiratory rate, adjust FIO2 Cardiac: continue to monitor HR/BP, cardiac imaging, other - pt is off pressors. and DNR now off pressors Renal: F/U I&O, keep IV fluid, increase IV fluid Infectious Disease: check cultures, continue antibiotics Gastrointestinal: continue feedings/current rate Endocrine: check HgA1C Neurologic: PRN Ativan Disposition: keep in ICU Critical Care - Objective Last 24 Hour Vital Signs Date Time Temp Pulse Resp B/P Pulse Ox O2 Delivery O2 Flow Rate FiO2 08/10/16 09:25 106 26 100 08/10/16 07:25 92 29 40 08/10/16 07:14 89/44 08/10/16 07:00 107 20 89/40 94 Mechanical Ventilator 40 08/10/16 06:45 104 20 86/50 94 Mechanical Ventilator 40 08/10/16 06:30 120 20 86/50 94 Mechanical Ventilator 40 08/10/16 06:15 117 20 96/53 94 Mechanical Ventilator 40 08/10/16 06:00 116 20 96/53 94 Mechanical Ventilator 40 08/10/16 06:00 96/53 08/10/16 05:45 116 20 101/47 94 Mechanical Ventilator 40 08/10/16 05:31 120 28 40 08/10/16 05:30 117 20 95/48 94 Mechanical Ventilator 40 08/10/16 05:15 117 20 112/47 94 Mechanical Ventilator 40 08/10/16 05:00 110/47 08/10/16 05:00 100.2 117 20 110/47 94 Mechanical Ventilator 40 08/10/16 04:45 115 20 93/50 94 Mechanical Ventilator 40 08/10/16 04:30 116 20 98/49 94 Mechanical Ventilator 40 08/10/16 04:15 120 20 103/60 94 Mechanical Ventilator 40 08/10/16 04:00 100.8 120 20 96/51 94 Mechanical Ventilator 40 08/10/16 04:00 96/51 08/10/16 04:00 118 08/10/16 04:00 40 08/10/16 03:45 122 20 100/58 94 Mechanical Ventilator 40 08/10/16 03:30 125 20 105/57 94 Mechanical Ventilator 40 08/10/16 03:25 126 30 40 08/10/16 03:15 125 20 105/53 94 Mechanical Ventilator 40 08/10/16 03:02 109/69 08/10/16 03:00 117 20 109/68 94 Mechanical Ventilator 40 08/10/16 02:45 121 20 114/46 94 Mechanical Ventilator 40 08/10/16 02:30 118 21 101/63 94 Mechanical Ventilator 40 08/10/16 02:15 116 21 93/45 94 Mechanical Ventilator 40 08/10/16 02:02 76/43 08/10/16 02:00 106 21 65/39 94 Mechanical Ventilator 40 08/10/16 01:45 107 21 78/40 94 Mechanical Ventilator 40 08/10/16 01:30 105 21 77/39 94 Mechanical Ventilator 40 08/10/16 01:15 112 21 94/42 94 Mechanical Ventilator 40 08/10/16 01:07 113 29 40 08/10/16 01:00 113 21 89/40 94 Mechanical Ventilator 40 08/10/16 01:00 84/42 08/10/16 00:53 101.1 08/10/16 00:45 109 21 82/47 94 Mechanical Ventilator 40 08/10/16 00:30 111 21 102/85 94 Mechanical Ventilator 40 08/10/16 00:15 111 21 91/68 94 Mechanical Ventilator 40 08/10/16 00:00 40 08/10/16 00:00 105 08/10/16 00:00 110 21 91/68 94 Mechanical Ventilator 40 08/10/16 00:00 91/68 08/09/16 23:45 101.1 109 21 70/49 94 Mechanical Ventilator 40 08/09/16 23:30 106 21 83/44 94 Mechanical Ventilator 40 08/09/16 23:15 111 21 65/44 94 Mechanical Ventilator 40 08/09/16 23:12 106 26 40 08/09/16 23:00 88/52 08/09/16 23:00 115 21 88/52 94 Mechanical Ventilator 40 08/09/16 22:45 123 21 79/51 94 Mechanical Ventilator 40 08/09/16 22:30 112 25 85/49 94 Mechanical Ventilator 40 08/09/16 22:15 90 25 82/38 95 Mechanical Ventilator 40 08/09/16 22:00 108 26 89/57 95 Mechanical Ventilator 40 08/09/16 22:00 89/57 2/23/17 21:45 106 25 69/43 95 Mechanical Ventilator 40 08/09/16 21:30 107 25 84/48 95 Mechanical Ventilator 40 08/09/16 21:29 101 24 40 08/09/16 21:15 106 25 78/47 95 Mechanical Ventilator 40 08/09/16 21:00 107 25 84/40 95 Mechanical Ventilator 40 08/09/16 21:00 78/47 08/09/16 20:45 110 24 72/46 95 Mechanical Ventilator 40 08/09/16 20:37 101 78/34 08/09/16 20:30 111 24 78/34 95 Mechanical Ventilator 40 08/09/16 20:15 106 24 74/57 95 Mechanical Ventilator 40 08/09/16 20:00 109 08/09/16 20:00 40 08/09/16 20:00 98.0 100 24 73/43 95 Mechanical Ventilator 40 08/09/16 20:00 73/43 08/09/16 19:45 114 25 68/48 95 Mechanical Ventilator 40 08/09/16 19:30 127 25 80/61 95 Mechanical Ventilator 40 08/09/16 19:24 115 26 40 08/09/16 19:15 116 26 98/50 95 Mechanical Ventilator 50 08/09/16 19:13 56/27 08/09/16 19:00 119 23 56/27 92 Mechanical Ventilator 50 08/09/16 18:45 120 23 85/66 92 Mechanical Ventilator 50 08/09/16 18:30 121 23 77/50 92 Mechanical Ventilator 50 08/09/16 18:15 121 23 82/48 92 Mechanical Ventilator 50 08/09/16 18:00 98.1 120 24 98/49 92 Mechanical Ventilator 50 08/09/16 17:45 119 26 84/47 92 Mechanical Ventilator 50 08/09/16 17:30 120 26 88/77 92 Mechanical Ventilator 50 08/09/16 17:15 121 26 85/69 92 Mechanical Ventilator 50 08/09/16 17:13 74/54 08/09/16 17:00 120 26 85/63 92 Mechanical Ventilator 50 08/09/16 16:53 123 24 50 08/09/16 16:45 120 23 87/56 92 Mechanical Ventilator 50 08/09/16 16:30 119 25 71/53 92 Mechanical Ventilator 50 08/09/16 16:15 120 23 88/55 92 Mechanical Ventilator 50 08/09/16 16:00 118 08/09/16 16:00 99.1 119 24 87/56 92 Mechanical Ventilator 50 08/09/16 16:00 50 08/09/16 15:45 120 23 84/55 92 Mechanical Ventilator 50 08/09/16 15:30 120 22 84/58 92 Mechanical Ventilator 50 08/09/16 15:26 128 22 50 08/09/16 15:15 119 23 89/55 92 Mechanical Ventilator 50 08/09/16 15:00 119 23 87/56 92 Mechanical Ventilator 50 08/09/16 15:00 91/56 08/09/16 14:45 118 22 87/52 85 Mechanical Ventilator 50 08/09/16 14:30 118 23 87/54 90 Mechanical Ventilator 50 08/09/16 14:15 113 22 80/54 87 Mechanical Ventilator 50 08/09/16 14:00 111 23 54/34 88 Mechanical Ventilator 50 08/09/16 14:00 80/54 08/09/16 13:45 134 27 75/54 87 Mechanical Ventilator 50 08/09/16 13:30 134 27 82/54 92 Mechanical Ventilator 50 08/09/16 13:15 134 27 83/55 90 Mechanical Ventilator 50 08/09/16 13:00 134 27 96/61 92 Mechanical Ventilator 50 08/09/16 13:00 96/61 08/09/16 12:45 134 27 97/50 91 Mechanical Ventilator 50 08/09/16 12:30 145 28 50 08/09/16 12:30 134 27 95/69 96 Mechanical Ventilator 50 08/09/16 12:15 134 27 91/63 90 Mechanical Ventilator 50 08/09/16 12:00 129 08/09/16 12:00 50 08/09/16 12:00 90/56 08/09/16 12:00 98.5 134 27 90/71 92 Mechanical Ventilator 50 08/09/16 11:45 134 27 98/67 92 Mechanical Ventilator 50 08/09/16 11:30 134 27 90/48 92 Mechanical Ventilator 50 08/09/16 11:15 134 28 89/52 91 Mechanical Ventilator 50 08/09/16 11:00 101/56 08/09/16 11:00 133 28 80/58 90 Mechanical Ventilator 50 08/09/16 10:45 130 29 81/54 78 Mechanical Ventilator 50 08/09/16 10:38 119 84/66 08/09/16 10:36 110 49 50 08/09/16 10:30 122 28 84/66 74 Mechanical Ventilator 50 08/09/16 10:15 120 28 101/41 79 Mechanical Ventilator 50 Status: awake Condition: critical, grave HEENT: atraumatic Lungs: rales Heart: HR/BP stable, regular Abdomen: soft, active bowel sounds, feeding tube Extremities: no C/C/E, edema Decubiti: location Accucheck: 147 Critical Care - Subjective ROS Limited/Unobtainable: No ICU Day: 5 Intubation Day: 5 Interval Events: pt had a cardiac arrest this morning. Condition: critical FI02: 100 Vent Support Breath Rate: 20 Vent Support Mode: AC Vent Tidal Volume: 500 Sputum Amount: Small PEEP: 0.0 PIP: 27 Fluids: d5w with 3 amp of bicarb at 50 cc.hour Tube Feeding Amount: 10 I&O: Intake and Output 08/09/16 08/10/16 19:00 07:00 Intake Total 1790.59 ml 3034.20 ml Output Total 200 ml 2 ml Balance 1590.59 ml 3032.20 ml Intake Free Water 120 ml IV Total 1670.59 ml 3034.20 ml Output Urine Total 200 ml 2 ml CXR: no change ET-Tube: 8.0 ET Position: 23 Labs: Laboratory Tests Test 08/10/16 04:00 White Blood Count 15.8 K/UL (4.8-10.8) H Red Blood Count 3.40 M/UL (4.70-6.10) L Hemoglobin 8.8 G/DL (14.2-18.0) L Hematocrit 29.0 % (42.0-52.0) L Mean Corpuscular Volume 85 FL (80-99) Mean Corpuscular Hemoglobin 25.8 PG (27.0-31.0) L Mean Corpuscular Hemoglobin Concent 30.3 G/DL (32.0-36.0) L Red Cell Distribution Width 17.5 % (11.6-14.8) H Platelet Count 59 K/UL (150-450) L Mean Platelet Volume 10.5 FL (6.5-10.1) H Neutrophils (%) (Auto) % (45.0-75.0) Lymphocytes (%) (Auto) % (20.0-45.0) Monocytes (%) (Auto) % (1.0-10.0) Eosinophils (%) (Auto) % (0.0-3.0) Basophils (%) (Auto) % (0.0-2.0) Neutrophils % (Manual) Pending Lymphocytes % (Manual) Pending Platelet Estimate Pending Platelet Morphology Pending Prothrombin Time 29.2 SEC (9.30-11.50) H Prothromb Time International Ratio 2.8 (0.9-1.1) H Activated Partial Thromboplast Time 85 SEC (23-33) H Sodium Level 127 mEQ/L (135-145) L Potassium Level 5.9 mEQ/L (3.4-4.9) H Chloride Level 90 mEQ/L (98-107) L Carbon Dioxide Level 10 mEQ/L (20-30) L Anion Gap 27 (5-15) H Blood Urea Nitrogen 84 mg/dL (7-23) H Creatinine 5.8 mg/dL (0.7-1.2) H Estimat Glomerular Filtration Rate mL/min (>60) Glucose Level 177 mg/dL (74-106) H Calcium Level 6.5 mg/dL (8.6-10.2) L Phosphorus Level 8.0 mg/dL (2.5-4.8) H Magnesium Level 1.8 mg/dL (1.7-2.5) Total Bilirubin 2.6 mg/dL (0.0-1.2) H Direct Bilirubin 2.1 mg/dL (0.1-0.3) H Aspartate Amino Transf (AST/SGOT) 15 U/L (5-40) Alanine Aminotransferase (ALT/SGPT) 5 U/L (3-41) Alkaline Phosphatase 61 U/L (40-129) Total Protein 5.6 g/dL (6.6-8.7) L Albumin 1.2 g/dL (3.5-5.2) L Globulin 4.4 g/dL Albumin/Globulin Ratio 0.2 (1.0-2.7) L ADRIENNE MENDOZA Aug 10, 2016 10:10
[2016-08-10 11:42] LABS: ANISOCYTOSIS 1+; BAND NEUTROPHILS % (MANUAL) 0 % (0-8); BASOPHILS % (MANUAL) 0 % (0-2); EOSINOPHILS % (MANUAL) 0 % (0-3); LYMPHOCYTES % (MANUAL) 8 % (20-45); NEUTROPHILS % (MANUAL) 86 % (45-75); PLATELET ESTIMATE DECREASED; PLATELET MORPHOLOGY NORMAL; TOTAL CELLS COUNTED 100
[2016-08-10 11:43] LABS: HYPOCHROMASIA 1+
[2016-08-10] MEDS ORDERED: Sodium Bicarbonate 8.4% 50ml Carp ONE (12:44)
[2016-08-10] MEDS ORDERED: Calcium Chloride 10% 10ml carpuject IVP ONE (12:44)
[2016-08-10] MEDS ORDERED: EPINEPHrine 1mg/10ml carp IV ONE (12:44)
[2016-08-10] MEDS ORDERED: Tubing IV Secondary IV ONE (12:44)
--- NOTE | 2016-08-10 14:50 | General Progress Note ---
Assessment/Plan Problem List: (1) Renal insufficiency ICD Codes: N28.9 - Disorder of kidney and ureter, unspecified SNOMED: 317483246 (2) Pancytopenia ICD Codes: D61.818 - Other pancytopenia SNOMED: 604787461 (3) Multiorgan failure SNOMED: 77658578 (4) Respiratory distress ICD Codes: R06.00 - Dyspnea, unspecified SNOMED: 696151763 (5) Septic shock ICD Codes: A41.9 - Sepsis, unspecified organism; R65.21 - Severe sepsis with septic shock SNOMED: 13223658 (6) DM (diabetes mellitus) ICD Codes: E11.9 - DM (diabetes mellitus) SNOMED: 04253954 (7) Symptomatic anemia ICD Codes: D64.9 - Anemia, unspecified SNOMED: 632674632 (8) STORM (acute kidney injury) ICD Codes: N17.9 - Acute kidney failure, unspecified SNOMED: 12939544 Assessment/Plan resp failure intubated sepsis pna anemia not improving reviewed chart and meds Subjective ROS Limited/Unobtainable: Yes Constitutional: Reports: no symptoms Allergies: Coded Allergies: HEPARIN (Verified Allergy, Mild, 12/21/14) Objective Last 24 Hour Vital Signs Date Time Temp Pulse Resp B/P Pulse Ox O2 Delivery O2 Flow Rate FiO2 08/10/16 12:00 41 08/10/16 12:00 99.1 53 20 33/19 82 Mechanical Ventilator 100 08/10/16 11:56 100 08/10/16 11:13 90 21 100 08/10/16 11:00 95 20 50/36 85 Mechanical Ventilator 100 08/10/16 10:00 99 20 74/40 86 Mechanical Ventilator 100 08/10/16 09:25 106 26 100 08/10/16 09:00 161 20 109/63 90 Mechanical Ventilator 100 08/10/16 08:30 63 22 56/35 90 Mechanical Ventilator 40 08/10/16 08:15 90 28 72/50 92 Mechanical Ventilator 40 08/10/16 08:00 96.9 103 26 64/32 93 Mechanical Ventilator 40 08/10/16 08:00 40 08/10/16 07:50 104 08/10/16 07:50 97.0 08/10/16 07:45 110 26 67/30 92 Mechanical Ventilator 40 08/10/16 07:30 117 29 83/50 92 Mechanical Ventilator 40 08/10/16 07:25 92 29 40 08/10/16 07:15 115 29 89/40 98 Mechanical Ventilator 40 08/10/16 07:14 89/44 08/10/16 07:00 107 20 89/40 94 Mechanical Ventilator 40 08/10/16 06:45 104 20 86/50 94 Mechanical Ventilator 40 08/10/16 06:30 120 20 86/50 94 Mechanical Ventilator 40 08/10/16 06:15 117 20 96/53 94 Mechanical Ventilator 40 08/10/16 06:00 116 20 96/53 94 Mechanical Ventilator 40 08/10/16 06:00 96/53 08/10/16 05:45 116 20 101/47 94 Mechanical Ventilator 40 08/10/16 05:31 120 28 40 08/10/16 05:30 117 20 95/48 94 Mechanical Ventilator 40 08/10/16 05:15 117 20 112/47 94 Mechanical Ventilator 40 08/10/16 05:00 110/47 08/10/16 05:00 100.2 117 20 110/47 94 Mechanical Ventilator 40 08/10/16 04:45 115 20 93/50 94 Mechanical Ventilator 40 08/10/16 04:30 116 20 98/49 94 Mechanical Ventilator 40 08/10/16 04:15 120 20 103/60 94 Mechanical Ventilator 40 08/10/16 04:00 100.8 120 20 96/51 94 Mechanical Ventilator 40 08/10/16 04:00 96/51 08/10/16 04:00 118 08/10/16 04:00 40 08/10/16 03:45 122 20 100/58 94 Mechanical Ventilator 40 08/10/16 03:30 125 20 105/57 94 Mechanical Ventilator 40 08/10/16 03:25 126 30 40 08/10/16 03:15 125 20 105/53 94 Mechanical Ventilator 40 08/10/16 03:02 109/69 08/10/16 03:00 117 20 109/68 94 Mechanical Ventilator 40 08/10/16 02:45 121 20 114/46 94 Mechanical Ventilator 40 08/10/16 02:30 118 21 101/63 94 Mechanical Ventilator 40 08/10/16 02:15 116 21 93/45 94 Mechanical Ventilator 40 08/10/16 02:02 76/43 08/10/16 02:00 106 21 65/39 94 Mechanical Ventilator 40 08/10/16 01:45 107 21 78/40 94 Mechanical Ventilator 40 08/10/16 01:30 105 21 77/39 94 Mechanical Ventilator 40 08/10/16 01:15 112 21 94/42 94 Mechanical Ventilator 40 08/10/16 01:07 113 29 40 08/10/16 01:00 113 21 89/40 94 Mechanical Ventilator 40 08/10/16 01:00 84/42 08/10/16 00:45 109 21 82/47 94 Mechanical Ventilator 40 08/10/16 00:30 111 21 102/85 94 Mechanical Ventilator 40 08/10/16 00:15 111 21 91/68 94 Mechanical Ventilator 40 08/10/16 00:00 40 08/10/16 00:00 105 08/10/16 00:00 110 21 91/68 94 Mechanical Ventilator 40 08/10/16 00:00 91/68 08/09/16 23:45 101.1 109 21 70/49 94 Mechanical Ventilator 40 08/09/16 23:30 106 21 83/44 94 Mechanical Ventilator 40 08/09/16 23:15 111 21 65/44 94 Mechanical Ventilator 40 08/09/16 23:12 106 26 40 08/09/16 23:00 88/52 08/09/16 23:00 115 21 88/52 94 Mechanical Ventilator 40 08/09/16 22:45 123 21 79/51 94 Mechanical Ventilator 40 08/09/16 22:30 112 25 85/49 94 Mechanical Ventilator 40 08/09/16 22:15 90 25 82/38 95 Mechanical Ventilator 40 08/09/16 22:00 108 26 89/57 95 Mechanical Ventilator 40 08/09/16 22:00 89/57 08/09/16 21:45 106 25 69/43 95 Mechanical Ventilator 40 08/09/16 21:30 107 25 84/48 95 Mechanical Ventilator 40 08/09/16 21:29 101 24 40 08/09/16 21:15 106 25 78/47 95 Mechanical Ventilator 40 08/09/16 21:00 107 25 84/40 95 Mechanical Ventilator 40 08/09/16 21:00 78/47 08/09/16 20:45 110 24 72/46 95 Mechanical Ventilator 40 08/09/16 20:37 101 78/34 08/09/16 20:30 111 24 78/34 95 Mechanical Ventilator 40 08/09/16 20:15 106 24 74/57 95 Mechanical Ventilator 40 08/09/16 20:00 109 08/09/16 20:00 40 08/09/16 20:00 98.0 100 24 73/43 95 Mechanical Ventilator 40 08/09/16 20:00 73/43 08/09/16 19:45 114 25 68/48 95 Mechanical Ventilator 40 08/09/16 19:30 127 25 80/61 95 Mechanical Ventilator 40 08/09/16 19:24 115 26 40 08/09/16 19:15 116 26 98/50 95 Mechanical Ventilator 50 08/09/16 19:13 56/27 08/09/16 19:00 119 23 56/27 92 Mechanical Ventilator 50 08/09/16 18:45 120 23 85/66 92 Mechanical Ventilator 50 08/09/16 18:30 121 23 77/50 92 Mechanical Ventilator 50 08/09/16 18:15 121 23 82/48 92 Mechanical Ventilator 50 08/09/16 18:00 98.1 120 24 98/49 92 Mechanical Ventilator 50 08/09/16 17:45 119 26 84/47 92 Mechanical Ventilator 50 08/09/16 17:30 120 26 88/77 92 Mechanical Ventilator 50 08/09/16 17:15 121 26 85/69 92 Mechanical Ventilator 50 08/09/16 17:13 74/54 08/09/16 17:00 120 26 85/63 92 Mechanical Ventilator 50 08/09/16 16:53 123 24 50 08/09/16 16:45 120 23 87/56 92 Mechanical Ventilator 50 08/09/16 16:30 119 25 71/53 92 Mechanical Ventilator 50 08/09/16 16:15 120 23 88/55 92 Mechanical Ventilator 50 08/09/16 16:00 118 08/09/16 16:00 99.1 119 24 87/56 92 Mechanical Ventilator 50 08/09/16 16:00 50 08/09/16 15:45 120 23 84/55 92 Mechanical Ventilator 50 08/09/16 15:30 120 22 84/58 92 Mechanical Ventilator 50 08/09/16 15:26 128 22 50 08/09/16 15:15 119 23 89/55 92 Mechanical Ventilator 50 08/09/16 15:00 119 23 87/56 92 Mechanical Ventilator 50 08/09/16 15:00 91/56 Intake and Output 08/09/16 08/10/16 19:00 07:00 Intake Total 1790.59 ml 3034.20 ml Output Total 200 ml 2 ml Balance 1590.59 ml 3032.20 ml Intake Free Water 120 ml IV Total 1670.59 ml 3034.20 ml Output Urine Total 200 ml 2 ml Laboratory Tests 08/10/16 04:00: White Blood Count 15.8H, Red Blood Count 3.40L, Hemoglobin 8.8L, Hematocrit 29.0L, Mean Corpuscular Volume 85, Mean Corpuscular Hemoglobin 25.8L, Mean Corpuscular Hemoglobin Concent 30.3L, Red Cell Distribution Width 17.5H, Platelet Count 59L, Mean Platelet Volume 10.5H, Neutrophils (%) (Auto) , Lymphocytes (%) (Auto) , Monocytes (%) (Auto) , Eosinophils (%) (Auto) , Basophils (%) (Auto) , Differential Total Cells Counted 100, Neutrophils % ( Manual) 86H, Lymphocytes % (Manual) 8L, Monocytes % (Manual) 6, Eosinophils % ( Manual) 0, Basophils % (Manual) 0, Band Neutrophils 0, Platelet Estimate DecreasedL, Platelet Morphology Normal, Hypochromasia 1+, Anisocytosis 1+, Prothrombin Time 29.2H, Prothromb Time International Ratio 2.8H, Activated Partial Thromboplast Time 85H, Sodium Level 127L, Potassium Level 5.9H, Chloride Level 90L, Carbon Dioxide Level 10L, Anion Gap 27H, Blood Urea Nitrogen 84H, Creatinine 5.8H, Estimat Glomerular Filtration Rate , Glucose Level 177H, Calcium Level 6.5L, Phosphorus Level 8.0H, Magnesium Level 1.8, Total Bilirubin 2.6H, Direct Bilirubin 2.1H, Aspartate Amino Transf (AST/SGOT) 15, Alanine Aminotransferase (ALT/SGPT) 5, Alkaline Phosphatase 61, Total Protein 5.6L, Albumin 1.2L, Globulin 4.4, Albumin/Globulin Ratio 0.2L Height (Feet): 5 Height (Inches): 4.00 Weight (Pounds): 180 General Appearance: lethargic, confused Jose Traore MD Aug 10, 2016 14:50
--- NOTE | 2016-08-10 14:59 | Emergency Room Report ---
History of Present Illness General Chief Complaint: Dyspnea/Respdistress Source: Medical Record Present Illness Allergies: Coded Allergies: HEPARIN (Verified Allergy, Mild, 12/21/14) Nursing Documentation-PMH Hx Cardiac Problems: Yes - HF ,A-FIB,CHF, ANEMIA, HYPERLIPIDEMIA, PANCYTOPENIA , AZOTEMIA Hx Hypertension: Yes - CELLULITIS Hx Diabetes: Yes - TYPE 2 Hx Cancer: No Hx Gastrointestinal Problems: Yes - GERD Hx Neurological Problems: No Physical Exam Vital Signs Date Time Temp Pulse Resp B/P Pulse Ox O2 Delivery O2 Flow Rate FiO2 08/05/16 15:04 98.4 172 22 134/76 92 Non-Rebreather 15.0 08/05/16 15:19 100 Procedures CPR/Code Blue CPR/Code Blue Narrative See code sheet Medical Decision Making Diagnostic Impression: Primary Impression: Respiratory distress Additional Impressions: Multiorgan failure Septic shock Symptomatic anemia ER Course The patient presented for a CODE BLUE. The patient was noted to have bradycardia. Patient was given epi prior to arrival. See code sheet for full medications. The patient was given IV calcium and had a return spontaneous circulation. Patient had attempt at cardioversion x1 with continued tachycardia. The patient was noted to have improved blood pressure. Dr. van was contacted with the patient's condition Last Vital Signs Date Time Temp Pulse Resp B/P Pulse Ox O2 Delivery O2 Flow Rate FiO2 08/10/16 12:00 41 08/10/16 12:00 99.1 20 33/19 82 Mechanical Ventilator 100 08/05/16 19:54 15.0 Disposition: ADMITTED INPATIENT Condition: Serious Referrals: Jose Traore MD (PCP) Luis M Mcfarland Aug 10, 2016 14:59
--- NOTE | 2016-08-13 09:52 | Discharge Summary ---
Discharge Summary Hospital Course Date of Admission Aug 05, 2016 at 19:19 Date of Discharge Aug 10, 2016 at 12:45 Admitting Diagnosis respiratory failure, ascites HPI Gonsalo Harrison is a 75 year old male who was admitted on Aug 05, 2016 at 19: 19 for Respiratory Failure,Ascites Hospital Course summary [id number] Discharge Discharge Disposition Patient at 1245 08/10/16 Discharge Diagnoses: Discharge Instructions Discharge Instructions Special Instructions I have been assigned to complete a D/C Summary on this account. I was not involved in the patient management Donna Trujillo NP ([place]te[place]) Aug 13, 2016 09:52
--- NOTE | 2016-08-13 22:48 | Discharge Summary 2 SIG ---
DATE OF ADMISSION: 08/05/2016 DATE OF EXPIRATION: 08/10/2016 REASON FOR ADMISSION: 75-year-old male was brought to the emergency department from the longterm facility due to the respiratory distress . The patient noted to be hypotensive in the emergency department, was on 100% nonrebreathing mask placed by paramedics. The patient required an emergency intubation in the emergency department due to the acute respiratory failure and hypoxemia. Workup in the emergency room revealed leukocytosis of 13.9, hemoglobin was 7, hematocrit 22.3, lactic acid was 4.3, potassium was 5.9, BUN 103, and creatinine 6.9. The patient was started on the IV fluids. Septic workup was initiated. and patient was transferred to ICU for further management. Urologist was called on the bedside due to the severe phimosis and urinary retention. The patient had a Acevedo catheter inserted by urologist. Urologist recommended further urology care when more stable and continue to keep Acevedo in. ADMITTING DIAGNOSES: 1. Septic shock. 2. Acute hypoxemic respiratory failure, requiring emergency intubation. 3. Acute symptomatic anemia. 4. Acute tubular necrosis likely secondary to septic shock. 5. Multiorgan failure. 6. Hyperkalemia. 7. Severe phimosis. HOSPITAL STAY: The patient was admitted to ICU. The patient was started on pressors. Septic workup initiated. The patient was started on empiric antibiotics. ID followed. Blood culture revealed E. coli. Right ankle wound revealed Providencia enterococcus. Sputum culture with Neema, otherwise negative. Chest x-ray revealed large left pleural effusion. Echocardiogram revealed ejection fraction of 30% to 35% and right ventricular systolic pressure of 80 consistent with severe pulmonary hypertension, as well as severe mitral regurgitation and severe tricuspid regurgitation. Ankle x-ray revealed no evidence of definite acute osteomyelitis. The patient was treated with antibiotics. Abdominal ultrasound revealed a suspected chronic liver disease due to the liver texture and coarseness as well as the complex ascites with multiple septations, possible peritonitis. Ventilator care was provided. Pulmonary toilet was provided. Trailer Park Manager followed closely. The patient was followed up with daily chest x-ray and ABG. Thoracentesis was not attempted due to unstable condition. Bilingual Patient Support Caseworker and glass etcher helper followed. Renal parameters only with minimum improvement. Per superintendent transportation, acute tubular necrosis was likely secondary to septic shock. The patient was gently hydrated due to cardiomyopathy. Midodrine added for for blood pressure support. Anemia likely anemia of chronic disease, rule out GI bleeding. Stool OB was not collected. Potassium remained high despite treatment, and creatinine only with a small improvement to 5.8. 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 FiO2 on ventilator was increased to 100%. The patient was on maximum pressors doses. Due to the septic shock with multiorgan failure and no improvement and futility of the treatment;- all the physicians recommended DNR status and palliative care. The patient had no family member and no assigned power of assistant prosecuting attorney. According to consensus by consultants, the patient became DNR status. Pressors were discontinued. The patient's condition gradually deteriorated , and he at 12:45 the same day. Cause of -cardiopulmonary arrest. FINAL DIAGNOSES: 1. Septic shock ( requiring pressors) 2. Sepsis with bacteremia. 3. Acute hypoxemic respiratory failure, requiring intubation. 4. Acute symptomatic anemia. 5. Possible gastrointestinal bleeding. 6. Acute tubular necrosis likely on chronic renal insufficiency. 7. Hyperkalemia. 8. Multiorgan failure. 9. Severe phimosis. 10. Atrial fibrillation. 11. Systolic heart failure. 12. Cardiomyopathy. 13. Cirrhosis. 14. Thrombocytopenia. 15. Diabetes mellitus. 16. Right ankle wound. 17. Severe pulmonary hypertension. 18. Left large pleural effusion. 19. Severe mitral regurgitation. 20. Severe tricuspid regurgitation. Jose Traore M.D. I have been assigned to dictate discharge summary on this account and I was not involved in the patient's management. Donna Gannonmarty N.PAnnalisa DR: TYRESE JOB#: [id number] CC: MANI
== END 2016-08-10 12:45 | disposition expired | DRG 720 ==
LOC: EDBD 15:28 → EDSEX 15:28 → EMR 15:58 → EDBEDREQ 19:07 → ICU 19:19
PROC: 5A1955Z Respiratory Ventilation, Greater than 96 Consecutive Hours (ICD-10-PCS; principal; 2016-08-05)
PROC: 0BH17EZ Insertion of Endotracheal Airway into Trachea, Via Natural or Artificial Opening (ICD-10-PCS; 2016-08-05)
PROC: 05HM33Z Insertion of Infusion Device into Right Internal Jugular Vein, Percutaneous Approach (ICD-10-PCS; 2016-08-05)
PROC: 30233N1 Transfusion of Nonautologous Red Blood Cells into Peripheral Vein, Percutaneous Approach (ICD-10-PCS; 2016-08-06)
DX: A41.51 Sepsis due to Escherichia coli [E. coli] (principal); N17.0 Acute kidney failure with tubular necrosis; J96.01 Acute respiratory failure with hypoxia; R65.21 Severe sepsis with septic shock; I50.43 Acute on chronic combined systolic (congestive) and diastolic (congestive) heart failure; L89.224 Pressure ulcer of left hip, stage 4; L89.894 Pressure ulcer of other site, stage 4; D61.818 Other pancytopenia; E11.8 Type 2 diabetes mellitus with unspecified complications; R18.8 Other ascites; I42.0 Dilated cardiomyopathy; D69.6 Thrombocytopenia, unspecified; D64.9 Anemia, unspecified; S91.001A Unspecified open wound, right ankle, initial encounter; E87.5 Hyperkalemia; N47.1 Phimosis; K92.2 Gastrointestinal hemorrhage, unspecified; K74.60 Unspecified cirrhosis of liver; Z66 Do not resuscitate; Z51.5 Encounter for palliative care; I08.1 Rheumatic disorders of both mitral and tricuspid valves; B95.2 Enterococcus as the cause of diseases classified elsewhere; I27.2 Other secondary pulmonary hypertension; F20.0 Paranoid schizophrenia; E78.5 Hyperlipidemia, unspecified; E03.9 Hypothyroidism, unspecified; Z88.8 Allergy status to other drugs, medicaments and biological substances; K40.90 Unilateral inguinal hernia, without obstruction or gangrene, not specified as recurrent; E88.09 Other disorders of plasma-protein metabolism, not elsewhere classified; L03.116 Cellulitis of left lower limb; L03.115 Cellulitis of right lower limb; D63.8 Anemia in other chronic diseases classified elsewhere; I48.2 Chronic atrial fibrillation; L89.159 Pressure ulcer of sacral region, unspecified stage; L89.313 Pressure ulcer of right buttock, stage 3; E46 Unspecified protein-calorie malnutrition; R62.7 Adult failure to thrive
CPT/HCPCS: 36415; 36600; 71010; 76700; 76775; 80053; 81003; 82248; 82533; 82550; 82553; 82607; 82728; 82803; 82962; 82977; 83036; 83540; 83550; 83605; 83690; 83735; 83880; 84100; 84443; 84484; 84550; 85007; 85025; 85044; 85060; 85610; 85651; 85730; 86140; 86703; 86705; 86709; 86803; 86850; 86900; 86901; 86920; 87040; 87070; 87081; 87181; 87205; 87340; 93005; 93306; 93970; 94002; 94003; 94640; 94664; J0171; J1815; J2405; S0077